=== PATIENT | female | born 1950 | race Caucasian/White ===

== ENCOUNTER → 2017-08-26 | Outpatient (CLI) | payer MEDICARE, OTHER, SELFPAY | PROVIDERS: Visit Provider Nurse Practitioner Family | DX: E11.9 Type 2 diabetes mellitus without complications (principal) | CPT/HCPCS: 36415; 80053; 80061; 82043; 82570; 83036 ==

== ENCOUNTER → 2018-04-26 12:44 | Outpatient (CLI) | payer MEDICARE, OTHER, SELFPAY ==
--- NOTE | 2018-04-26 12:48 | US_ITS ---
US transvaginal (Added corrected Report after additional history) Ordering Physician: Nikki Rowe MD Patient Age: 67 years: Female HISTORY: ITS.REASON: Pelvic US T/V- F/U on Endometrial Hyperplasia history of endometrial hyperplasia. Patient on hormone replacement TECHNIQUE: Transvaginal pelvic ultrasound. COMPARISON :. No previous pelvic ultrasound studies. CT of abdomen and pelvis 2003 of limited value for comparison. FINDINGS Uterus appears normal in size measuring 6.5 cm length x 3 cm AP x 4.3 cm wide At level of mid body of the uterus the hyperechoic endometrial stripe appears very thin., measuring 2-3 mm AP.. Subtle additional observation is Adjacent to the endometrial stripe we see accentuated sub endometrial halo in this patient. This is the area of slight relatively hypoechoic tissue just adjacent endometrium. This seems to be accentuated in this postmenopausal patient likely due to a exogenous hormone effect.. This feature More typically encountered in younge premenstrual r patients. .. . More superiorly & towards fundus of uterus, there is more more generous hyperechoic endometrial stripe measuring up to 6 mm AP.. With the endometrium in this area notably right and hyperechoic possibly could reflect minimal hemorrhage or other features here slightly more generous.. Again we see the subendometrial halo appearance noted above surrounding this hyperechoic endometrial stripe. Also Note its posterior margin is slightly scalloped slightly irregular on one or 2 images.. Curious Nonspecific observation but noted . No discrete fibroid at the uterus and the uterus is normal in size. Very slight, inhomogeneous appearance of myometrium anteriorly but no discrete fibroid or mass. Ovaries normal size and unremarkable Right ovary 2.3 x 1.3 x 1.5 cm Left ovary 1.5 x 1 x 1.35 cm. No fluid in cul-de-sac IMPRESSION: Uterus is normal in size.. No discrete fibroids evident Endometrium overall normal thickness at mid body of uterus, but noting slight more generous thickness hyperechoic endometrium at the more superior endometrial cavity towards fundus... Very hyperechoic endometrium noted here at fundus, with question of slight scalloped slight irregular margin here.. Ovaries appear normal in size and unremarkable.. No fluid in cul-de-sac.
== END ==
PROVIDERS: Family Provider Nurse Practitioner Family; PCP Internal Medicine Adolescent Medicine; Visit Provider Obstetrics & Gynecology
DX: N85.00 Endometrial hyperplasia, unspecified (principal)
CPT/HCPCS: 76830

== ENCOUNTER → 2020-05-01 13:49 | Outpatient (POV) | payer MEDICARE, OTHER, SELFPAY | PROVIDERS: Visit Provider Dermatology | DX: Z00.00 Encounter for general adult medical examination without abnormal findings (principal) ==

== ENCOUNTER → 2021-01-28 10:58 | Outpatient (CLI) | payer MEDICARE, OTHER, MEDICAID, SELFPAY ==
[2021-01-28 12:19] LABS: Alanine Aminotransferase 26 U/L (12-78); Albumin Level 4.1 g/dl (3.5-5.0); Albumin/Globulin Ratio 1.5 (1.1-1.8); Alkaline Phosphatase 79 U/L (38-126); Anion Gap 10.5 mEq/L (5-15); Aspartate Amino Transferase 24 U/L (14-36); Bilirubin,Total 0.5 mg/dl (0.2-1.3); Blood Urea Nitrogen 15 mg/dl (7-17); Calcium 9.5 mg/dl (8.4-10.2); Carbon Dioxide 34 mmol/L (22.0-30.0); Chloride 100 mmol/L (98-107); Chol/HDL Ratio 6.1 (1-3.5); Cholesterol 182 mg/dl (140-200); Estimated Glomerular Filt Rate 71 ml/min (>60); GFR (African American) 86 ML/MIN (>60); Globulin 2.8 g/dL (1.3-3.2); Glucose 102 mg/dl (74-100); HDL Cholesterol 30 mg/dl (40-60); Potassium 4.5 mmoL/L (3.5-5.1); Sodium 140 mmol/L (136-145); Total Protein,Serum 6.9 g/dl (6.3-8.2); Triglycerides 382 mg/dl (30-150); VLDL Cholesterol 76 mg/dL (0-40)
[2021-01-28 12:30] LABS: Direct LDL Cholesterol 92.28 mg/dL (100-129)
[2021-01-28 13:54] LABS: Creatinine,Urine Random 27 mg/dL (Not Estab.); Hemoglobin A1C 8.2 % (4.0-6.0)
[2021-01-28 13:58] LABS: Microalbumin/Creatinine Ratio 61.4
== END ==
PROVIDERS: Visit Provider Nurse Practitioner Family
DX: E11.65 Type 2 diabetes mellitus with hyperglycemia (principal); E78.2 Mixed hyperlipidemia; Z79.4 Long term (current) use of insulin
CPT/HCPCS: 36415; 80053; 80061; 82043; 82570; 83036

== ENCOUNTER → 2021-05-16 12:04 | Outpatient (CLI) | payer MEDICARE, OTHER, MEDICAID, SELFPAY ==
[2021-05-16 13:57] LABS: Alanine Aminotransferase 48 U/L (12-78); Albumin Level 3.9 g/dl (3.5-5.0); Albumin/Globulin Ratio 1.4 (1.1-1.8); Alkaline Phosphatase 84 U/L (38-126); Anion Gap 14.2 mEq/L (5-15); Aspartate Amino Transferase 37 U/L (14-36); Bilirubin,Total 0.4 mg/dl (0.2-1.3); Blood Urea Nitrogen 18 mg/dl (7-17); Calcium 9.7 mg/dl (8.4-10.2); Carbon Dioxide 32 mmol/L (22.0-30.0); Chloride 98 mmol/L (98-107); Chol/HDL Ratio 6.7 (1-3.5); Cholesterol 195 mg/dl (140-200); Estimated Glomerular Filt Rate 71 ml/min (>60); GFR (African American) 86 ML/MIN (>60); Globulin 2.7 g/dL (1.3-3.2); Glucose 228 mg/dl (74-100); HDL Cholesterol 29 mg/dl (40-60); Potassium 5.2 mmoL/L (3.5-5.1); Sodium 139 mmol/L (136-145); Total Protein,Serum 6.6 g/dl (6.3-8.2); Triglycerides 344 mg/dl (30-150); VLDL Cholesterol 69 mg/dL (0-40)
[2021-05-16 14:08] LABS: Direct LDL Cholesterol 99.87 mg/dL (100-129)
[2021-05-16 14:38] LABS: Hemoglobin A1C 8.1 % (4.0-6.0)
== END ==
PROVIDERS: Visit Provider Nurse Practitioner Family
DX: E11.65 Type 2 diabetes mellitus with hyperglycemia (principal); I10 Essential (primary) hypertension; E78.2 Mixed hyperlipidemia; Z79.4 Long term (current) use of insulin
CPT/HCPCS: 80053; 80061; 83036

== ENCOUNTER → 2022-01-23 10:49 | Outpatient (CLI) | payer MEDICARE, OTHER, MEDICAID, SELFPAY ==
[2022-01-23 14:28] LABS: Basophils # 0.1 K/mm3 (0-0.2); Basophils % 0.8 % (0.1-2.0); Eosinophils # 0.1 K/mm3 (0.0-0.4); Eosinophils % 1.6 % (0.1-12.0); Hematocrit 42.3 % (37.0-47.0); Hemoglobin 14.2 g/dL (12.2-16.2); Lymphocytes # 1.4 K/mm3 (0.7-4.5); Lymphocytes % 21.4 % (10-50); Mean Corpuscular HGB Conc 33.5 g/dL (31.8-35.4); Mean Corpuscular Hemoglobin 31.3 pg (27.0-31.2); Mean Corpuscular Volume 93.5 fl (81-99); Mean Platelet Volume 8.7 fl (7.4-10.4); Monocytes # 0.3 K/mm3 (0.1-1.0); Monocytes % 5.2 % (1.7-9.3); Neutrophils # 4.6 K/mm3 (1.8-7.8); Platelet Count 221 K/mm3 (142-424); Red Blood Count 4.53 M/mm3 (4.20-5.40); Red Cell Distribution Width 14.5 % (11.5-17.5); White Blood Count 6.5 K/mm3 (4.8-10.8)
[2022-01-23 14:49] LABS: Chloride 102 mmol/L (98-107); Potassium 4.5 mmoL/L (3.5-5.1); Sodium 139 mmol/L (136-145)
[2022-01-23 14:52] LABS: Alanine Aminotransferase 47 U/L (12-78); Albumin Level 3.9 g/dl (3.5-5.0); Albumin/Globulin Ratio 1.7 (1.1-1.8); Alkaline Phosphatase 76 U/L (38-126); Anion Gap 12.5 mEq/L (5-15); Aspartate Amino Transferase 28 U/L (14-36); Bilirubin,Total 0.6 mg/dl (0.2-1.3); Blood Urea Nitrogen 15 mg/dl (7-17); Calcium 9.9 mg/dl (8.4-10.2); Carbon Dioxide 29 mmol/L (22.0-30.0); Estimated Glomerular Filt Rate 71 ml/min (>60); GFR (African American) 86 ML/MIN (>60); Globulin 2.3 g/dL (1.3-3.2); Glucose 210 mg/dl (74-100); Total Protein,Serum 6.2 g/dl (6.3-8.2)
[2022-01-24 10:03] LABS: HIV Screen 4th Generation wRfx Non Reactive (Non Reactive)
[2022-01-25 18:12] LABS: QuantiFERON-TB Gold Plus Negative (Negative)
[2022-02-01 19:08] LABS: Hep A Ab, IgM NEGATIVE
[2022-02-01 19:09] LABS: Hepatitis B Core Antibody IgM NEGATIVE; Hepatitis B Surface Antigen NEGATIVE; Hepatitis C Antibody <0.1
== END ==
PROVIDERS: Visit Provider Dermatology
DX: L40.0 Psoriasis vulgaris (principal); Z79.899 Other long term (current) drug therapy; Z11.4 Encounter for screening for human immunodeficiency virus [HIV]
CPT/HCPCS: 36415; 80053; 80074; 85025; 86480; 86703; G0432

== ENCOUNTER → 2022-05-16 08:22 | Outpatient (CLI) | payer MEDICARE, OTHER, MEDICAID, SELFPAY | PROVIDERS: PCP Family Medicine; Visit Provider Family Medicine | DX: R30.0 Dysuria (principal); B96.1 Klebsiella pneumoniae [K. pneumoniae] as the cause of diseases classified elsewhere | CPT/HCPCS: 87086; 87088; 87186 ==

== ENCOUNTER → 2022-06-24 13:04 | Outpatient (CLI) | payer MEDICARE, OTHER, MEDICAID, SELFPAY ==
[2022-06-24 20:25] LABS: Basophils # 0.1 K/mm3 (0-0.2); Basophils % 1.1 % (0.1-2.0); Eosinophils # 0.6 K/mm3 (0.0-0.4); Eosinophils % 8.6 % (0.1-12.0); Hemoglobin 14.4 g/dL (12.2-16.2); Lymphocytes # 1.7 K/mm3 (0.7-4.5); Lymphocytes % 25.3 % (10-50); Mean Corpuscular HGB Conc 31.9 g/dL (31.8-35.4); Mean Corpuscular Hemoglobin 29.7 pg (27.0-31.2); Mean Corpuscular Volume 93.2 fl (81-99); Mean Platelet Volume 8.7 fl (7.4-10.4); Monocytes # 0.3 K/mm3 (0.1-1.0); Monocytes % 4.6 % (1.7-9.3); Neutrophils # 4.1 K/mm3 (1.8-7.8); Neutrophils % 60.4 % (37.0-80.0); Platelet Count 240 K/mm3 (142-424); Red Blood Count 4.83 M/mm3 (4.20-5.40); Red Cell Distribution Width 15.6 % (11.5-17.5); White Blood Count 6.7 K/mm3 (4.8-10.8)
[2022-06-24 21:06] LABS: Alanine Aminotransferase 34 U/L (12-78); Albumin/Globulin Ratio 1.5 (1.1-1.8); Alkaline Phosphatase 92 U/L (38-126); Anion Gap 16.6 mEq/L (5-15); Aspartate Amino Transferase 29 U/L (14-36); Bilirubin,Total 0.3 mg/dl (0.2-1.3); Blood Urea Nitrogen 17 mg/dl (7-17); Calcium 9.6 mg/dl (8.4-10.2); Carbon Dioxide 30 mmol/L (22.0-30.0); Chloride 99 mmol/L (98-107); Chol/HDL Ratio 5.3 (1-3.5); Cholesterol 174 mg/dl (140-200); Estimated Glomerular Filt Rate 71 ml/min (>60); GFR (African American) 85 ML/MIN (>60); Globulin 2.7 g/dL (1.3-3.2); Glucose 128 mg/dl (74-100); HDL Cholesterol 33 mg/dl (40-60); Potassium 4.6 mmoL/L (3.5-5.1); Sodium 141 mmol/L (136-145); Total Protein,Serum 6.7 g/dl (6.3-8.2); Triglycerides 228 mg/dl (30-150); VLDL Cholesterol 46 mg/dL (0-40)
[2022-06-24 21:10] LABS: Hemoglobin A1C 6.9 % (4.0-6.0)
[2022-06-24 21:18] LABS: Direct LDL Cholesterol 96.59 mg/dL (100-129)
[2022-06-24 21:27] LABS: Microalbumin/Creatinine Ratio 130.1
[2022-06-24 21:29] LABS: Creatinine,Urine Random 92 mg/dL (Not Estab.)
[2022-06-24 21:36] LABS: Thyroid Stimulating Hormone 1.83 uIU/mL (0.465-4.68)
== END ==
PROVIDERS: PCP Family Medicine; Visit Provider Family Medicine
DX: E11.9 Type 2 diabetes mellitus without complications (principal); E78.5 Hyperlipidemia, unspecified; I10 Essential (primary) hypertension; Z79.4 Long term (current) use of insulin
CPT/HCPCS: 80053; 80061; 82043; 82570; 83036; 84443; 85025

== ENCOUNTER → 2022-06-27 09:36 | Outpatient (CLI) | payer MEDICARE, MEDICAID, SELFPAY | PROVIDERS: PCP Family Medicine; Visit Provider Family Medicine | DX: R06.00 Dyspnea, unspecified (principal) | CPT/HCPCS: 94060 ==

== ENCOUNTER → 2022-07-03 11:19 | Outpatient (CLI) | payer MEDICARE, MEDICAID, SELFPAY ==
--- NOTE | 2022-07-03 | CA_ITS ---
APPROVED REPORT Exam: Pharmacologic Technologist: Radha Morton, Ht: 4 ft 11 in Wt: 181 lbs BSA: 1.77 m2 HR: 75 bpm BP: 190/65 mmHg Rhythm: NSR, ST ABNS INFERIORLY AND LATERALLY Indications: SOA Medical History Medical History: HTN, , Hyperlipidemia, Diabetes Medications: Amlodipine,,,,, Lisinopril,,,,, Omeprazole,,,,, Aspirin,,,,, Metformin,,,,, Atorvastatin,,,,, HCTZ,,,,, Diclofenac,,,,, ProAir,,,,, BisOPROLOL,,,,, LanTUS,,,,, BiOTIN,,,,, Allergies: AMOXICILLIN, CLAVULANIC ACID Cardiac Risk Factors: HTN, Hyperlipidemia, Diabetes Stress Test Details Test: LEXISCAN HR Resting HR: 75 bpm Max Heart Rate (APMHR): 148.798747 bpm Max HR Achieved: 111 bpm Target HR (85% APMHR): 125.234271 bpm % of APMHR: 75.00 Recovery HR: 92 bpm BP Resting BP: 190/65 mmHg Max BP: 191/69 mmHg Recovery BP: 167.0/68.0 mmHg ECG Resting ECG: NSR, ST ABNS INFERIORLY AND LATERALLY Clinical Exercise duration: 04:00 min Highest Stage Achieved: Stress ECG Conclusion PT HAD STOMACH DISCOMFORT NO CP OCC PVC EXAGGERATION OF BASELINE ST ABNS WITH APPRX 1MM OF HORIZONTAL ST DEPRESSION INFERIORLY AND LATERALLY NON-DIAGNOSTIC LEXISCAN STRESS MYOVIEW IMAGES REPORTED SEPARATELY Test Summary REST 07:44 . . 75 . 190/ 65 . . Stage 1 01:00 . . 108 . . . . Stage 2 01:00 . . 107 . . . . Stage 3 01:00 . . 106 . 178/ 73 . . Stage 4 01:00 . . 99 . 191/ 69 . Stop exercise at 04:00 RECOVERY 01:00 . . 99 . . . . RECOVERY 02:00 . . 97 . 165/ 80 . . RECOVERY 03:00 . . 95 . 165/ 80 . . RECOVERY 04:00 . . 94 . 150/ 66 . . RECOVERY 05:00 . . 95 . 150/ 66 . . RECOVERY 06:00 . . 97 . 167/ 68 . . RECOVERY 07:00 . . 91 . . . RECOVERY 07:24 . . 91 . . . Electronically signed by : Jez Pacheco MD 07/04/2022 12:14:41
--- NOTE | 2022-07-03 11:20 | NM_ITS ---
APPROVED REPORT Exam: Nuclear Stress Test Indication: SOB, Palpitations, Obesity, HTN, DM, High cholesterol Patient Location: Outpatient Stress Tech: Radha Haley ME Tech:Trish Ulloa, ARRT, RT (R)(N) Ht: 5 ft 1 in Wt: 180 lbs Bra Size: DD HR: 75 bpm BP: 190/65 mmHg BSA: 1.81 m2 TID: 1.16 BMI: 34.0 History: SOB, Palpitations, Obesity, HTN, DM, High cholesterol Procedure: Patient received a 0.4 mg of intravenous Lexiscan, resting heart rate 75 bpm, resting blood pressure 190/65 mmHg, with Lexiscan maximum heart rate achived was 111 bpm which is Less than 85 % of the maximum predicted heart rate and blood pressure was 191/69 mmHg. With Lexiscan, patient denied any complaint of chest pain. Electrocardiogram Resting electrocardiogram shows sinus rhythm nonspecific ST-T changes, with Lexiscan there is additional millimeter ST segment depression noted from the baseline EKG. The EKG portion of the Lexiscan is nondiagnostic Cardiac Stress and Resting SPECT Images: Cardiac Stress and Resting SPECT images were obtained using technetium 99m Myoview 32.4 mCi stress and 10.84 mCi at rest. Gated SPECT for analysis of segmental wall motion and calculation of the ejection fraction also done. Cardiac stress and rest SPECT images show reversible ischemia involving the anterior, apex and anteroseptal wall, computer derived ejection fraction is 57% with no regional wall motion abnormality, right ventricle is normal size and contractility. Conclusion: 1. The EKG portion of the Lexiscan is nondiagnostic. 2. Scintigraphic evidence of reversible ischemia involving the anterior, apex and anteroseptal wall, computer derived ejection fraction 57% with no regional wall motion abnormality, right ventricle is normal size and contractility. 3. Abnormal Lexiscan Myoview study. Electronically signed by : Jez Pacheco MD 07/04/2022 12:18:19
--- NOTE | 2022-07-03 11:28 | CA_ITS ---
APPROVED REPORT EXAM: Comprehensive 2D, Doppler, and color-flow Echocardiogram Clinical Social Worker: Lilian Hernandez RVT Ht: 4 ft 11 in Wt: 181lbs BSA: 1.77 BP: 162/92 mmHg Indications: ROSA,HTN,HLD,DM,EX SMOKER 2D Dimensions LVOT 3.20 cm (M/F) 1.5-2.5 LA Volume 22.10 mL LA Volume Index 12.55 mL/m2 (M/F) 16-34 M-Mode Dimensions RVDd 2.60 cm (0.9-2.6) LA Diam 3.26 cm (1.9-4.0) LVDd 3.92 cm (3.5-5.7) Ao Diam 3.41 cm (2.0-3.7) LVDs 2.51 cm (3.5-5.7) IVSd 1.66 cm (0.6-1.1) PWd 1.36 cm (0.6-1.1) EF (Teich) 66.30% FS 36.00% EDV (Teich) 66.70 mL ESV (Teich) 22.50 mL LV Diastology E Decel Time 143.00 (160-240 msec) E/A Ratio 0.5 MED E' 2.50 (< 7 cm/sec) E'/MED E' Ratio 20.56 (>14) LAT E' 3.70 (<10 cm/sec) E/LAT E' Ratio 13.89 (>14) Aortic Valve AI PHT 697.00 ms AO Peak GR. 5.70 mmHg Mitral Valve MV E Max Ric. 51.00 (40-130 cm/s) MV A Velocity 111.00 (40-130 cm/s) E/A Ratio 0.46 MV Decel. Time 143.00 (160-240 ms) MV PHT 42.00 ms Pulmonary Valve PV Peak Velocity 77.00 (50-150 cm/s) Left Ventricle Left atrium is mildly enlarged, left ventricle is normal size, mild concentric left ventricular hypertrophy, estimated ejection fraction 55% with no regional wall motion abnormality, grade 1 diastolic dysfunction seen with tissue Doppler evidence of raise left atrial pressure. Right Ventricle Right atrium and right ventricle are normal size and contractility. Aortic Valve Aortic valve is minimally thickened and fibrosed there is no aortic stenosis, there is mild aortic insufficiency. Mitral Valve Mitral valve is grossly normal, there is mild mitral regurgitation. Tricuspid Valve Tricuspid valve is grossly normal, there is mild tricuspid regurgitation, tricuspid regurgitation jet velocity is inadequate for calculation of the right ventricular systolic pressure. Pulmonic Valve Pulmonic valve is poorly visualized. Great Vessels Aortic root is normal size. Inferior vena cava is normal size with normal inspiratory collapse. Pericardium No significant pericardial effusion noted. Conclusion 1. Normal left ventricular size mild concentric left ventricular hypertrophy, estimated ejection fraction 55% with no regional wall motion abnormality, grade 1 diastolic dysfunction seen with tissue Doppler evidence of raise left atrial pressure. 2. Mild aortic, mitral and tricuspid regurgitation. 3. No significant pericardial effusion noted. 4. Inferior vena cava is normal size with normal inspiratory collapse. Electronically signed by : Jez Pacheco MD 07/04/2022 14:44:45
--- NOTE | 2022-07-03 14:34 | HMH.ITSHM ---
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 []SECUKINUMAB OMEPRAZOLE MULTIVITAMIN MEDROXYPROGESTERONE LISINOPRIL INSULIN HCTZ DICLOFENAC CLOBETASOL CALCIUM BISOPROLOL BIOTIN ATORVASTATIN ASA AMLODIPINE ALBUTEROL
== END ==
PROVIDERS: PCP Family Medicine; Visit Provider Family Medicine
DX: M19.90 Unspecified osteoarthritis, unspecified site (principal); R06.00 Dyspnea, unspecified
CPT/HCPCS: 78452; 93017; 93306; A9502; J2785

== ENCOUNTER → 2022-07-30 13:50 | Outpatient (CLI) | payer MEDICARE, MEDICAID, SELFPAY ==
[2022-07-30 14:26] LABS: Basophils # 0.1 K/mm3 (0-0.2); Basophils % 0.7 % (0.1-2.0); Eosinophils # 0.1 K/mm3 (0.0-0.4); Eosinophils % 1.6 % (0.1-12.0); Hematocrit 43.6 % (37.0-47.0); Lymphocytes # 1.7 K/mm3 (0.7-4.5); Lymphocytes % 21.8 % (10-50); Mean Corpuscular HGB Conc 32.1 g/dL (31.8-35.4); Mean Corpuscular Hemoglobin 30.2 pg (27.0-31.2); Mean Corpuscular Volume 94.1 fl (81-99); Mean Platelet Volume 8.1 fl (7.4-10.4); Monocytes # 0.3 K/mm3 (0.1-1.0); Monocytes % 4.1 % (1.7-9.3); Neutrophils # 5.6 K/mm3 (1.8-7.8); Neutrophils % 71.8 % (37.0-80.0); Platelet Count 239 K/mm3 (142-424); Red Blood Count 4.63 M/mm3 (4.20-5.40); Red Cell Distribution Width 15.6 % (11.5-17.5); White Blood Count 7.8 K/mm3 (4.8-10.8)
[2022-07-30 14:54] LABS: Anion Gap 19.4 mEq/L (5-15); Blood Urea Nitrogen 27 mg/dl (7-17); Calcium 10.7 mg/dl (8.4-10.2); Carbon Dioxide 32 mmol/L (22.0-30.0); Chloride 92 mmol/L (98-107); Estimated Glomerular Filt Rate 62 ml/min (>60); GFR (African American) 74 ML/MIN (>60); Glucose 257 mg/dl (74-100); Potassium 4.4 mmoL/L (3.5-5.1); Sodium 139 mmol/L (136-145)
== END ==
PROVIDERS: PCP Family Medicine; Visit Provider Nurse Practitioner
DX: I10 Essential (primary) hypertension (principal)
CPT/HCPCS: 36415; 80048; 85025

== ENCOUNTER → 2022-08-07 07:21 | Outpatient (CLI) | payer MEDICARE, MEDICAID, SELFPAY ==
--- NOTE | 2022-08-07 07:22 | CA_ITS ---
FINAL REPORT TECHNIQUE: Grayscale, color Doppler and duplex Doppler ultrasound of the kidneys, aorta and renal arteries was performed. Multiple velocities were measured. CLINICAL HISTORY: htn,hld,dm,hx smoking FINDINGS: Aorta velocity: 107.6 cm/sec Right kidney: 10.4 cm. No evidence of hydronephrosis or mass. Right intrarenal RI: 0.61 Right renal artery velocity: 140 cm/sec. Right RAR (Renal artery-Aortic Ratio): 1.3 Left Kidney: 10.8 cm. No evidence of hydronephrosis or mass. Left intrarenal RI: 0.82 Left renal artery velocity: 160 cm/sec. Left RAR (Renal Artery-Aortic Ratio): 1.5 IMPRESSION: No evidence of significant renal artery stenosis. CT angiogram or postcontrast MR angiogram would be more sensitive for evaluation of possible renal artery stenosis. Reviewed, Interpreted and Dictated by Hayder Reynoso MD Transcribed by Christi Wooten Authenticated and [facility]
== END ==
PROVIDERS: PCP Family Medicine; Visit Provider Nurse Practitioner
DX: I10 Essential (primary) hypertension (principal)
CPT/HCPCS: 93976

== ENCOUNTER 2022-08-11 08:49 | Day surgery (SDC) | payer MEDICARE, MEDICAID, SELFPAY ==
[2022-08-11] VITALS (16 sets, daily range): BP systolic 152–193; BP diastolic 79–100; PULSE 75–92; RESP 18; O2SAT 90–98; BMI 34.0
--- NOTE | 2022-08-11 07:11 | IR_ITS ---
APPROVED REPORT Patient Location: Outpatient PROCEDURES Selective coronary angiogram Drug-eluting stent deployment to the mid codominant circumflex artery Drug-eluting stent deployment to the proximal LAD Drug-eluting stent deployment to the proximal mid codominant right coronary INDICATION High risk abnormal Myoview, Coronary artery disease, Angina pectoris class III-IV Informed consent was obtained prior to the procedure. COMPLICATIONS NONE Estimated Blood Loss: LESS THAN 10 ML TECHNIQUE One percent lidocaine used to anesthetize the right anterior aspect of the wrist. The right radial artery was accessed via the Seldinger technique. A 6 Khmer sheath was placed in the right radial artery. 2.5 mg of verapamil, 800 mcg of nitroglycerin, 1mg Lidocaine and 5000 U Heparin were given through the arterial sheath. The papa catheter was also used to perform selective coronary angiogram. At the end the diagnostic angiogram therapeutic heparin was administered giving a therapeutic ACT and the guide catheter was left in the left main artery followed by a Choice PT extra-support wire being placed on the circumflex artery. A 4 mm x 12 mm resolute [place] stent was deployed at 16 pasha reducing the critical greater than 90% stenosis to 0%. RODOLFO-3 flow was present before and after the procedure. Following this the wire was placed on the LAD and a 3.5 mm x 18 mm resolute [place] stent was deployed at 20 pasha. An additional 4 mm x 8 mm balloon was deployed at 20 and then 24 pasha to post dilate the mid to distal portion of the stent. RODOLFO-3 flow was present before and after the procedure. Following this the guide catheter was taken of the left main artery and placed in the right coronary artery followed by a Choice PT extra-support wire being placed distally. A 3.5 x 38 mm resolute [place] stent was deployed at 20 pasha in the proximal to mid right coronary reducing the severe stenosis to 0%. RODOLFO-3 flow was present before and after the procedure. At the end of the procedure the sheath was removed with good hemostasis being achieved with TR banding. Patient was transferred to the postop holding area in stable condition ANGIOGRAPHIC RESULTS The left main artery Normal The left anterior descending artery Has a proximal eccentric 10% stenosis followed by a long 70% stenosis followed by tandem 50% stenoses throughout the mid LAD. The circumflex artery Large and codominant with a highly eccentric greater than 90% mid vessel stenosis The right coronary artery Is a large codominant vessel and has a long mid vessel 70% stenosis The JJ ventriculogram reveals Not performed The left ventricular end-diastolic pressure Not measured IMPRESSION Severe three-vessel coronary artery disease as described above Excellent percutaneous revascularization of all 3 vessels as described above Successful stenting of the proximal LAD reducing the severe stenosis to less than 10% with 1 drug-eluting stent Successful stenting of a mid vessel codominant circumflex artery reducing the critical stenosis to 0% with 1 drug-eluting stent Successful stenting of a proximal to mid codominant right coronary artery reducing the severe stenosis to 0% with 1 drug-eluting stent PLAN 1. Dual antiplatelet therapy 2. LDL less than 55 to be achieved with high intensity statin 3. MAURICIO inhibitor's beta-blockers with aggressive management of diabetes 4. Cardiac rehabilitation 5. Avoidance of tobacco product 6. Aggressive risk factor modification Electronically signed by : Jay Kaur MD 08/11/2022 13:02:27
[2022-08-11 11:09] LABS: CATHL Activated Clotting Time 255 SEC (74-125)
--- NOTE | 2022-08-11 14:38 | P.CONPHA_ITS ---
PHA Switch Technician Discharge Med Rail Transportation Tabeler: Elyssa Toro has received discharge medication counseling on the following medications: * BRILINTA (BLOOD THINNER, TWICE DAILY, WITH OR WITHOUT FOOD, BLEED/BRUISE RISK, BLEED LOCATION CHANGES APPEARANCE, BUMP HEAD = GO TO ER TO RULE OUT HEAD BLEED, SHORTNESS OF BREATH POSSIBLE) * ASPIRIN (PREVIOUSLY ON, NO QUESTIONS) * ATORVASTATIN (PREVIOUSLY ON, NO QUESTIONS) * BISOPROLOL (PREVIOUSLY ON, NO QUESTIONS) * VALSARTAN (PATIENT STATES THEY SWITCHED FROM LISINOPRIL RECENTLY) PATIENT VERBALIZED NO QUESTIONS AT THIS TIME.
--- NOTE | 2022-08-11 14:38 | HMH.PHACL ---
PHA Life Skills Worker Discharge Med Pulp Roller: Elyssa Toro has received discharge medication counseling on the following medications: BRILINTA (BLOOD THINNER, TWICE DAILY, WITH OR WITHOUT FOOD, BLEED/BRUISE RISK, BLEED LOCATION CHANGES APPEARANCE, BUMP HEAD = GO TO ER TO RULE OUT HEAD BLEED, SHORTNESS OF BREATH POSSIBLE) ASPIRIN (PREVIOUSLY ON, NO QUESTIONS) ATORVASTATIN (PREVIOUSLY ON, NO QUESTIONS) BISOPROLOL (PREVIOUSLY ON, NO QUESTIONS) VALSARTAN (PATIENT STATES THEY SWITCHED FROM LISINOPRIL RECENTLY) PATIENT VERBALIZED NO QUESTIONS AT THIS TIME.
== END 2022-08-11 14:57 | disposition home or self-care (01) ==
PROVIDERS: PCP Family Medicine; Visit Provider Internal Medicine
DX: R06.00 Dyspnea, unspecified (principal); R94.39 Abnormal result of other cardiovascular function study; R94.31 Abnormal electrocardiogram [ECG] [EKG]; E11.9 Type 2 diabetes mellitus without complications; Z79.4 Long term (current) use of insulin; I10 Essential (primary) hypertension; I25.118 Atherosclerotic heart disease of native coronary artery with other forms of angina pectoris; Z79.899 Other long term (current) drug therapy
CPT/HCPCS: 85347; 92928; 99152; 99153; C1725; C1769; C1876; C9600; J1644; Q9967

== ENCOUNTER → 2022-08-18 15:06 | Outpatient (CLI) | payer MEDICARE, MEDICAID, SELFPAY ==
--- NOTE | 2022-08-18 15:06 | US_ITS ---
FINAL REPORT TECHNIQUE: Ultrasound images of the kidneys were obtained. CLINICAL HISTORY: .hx of htn FINDINGS: US RETROPERITONEAL The right kidney measures 10.2 cm in length. It is normal in echogenicity. There is no hydronephrosis. The left kidney measures 10.5 cm in length. It is normal in echogenicity. There is no hydronephrosis. The liver has increased echogenicity consistent with fatty infiltration. The spleen measures 10.1 cm in length and is unremarkable. IMPRESSION: Fatty liver, otherwise unremarkable exam. Reviewed, Interpreted and Dictated by Weston Vang III, MD Transcribed by Christi Wooten Authenticated and . [facility]
[2022-08-18 17:38] LABS: Basophils # 0.1 K/mm3 (0-0.2); Basophils % 0.6 % (0.1-2.0); Eosinophils # 0.2 K/mm3 (0.0-0.4); Eosinophils % 1.5 % (0.1-12.0); Hematocrit 43.2 % (37.0-47.0); Lymphocytes # 1.7 K/mm3 (0.7-4.5); Lymphocytes % 17.8 % (10-50); Mean Corpuscular HGB Conc 32.4 g/dL (31.8-35.4); Mean Corpuscular Hemoglobin 30.1 pg (27.0-31.2); Mean Corpuscular Volume 92.8 fl (81-99); Mean Platelet Volume 8.5 fl (7.4-10.4); Monocytes # 0.4 K/mm3 (0.1-1.0); Monocytes % 4.6 % (1.7-9.3); Neutrophils # 7.1 K/mm3 (1.8-7.8); Neutrophils % 75.4 % (37.0-80.0); Platelet Count 211 K/mm3 (142-424); Red Blood Count 4.65 M/mm3 (4.20-5.40); Red Cell Distribution Width 15.2 % (11.5-17.5); White Blood Count 9.4 K/mm3 (4.8-10.8)
[2022-08-18 18:34] LABS: Blood Urea Nitrogen 20 mg/dl (7-17); Calcium 10.3 mg/dl (8.4-10.2); Carbon Dioxide 29 mmol/L (22.0-30.0); Chloride 100 mmol/L (98-107); Estimated Glomerular Filt Rate 49 ml/min (>60); GFR (African American) 59 ML/MIN (>60); Glucose 122 mg/dl (74-100); Sodium 139 mmol/L (136-145)
== END ==
PROVIDERS: Internal Medicine; PCP Family Medicine; Visit Provider Nurse Practitioner
DX: I10 Essential (primary) hypertension (principal); Z95.5 Presence of coronary angioplasty implant and graft
CPT/HCPCS: 36415; 76770; 80048; 85025

== ENCOUNTER 2022-09-05 09:44 | Outpatient (RCR) | payer MEDICARE, MEDICAID, SELFPAY | END 2022-10-17 11:00 | disposition home or self-care (01) | LOC: PT 09:44 | PROVIDERS: Visit Provider Internal Medicine | DX: I25.10 Atherosclerotic heart disease of native coronary artery without angina pectoris (principal); Z95.5 Presence of coronary angioplasty implant and graft | CPT/HCPCS: 93798 ==

== ENCOUNTER → 2022-09-09 14:40 | Outpatient (CLI) | payer MEDICARE, MEDICAID, SELFPAY | PROVIDERS: PCP Family Medicine; Visit Provider Family Medicine | DX: R30.0 Dysuria (principal); B96.29 Other Escherichia coli [E. coli] as the cause of diseases classified elsewhere | CPT/HCPCS: 87086; 87088; 87186 ==

== ENCOUNTER → 2022-10-06 13:23 | Outpatient (CLI) | payer MEDICARE, MEDICAID, SELFPAY ==
--- NOTE | 2022-10-06 13:24 | US_ITS ---
FINAL REPORT CLINICAL HISTORY: endometrial hyperplasia FINDINGS: Transvaginal sonographic images of the pelvis were obtained. The uterus measures 5.2 x 3.6 x 2.9 cm. The endometrium measures 5 mm, which is slightly thickened. There is a partially calcified fibroid measuring 6 x 7 mm. The right ovary measures 1.7 cm in length and left ovary measures 1.6 cm in length. Normal blood flow seen to the ovaries. Small follicles are present. There is no evidence of free fluid. IMPRESSION: Mildly thickened endometrium, nonspecific. Small calcified fibroid. Reviewed, Interpreted and Dictated by Weston Vang III, MD Transcribed by Christi Wooten Authenticated and [facility]
== END ==
PROVIDERS: PCP Family Medicine; Visit Provider Obstetrics & Gynecology
DX: N85.01 Benign endometrial hyperplasia (principal)
CPT/HCPCS: 76830

== ENCOUNTER → 2022-10-15 12:19 | Outpatient (CLI) | payer MEDICARE, MEDICAID, SELFPAY ==
--- NOTE | 2022-10-15 12:23 | XR_ITS ---
FINAL REPORT TECHNIQUE: Chest PA & Lateral CLINICAL HISTORY: chest pain COMPARISON: none FINDINGS: 2 views of the chest were performed. The heart size is normal. The mediastinum is within normal limits. There is minimal scarring at the right lung base. There is no acute cardiopulmonary process. There are no pleural effusions. There is no pneumothorax. The bony thorax appears intact. IMPRESSION: No acute cardiopulmonary process. Reviewed, Interpreted and Dictated by Hayder Reynoso MD Transcribed by Maggy Calzada Authenticated and . [facility]
== END ==
PROVIDERS: PCP Family Medicine; Visit Provider Internal Medicine
DX: R06.00 Dyspnea, unspecified (principal)
CPT/HCPCS: 71046

== ENCOUNTER → 2022-12-02 10:33 | Outpatient (CLI) | payer MEDICARE, MEDICAID, SELFPAY ==
[2022-11-13 17:03] LABS: Anion Gap 10.8 mEq/L (5-15); Blood Urea Nitrogen 17 mg/dl (7-17); Calcium 9.5 mg/dl (8.4-10.2); Carbon Dioxide 35 mmol/L (22.0-30.0); Chloride 97 mmol/L (98-107); Estimated Glomerular Filt Rate 62 ml/min (>60); GFR (African American) 74 ML/MIN (>60); Glucose 158 mg/dl (74-100); Potassium 4.8 mmoL/L (3.5-5.1); Sodium 138 mmol/L (136-145)
[2022-11-13 17:16] LABS: Microalbumin/Creatinine Ratio 112.4
[2022-11-13 17:22] LABS: Creatinine,Urine Random 102 mg/dL (Not Estab.)
[2022-11-13 17:28] LABS: Hemoglobin A1C 7.5 % (4.0-6.0)
== END ==
PROVIDERS: PCP Family Medicine; Visit Provider Family Medicine
DX: E11.9 Type 2 diabetes mellitus without complications (principal); I10 Essential (primary) hypertension; Z79.4 Long term (current) use of insulin
CPT/HCPCS: 80048; 82043; 82570; 83036

== ENCOUNTER → 2022-12-04 14:32 | Outpatient (CLI) | payer MEDICARE, MEDICAID, SELFPAY ==
[2022-12-04 15:37] LABS: Basophils # 0.1 K/mm3 (0-0.2); Eosinophils # 0.2 K/mm3 (0.0-0.4); Eosinophils % 3.5 % (0.1-12.0); Hematocrit 45.1 % (37.0-47.0); Hemoglobin 14.1 g/dL (12.2-16.2); Lymphocytes # 1.6 K/mm3 (0.7-4.5); Lymphocytes % 23.7 % (10-50); Mean Corpuscular HGB Conc 31.3 g/dL (31.8-35.4); Mean Corpuscular Hemoglobin 29.8 pg (27.0-31.2); Mean Corpuscular Volume 95.2 fl (81-99); Mean Platelet Volume 7.6 fl (7.4-10.4); Monocytes # 0.3 K/mm3 (0.1-1.0); Monocytes % 4.1 % (1.7-9.3); Neutrophils # 4.7 K/mm3 (1.8-7.8); Neutrophils % 67.7 % (37.0-80.0); Platelet Count 209 K/mm3 (142-424); Red Blood Count 4.74 M/mm3 (4.20-5.40); Red Cell Distribution Width 15.1 % (11.5-17.5); White Blood Count 6.9 K/mm3 (4.8-10.8)
[2022-12-08 22:29] LABS: D001-IgE D pteronyssinus <0.10 kU/L (Class 0); D002-IgE D farinae <0.10 kU/L (Class 0); E001-IgE Cat Dander <0.10 kU/L (Class 0); E005-IgE Dog Dander <0.10 kU/L (Class 0); E072-IgE Mouse Urine <0.10 kU/L (Class 0); G002-IgE Bermuda Grass <0.10 kU/L (Class 0); G006-IgE Timothy Grass <0.10 kU/L (Class 0); I006-IgE Cockroach, German <0.10 kU/L (Class 0); Immunoglobulin E, Total 20 IU/mL (6-495); M001-IgE Penicillium chrysogen <0.10 kU/L (Class 0); M002-IgE Cladosporium herbarum <0.10 kU/L (Class 0); M003-IgE Aspergillus fumigatus <0.10 kU/L (Class 0); M006-IgE Alternaria alternata <0.10 kU/L (Class 0); T001-IgE Maple/Box Elder <0.10 kU/L (Class 0); T003-IgE Common Silver Birch <0.10 kU/L (Class 0); T006-IgE Cedar, Mountain <0.10 kU/L (Class 0); T007-IgE Oak, White <0.10 kU/L (Class 0); T008-IgE Elm, American <0.10 kU/L (Class 0); T010-IgE Walnut <0.10 kU/L (Class 0); T011-IgE Maple Leaf Sycamore <0.10 kU/L (Class 0); T014-IgE Cottonwood <0.10 kU/L (Class 0); T015-IgE Ash, White <0.10 kU/L (Class 0); T022-IgE Pecan, Hickory <0.10 kU/L (Class 0); T070-IgE White Mulberry <0.10 kU/L (Class 0); W001-IgE Ragweed, Short <0.10 kU/L (Class 0); W011-IgE Thistle, Russian <0.10 kU/L (Class 0); W014-IgE Pigweed, Common <0.10 kU/L (Class 0); W018-IgE Sheep Sorrel <0.10 kU/L (Class 0)
== END ==
PROVIDERS: PCP Family Medicine; Visit Provider Internal Medicine Pulmonary Disease
DX: J45.909 Unspecified asthma, uncomplicated (principal)
CPT/HCPCS: 36415; 82785; 85025; 86003

== ENCOUNTER → 2023-01-29 07:38 | Outpatient (CLI) | payer MEDICARE, MEDICAID, SELFPAY ==
--- NOTE | 2023-01-29 08:31 | PC.NURSE ---
Pt came to PFT/6 Minute Walk Test appointment BP 200/102, RR 22, HR 67 Pt states she did not take her Blood Pressure medicine this AM due to having PFT scheduled and does not have her medicine with her. Pt used the restroom and sat in chair relaxing for approximately 5 minutes, repeat BP 198/102. Spoke to Dr. Ward he suggested Pt be taken to ER due to elevated BP, Pt agrees. Pt taken to ER registration by wheel chair.
== END ==
PROVIDERS: PCP Family Medicine; Referring Provider Dermatology; Visit Provider Internal Medicine Pulmonary Disease
DX: R06.09 Other forms of dyspnea (principal)

== ENCOUNTER 2023-01-29 08:06 | Emergency (ER) | payer MEDICARE, MEDICAID, SELFPAY ==
[2023-01-29] VITALS (8 sets, daily range): BP systolic 166–201; BP diastolic 69–91; PULSE 60–69; RESP 16–20; TEMP 36.6–36.7; O2SAT 94–98; BMI 32.1
--- NOTE | 2023-01-29 09:02 | HMH.EDGENADL ---
Discharge Plan Disposition Patient Disposition: Home, Self-Care Condition: Good Prescriptions Prescriptions: No Action omeprazole 20 mg capsule,delayed release(DR/EC) 20 mg PO DAILY atorvastatin 80 mg tablet 80 mg PO DAILY albuterol sulfate [ProAir HFA] 90 mcg/actuation HFA aerosol inhaler 2 puff INHALATION QID multivitamin Tablet 1 tab PO DAILY calcium carbonate-vitamin D3 600 mg-5 mcg (200 unit) tablet 1 tab PO DAILY biotin 5,000 mcg tablet,disintegrating 10,000 mcg PO DAILY metformin 500 mg tablet extended release 24 hr 500 mg PO BID clopidogrel [Plavix] 75 mg tablet 75 mg PO DAILY Qty: 90 3RF valsartan 320 mg tablet 320 mg PO DAILY Qty: 90 3RF bisoprolol fumarate 10 mg tablet 20 mg PO DAILY Qty: 60 5RF hydrochlorothiazide 50 mg tablet 50 mg PO DAILY Qty: 30 5RF medroxyprogesterone 5 mg tablet 5 mg PO DAILY Qty: 90 3RF fluticasone furoate-vilanterol [Breo Ellipta] 100-25 mcg/dose blister with device 1 inh inhalation DAILY Qty: 90 3RF Tremfya 100 mg/mL auto-injector 100 mg SQ Q8W triamcinolone acetonide 0.05 % ointment 1 applic TOPICAL DAILY ketoconazole 1 % shampoo 1 applic TOPICAL Q3D (DME) OneTouch Ultra Test Strip See Rx Instructions .Route Qty: 100 0RF Rx Instructions: Pt is to test BID (DME) insulin syringe-needle U-100 [BD Insulin Syringe Ultra-Fine] 0.5 mL 31 gauge x 5/16 syringe See Rx Instructions .Route Qty: 100 5RF Rx Instructions: As directed (DME) insulin syringe-needle U-100 [BD Insulin Syringe Ultra-Fine] 1 mL 31 gauge x 5/16 syringe See Rx Instructions .Route Qty: 500 2RF Rx Instructions: as directed insulin glargine [Lantus U-100 Insulin] 100 unit/mL solution 90 unit SQ HS 30 Days Qty: 27 3RF diclofenac sodium 75 mg tablet,delayed release (DR/EC) 75 mg PO BID 90 Days Qty: 180 0RF Humulin R Regular U-100 Insuln 100 unit/mL solution See Rx Instructions .ROUTE .COMPLEX Qty: 31 0RF Dose Instruction: INJECT 35 UNITS SUBCUTANEOUSLY IN THE MORNING WITH BREAKFAST, THEN 20 UNITS AT LUNCH, THEN 35 UNITS AT BEDTIME Rx Instructions: INJECT 35 UNITS SUBCUTANEOUSLY IN THE MORNING WITH BREAKFAST, THEN 20 UNITS AT LUNCH, THEN 35 UNITS AT BEDTIME clobetasol 0.05 % cream 1 applic TOPICAL DAILY Referrals Follow up/Referrals: Milad Alexander MD [Primary Care Provider] - See instructions Activity Restrictions/Add. Instructions Additional Instructions/Restrictions: Rescheduled appointment times: ThursdayFebruary 03 1pm Pulmonary Function test 3pm-Dr. Ward's office Clinical Impressions Clinical Impression: Hypertension Instructions Patient Instructions: Essential Hypertension Print Language Print Language: Palauan Discharge ED Provider: Jamie Jones General Adult HPI General Chief complaint: Recheck/Abnormal Lab/Rx Stated complaint: High BP Time Seen by Provider: 01/29/23 10:07 Mode of Arrival: Wheelchair Source of Information: Patient Limitations: No Limitations Description of Symptoms (Recalled from ER Triage Doc. by RN): pt presents to ED c/o high blood pressure. pt states she has recently had her blood pressure medications adjusted. pt states she had an appointment for pulmonary function testing this am and did not take her blood pressure medication this am. pt denies chest pain, headache, dizziness. History of Present Illness HPI narrative: Patient presents to the emergency department with high blood pressure. She went to go to for pulmonary function testing this morning and was found to have significant hypertension and was sent to the emergency department for further evaluation and treatment. The patient states that she did not take her blood pressure medication before the testing this morning. She denies any chest pain, shortness of breath, headache, nausea, vomiting, abdominal pain. She states that she fee
--- NOTE | 2023-01-29 09:32 | PC.NURSE ---
Marcy from Dr. Ward's office called with rescheduled appt times for pt.
== END 2023-01-29 10:18 | disposition home or self-care (01) ==
PROVIDERS: Emergency Provider Emergency Medicine; PCP Family Medicine
DX: I10 Essential (primary) hypertension (principal); Z87.891 Personal history of nicotine dependence; I25.10 Atherosclerotic heart disease of native coronary artery without angina pectoris
CPT/HCPCS: 99283; 99284

== ENCOUNTER → 2023-02-03 12:49 | Outpatient (CLI) | payer MEDICARE, MEDICAID, SELFPAY ==
[2023-02-03 14:15] VITALS: PULSE 66; PULSE 70
[2023-02-03 15:12] LABS: Basophils # 0.1 K/mm3 (0-0.2); Basophils % 0.5 % (0.1-2.0); Eosinophils # 0.2 K/mm3 (0.0-0.4); Eosinophils % 1.6 % (0.1-12.0); Hematocrit 43.1 % (37.0-47.0); Lymphocytes # 2.4 K/mm3 (0.7-4.5); Lymphocytes % 24.4 % (10-50); Mean Corpuscular HGB Conc 32.4 g/dL (31.8-35.4); Mean Corpuscular Hemoglobin 30.4 pg (27.0-31.2); Mean Corpuscular Volume 93.8 fl (81-99); Monocytes # 0.4 K/mm3 (0.1-1.0); Monocytes % 4.2 % (1.7-9.3); Neutrophils # 6.8 K/mm3 (1.8-7.8); Neutrophils % 69.3 % (37.0-80.0); Platelet Count 226 K/mm3 (142-424); Red Blood Count 4.59 M/mm3 (4.20-5.40); Red Cell Distribution Width 14.7 % (11.5-17.5); White Blood Count 9.8 K/mm3 (4.8-10.8)
[2023-02-03 15:50] LABS: Alanine Aminotransferase 34 U/L (12-78); Albumin Level 3.9 g/dl (3.5-5.0); Albumin/Globulin Ratio 1.6 (1.1-1.8); Alkaline Phosphatase 85 U/L (38-126); Anion Gap 12.5 mEq/L (5-15); Aspartate Amino Transferase 24 U/L (14-36); Bilirubin,Total 0.3 mg/dl (0.2-1.3); Blood Urea Nitrogen 19 mg/dl (7-17); Calcium 9.2 mg/dl (8.4-10.2); Carbon Dioxide 33 mmol/L (22.0-30.0); Chloride 99 mmol/L (98-107); Estimated Glomerular Filt Rate 62 ml/min (>60); GFR (African American) 74 ML/MIN (>60); Globulin 2.5 g/dL (1.3-3.2); Glucose 131 mg/dl (74-100); Potassium 4.5 mmoL/L (3.5-5.1); Sodium 140 mmol/L (136-145); Total Protein,Serum 6.4 g/dl (6.3-8.2)
[2023-02-06 11:22] LABS: QuantiFERON-TB Gold Plus Negative (Negative)
== END ==
PROVIDERS: PCP Dermatology; Visit Provider Internal Medicine Pulmonary Disease
DX: L40.0 Psoriasis vulgaris (principal); Z79.899 Other long term (current) drug therapy; R06.02 Shortness of breath
CPT/HCPCS: 36415; 80053; 85025; 86480; 94060; 94618; 94640; 94727; 94729

== ENCOUNTER → 2023-02-20 09:45 | Outpatient (CLI) | payer MEDICARE, MEDICAID, SELFPAY ==
--- NOTE | 2023-02-20 09:45 | CT_ITS ---
FINAL REPORT TECHNIQUE: Thin section axial CT images with coronal and sagittal reformats were performed through the neck. This study was performed with techniques to keep radiation doses as low as reasonably achievable (ALARA). Individualized dose reduction techniques using automated exposure control or adjustment of mA and/or kV according to the patient''s size were employed. CLINICAL HISTORY: hoarseness x mos. 0 ca hx, former smoker. FINDINGS: There is mucosal thickening present in the maxillary sinuses. No adenopathy or mass lesion is present . Salivary glands are normal. Larynx is unremarkable. There is a right thyroid nodule measuring 11 mm in diameter. There is moderate and severe degenerative change in the cervical spine with multiple disc osteophyte complexes and mild central canal stenosis at the C5-6 and C6-7 levels. IMPRESSION: There is a right thyroid nodule measuring 11 mm in diameter. Would consider ultrasound for further evaluation. Moderate and severe degenerative change in the cervical spine as described above. Reviewed, Interpreted and Dictated by Weston Vang III, MD Transcribed by Lily Bello Authenticated and . [facility]
== END ==
PROVIDERS: PCP Family Medicine; Visit Provider Nurse Practitioner
DX: R49.0 Dysphonia (principal)
CPT/HCPCS: 70490

== ENCOUNTER → 2023-03-04 11:56 | Outpatient (CLI) | payer MEDICARE, MEDICAID, SELFPAY ==
--- NOTE | 2023-03-04 12:12 | XR_ITS ---
FINAL REPORT CLINICAL HISTORY: chest pain FINDINGS: TWO VIEW CHEST The heart size is normal. The mediastinum is normal. The lungs are clear. There is no pneumothorax. IMPRESSION: No acute cardiopulmonary process. Reviewed, Interpreted and Dictated by Weston Vang III, MD Transcribed by Alvin Cuba Authenticated and [facility]
--- NOTE | 2023-03-04 12:12 | XR_ITS ---
FINAL REPORT CLINICAL HISTORY: left arm pain from fall FINDINGS: LEFT WRIST SERIES Two views of the left wrist were obtained. There is a comminuted, impacted fracture of the distal radius. The fracture line extends to the radiocarpal joint. The joint spaces are preserved. There is a small calcification adjacent to the ulnar styloid process, but it is uncertain if this represents a chip fracture of the ulnar styloid process. There is soft tissue swelling. IMPRESSION: Comminuted, impacted fracture of the distal radius. Reviewed, Interpreted and Dictated by Weston Vang III, MD Transcribed by Alvin Cuba Authenticated and . [facility]
--- NOTE | 2023-03-04 12:12 | XR_ITS ---
FINAL REPORT CLINICAL HISTORY: left arm pain from fall FINDINGS: LEFT FOREARM SERIES Two views of the left forearm were obtained. There is a comminuted, impacted fracture of the distal radius. There are mild degenerative changes of the elbow and wrist. There is no soft tissue abnormality. IMPRESSION: Comminuted, impacted fracture of the distal radius. Reviewed, Interpreted and Dictated by Weston Vang III, MD Transcribed by Alvin Cuba Authenticated and . [facility]
== END ==
PROVIDERS: PCP Family Medicine; Visit Provider Family Medicine
DX: R07.9 Chest pain, unspecified; M79.602 Pain in left arm
CPT/HCPCS: 71046; 73090; 73100

== ENCOUNTER → 2023-03-12 15:51 | Outpatient (CLI) | payer MEDICARE, SELFPAY ==
--- NOTE | 2023-03-12 16:00 | ECG_ITS ---
APPROVED REPORT Exam: Resting ECG HR:69 bpm ECG Measurements Heart Rate 69 AXES VT 164 P 67 QRSd 91 QRS 45 QT 379 T 64 QTc 398 Conclusion SINUS RHYTHM LOW QRS VOLTAGE IN PRECORDIAL LEADS [QRS DEFLECTION < 1.0 mV IN CHEST LEADS] NONSPECIFIC ST & T-WAVE ABNORMALITY BORDERLINE ECG UNCONFIRMED REPORT Electronically signed by : Surinder Han MD 03/12/2023 21:11:52
[2023-03-12 16:25] LABS: Basophils % 0.2 % (0.1-2.0); Eosinophils # 0.2 K/mm3 (0.0-0.4); Hematocrit 41.4 % (37.0-47.0); Hemoglobin 13.2 g/dL (12.2-16.2); Lymphocytes # 1.7 K/mm3 (0.7-4.5); Lymphocytes % 19.8 % (10-50); Mean Corpuscular HGB Conc 31.9 g/dL (31.8-35.4); Mean Corpuscular Hemoglobin 29.6 pg (27.0-31.2); Mean Platelet Volume 7.7 fl (7.4-10.4); Monocytes # 0.5 K/mm3 (0.1-1.0); Monocytes % 5.5 % (1.7-9.3); Neutrophils # 6.1 K/mm3 (1.8-7.8); Neutrophils % 72.6 % (37.0-80.0); Platelet Count 216 K/mm3 (142-424); Red Blood Count 4.46 M/mm3 (4.20-5.40); Red Cell Distribution Width 14.7 % (11.5-17.5); White Blood Count 8.4 K/mm3 (4.8-10.8)
[2023-03-12 16:53] LABS: Chloride 98 mmol/L (98-107)
[2023-03-12 16:54] LABS: Potassium 4.1 mmoL/L (3.5-5.1); Sodium 137 mmol/L (136-145)
[2023-03-12 16:56] LABS: Alanine Aminotransferase 24 U/L (12-78); Alkaline Phosphatase 72 U/L (38-126); Aspartate Amino Transferase 23 U/L (14-36); Bilirubin,Total 0.3 mg/dl (0.2-1.3); Blood Urea Nitrogen 28 mg/dl (7-17); Estimated Glomerular Filt Rate 55 ml/min (>60); GFR (African American) 66 ML/MIN (>60)
[2023-03-12 16:57] LABS: Albumin/Globulin Ratio 1.6 (1.1-1.8); Anion Gap 9.1 mEq/L (5-15); Calcium 9.7 mg/dl (8.4-10.2); Carbon Dioxide 34 mmol/L (22.0-30.0); Globulin 2.5 g/dL (1.3-3.2); Glucose 61 mg/dl (74-100); Total Protein,Serum 6.5 g/dl (6.3-8.2)
== END ==
PROVIDERS: PCP Family Medicine; Visit Provider Orthopaedic Surgery
DX: I10 Essential (primary) hypertension (principal); S52.572A Other intraarticular fracture of lower end of left radius, initial encounter for closed fracture; Z01.818 Encounter for other preprocedural examination
CPT/HCPCS: 36415; 80053; 85025; 93005

== ENCOUNTER 2023-03-20 07:50 | Day surgery (SDC) | payer MEDICARE, SELFPAY ==
[2023-03-19 14:20] VITALS: BMI 34.0
[2023-03-20] VITALS (12 sets, daily range): BP systolic 116–141; BP diastolic 52–84; PULSE 70–79; RESP 16–18; TEMP 36.2–36.4; O2SAT 92–97
[2023-03-20 08:40] LABS: POC Glucose,Bedside 161 (70-110)
--- NOTE | 2023-03-20 10:00 | XR_ITS ---
FINAL REPORT CLINICAL HISTORY: ORIF WRIST 58 seconds fluoro time FINDINGS: FLUOROSCOPY LESS THAN 1 HOUR HISTORY: Fluoroscopy guided injection. FINDINGS: Fluoroscopic guidance was provided for left wrist ORIF. 4 spot films were obtained. 58 seconds of fluoroscopy time were used. IMPRESSION: As above. Reviewed, Interpreted and Dictated by Weston Vang III, MD Transcribed by Maggy Calzada Authenticated and [facility]
[2023-03-20 12:07] LABS: POC Glucose,Bedside 58 (70-110); POC Glucose,Bedside 59 (70-110)
--- NOTE | 2023-03-20 12:07 | EXP.ANES.CKL ---
[facility] Disclaimer: The information contained in this section may have been updated after the patient was seen, as this information can be updated by other users. Medical History Allergic rhinitis Asthma Asthma-chronic obstructive pulmonary disease overlap syndrome COPD (chronic obstructive pulmonary disease) COPD mixed type Coronary artery disease Diabetes mellitus Dyspnea on exertion History of sleep apnea Hyperlipidemia Hypertension Psoriasis SOBOE (shortness of breath on exertion) Thyroid Nodule Surgical History Cataract H/O dilation and curettage History of coronary artery stent placement History of left knee replacement History of right hip replacement Family History Mother Cancer Father Cancer Social History Smoking Status: Former smoker smoking status stop date: 09/07/1990 alcohol intake: never substance use type: denies use current occupational status: retired Travel in the last 8 weeks: None housing: house marital status: [facility] Anesthesia Checklist Patient Identification Patient Identification: Arm Band and Family Structural Data Admitted From: Home Planned Operative Procedure/s: ORIF Left wrist distalradius with volar plating. Consent for Planned Operative Procedure(s) Verified: Yes Verified Documents: Surgical Consent, History and Physical and Cardiac Clearance NPO Status Verified Time NPO: 00:00 Additional verifications Patient : No Anesthesia Reactions: No Hx Blood Transfusions: No Blood Transfusion Reaction: No Cephalosporin Allergy: No Previous Colonoscopy: Yes Airway Assessment C-Spine Mobility Assessed: Yes TMJ Mobility Assessed: Yes Dentition: Edentulous Neurological Assessment Level of Consciousness: Awake, Alert, Appropriate and Follows Commands Hx Seizures: No Numbness or tingling in extremities: No Anesthesia Plan Anesthesia Risk discussed: Yes ASA Class: III Anesthesia Type: General w/block Preoperative Comments Pre-Operative Comments: Blood glucose 46, D50W 25 ml. Blood Glucose afterward 160.
--- NOTE | 2023-03-20 12:11 | P.PNANES_ITS ---
[facility] Anesthesia Record Part I Anesthesia Record I Intake, IV Amount: 700 Estimated blood loss (mL): 2 Urine output (mL): 0 Blood Products used (#): none Blood Pressure: 122/52 SaO2: 94 Pulse Rate: 73 Respiratory Rate: 16 Temperature: 97.4 F Patient is:: Drowsy, Stable and Other Stable to PACU at:: 11:58 Comments:: Blood glucose 58, D50W 25 ml IV. ten minutes later 63. Will check again before discharge from recovery.
--- NOTE | 2023-03-20 12:16 | P.OP_ITS ---
Date of procedure: 03/20/23 Pre-op Diagnosis:: Left distal radius fracture comminuted displaced Post-op Diagnosis:: Same Procedure performed:: Open reduction internal fixation left distal radius fracture intra-articular 3+ part Surgeon:: Yosef Lopez DO PROOF COINS INSPECTOR:: Other Anesthesia: GETA and regional Estimated blood loss (mL): 0 Operative findings:: Intra-articular comminuted distal radius fracture Operative note:: Patient was identified preoperatively. Left wrist marked with yes and my initials. Transferred operative suite after undergoing a block with anesthesia. Placed upon the operating bed. General anesthesia was administered airway secured. Left upper extremity was then prepped and draped in normal sterile fashion. Once prepped and draped final operative timeout performed to identify proper patient procedure and extremity. Everyone involved in the case agreed. There were no counter indications to beginning. She did receive preoperative antibiotics. Marking pen was used to make planned incision over the volar wrist. Esmarch was used exsanguinate the extremity and pneumatic tourniquet inflated to 250 mmHg. Skin knife was used to incise through skin careful dissection was taken down over the FCR tendon. FCR tendon sheath was opened. FCR tendon was retracted radially throughout the procedure to protect the radial artery. Floor of the FCR opened. Fracture hematoma encountered. The pronator muscle was cut in L- type fashion off the distal radius. Fracture site encountered and clean. There was severe comminution present intra-articular fracture. Reduction maneuver was performed with direct traction and use of the freer elevator to reduce the bone in proper position. I was able to restore radial height and neutral inclination. There was comminution on the volar and dorsal aspects. Once fracture was reduced pulmonary fixation was performed with a K wire. X-rays were taken AP and lateral views to confirm reduction. And then a Synthes volar plate was selected from the set left side standard. This was held pulmonary leg to the bone with a K wire and x-rays were taken to confirm proper placement of the plate. Once proper placement of the plate was confirmed cortical screw was placed in the shaft and followed by filling the distal locking screws and the radius. This gave good fixation of the fracture and restored neutral alignment and radial height. 2 additional locking screws were placed in the shaft copious irrigation of the wound was performed. Deep layers closed with Vicryl stitch subcutaneous with Vicryl stitch and 3-0 nylon in the skin for closure. Sterile dressing was placed. Volar splint placed. Patient waken anesthesia taken recovery in stable condition. Condition: stable Disposition: PACU Complications:: None apparent
[2023-03-20 12:17] LABS: POC Glucose,Bedside 62 (70-110)
--- NOTE | 2023-03-20 12:31 | SUR.PHASEI ---
1228 - [facility] 60, J CONSTANZA Barrera made aware. Awaiting call back for further orders. Pt awake, alert and talking to staff.
[2023-03-20 12:52] LABS: POC Glucose,Bedside 64 (70-110)
[2023-03-20 12:52] LABS: POC Glucose,Bedside 60 (70-110)
--- NOTE | 2023-03-20 13:12 | SUR.PHASEII ---
1235 - Pt is awake enough to eat/drink safely. Per anesthesia may give pt something by mouth and recheck BS. Given apple juice, tolerated well. Will recheck BS.
[2023-03-20 13:28] LABS: POC Glucose,Bedside 79 (70-110)
--- NOTE | 2023-03-20 14:17 | P.PNANES_ITS ---
[facility] Anesthesia Record Part II Anesthesia Record Part II Discharge Time: 12:46 Destination: Surgical Day Care (OP Surgery) PACU nurse assessment reviewed?: Yes Patient Condition:: Good Anesthesia Complications:: None Swallowing reflex intact?: Yes Cyanosis?: No Blood Pressure: 124/56 Pulse Rate: 74 Temperature: 97.6 F Mental Status: Alert & Oriented Pain level:: 0 Nausea and/or vomitting:: None Intake, IV Amount: 0
== END 2023-03-20 13:42 | disposition home or self-care (01) ==
PROVIDERS: PCP Family Medicine; Visit Provider Orthopaedic Surgery
PROC: (CPT 25609; principal; 2023-03-20 09:45)
DX: S52.572A Other intraarticular fracture of lower end of left radius, initial encounter for closed fracture (principal); X58.XXXA Exposure to other specified factors, initial encounter; Y93.89 Activity, other specified; J44.9 Chronic obstructive pulmonary disease, unspecified; I25.10 Atherosclerotic heart disease of native coronary artery without angina pectoris; E78.5 Hyperlipidemia, unspecified; Z96.641 Presence of right artificial hip joint
CPT/HCPCS: 25609; 73100; 76000; 82962; 96374; C1713; C1776; J2405

== ENCOUNTER → 2023-04-02 13:14 | Outpatient (CLI) | payer MEDICARE, SELFPAY ==
--- NOTE | 2023-04-02 13:23 | XR_ITS ---
FINAL REPORT CLINICAL HISTORY: Post op, pain COMPARISON: 03/04/2023 FINDINGS: LEFT WRIST SERIES Three views of the left wrist were obtained. There are postoperative changes of an ORIF of the distal radius. There is near anatomic alignment of the comminuted distal radial fracture. The fracture line is largely obscured by the hardware and the fiberglass splint obscures the bone detail. IMPRESSION: Post-ORIF changes without significant displacement. Reviewed, Interpreted and Dictated by Shamir Espino MD Transcribed by Alvin Cuba Authenticated and [facility]
== END ==
PROVIDERS: PCP Family Medicine; Visit Provider Orthopaedic Surgery
DX: S52.572A Other intraarticular fracture of lower end of left radius, initial encounter for closed fracture (principal); M25.532 Pain in left wrist
CPT/HCPCS: 73110

== ENCOUNTER 2023-04-02 14:29 | Outpatient (RCR) | payer MEDICARE, SELFPAY | END 2023-04-02 16:00 | disposition home or self-care (01) | LOC: OT 14:29 | PROVIDERS: Visit Provider Orthopaedic Surgery | DX: S52.572A Other intraarticular fracture of lower end of left radius, initial encounter for closed fracture (principal) | CPT/HCPCS: 97763 ==

== ENCOUNTER → 2023-04-09 16:43 | Outpatient (CLI) | payer MEDICARE, SELFPAY ==
[2023-04-09 17:16] LABS: Hemoglobin A1C 6.4 % (4.0-6.0)
== END ==
PROVIDERS: PCP Family Medicine; Visit Provider Family Medicine
DX: E11.9 Type 2 diabetes mellitus without complications (principal); Z79.4 Long term (current) use of insulin
CPT/HCPCS: 83036

== ENCOUNTER → 2023-04-21 12:25 | Outpatient (CLI) | payer MEDICARE, SELFPAY | PROVIDERS: PCP Family Medicine; Visit Provider Internal Medicine Pulmonary Disease | DX: R06.02 Shortness of breath (principal) | CPT/HCPCS: 94618 ==

== ENCOUNTER 2023-05-18 14:00 | Outpatient (RCR) | payer MEDICARE, SELFPAY ==
--- NOTE | 2023-04-21 12:20 | HMH.PTOPEV ---
PT Outpatient Evaluation Rehab PT Outpatient Evaluation Start: 04/21/23 11:03 Freq: Status: Active Protocol: Document 04/21/23 11:03 HERNANDOSERJUSTIN (Rec: 04/21/23 12:19 PDESEROUX [id number]) E-signed By Dwight Junior, PT Outpatient Therapy Subjective History Subjective History Pt. is a 72 year old female who presents to [facility] Outpatient Physical Therapy Services in [place] for the initial evaluation this date(04/21/23) w/ c/o subacute and constant LUE wrist and hand P!, edema, and stiffness S/P ORIF LUE radius on 03/20/23. Pt. reports, I fell and broke my wrist in 3 places. Pt. describes her fall as a FOOSH injury after tripping over a crack in the sidewalk in front of her house on 03/02/23. Pt. reports donning a splint for a few weeks after her surgery, reports being released to a wrist brace after RTMD last week. Pt. reports being instructed to don brace when I'm up and moving, but vocalizes doffing brace when she is resting at home. Pt. reports being instructed to move my fingers . Pt. reports continuing to ice LUE wrist and hand consistently throughout the day. Pt. RTMD next month ( May). Pt. reports having another radiograph upon RTMD in May. See chart for list of current medications. PMH includes S/P RLE JOSSE, S/P LLE TKA, cardiac stent placement x 3, COPD, asthma, DM-II, Hypertension, Hyperlipidemia, and family history of cancer(mother: breast cancer,father: esophageal cancer,brother: mortality d/t brain cancer) per pt. report. Chief Complaint Pain,Stiff,Swelling, Paresthesia,Weakness
== END 2023-06-03 07:48 | disposition home or self-care (01) ==
LOC: PT 14:00
PROVIDERS: PCP Family Medicine; Visit Provider Orthopaedic Surgery
DX: M25.532 Pain in left wrist (principal); S52.572S Other intraarticular fracture of lower end of left radius, sequela; Z47.2 Encounter for removal of internal fixation device
CPT/HCPCS: 97010; 97014; 97110; 97140; 97163; 97530; G0283

== ENCOUNTER → 2023-06-02 14:23 | Outpatient (CLI) | payer MEDICARE, SELFPAY ==
--- NOTE | 2023-06-02 14:34 | XR_ITS ---
FINAL REPORT CLINICAL HISTORY: Lt wrist pain, March 02-fx, Surgery on march 20 COMPARISON: 04/02/2023 FINDINGS: AP, oblique, and lateral views of the left wrist were obtained. Plaster cast has been removed. The hardware in the distal radius appears intact. There is multi joint degenerative disease. The soft tissues are normal. IMPRESSION: Interval cast removal with intact hardware. Reviewed, Interpreted and Dictated by Elizabeth Ross MD Transcribed by Aissatou Peoples Authenticated and [facility]
== END ==
PROVIDERS: PCP Family Medicine; Visit Provider Orthopaedic Surgery
DX: M25.532 Pain in left wrist (principal)
CPT/HCPCS: 73110

== ENCOUNTER → 2023-07-14 10:02 | Outpatient (CLI) | payer MEDICARE, SELFPAY ==
[2023-07-14 10:39] LABS: Basophils % 0.7 % (0.1-2.0); Eosinophils # 0.2 K/mm3 (0.0-0.4); Eosinophils % 2.4 % (0.1-12.0); Hematocrit 40.2 % (37.0-47.0); Hemoglobin 13.8 g/dL (12.2-16.2); Lymphocytes # 1.5 K/mm3 (0.7-4.5); Lymphocytes % 22.8 % (10-50); Mean Corpuscular HGB Conc 34.5 g/dL (31.8-35.4); Mean Corpuscular Hemoglobin 32.7 pg (27.0-31.2); Mean Corpuscular Volume 94.8 fl (81-99); Monocytes # 0.3 K/mm3 (0.1-1.0); Neutrophils # 4.6 K/mm3 (1.8-7.8); Neutrophils % 69.1 % (37.0-80.0); Platelet Count 171 K/mm3 (142-424); Red Blood Count 4.24 M/mm3 (4.20-5.40); Red Cell Distribution Width 14.4 % (11.5-17.5); White Blood Count 6.7 K/mm3 (4.8-10.8)
[2023-07-14 12:03] LABS: Chloride 102 mmol/L (98-107); Potassium 4.5 mmoL/L (3.5-5.1); Sodium 139 mmol/L (136-145)
[2023-07-14 12:05] LABS: Alanine Aminotransferase 35 U/L (12-78); Albumin Level 4.3 g/dl (3.5-5.0); Alkaline Phosphatase 77 U/L (38-126); Anion Gap 12.5 mEq/L (5-15); Aspartate Amino Transferase 28 U/L (14-36); Bilirubin,Direct 0.3 mg/dl (0.0-0.4); Bilirubin,Total 0.3 mg/dl (0.2-1.3); Blood Urea Nitrogen 18 mg/dl (7-17); Carbon Dioxide 29 mmol/L (22.0-30.0); Cholesterol 138 mg/dl (140-200); Estimated Glomerular Filt Rate 44 ml/min (>60); GFR (African American) 53 ML/MIN (>60); Glucose 135 mg/dl (74-100); Total Protein,Serum 6.7 g/dl (6.3-8.2); Triglycerides 266 mg/dl (30-150); VLDL Cholesterol 53 mg/dL (0-40)
[2023-07-14 12:06] LABS: HDL Cholesterol 23 mg/dl (40-60); Magnesium 1.4 mg/dl (1.6-2.3)
[2023-07-14 12:29] LABS: Free T4 (Free Thyroxine) 1.07 ng/dl (0.78-2.19)
[2023-07-14 12:36] LABS: Thyroid Stimulating Hormone 0.18 uIU/mL (0.465-4.68)
== END ==
PROVIDERS: PCP Family Medicine; Visit Provider Nurse Practitioner
DX: I25.10 Atherosclerotic heart disease of native coronary artery without angina pectoris (principal); I10 Essential (primary) hypertension; I07.1 Rheumatic tricuspid insufficiency; I35.1 Nonrheumatic aortic (valve) insufficiency; I34.0 Nonrheumatic mitral (valve) insufficiency; R06.09 Other forms of dyspnea; E78.5 Hyperlipidemia, unspecified; R94.31 Abnormal electrocardiogram [ECG] [EKG]; E11.9 Type 2 diabetes mellitus without complications; Z79.4 Long term (current) use of insulin; Z79.84 Long term (current) use of oral hypoglycemic drugs; Z87.891 Personal history of nicotine dependence
CPT/HCPCS: 36415; 80048; 80061; 80076; 83735; 84439; 84443; 85025

== ENCOUNTER → 2023-07-24 09:09 | Outpatient (CLI) | payer MEDICARE, SELFPAY ==
--- NOTE | 2023-07-24 | CA_ITS ---
APPROVED REPORT EXAM: Comprehensive 2D, Doppler, and color-flow Echocardiogram Assistant Manager Bilingual: Rosanne Hebert, RCS, RVS Ht: 4 ft 11 in Wt: 180lbs BSA: 1.76 BP: 138/80 mmHg Indications: abn ekg, SOA, HTN, Obesity, murmur 2D Dimensions Aortic Root 3.34 cm LA Volume 72.80 mL Left Atrium 3.66 cm LA Volume Index 40.20 mL/m2 (M/F) 16-34 LVOT 1.96 cm (M/F) 1.5-2.5 M-Mode Dimensions RVDd 2.55 cm (0.9-2.6) LA Diam 3.95 cm (1.9-4.0) LVDd 4.46 cm (3.5-5.7) Ao Diam 3.43 cm (2.0-3.7) LVDs 2.86 cm (3.5-5.7) IVSd 1.22 cm (0.6-1.1) PWd 0.91 cm (0.6-1.1) EF (Teich) 65.60% EPSs 0.90 cm FS 35.90% EDV (Teich) 90.50 mL TAPSE 2.30 (<1.7) ESV (Teich) 31.10 mL LV Diastology E Decel Time 257.00 (160-240 msec) E/A Ratio 0.62 MED E' 5.50 (< 7 cm/sec) MED A' 11.90 cm/s E'/MED E' Ratio 15.76 (>14) LAT E' 4.20 (<10 cm/sec) LAT A' 9.40 cm/s E/LAT E' Ratio 20.64 (>14) Aortic Valve LVOT Max 89.00 (70-110 cm/s) LVOT VTI 19.99 cm AoV Peak Ric. 118.00 (50-130 cm/s) AI PHT 490.00 ms AO Peak GR. 5.50 mmHg AO Mean GR. 2.80 (<5 mmHg) AO VTI 25.52 (18-25 cm) JELLY (VTI) 2.36 (2.5-4.5 cm2) Mitral Valve MV A Velocity 139.00 (40-130 cm/s) E/A Ratio 0.62 MV Decel. Time 257.00 (160-240 ms) Tricuspid Valve TR P. Velocity 222.00 cm/s RAP Estimate 10.00 mmHg RVSP 29.70 mmHg Left Ventricle The left ventricle is normal size. The left ventricular systolic function is normal. The left ventricular ejection fraction is within the normal range. There is increased LV wall thickness. There is normal LV segmental wall motion. Grade 2 diastolic dysfunction is present. LVEF is 55%. Right Ventricle The right ventricle is normal size. The right ventricular systolic function is normal. Atria The left atrium is mildly dilated. The right atrium size is normal. There is no Doppler evidence of interatrial shunt. Aortic Valve The aortic valve is mildly thickened. There is no aortic valvular stenosis. Mild aortic regurgitation. Mitral Valve The mitral valve leaflets are mildly thickened. No evidence of mitral valve stenosis. Trace mitral regurgitation. Tricuspid Valve The tricuspid valve leaflets are thin and pliable. Mild tricuspid regurgitation. RVSP is 20-25 mmHg. Pulmonic Valve The pulmonary valve is normal in structure. Trace pulmonic regurgitation. Great Vessels The aortic root is normal in size. The ascending aorta is mildly dilated, measuring 3.8 cm in diameter. IVC is normal in size and collapses >50% with inspiration. Pericardium There is no pericardial effusion. Other Information Study Quality: Fair Conclusion Normal biventricular systolic function. Grade 2 diastolic dysfunction. Mild LA dilation. Mild AI. Mild TR. Electronically signed by : Ryanne Humphreys MD 08/03/2023 23:32:29
== END ==
PROVIDERS: PCP Family Medicine; Visit Provider Nurse Practitioner
DX: I25.10 Atherosclerotic heart disease of native coronary artery without angina pectoris (principal); I11.9 Hypertensive heart disease without heart failure; I07.1 Rheumatic tricuspid insufficiency; I35.1 Nonrheumatic aortic (valve) insufficiency; I34.0 Nonrheumatic mitral (valve) insufficiency; R94.31 Abnormal electrocardiogram [ECG] [EKG]; R06.09 Other forms of dyspnea; E78.5 Hyperlipidemia, unspecified; E11.9 Type 2 diabetes mellitus without complications; Z79.4 Long term (current) use of insulin; Z79.84 Long term (current) use of oral hypoglycemic drugs; Z72.0 Tobacco use
CPT/HCPCS: 93306

== ENCOUNTER → 2023-08-14 12:03 | Outpatient (CLI) | payer MEDICARE, SELFPAY ==
[2023-08-14 12:55] LABS: Chloride 102 mmol/L (98-107)
[2023-08-14 12:56] LABS: Potassium 4.3 mmoL/L (3.5-5.1); Sodium 139 mmol/L (136-145)
[2023-08-14 12:59] LABS: Anion Gap 11.3 mEq/L (5-15); Blood Urea Nitrogen 17 mg/dl (7-17); Calcium 9.3 mg/dl (8.4-10.2); Carbon Dioxide 30 mmol/L (22.0-30.0); Estimated Glomerular Filt Rate 49 ml/min (>60); GFR (African American) 59 ML/MIN (>60); Glucose 194 mg/dl (74-100); Magnesium 1.4 mg/dl (1.6-2.3)
== END ==
PROVIDERS: PCP Family Medicine; Visit Provider Nurse Practitioner
DX: R79.0 Abnormal level of blood mineral (principal); R07.9 Chest pain, unspecified
CPT/HCPCS: 36415; 80048; 83735

== ENCOUNTER 2023-08-14 12:23 | Emergency (ER) | payer MEDICARE, SELFPAY ==
[2023-08-14 12:40] VITALS: BP 139/88; PULSE 86; RESP 17; TEMP 36.6; O2SAT 100; BMI 33.0
--- NOTE | 2023-08-14 13:16 | EXP.UTC ---
Discharge Plan Disposition Patient Disposition: Home, Self-Care Condition: Good Prescriptions Prescriptions: New ofloxacin 0.3 % drops 10 drp otic (ear) Q12H 14 Days Qty: 20 0RF Rx Instructions: in left ear as directed azithromycin [Zithromax Z-Chepe] 250 mg tablet See Rx Instructions .ROUTE .COMPLEX 5 Days Qty: 6 0RF Rx Instructions: For 250 mg dose pack: take 500 mg today (day 1), then 250 mg for 4 days (days 2-5) No Action multivitamin Tablet 1 tab PO DAILY calcium carbonate-vitamin D3 600 mg-5 mcg (200 unit) tablet 1 tab PO DAILY biotin 5,000 mcg tablet,disintegrating 10,000 mcg PO DAILY Tremfya 100 mg/mL auto-injector 100 mg SQ Q8W ketoconazole 2 % shampoo 1 applic topical Q2W PRN triamcinolone acetonide 0.1 % ointment 1 applic topical TID PRN triamcinolone acetonide 0.05 % ointment 1 applic TOPICAL DAILY ketoconazole 1 % shampoo 1 applic TOPICAL Q3D oxybutynin chloride 10 mg tablet extended release 24hr 10 ea PO DAILY Patient Comments: TAKE 1 TABLET BY MOUTH ONCE DAILY omega-3 fatty acids 500 mg capsule 500 mg PO DAILY bisoprolol fumarate 10 mg tablet 20 mg PO DAILY Qty: 180 1RF chlorthalidone 25 mg tablet See Rx Instructions .ROUTE .COMPLEX Qty: 90 1RF Dose Instruction: Take 1 tablet by mouth once daily Rx Instructions: Take 1 tablet by mouth once daily Edarbi 80 mg tablet See Rx Instructions .ROUTE .COMPLEX Qty: 90 1RF Dose Instruction: Take 1 tablet by mouth once daily Rx Instructions: Take 1 tablet by mouth once daily atorvastatin 80 mg tablet 80 mg PO DAILY 90 Days Qty: 90 0RF diclofenac sodium 75 mg tablet,delayed release (DR/EC) 75 mg PO BID 90 Days Qty: 180 0RF amlodipine [Norvasc] 5 mg tablet 5 mg PO DAILY 90 Days Qty: 90 0RF pantoprazole [Protonix] 20 mg tablet,delayed release (DR/EC) 20 mg PO DAILY Qty: 30 2RF (DME) OneTouch Ultra Test Strip See Rx Instructions .ROUTE .COMPLEX Qty: 100 0RF Dose Instruction: USE 1 STRIP TO CHECK GLUCOSE TWICE DAILY FOR DIABETES Rx Instructions: USE 1 STRIP TO CHECK GLUCOSE TWICE DAILY FOR DIABETES metformin 500 mg tablet extended release 24 hr 500 mg PO BID 90 Days Qty: 180 0RF montelukast [Singulair] 10 mg tablet 10 mg PO DAILY 90 Days Qty: 90 0RF Toujeo Max U-300 SoloStar 300 unit/mL (3 mL) insulin pen 160 unit SQ Q24H 30 Days Qty: 15.999 4RF clopidogrel 75 mg tablet See Rx Instructions .ROUTE .COMPLEX Qty: 90 3RF Dose Instruction: Take 1 tablet by mouth once daily Rx Instructions: Take 1 tablet by mouth once daily clobetasol 0.05 % cream 1 applic TOPICAL DAILY medroxyprogesterone 5 mg tablet 5 mg PO DAILY Trelegy Ellipta 100-62.5-25 mcg blister with device 1 inh inhalation DAILY Referrals Follow up/Referrals: Milad Alexander MD [Primary Care Provider] - See instructions Activity Restrictions/Add. Instructions Additional Instructions/Restrictions: Take oral medication and use drops as prescribed Follow up with your Family Doctor if no improvement Return if needed Straight to ER if any life threatening symptoms Clinical Impressions Clinical Impression: Otitis media Qualifiers: Otitis media type: unspecified Laterality: left Qualified Code(s): H66.92 - Otitis media, unspecified, left ear Instructions Patient Instructions: Middle Ear Infection Discharge ED Provider: Mariela Yap [facility] General Stated complaint: Pain in left ear Mode of Arrival: Ambulatory Source of Information: Patient Limitations: No Limitations Time Seen by Provider: 08/14/23 13:16 Description of Symptoms (Recalled from Triage Doc. by RN): PATIENT C/O LEFT EAR PAIN SINCE YESTERDAY HEENT Symptoms (Recalled from RN notes): Yes Resp Symptoms (Recalled from RN notes): No Skin Symptoms (Recalled from RN notes): No MS Symptoms (Reca
[2023-08-14 13:43] VITALS: BP 139/88; PULSE 86; RESP 17; TEMP 36.6; O2SAT 100
== END 2023-08-14 13:46 | disposition home or self-care (01) ==
PROVIDERS: Emergency Provider Nurse Practitioner; PCP Family Medicine
DX: H66.92 Otitis media, unspecified, left ear (principal); J44.9 Chronic obstructive pulmonary disease, unspecified; I25.10 Atherosclerotic heart disease of native coronary artery without angina pectoris; I11.9 Hypertensive heart disease without heart failure; E11.9 Type 2 diabetes mellitus without complications; E78.5 Hyperlipidemia, unspecified; Z79.4 Long term (current) use of insulin; Z79.84 Long term (current) use of oral hypoglycemic drugs; Z87.891 Personal history of nicotine dependence
CPT/HCPCS: 99204; 99212; G0463

== ENCOUNTER 2023-09-29 22:16 | Outpatient (CLI) | payer MEDICARE, SELFPAY ==
[2023-09-29 16:36] LABS: Chloride 99 mmol/L (98-107); Sodium 136 mmol/L (136-145)
[2023-09-29 16:37] LABS: Potassium 4.3 mmoL/L (3.5-5.1)
[2023-09-29 16:39] LABS: Alanine Aminotransferase 35 U/L (12-78); Albumin Level 3.9 g/dl (3.5-5.0); Albumin/Globulin Ratio 1.6 (1.1-1.8); Alkaline Phosphatase 75 U/L (38-126); Anion Gap 13.3 mEq/L (5-15); Aspartate Amino Transferase 29 U/L (14-36); Bilirubin,Total 0.6 mg/dl (0.2-1.3); Blood Urea Nitrogen 20 mg/dl (7-17); Calcium 9.5 mg/dl (8.4-10.2); Carbon Dioxide 28 mmol/L (22.0-30.0); Estimated Glomerular Filt Rate 49 ml/min (>60); GFR (African American) 59 ML/MIN (>60); Globulin 2.4 g/dL (1.3-3.2); Glucose 142 mg/dl (74-100); Total Protein,Serum 6.3 g/dl (6.3-8.2)
[2023-09-29 16:54] LABS: Creatinine,Urine Random 66 mg/dL (Not Estab.)
[2023-09-29 16:56] LABS: Microalbumin/Creatinine Ratio 55.3
[2023-09-29 16:59] LABS: Hemoglobin A1C 8.5 % (4.0-6.0)
[2023-09-29 17:07] LABS: Thyroid Stimulating Hormone 2.72 uIU/mL (0.465-4.68)
== END 2023-09-29 23:59 ==
LOC: LAB.DROPOF 22:17
PROVIDERS: PCP Family Medicine; Visit Provider Family Medicine
DX: E11.9 Type 2 diabetes mellitus without complications (principal); R53.83 Other fatigue; Z79.4 Long term (current) use of insulin; Z79.84 Long term (current) use of oral hypoglycemic drugs
CPT/HCPCS: 80053; 82043; 82570; 83036; 84443

== ENCOUNTER 2023-10-13 14:05 | Outpatient (CLI) | payer MEDICARE, SELFPAY ==
--- NOTE | 2023-10-13 14:10 | XR_ITS ---
FINAL REPORT CLINICAL HISTORY: back pain and sciatica FINDINGS: LUMBAR SPINE Three views demonstrate no acute fracture. There are mild and moderate degenerative changes with osteophytes. Vascular calcification is identified. There is no malalignment. IMPRESSION: Degenerative changes without acute bony abnormality. Reviewed, Interpreted and Dictated by Weston Vang III, MD Transcribed by Aissatou Peoples Authenticated and [facility]
--- NOTE | 2023-10-13 14:10 | XR_ITS ---
FINAL REPORT CLINICAL HISTORY: knee pain FINDINGS: Right knee Two views were obtained. There is no acute fracture or dislocation. There are moderate degenerative changes. Medial compartment narrowing is identified. No soft tissue abnormality is identified. IMPRESSION: Moderate degenerative changes. Reviewed, Interpreted and Dictated by Weston Vang III, MD Transcribed by Aissatou Peoples Authenticated and [facility]
--- NOTE | 2023-10-13 14:10 | XR_ITS ---
FINAL REPORT CLINICAL HISTORY: Right hip pain, hip replacement 2009 COMPARISON: None FINDINGS: RIGHT HIP Two views of the right hip demonstrate no acute fracture or dislocation. Prior right hip replacement. There is a 5 mm radiopaque foreign body at the superior aspect of the right acetabulum, uncertain if this is part of the arthroplasty. The joint spaces appear normal. The visualized bony structures are well aligned. No soft tissue abnormality is seen. IMPRESSION: Postoperative change without acute bony abnormality. Foreign body as above. Reviewed, Interpreted and Dictated by Weston Vang III, MD Transcribed by Maggy Calzada Authenticated and [facility]
== END 2023-10-13 23:59 ==
PROVIDERS: PCP Family Medicine; Visit Provider Family Medicine
DX: M54.50 Low back pain, unspecified; M25.561 Pain in right knee; M25.551 Pain in right hip
CPT/HCPCS: 72100; 73502; 73560

== ENCOUNTER 2023-11-27 11:42 | Outpatient (CLI) | payer MEDICARE, SELFPAY ==
[2023-11-27 12:57] LABS: Basophils # 0.1 K/mm3 (0-0.2); Basophils % 0.7 % (0.1-2.0); Eosinophils # 0.2 K/mm3 (0.0-0.4); Eosinophils % 2.1 % (0.1-12.0); Hematocrit 40.7 % (37.0-47.0); Hemoglobin 13.3 g/dL (12.2-16.2); Lymphocytes # 1.6 K/mm3 (0.7-4.5); Mean Corpuscular HGB Conc 32.7 g/dL (31.8-35.4); Mean Corpuscular Hemoglobin 31.8 pg (27.0-31.2); Mean Corpuscular Volume 97.3 fl (81-99); Mean Platelet Volume 8.2 fl (7.4-10.4); Monocytes # 0.4 K/mm3 (0.1-1.0); Monocytes % 4.6 % (1.7-9.3); Neutrophils # 6.5 K/mm3 (1.8-7.8); Neutrophils % 74.6 % (37.0-80.0); Platelet Count 210 K/mm3 (142-424); Red Blood Count 4.18 M/mm3 (4.20-5.40); Red Cell Distribution Width 14.8 % (11.5-17.5); White Blood Count 8.7 K/mm3 (4.8-10.8)
[2023-11-27 13:33] LABS: Chloride 104 mmol/L (98-107); Potassium 4.2 mmoL/L (3.5-5.1); Sodium 139 mmol/L (136-145)
[2023-11-27 13:35] LABS: Alanine Aminotransferase 32 U/L (12-78); Aspartate Amino Transferase 28 U/L (14-36); Blood Urea Nitrogen 28 mg/dl (7-17); Estimated Glomerular Filt Rate 44 ml/min (>60); GFR (African American) 53 ML/MIN (>60)
[2023-11-27 13:36] LABS: Albumin Level 3.8 g/dl (3.5-5.0); Albumin/Globulin Ratio 1.6 (1.1-1.8); Alkaline Phosphatase 84 U/L (38-126); Anion Gap 11.2 mEq/L (5-15); Bilirubin,Total 0.3 mg/dl (0.2-1.3); Calcium 9.5 mg/dl (8.4-10.2); Carbon Dioxide 28 mmol/L (22.0-30.0); Globulin 2.4 g/dL (1.3-3.2); Glucose 176 mg/dl (74-100); Total Protein,Serum 6.2 g/dl (6.3-8.2)
== END 2023-11-27 23:59 ==
PROVIDERS: PCP Family Medicine; Visit Provider Obstetrics & Gynecology
DX: N30.90 Cystitis, unspecified without hematuria (principal)
CPT/HCPCS: 36415; 80053; 85025

== ENCOUNTER 2023-12-01 09:54 | Outpatient (CLI) | payer MEDICARE, SELFPAY ==
--- NOTE | 2023-12-01 10:00 | US_ITS ---
PROCEDURE: US TRANSVAGINAL CLINICAL INDICATION: Endometrial Hyperplasia COMPARISON: US US TRANSVAGINAL from 10/06/2022 FINDINGS: Transvaginal sonographic images of the pelvis were obtained. UTERUS: 5.8 cm x 4.2cmx 1 7 cm anteverted and anteflexed with a combined endometrial thickness of 4.5mm. The endometrium appears hyperechoic/calcified. LEFT OVARY: 1.1cmx1.2cmx0.8cm with a volume of 0.5ml. RIGHT OVARY: 1.6 cmx 1.0cmx1.0cm with a volume of 0.8ml. Both ovaries are seen and appear normal. Doppler flow to both ovaries are seen. There is no fluid in the cul-de-sac. IMPRESSION: 1. Small, anteverted, anteflexed uterus. Previously described fibroid is not seen today. 2. The endometrium is 4.5 mm and appears calcified/hyperechoic. 3. Both ovaries are seen and appear small and atrophic. 4. No fluid in the cul-de-sac. Dictated by: Ilya Lee MD 12/02/2023 07:48 Ilya Lee MD in OV 12/02/2023 07:48
== END 2023-12-01 23:59 ==
LOC: RAD 09:55
PROVIDERS: PCP Family Medicine; Visit Provider Internal Medicine
DX: N85.01 Benign endometrial hyperplasia (principal)
CPT/HCPCS: 76830

== ENCOUNTER → 2023-12-14 08:06 | Outpatient (CLI) | payer MEDICARE, SELFPAY | LOC: SL 08:07 | PROVIDERS: Visit Provider Physician Assistant | DX: G47.30 Sleep apnea, unspecified (principal); G47.36 Sleep related hypoventilation in conditions classified elsewhere; R06.83 Snoring; J44.9 Chronic obstructive pulmonary disease, unspecified | CPT/HCPCS: G0399 ==

== ENCOUNTER 2023-12-17 19:03 | Outpatient (CLI) | payer MEDICARE, SELFPAY | END 2023-12-17 23:59 | LOC: LAB.DROPOF 19:03 | PROVIDERS: PCP Obstetrics & Gynecology; Visit Provider Obstetrics & Gynecology | DX: N39.0 Urinary tract infection, site not specified (principal) | CPT/HCPCS: 87086 ==

== ENCOUNTER 2023-12-24 11:09 | Outpatient (POV) | payer MEDICARE, SELFPAY | END 2023-12-24 23:59 | disposition home or self-care (01) | LOC: SC 11:10 | PROVIDERS: Visit Provider Specialist/Technologist | DX: Z00.00 Encounter for general adult medical examination without abnormal findings (principal) ==

== ENCOUNTER 2024-01-07 18:00 | Outpatient (CLI) | payer MEDICARE, SELFPAY ==
[2024-01-07 16:32] LABS: Alanine Aminotransferase 28 U/L (12-78); Albumin Level 3.8 g/dl (3.5-5.0); Albumin/Globulin Ratio 1.6 (1.1-1.8); Alkaline Phosphatase 76 U/L (38-126); Anion Gap 11.1 mEq/L (5-15); Aspartate Amino Transferase 26 U/L (14-36); Bilirubin,Total 0.4 mg/dl (0.2-1.3); Blood Urea Nitrogen 21 mg/dl (7-17); Calcium 10.2 mg/dl (8.4-10.2); Carbon Dioxide 26 mmol/L (22.0-30.0); Chloride 107 mmol/L (98-107); Estimated Glomerular Filt Rate 49 ml/min (>60); GFR (African American) 59 ML/MIN (>60); Globulin 2.4 g/dL (1.3-3.2); Glucose 98 mg/dl (74-100); Potassium 4.1 mmoL/L (3.5-5.1); Sodium 140 mmol/L (136-145); Total Protein,Serum 6.2 g/dl (6.3-8.2)
[2024-01-07 17:07] LABS: Hemoglobin A1C 8.9 % (4.0-6.0)
== END 2024-01-07 23:59 | disposition home or self-care (01) ==
LOC: LAB.DROPOF 01-08 12:57
PROVIDERS: PCP Family Medicine; Visit Provider Family Medicine
DX: Z79.899 Other long term (current) drug therapy; E11.9 Type 2 diabetes mellitus without complications; I10 Essential (primary) hypertension
CPT/HCPCS: 80053; 83036

== ENCOUNTER 2024-02-15 15:24 | Outpatient (REF) | payer MEDICARE, SELFPAY | END 2024-02-15 23:59 | disposition home or self-care (01) | LOC: LAB.DROPOF 15:24 | PROVIDERS: PCP Family Medicine; Visit Provider Family Medicine | DX: R53.83 Other fatigue (principal) | CPT/HCPCS: 80048 ==

== ENCOUNTER 2024-02-15 15:40 | Emergency (ER) | payer MEDICARE, SELFPAY ==
[2024-02-15 15:42] VITALS: BP 138/68; PULSE 112; RESP 16; TEMP 36.7; O2SAT 93; BMI 35.2
--- NOTE | 2024-02-15 15:50 | ED_ITS ---
<Statement entered by Mynor Giles MD - 02/15/24 22:12> I was consulted by the [facility], and we discussed the complexity of the problems being addressed. I approved the treatment and management plan for this patient's care in the emergency department, thus performing a substantive portion of the medical decision making. Mynor Giles MD Discharge Plan Disposition Patient Disposition: Home, Self-Care Condition: Good Prescriptions Prescriptions: New cefdinir 300 mg capsule 300 mg PO BID 10 Days Qty: 20 0RF No Action multivitamin Tablet 1 tab PO DAILY calcium carbonate-vitamin D3 600 mg-5 mcg (200 unit) tablet 1 tab PO DAILY biotin 5,000 mcg tablet,disintegrating 10,000 mcg PO DAILY ketoconazole 2 % shampoo 1 applic topical Q2W PRN triamcinolone acetonide 0.1 % ointment 1 applic topical TID PRN fluticasone propionate [Flonase Allergy Relief] 50 mcg/actuation spray,suspension 2 spray intranasal DAILY 90 Days Qty: 16 2RF Rx Instructions: administer into each nostril valsartan [Diovan] 80 mg tablet 80 mg PO DAILY Qty: 30 5RF ketoconazole 1 % shampoo 1 applic TOPICAL Q3D omega-3 fatty acids 500 mg capsule 500 mg PO DAILY (DME) pen needle, diabetic [Comfort EZ Pen [place]] 31 gauge x 5/16 needle See Rx Instructions .ROUTE .MEDSUPPLY Qty: 1200 Patient Comments: USE DIRECTED Rx Instructions: As directed amlodipine 10 mg tablet 10 mg PO DAILY Qty: 90 3RF montelukast [Singulair] 10 mg tablet 10 mg PO DAILY 90 Days Qty: 90 0RF clopidogrel 75 mg tablet See Rx Instructions .ROUTE .COMPLEX Qty: 90 3RF Dose Instruction: Take 1 tablet by mouth once daily Rx Instructions: Take 1 tablet by mouth once daily atorvastatin 80 mg tablet 80 mg PO DAILY 90 Days Qty: 90 0RF chlorthalidone 25 mg tablet See Rx Instructions .ROUTE .COMPLEX Qty: 90 1RF Dose Instruction: Take 1 tablet by mouth once daily Rx Instructions: Take 1 tablet by mouth once daily Edarbi 80 mg tablet See Rx Instructions .ROUTE .COMPLEX Qty: 90 1RF Dose Instruction: Take 1 tablet by mouth once daily Rx Instructions: Take 1 tablet by mouth once daily medroxyprogesterone 5 mg tablet 5 mg PO DAILY 30 Days Qty: 30 3RF diclofenac sodium 75 mg tablet,delayed release (DR/EC) 75 mg PO BID 90 Days Qty: 180 1RF (DME) OneTouch Ultra Test Strip See Rx Instructions .ROUTE .COMPLEX Qty: 100 0RF Dose Instruction: USE 1 STRIP TO CHECK GLUCOSE TWICE DAILY FOR DIABETES Rx Instructions: USE 1 STRIP TO CHECK GLUCOSE TWICE DAILY FOR DIABETES insulin glargine U-300 conc [Toujeo Max U-300 SoloStar] 300 unit/mL (3 mL) insulin pen 170 unit SQ Q24H 30 Days Qty: 17.001 4RF pantoprazole [Protonix] 20 mg tablet,delayed release (DR/EC) 20 mg PO DAILY 90 Days Qty: 90 0RF bisoprolol fumarate 10 mg tablet 20 mg PO DAILY Qty: 180 2RF metformin 500 mg tablet extended release 24 hr 500 mg PO BID 90 Days Qty: 180 0RF oxybutynin chloride 10 mg tablet extended release 24hr 10 mg PO DAILY 90 Days Qty: 90 0RF Bevespi Aerosphere 9-4.8 mcg HFA aerosol inhaler 2 puff inhalation BID 90 Days Qty: 10.7 3RF Trelegy Ellipta 100-62.5-25 mcg blister with device 1 inh inhalation DAILY 90 Days Qty: 90 2RF Referrals Follow up/Referrals: Milad Alexander MD [Primary Care Provider] - See instructions Activity Restrictions/Add. Instructions Additional Instructions/Restrictions: Please follow-up with your PCP for lab recheck. Return to ER for any worsening signs or symptoms as needed. Clinical Impressions Clinical Impression: Nausea vomiting and diarrhea Urinary tract infectious disease Qualifiers: Urinary tract infection type: site unspecified Hematuria presence: with hematuria Qualified Code(s): N39.0 - Urinary tract infection, site not specified Instructions Patient Instructions: DI for Urinary Tract Infection (UTI), DI for Enteritis Discharge ED Provider: Mynor Giles General Adult HPI General Chief complaint: Weakness Stated complaint: uncontrollable diarrhea/urination Time Seen by Provider: 02/15/24 15:50 History of Present Illness HPI narrative: Patient sent to the emergency department by her PCP for nausea vomiting diarrhea and incontinence of urine. Patient states that she has been having incontinence of urine for a long period of time however it has been worse since she has been ill. Patient has had 3 days of nausea vomiting and diarrhea and reports inability to keep anything down including water. She denies chest pain shortness of breath fever chills hemoptysis hematochezia melena hematemesis. Related Data Home Medications Medication Instructions Recorded Confirmed ketoconazole 1 % shampoo 1 applic topical Q3D . 08/06/21 02/15/24 biotin 5,000 mcg disintegrating 10,000 mcg PO DAILY Supplement 05/16/22 02/15/24 tablet calcium carbonate 600 mg-vitamin 1 tab PO DAILY Supplement 05/16/22 02/15/24 D3 5 mcg (200 unit) tablet multivitamin 1 tab PO DAILY Supplement 05/16/22 02/15/24 omega-3 fatty acids 500 mg capsule 500 mg PO DAILY Supplement 02/10/23 02/15/24 ketoconazole 2 % shampoo 1 applic topical Q2W PRN 04/09/23 02/15/24 triamcinolone acetonide 0.1 % 1 applic topical TID PRN 04/09/23 02/15/24 topical ointment pen needle, diabetic 31 gauge x #1,200 ea 11/12/23 02/15/24/16 (Comfort EZ Pen [place]) Previous Rx's Medication Instructions Recorded montelukast 10 mg tablet 10 mg PO DAILY allergies 90 days 07/13/23 (Singulair) #90 tabs clopidogrel 75 mg tablet See Rx Instructions .Route 08/10/23 .COMPLEX #90 tabs atorvastatin 80 mg tablet 80 mg PO DAILY Cholesterol 90 days 09/04/23 #90 tabs amlodipine 10 mg tablet 10 mg PO DAILY htn #90 tabs 11/12/23 azilsartan medoxomil 80 mg tablet See Rx Instructions .Route 11/17/23 (Edarbi) .COMPLEX #90 tabs chlorthalidone 25 mg tablet See Rx Instructions .Route 11/17/23 .COMPLEX #90 tabs medroxyprogesterone 5 mg tablet 5 mg PO DAILY hormone 30 days #30 11/17/23 tabs diclofenac sodium 75 mg 75 mg PO BID Pain 90 days #180 tabs 12/21/23 tablet,delayed release blood sugar diagnostic (OneTouch #100 ea 12/28/23 Ultra Test strips) insulin glargine U-300 conc 300 170 unit (0.5667 mL) SQ Q24H 30 01/11/24 unit/mL (3 mL) subcutaneous pen days #17.001 mL (Toujeo Max U-300 SoloStar) pantoprazole 20 mg tablet,delayed 20 mg PO DAILY GERD 90 days #90 01/18/24 release (Protonix) tabs fluticasone propionate 50 2 spray intranasal DAILY 90 days 01/21/24 mcg/actuation nasal #16 grams spray,suspension (Flonase Allergy Relief) bisoprolol fumarate 10 mg tablet 20 mg (2 x 10 mg) PO DAILY htn 02/02/24 #180 tabs metformin 500 mg tablet,extended 500 mg PO BID diabetes 90 days 02/02/24 release 24 hr #180 tabs oxybutynin chloride 10 mg 10 mg PO DAILY htn 90 days #90 tabs 02/02/24 tablet,extended release 24 hr glycopyrrolate 9 mcg-formoterol 2 puff inhalation BID 90 days 02/03/24 4.8 mcg HFA aerosol inhaler #10.7 grams (Bevespi Aerosphere) fluticasone fur. 100 mcg-umeclid 1 inh inhalation DAILY 90 days #90 02/08/24 62.5 mcg-vilant 25 mcg ea inhalat.powder (Trelegy Ellipta) valsartan 80 mg tablet (Diovan) 80 mg PO DAILY #30 tabs 02/11/24 cefdinir 300 mg capsule 300 mg PO BID 10 days #20 caps 02/15/24 Allergies Allergy/AdvReac Type Severity Reaction Status Date / Time amoxicillin [From AUGMENTIN] Allergy Severe THROAT Verified 02/15/24 14:46 SWELLING clavulanic acid Allergy Severe THROAT Verified 02/15/24 14:46 [From AUGMENTIN] SWELLING sulfamethoxazole Allergy Mild Verified 02/15/24 14:46 [facility] Disclaimer: The information contained in this section may have been updated after the patient was seen, as this information can be updated by other users. Medical History Nocturnal hypoxemia due to emphysema SNHL (sensorineural hearing loss) mild to moderate predominantly SNHL, worse left. No neural asymmetry (mixed left) Otalgia of left ear JEREMIAH (obstructive sleep apnea) Diastolic dysfunction Otitis externa of left ear External otitis of left ear due to fungus Low magnesium level Elevated serum creatinine Tricuspid regurgitation Aortic regurgitation Mitral regurgitation Abnormal ECG Stopped smoking with greater than 30 pack year history COPD (chronic obstructive pulmonary disease) Asthma SOBOE (shortness of breath on exertion) Thyroid Nodule History of sleep apnea Allergic rhinitis Dyspnea on exertion Asthma-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 Coronary artery disease AUG 2022- SHELLEY LAD/CX/RCA Hyperlipidemia Psoriasis Hypertension Diabetes mellitus Surgical History History of coronary artery stent placement H/O dilation and curettage History of left knee replacement History of right hip replacement Cataract Family History Mother Cancer Father Cancer Social History Smoking Status: Never smoker smoking status stop date: 09/07/1990 alcohol intake: never substance use type: denies use current occupational status: retired Travel in the last 8 weeks: None housing: house marital status: ROS Obtained: Yes Systems reviewed as appropriate & no additional complaints except as documented Physical Exam General General appearance: alert and in no apparent distress Respiratory Respiratory exam: Present normal lung sounds bilaterally Cardiovascular Cardiovascular exam: Present normal rhythm, tachycardia and normal heart sounds Abdominal Exam Abdominal exam: Present soft, tenderness and normal bowel sounds; Absent guarding, rebound or rigidity Neurological Exam Neurological exam: Present alert and oriented X3 Skin Skin exam: Present warm, dry and normal color Medical Decision Making Medical Records Medical records reviewed: Yes I reviewed the patient's medical records. Azael Inquiry Pt receiving controlled substance: No Vital Signs: 02/15/24 15:42 02/15/24 16:00 02/15/24 16:30 Temperature 98.1 F Temperature Source Oral Pulse Rate 88 96 H Pulse Rate [Radial] 112 H Respiratory Rate 16 Blood Pressure 133/67 Blood Pressure [Right Arm] 138/68 Blood Pressure Mean [Right Arm] 91 Blood Pressure Source [Right Arm] Automatic Cuff Blood Pressure Position [Right Arm] Sitting 02 Sat by Pulse Oximetry 93 L 94 L 93 L Oxygen Delivery Method Room Air Room Air 02/15/24 17:35 Temperature 98.0 F Temperature Source Pulse Rate 86 Pulse Rate [Radial] Respiratory Rate 20 Blood Pressure 133/67 Blood Pressure [Right Arm] Blood Pressure Mean [Right Arm] Blood Pressure Source [Right Arm] Blood Pressure Position [Right Arm] 02 Sat by Pulse Oximetry Oxygen Delivery Method Room Air Lab Data Lab results reviewed: Yes I reviewed the patient's lab results. Lab Results 02/15/24 15:51: Urine Color [place], Urine Appearance Cloudy, Urine pH 5.0, Ur Specific [place] >= 1.030, Urine Protein 3+, Urine Glucose (UA) 1+, Urine Ketones Trace, Urine Blood 2+, Urine Nitrate Positive, Urine Bilirubin 2+ A, Urine Urobilinogen 4.0, Ur Leukocyte Esterase 2+ A, Urine RBC 20-50, Urine WBC 50-100, Ur Squamous Epith Cells None, Urine Bacteria 1+ 02/15/24 15:56: VBG pH 7.43 H, VBG pCO2 36.5, VBG pO2 49.1 H, VBG HCO3 23.4, VBG Total CO2 24.5, VBG O2 Saturation 85.7 H, VBG Base Excess -1.0, VBG Lactic Acid 2.2 H 02/15/24 16:00: WBC 9.7, RBC 4.12 L, Hgb 12.9, Hct 39.2, MCV 95.2, MCH 31.4 H, MCHC 32.9, RDW 14.8, Plt Count 178, MPV 9.0, Neut % (Auto) 85.0 H, Lymph % (Auto) 8.4 L, [place] % (Auto) 6.0, Eos % (Auto) 0.2, Baso % (Auto) 0.3, Neut # (Auto) 8.2 H, Lymph # (Auto) 0.8, [place] # (Auto) 0.6, Eos # (Auto) 0.0, Baso # (Auto) 0.0, Total Counted 100, Neutrophils % (Manual) 88 H, Lymphocytes % (Manual) 9 L, Monocytes % (Manual) 3, Platelet Estimate Normal, RBC Morphology Normal, Sodium 133 L, Potassium 3.6, Chloride 98, Carbon Dioxide 24, Anion Gap 14.6, BUN 35 H, Creatinine 1.90 H, Estimated Creat Clear 34, Estimated GFR 26 L, Est GFR ( Amer) 31 L, Glucose 108 H, Hemoglobin A1c 7.9 H, Lactate 1.2, Calcium 9.2, Magnesium 1.6, Total Bilirubin 0.6, AST 44 H, ALT 38, Alkaline Phosphatase 84, Total Protein 7.5, Albumin 4.0, Globulin 3.5 H, Albumin/Globulin Ratio 1.1, Lipase 72 02/15/24 16:00 02/15/24 16:00 Orders (Tests/Meds): ED MEDICATIONS Discontinued Medications Generic Name Dose Route Start Last Admin Trade Name Kenyq PRN Reason Stop Dose Admin Acetaminophen 1,000 mg 02/15/24 15:55 02/15/24 16:11 Acetaminophen 1,000mg/100ml Vial IV 02/15/24 15:56 1,000 mg ONCE ONE Administration Cefdinir 300 mg 02/15/24 17:22 02/15/24 17:29 Cefdinir 300mg Capsule PO 02/15/24 17:23 300 mg ONCE ONE Administration Lactated Ringer's 1,000 mls @ 999 mls/hr 02/15/24 15:55 02/15/24 16:12 Lactated Ringer's 1000 Ml Bag IV 02/15/24 16:55 999 mls/hr .Q1H1M ONE Administration Ketorolac Tromethamine 15 mg 02/15/24 15:55 02/15/24 16:12 Ketorolac 30mg/Ml Vial IV 02/15/24 15:56 15 mg ONCE ONE Administration Ondansetron HCl 4 mg 02/15/24 15:55 02/15/24 16:11 Ondansetron 4mg/2ml Vial IV 02/15/24 15:56 4 mg ONCE ONE Administration ORDERS Category Date Time Status CBC w/Auto Diff [Complete Blood Count Auto Diff] Stat Lab 02/15/24 16:00 Completed CMP [Comprehensive Metabolic Panel] Stat Lab 02/15/24 16:00 Completed Hemoglobin A1C Stat Lab 02/15/24 16:00 Completed Lactic Acid Stat Lab 02/15/24 16:00 Completed Lipase Stat Lab 02/15/24 16:00 Completed Magnesium Stat Lab 02/15/24 16:00 Completed UA [Urinalysis and Microscopic] Stat Lab 02/15/24 15:51 Completed Urine Culture Stat Micro 02/15/24 15:51 Received VBG [Venous Blood Gas] Stat RT 02/15/24 15:56 Completed Medical Decision Narrative: In summary patient is a 73-year-old female who presents to the emergency department for evaluation of nausea vomiting diarrhea incontinence of urine. Patient is hemodynamically stable but tachycardic on arrival upon arrival, afebrile. Physical exam is remarkable for mild diffuse abdominal discomfort on palpation with hyperactive bowel sounds. Differential diagnosis includes gastroenteritis versus DKA versus obstruction etc. Initial workup will be conducted with hematologic labs CT scan abdomen pelvis urinalysis. Initial interventions include crystalloid bolus Toradol Tylenol. Initial workup reviewed by me shows that her hematologic labs are significant for slightly bumped creatinine but no DKA and the remainder are nonactionable but her urinalysis shows leukocytes and bacteria on microscopic exam and my informal interpretation of her CT scan abdomen pelvis shows findings consistent with enteritis without any other acute findings.. Upon repeat evaluation patient had significant improvement in her abdominal discomfort. Given this patient is appropriate for discharge with a prescription for Omnicef and referral back to PCP for recheck of her laboratory results in 48 hours Critical Care Critical Care Time Critical Care Time: No
[2024-02-15 16:00] VITALS: PULSE 88; O2SAT 94
[2024-02-15 16:07] LABS: VBG HCO3 23.4 mmol/L (23-30); VBG Oxygen Saturation 85.7 % (50-70); VBG PCO2 36.5 mmol/L (35-51); VBG PH 7.43 mmol/L (7.31-7.41); VBG PO2 49.1 mmol/L (28-40); VBG Total CO2 24.5 mmol/L (23-27)
[2024-02-15 16:08] LABS: Lactate Venous 2.2 mmol/L (0.4-2.0)
[2024-02-15 16:10] LABS: Microscopic, Urine URINE MICROSCOPIC (MICROSCOPIC)
[2024-02-15] MEDS: ONDANSETRON 4MG/2ML VIAL 4 MG IV (16:11)
[2024-02-15] MEDS: ACETAMINOPHEN 1,000MG/100ML VIAL 1000 MG IV (16:11)
[2024-02-15] MEDS: KETOROLAC 30MG/ML VIAL 15 MG IV (16:12)
[2024-02-15] MEDS: LACTATED RINGERS 1000ML 1,000 ML 999 ML IV (16:12)
[2024-02-15 16:15] LABS: Basophils % 0.3 % (0.1-2.0); Chloride 98 mmol/L (98-107); Eosinophils % 0.2 % (0.1-12.0); Hematocrit 39.2 % (37.0-47.0); Hemoglobin 12.9 g/dL (12.2-16.2); Lymphocytes # 0.8 K/mm3 (0.7-4.5); Lymphocytes % 8.4 % (10-50); Mean Corpuscular HGB Conc 32.9 g/dL (31.8-35.4); Mean Corpuscular Hemoglobin 31.4 pg (27.0-31.2); Mean Corpuscular Volume 95.2 fl (81-99); Monocytes # 0.6 K/mm3 (0.1-1.0); Neutrophils # 8.2 K/mm3 (1.8-7.8); Platelet Count 178 K/mm3 (142-424); Red Blood Count 4.12 M/mm3 (4.20-5.40); Red Cell Distribution Width 14.8 % (11.5-17.5); White Blood Count 9.7 K/mm3 (4.8-10.8)
[2024-02-15 16:16] LABS: MANUAL DIFFERENTIAL MANUAL DIFFERENTIAL (MANUAL DIFF); Potassium 3.6 mmoL/L (3.5-5.1); Sodium 133 mmol/L (136-145)
[2024-02-15 16:16] LABS: Blood, Urine 2+ (Negative); Glucose,Urine (UA) 1+ (Negative); Ketones,Urine TRACE (Negative); Leukocyte Esterase,Urine 2+ (Negative); Nitrate,Urine POSITIVE (Negative); Protein,Urine 3+ (Negative); Specific Gravity, Urine >= 1.030 (1.005-1.030)
[2024-02-15 16:18] LABS: Alanine Aminotransferase 38 U/L (12-78); Alkaline Phosphatase 84 U/L (38-126); Aspartate Amino Transferase 44 U/L (14-36); Bilirubin,Total 0.6 mg/dl (0.2-1.3); Blood Urea Nitrogen 35 mg/dl (7-17); Creatinine Clearance Estimated 34 mL/min (50-200); Estimated Glomerular Filt Rate 26 ml/min (>60); GFR (African American) 31 ML/MIN (>60)
[2024-02-15 16:19] LABS: Albumin/Globulin Ratio 1.1 (1.1-1.8); Anion Gap 14.6 mEq/L (5-15); Calcium 9.2 mg/dl (8.4-10.2); Carbon Dioxide 24 mmol/L (22.0-30.0); Globulin 3.5 g/dL (1.3-3.2); Glucose 108 mg/dl (74-100); Lipase 72 U/L (23-300); Magnesium 1.6 mg/dl (1.6-2.3); Total Protein,Serum 7.5 g/dl (6.3-8.2)
[2024-02-15 16:24] LABS: Lactic Acid 1.2 mmol/L (0.7-2.1)
[2024-02-15 16:30] VITALS: BP 133/67; PULSE 96; O2SAT 93
[2024-02-15 16:36] LABS: Appearance,Urine Cloudy (Clear); Bilirubin,Urine 2+ (Negative); Color,Urine Orange (Yellow)
[2024-02-15 16:38] LABS: Bacteria,Urine 1+ /lpf; RBC,Urine 20-50 #/hpf (0-3); WBC,Urine 50-100 #/hpf (0-3)
[2024-02-15 17:06] LABS: Hemoglobin A1C 7.9 % (4.0-6.0)
[2024-02-15] MEDS: CEFDINIR 300MG CAPSULE 300 MG PO (17:29)
[2024-02-15 17:35] VITALS: BP 133/67; PULSE 86; RESP 20; TEMP 36.7; O2SAT 94
[2024-02-15 17:46] LABS: Lymphocytes % 9 % (10-50); Monocytes % 3 % (2-9); Neutrophils % 88 % (42-76); Total Cells Counted 100
[2024-02-15 17:47] LABS: Platelet Estimate Normal; RBC Morphology Normal
--- NOTE | 2024-02-17 08:36 | PC.NURSE ---
urine culture results discussed with , pt dc with cefdinir, NTD
== END 2024-02-15 17:36 | disposition home or self-care (01) ==
PROVIDERS: Physician Assistant; Emergency Provider Emergency Medicine; PCP Family Medicine
DX: N39.0 Urinary tract infection, site not specified (principal); B96.29 Other Escherichia coli [E. coli] as the cause of diseases classified elsewhere; R31.9 Hematuria, unspecified; R11.2 Nausea with vomiting, unspecified; R19.7 Diarrhea, unspecified; E11.9 Type 2 diabetes mellitus without complications; J44.9 Chronic obstructive pulmonary disease, unspecified; I11.9 Hypertensive heart disease without heart failure; E78.5 Hyperlipidemia, unspecified; I25.10 Atherosclerotic heart disease of native coronary artery without angina pectoris; Z87.891 Personal history of nicotine dependence; Z95.5 Presence of coronary angioplasty implant and graft; Z79.4 Long term (current) use of insulin; Z79.84 Long term (current) use of oral hypoglycemic drugs
CPT/HCPCS: 80053; 81001; 82803; 83036; 83605; 83690; 83735; 85007; 85025; 87086; 87088; 87186; 96361; 96374; 96375; 99284; J0131; J1885; J2405; J7120

== ENCOUNTER 2024-02-24 15:00 | Outpatient (CLI) | payer MEDICARE, SELFPAY ==
[2024-02-24 17:20] LABS: Anion Gap 16.5 mEq/L (5-15); Blood Urea Nitrogen 31 mg/dl (7-17); Calcium 9.5 mg/dl (8.4-10.2); Carbon Dioxide 24 mmol/L (22.0-30.0); Chloride 104 mmol/L (98-107); Estimated Glomerular Filt Rate 32 ml/min (>60); GFR (African American) 38 ML/MIN (>60); Glucose 125 mg/dl (74-100); Potassium 4.5 mmoL/L (3.5-5.1); Sodium 140 mmol/L (136-145)
== END 2024-02-24 23:59 | disposition home or self-care (01) ==
LOC: LAB.DROPOF 03-07 13:04
PROVIDERS: PCP Family Medicine; Visit Provider Family Medicine
DX: N39.0 Urinary tract infection, site not specified (principal); R31.9 Hematuria, unspecified
CPT/HCPCS: 80048

== ENCOUNTER 2024-03-15 17:00 | Outpatient (CLI) | payer MEDICARE, SELFPAY ==
[2024-03-15 18:55] LABS: Anion Gap 13.3 mEq/L (5-15); Blood Urea Nitrogen 15 mg/dl (7-17); Calcium 10.1 mg/dl (8.4-10.2); Carbon Dioxide 25 mmol/L (22.0-30.0); Chloride 107 mmol/L (98-107); Estimated Glomerular Filt Rate 49 ml/min (>60); GFR (African American) 59 ML/MIN (>60); Glucose 95 mg/dl (74-100); Potassium 4.3 mmoL/L (3.5-5.1); Sodium 141 mmol/L (136-145)
== END 2024-03-15 23:59 | disposition home or self-care (01) ==
LOC: LAB.DROPOF 17:01
PROVIDERS: PCP Family Medicine; Visit Provider Family Medicine
DX: I10 Essential (primary) hypertension (principal); Z87.891 Personal history of nicotine dependence
CPT/HCPCS: 80048

== ENCOUNTER 2024-04-09 22:34 | Inpatient (IN) | payer MEDICARE, SELFPAY ==
[2024-04-09 22:36] VITALS: BP 115/61; PULSE 79; RESP 22; TEMP 36.5; O2SAT 87; BMI 35.6
[2024-04-09 23:00] VITALS: BP 128/50; PULSE 75; O2SAT 99
--- NOTE | 2024-04-09 23:07 | HMH.EDGENADL ---
Discharge Plan Disposition Patient Disposition: Admitted Prescriptions Prescriptions: No Action multivitamin Tablet 1 tab PO DAILY calcium carbonate-vitamin D3 600 mg-5 mcg (200 unit) tablet 1 tab PO DAILY biotin 5,000 mcg tablet,disintegrating 10,000 mcg PO DAILY ketoconazole 2 % shampoo 1 applic topical Q2W PRN triamcinolone acetonide 0.1 % ointment 1 applic topical TID PRN fluticasone propionate [Flonase Allergy Relief] 50 mcg/actuation spray,suspension 2 spray intranasal DAILY 90 Days Qty: 16 2RF Rx Instructions: administer into each nostril omega-3 fatty acids 500 mg capsule 500 mg PO DAILY (DME) pen needle, diabetic [Comfort EZ Pen [place]] 31 gauge x 5/16 needle See Rx Instructions .ROUTE .MEDSUPPLY Qty: 1200 Patient Comments: USE DIRECTED Rx Instructions: As directed amlodipine 10 mg tablet 10 mg PO DAILY Qty: 90 3RF valsartan [Diovan] 80 mg tablet 80 mg PO DAILY Qty: 30 5RF chlorthalidone 25 mg tablet 25 mg PO DAILY Qty: 90 3RF montelukast [Singulair] 10 mg tablet 10 mg PO DAILY 90 Days Qty: 90 0RF clopidogrel 75 mg tablet See Rx Instructions .ROUTE .COMPLEX Qty: 90 3RF Dose Instruction: Take 1 tablet by mouth once daily Rx Instructions: Take 1 tablet by mouth once daily atorvastatin 80 mg tablet 80 mg PO DAILY 90 Days Qty: 90 0RF diclofenac sodium 75 mg tablet,delayed release (DR/EC) 75 mg PO BID 90 Days Qty: 180 1RF pantoprazole [Protonix] 20 mg tablet,delayed release (DR/EC) 20 mg PO DAILY 90 Days Qty: 90 0RF bisoprolol fumarate 10 mg tablet 20 mg PO DAILY Qty: 180 2RF metformin 500 mg tablet extended release 24 hr 500 mg PO BID 90 Days Qty: 180 0RF oxybutynin chloride 10 mg tablet extended release 24hr 10 mg PO DAILY 90 Days Qty: 90 0RF Bevespi Aerosphere 9-4.8 mcg HFA aerosol inhaler 2 puff inhalation BID 90 Days Qty: 10.7 3RF Trelegy Ellipta 100-62.5-25 mcg blister with device 1 inh inhalation DAILY 90 Days Qty: 90 2RF (DME) OneTouch Ultra Test Strip See Rx Instructions .ROUTE .COMPLEX Qty: 100 0RF Dose Instruction: USE 1 STRIP TO CHECK GLUCOSE TWICE DAILY FOR DIABETES Rx Instructions: USE 1 STRIP TO CHECK GLUCOSE TWICE DAILY FOR DIABETES medroxyprogesterone 5 mg tablet See Rx Instructions .ROUTE .COMPLEX Qty: 30 0RF Dose Instruction: TAKE 1 TABLET BY MOUTH ONCE DAILY FOR HORMONE Rx Instructions: TAKE 1 TABLET BY MOUTH ONCE DAILY FOR HORMONE insulin glargine U-300 conc [Toujeo Max U-300 SoloStar] 300 unit/mL (3 mL) insulin pen 156 unit SQ Q24H 30 Days Qty: 15.6 4RF cefdinir 300 mg capsule 300 mg PO BID 10 Days Qty: 20 0RF Clinical Impressions Clinical Impression: Generalized weakness, Acute pyelonephritis, Hypoglycemia, Kidney lesion, [place], right, Aortic aneurysm Print Language Print Language: Icelandic Discharge ED Provider: Dio Angulo General Adult HPI General Chief complaint: Nausea/Vomiting/Diarrhea Stated complaint: Weakness,nausea Time Seen by Provider: 04/09/24 23:02 Mode of Arrival: Wheelchair Source of Information: Patient and Relative Limitations: Physical Limitations Description of Symptoms (Recalled from ER Triage Doc. by RN): 73 F presents from home with c/o worsening weakness with nausea that started this past Thursday. Patient was recently seen in this ER a couple of weeks ago, given abx for UTI and IV fluids. Patient FSBS at 1700 was 59, so she tried to eat some food, but was unable to tolerate PO. History of Present Illness HPI narrative: 73-year-old female with history of sleep apnea, insulin-dependent diabetes, obesity, frequent urinary tract infection presents for multiple complaints. Reports that she has been generally weak and has been unable to get out of bed for the last couple of days. She reports generalized abdominal discomfort without focal pain. Reports frequent diarrhea, more than normal for her. Denies any nausea or vomiting. She reports that she has had urinary symptoms as well. Denies any fever at home. Also reports recurrent hypoglycemia at home. Mildly hypoglycemic on arrival at 69. Related Data Home Medications ?Medication ?Instructions ?Recorded ?Confirmed biotin 5,000 mcg disintegrating 10,000 mcg PO DAILY Supplement 05/16/22 03/21/24 tablet calcium carbonate 600 mg-vitamin 1 tab PO DAILY Supplement 05/16/22 03/21/24 D3 5 mcg (200 unit) tablet multivitamin 1 tab PO DAILY Supplement 05/16/22 03/21/24 omega-3 fatty acids 500 mg capsule 500 mg PO DAILY Supplement 02/10/23 03/21/24 ketoconazole 2 % shampoo 1 applic topical Q2W PRN 04/09/23 03/21/24 triamcinolone acetonide 0.1 % 1 applic topical TID PRN 04/09/23 03/21/24 topical ointment pen needle, diabetic 31 gauge x #1,200 ea 11/12/23 03/21/2401/20 (Comfort EZ Pen [place]) Previous Rx's ?Medication ?Instructions ?Recorded montelukast 10 mg tablet 10 mg PO DAILY allergies 90 days 07/13/23 (Singulair) #90 tabs clopidogrel 75 mg tablet See Rx Instructions .Route 08/10/23 .COMPLEX #90 tabs atorvastatin 80 mg tablet 80 mg PO DAILY Cholesterol 90 days 09/04/23 #90 tabs amlodipine 10 mg tablet 10 mg PO DAILY htn #90 tabs 11/12/23 diclofenac sodium 75 mg 75 mg PO BID Pain 90 days #180 tabs 12/21/23 tablet,delayed release pantoprazole 20 mg tablet,delayed 20 mg PO DAILY GERD 90 days #90 01/18/24 release (Protonix) tabs fluticasone propionate 50 2 spray intranasal DAILY 90 days 01/21/24 mcg/actuation nasal #16 grams spray,suspension (Flonase Allergy Relief) bisoprolol fumarate 10 mg tablet 20 mg (2 x 10 mg) PO DAILY htn 02/02/24 #180 tabs metformin 500 mg tablet,extended 500 mg PO BID diabetes 90 days 02/02/24 release 24 hr #180 tabs oxybutynin chloride 10 mg 10 mg PO DAILY htn 90 days #90 tabs 02/02/24 tablet,extended release 24 hr glycopyrrolate 9 mcg-formoterol 2 puff inhalation BID 90 days 02/03/24 4.8 mcg HFA aerosol inhaler #10.7 grams (Bevespi Aerosphere) fluticasone fur. 100 mcg-umeclid 1 inh inhalation DAILY 90 days #90 02/08/24 62.5 mcg-vilant 25 mcg ea inhalat.powder (Trelegy Ellipta) cefdinir 300 mg capsule 300 mg PO BID 10 days #20 caps 02/15/24 blood sugar diagnostic (Potentia SemiconductorTouch #100 ea 03/04/24 Ultra Test strips) chlorthalidone 25 mg tablet 25 mg PO DAILY #90 tabs 03/21/24 valsartan 80 mg tablet (Diovan) 80 mg PO DAILY #30 tabs 03/21/24 medroxyprogesterone 5 mg tablet See Rx Instructions .Route 03/22/24 .COMPLEX #30 tabs insulin glargine U-300 conc 300 156 unit (0.52 mL) SQ Q24H 30 days 03/25/24 unit/mL (3 mL) subcutaneous pen #15.6 mL (Toujeo Max U-300 SoloStar) Allergies Allergy/AdvReac Type Severity Reaction Status Date / Time amoxicillin [From AUGMENTIN] Allergy Severe THROAT Verified 03/21/24 14:02 SWELLING clavulanic acid Allergy Severe THROAT Verified 03/21/24 14:02 [From AUGMENTIN] SWELLING sulfamethoxazole Allergy Mild Verified 03/21/24 14:02 PFS PFS Disclaimer: The information contained in this section may have been updated after the patient was seen, as this information can be updated by other users. Medical History Nocturnal hypoxemia due to emphysema SNHL (sensorineural hearing loss) mild to moderate predominantly SNHL, worse left. No neural asymmetry (mixed left) Otalgia of left ear JEREMIAH (obstructive sleep apnea) Diastolic dysfunction Otitis externa of left ear External otitis of left ear due to fungus Low magnesium level Elevated serum creatinine Tricuspid regurgitation Aortic regurgitation Mitral regurgitation Abnormal ECG Stopped smoking with greater than 30 pack year history COPD (chronic obstructive pulmonary disease) Asthma SOBOE (shortness of breath on exertion) Thyroid Nodule History of sleep apnea Allergic rhinitis Dyspnea on exertion Asthma-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 Coronary artery disease AUG 2022- SHELLEY LAD/CX/RCA Hyperlipidemia Psoriasis Hypertension Diabetes mellitus Surgical History History of coronary artery stent placement H/O dilation and curettage History of left knee replacement History of right hip replacement Cataract Family History Mother Cancer Father Cancer Social History Smoking Status: Never smoker smoking status stop date: 09/07/1990 alcohol intake: never substance use type: denies use current occupational status: retired Travel in the last 8 weeks: None housing: house marital status: ROS Obtained: Yes All systems reviewed & no additional complaints except as documented Physical Exam General General appearance: alert and in no apparent distress Head Head exam: atraumatic and normocephalic Eye Eye exam: Present normal appearance, PERRL and EOMI ENT ENT exam: Present normal oropharynx and normal external ear exam Neck Neck exam: Present normal inspection and full ROM Chest Chest inspection: Present normal inspection and symmetric chest wall rise; Absent tenderness Respiratory Respiratory exam: Present normal lung sounds bilaterally; Absent respiratory distress Cardiovascular Cardiovascular exam: Present regular rate and normal rhythm Abdominal Exam Abdominal exam: Present soft and tenderness (Mild, generalized); Absent distention or guarding Extremities Exam Extremities exam: Present normal inspection; Absent edema or joint swelling Back Exam Back exam: Present normal inspection; Absent tenderness Neurological Exam Neurological exam: Present alert and oriented X3; Absent motor sensory deficit Psychiatric Psychiatric exam: Present normal affect and normal mood Skin Skin exam: Present warm, dry and normal color Lymphatic Lymphatic Findings: no adenopathy Medical Decision Making Medical Records Medical records reviewed: Yes I reviewed the patient's medical records. Azael Inquiry Pt receiving controlled substance: No Azael was queried for this patient: No Vital Signs: 04/09/24 22:36 04/09/24 23:00 04/09/24 23:25 Temperature 97.7 F Temperature Source Oral Pulse Rate 75 69 Pulse Rate [Left] 79 Respiratory Rate 22 Blood Pressure 128/50 L 141/54 H Blood Pressure [Right Arm] 115/61 Blood Pressure Mean [Right Arm] 79 Blood Pressure Source [Right Arm] Automatic Cuff Blood Pressure Position [Right Arm] Sitting 02 Sat by Pulse Oximetry 87 L 99 97 Oxygen Delivery Method Room Air 04/09/24 23:30 Temperature Temperature Source Pulse Rate 76 Pulse Rate [Left] Respiratory Rate Blood Pressure 136/53 L Blood Pressure [Right Arm] Blood Pressure Mean [Right Arm] Blood Pressure Source [Right Arm] Blood Pressure Position [Right Arm] 02 Sat by Pulse Oximetry 97 Oxygen Delivery Method Lab Data Lab results reviewed: Yes I reviewed the patient's lab results. Lab Results 04/09/24 22:50: WBC 12.4 H, RBC 3.80 L, Hgb 11.6 L, Hct 36.2 L, MCV 95.3, MCH 30.4, MCHC 32.0, RDW 15.7, Plt Count 277, MPV 8.3, Neut % (Auto) 90.4 H, Lymph % (Auto) 5.7 L, [place] % (Auto) 3.3, Eos % (Auto) 0.2, Baso % (Auto) 0.3, Neut # (Auto) 11.2 H, Lymph # (Auto) 0.7, [place] # (Auto) 0.4, Eos # (Auto) 0.0, Baso # (Auto) 0.0, Total Counted 100, Neutrophils % (Manual) 88 H, Lymphocytes % (Manual) 10, Monocytes % (Manual) 2, Platelet Estimate Normal, RBC Morphology Normal, Sodium 136, Potassium 3.9, Chloride 103, Carbon Dioxide 25, Anion Gap 11.9, BUN 29 H, Creatinine 1.50 H, Estimated Creat Clear 42, Estimated GFR 34 L, Est GFR ( Amer) 41 L, Glucose 81, Calcium 9.5, Magnesium 1.8, Total Bilirubin 0.7, AST 39 H, ALT 35, Alkaline Phosphatase 89, NT-Pro-B Natriuret Pep 2350 H, Total Protein 7.0, Albumin 3.5, Globulin 3.5 H, Albumin/Globulin Ratio 1.0 L, Lipase 40 04/09/24 23:30: Urine Color Yellow, Urine Appearance Cloudy, Urine pH 6.0, Ur Specific [place] 1.020, Urine Protein 2+, Urine Glucose (UA) Negative, Urine Ketones Negative, Urine Blood 3+, Urine Nitrate Positive, Urine Bilirubin Negative, Urine Urobilinogen 0.2, Ur Leukocyte Esterase 3+ A, Urine RBC 20-50, Urine WBC 20-50, Ur Squamous Epith Cells Occasional, Urine Bacteria 1+ 04/09/24 22:50 04/09/24 22:50 Orders (Tests/Meds): ED MEDICATIONS Generic Name Dose Route Start Last Admin Trade Name Freq PRN Reason Stop Dose Admin Sodium Chloride 10 ml 04/10/24 00:16 04/10/24 00:17 Sodium Chloride 0.9% 10ml Syr (Rad Only) IV 05/10/24 00:15 10 ml NEEDED PRN Administration Maintain IV Site Discontinued Medications Generic Name Dose Route Start Last Admin Trade Name Freq PRN Reason Stop Dose Admin Ceftriaxone Sodium 1 gm/ 50 mls @ 100 mls/hr 04/09/24 23:45 04/09/24 23:54 Sodium Chloride IV 04/10/24 00:14 100 mls/hr ONCE ONE Administration Sodium Chloride 1,000 mls @ 999 mls/hr 04/09/24 23:45 04/09/24 23:53 Sod Chlor 0.9% 1000ml Bag IV 04/10/24 00:45 999 mls/hr .Q1H1M MINA Administration Iopamidol 75 ml 04/10/24 00:16 04/10/24 00:16 Iopamidol-370 (76%);100ml Bottle IV 04/10/24 00:17 75 ml ONCE ONE Administration ORDERS Category Date Time Status CT abdomen pelvis w con Stat Cat Scan 04/09/24 23:08 Completed CXR --portable [XR chest portable] Stat Exams 04/09/24 23:10 Completed BNP [NT Pro Brain Natriuretic Pep.] Stat Lab 04/09/24 22:50 Completed CBC w/Auto Diff [Complete Blood Count Auto Diff] Stat Lab 04/09/24 22:50 Completed CMP [Comprehensive Metabolic Panel] Stat Lab 04/09/24 22:50 Completed Diarrhea 23 Panel, PCR Stat Lab 04/10/24 00:09 Ordered Lipase Stat Lab 04/09/24 22:50 Completed Magnesium Stat Lab 04/09/24 22:50 Completed UA [Urinalysis and Microscopic] Stat Lab 04/09/24 23:30 Completed Blood Culture Stat Micro 04/09/24 22:20 Received Urine Culture Stat Micro 04/09/24 23:30 Received ECG Data Tracing #1: I reviewed this ECG and interpreted as documented below: Sinus rhythm, rate of 65, no significant ST or T wave changes, no evidence of arrhythmia. ECG initial impression date: 04/09/24 ECG initial impression time: 23:16 Medical Decision Narrative: 73-year-old female with history of COPD, frequent urinary tract infections, insulin-dependent diabetes, hypertension hyperlipidemia obesity presents for generalized weakness, recurrent hypoglycemia, urinary symptoms, worsening. History was obtained via interactive discussion with patient, family, chart review. On arrival, patient is [afebrile, hemodynamically stable, satting appropriately, alert, oriented x4, GCS 15], moving all extremities spontaneously. Full physical exam performed and significant for mild generalized abdominal tenderness. Differential includes but is not limited to UTI, pyelonephritis, bacteremia, pneumonia, dehydration, electrolyte derangement, gastroenteritis. Patient was given 1 L fluid bolus, for symptomatic management and correction of underlying abnormalities. Workup initiated including CBC CMP blood cultures urine urine culture magnesium x-ray EKG. On re-evaluation, patient [remains afebrile, HD stable.] Laboratory workup independently interpreted by me and significant for mild leukocytosis, urine consistent with infection with 20-50 RBCs and WBCs, nitrate positive blood, 1+ bacteria. Kidney function mildly elevated at 1.5.. Imaging independently interpreted by me and significant for stranding around the left kidney concerning for pyelonephritis. Also shows an aortic plaque with associated mild aneurysmal dilation at 2.6 cm. Also shows a enhancing lesion in the right kidney. Patient has no acute lower extremity symptoms to suggest acute ischemic disease at this time. Chest x-ray without focal opacity see radiology read for full review of final results. I reviewed the patient's prior urine micro results. She has had an E. coli over the last year. It has been resistant to several antibiotics but has always been sensitive to ceftriaxone. Given this we will initiate ceftriaxone therapy. Given patient history, exam and workup, patient's presentation most likely represents generalized weakness and recurrent hypoglycemia secondary to acute pyelonephritis. These findings were communicated to patient. Interactive discussion was had with hospitalist on-call for admission.. Procedures Risk/Benefits of Procedure(s) Were Explained: Yes Critical Care Critical Care Time Critical Care Time: No
--- NOTE | 2024-04-09 23:08 | CT_ITS ---
PROCEDURE INFORMATION: Exam: CT Abdomen And Pelvis With Contrast Exam date and time: 04/10/2024 12:09 AM Age: 73 years old Clinical indication: Abdominal pain; Generalized; Additional info: Weakness, generalized abd pain TECHNIQUE: Imaging protocol: Computed tomography of the abdomen and pelvis with contrast. Radiation optimization: All CT scans at this facility use at least one of these dose optimization techniques: automated exposure control; mA and/or kV adjustment per patient size (includes targeted exams where dose is matched to clinical indication); or iterative reconstruction. Contrast material: ISOVUE; Contrast volume: 75 ml; Contrast route: IV; COMPARISON: CR XR HIP RT 2-3V W/PELVIS 10/13/2023 2:17 PM FINDINGS: Lungs: Lung bases are clear. Liver: Fatty liver changes with associated hepatomegaly measuring 19.4 cm. Liver otherwise unremarkable. Gallbladder and biliary ducts: Normal. No calcified stones. No ductal dilation. Pancreas: Normal. No ductal dilation. Spleen: Mild splenomegaly measuring 14.3 cm. Adrenal glands: Normal. No mass. Kidneys and ureters: Mild multifocal right renal scarring. No obstructing stones or uropathy. Questionable 16 mm enhancing lesion in the posterosuperior right kidney on image 40 of series 3. Subtle areas of mild decreased enhancement noted involving the posterior mid left kidney and the anteromedial superior left kidney and possibly the anteromedial mid left kidney with adjacent perinephric stranding suggesting possible pyelonephritis type changes in the proper clinical setting. No evidence of obstruction. Stomach and bowel: Unremarkable. No obstruction. No mucosal thickening. Appendix: No evidence of appendicitis. Intraperitoneal space: Unremarkable. No free air. No significant fluid collection. Vasculature: [id number] atherosclerotic changes of the abdominal aorta. Mild aneurysm of the mid abdominal aorta measuring 2.6 cm located just below the renal artery origin. At this location irregular eccentric plaque or thrombus noted along the posterior margin of the aorta with associated moderate luminal narrowing up to 50% centered on axial image 40 and sagittal image 55. Lymph nodes: Unremarkable. No enlarged lymph nodes. Urinary bladder: Fairly diffuse bladder wall thickening suggesting possible cystitis. Reproductive: Unremarkable as visualized. Bones/joints: Unremarkable. No acute fracture. Soft tissues: Unremarkable. IMPRESSION: 1. Possible developing pyelonephritis of the left kidney. 2. Bladder wall thickening suggesting potential cystitis. 3. Mild aneurysm of the mid aorta measuring 2.6 cm. Follow-up imaging in 5 years is recommended. 4. Associated irregular plaque or thrombus with approximate 50% luminal narrowing of the aorta noted. This finding might be at risk for downstream embolization. 5. Possible 16 mm enhancing lesion in the posterosuperior right kidney. This might be a focal lobulation of normal renal cortex but a developing mass cannot be excluded on these images. Consider further assessment with nonemergent MRI or CT of the kidneys with and without contrast or alternatively ultrasound. 6. Additional nonemergent findings as above.
--- NOTE | 2024-04-09 23:08 | PC.NURSE ---
Repeat FSBS on patient after OJ with sugar orally, FSBS 86 at this time
--- NOTE | 2024-04-09 23:10 | XR_ITS ---
PROCEDURE INFORMATION: Exam: XR Chest Exam date and time: 04/09/2024 11:27 PM Age: 73 years old Clinical indication: Other: Weakness; Additional info: Generalized weakness TECHNIQUE: Imaging protocol: Radiologic exam of the chest. Views: 1 view. COMPARISON: CR XR CHEST 2V 03/04/2023 12:37 PM FINDINGS: Lungs: Interval development of mild bandlike subpleural opacity in the lateral left mid lung compatible with atelectasis or scarring. Lungs are otherwise clear. Pleural spaces: Unremarkable. No pleural effusion. No pneumothorax. Heart/Mediastinum: Unremarkable. No cardiomegaly. Bones/joints: Unremarkable. IMPRESSION: Mild left scarring or atelectasis. Otherwise stable chest with no other acute findings.
--- NOTE | 2024-04-09 23:10 | ECG_ITS ---
APPROVED REPORT Exam: Resting ECG HR:65 bpm ECG Measurements Heart Rate 65 AXES MI 121 P 67 QRSd 85 QRS 26 QT 429 T 73 QTc 441 Conclusion SINUS RHYTHM WITH OCCASIONAL SUPRAVENTRICULAR PREMATURE COMPLEXES ABNORMAL ECG UNCONFIRMED REPORT Electronically signed by : SUSANNE ALVA, 04/10/2024 06:46:50
[2024-04-09 23:17] LABS: Basophils % 0.3 % (0.1-2.0); Eosinophils % 0.2 % (0.1-12.0); Hematocrit 36.2 % (37.0-47.0); Hemoglobin 11.6 g/dL (12.2-16.2); Lymphocytes # 0.7 K/mm3 (0.7-4.5); Lymphocytes % 5.7 % (10-50); Mean Corpuscular Hemoglobin 30.4 pg (27.0-31.2); Mean Corpuscular Volume 95.3 fl (81-99); Mean Platelet Volume 8.3 fl (7.4-10.4); Monocytes # 0.4 K/mm3 (0.1-1.0); Monocytes % 3.3 % (1.7-9.3); Neutrophils # 11.2 K/mm3 (1.8-7.8); Neutrophils % 90.4 % (37.0-80.0); Platelet Count 277 K/mm3 (142-424); Red Cell Distribution Width 15.7 % (11.5-17.5); White Blood Count 12.4 K/mm3 (4.8-10.8)
[2024-04-09 23:24] LABS: Alanine Aminotransferase 35 U/L (12-78); Albumin Level 3.5 g/dl (3.5-5.0); Alkaline Phosphatase 89 U/L (38-126); Anion Gap 11.9 mEq/L (5-15); Aspartate Amino Transferase 39 U/L (14-36); Bilirubin,Total 0.7 mg/dl (0.2-1.3); Blood Urea Nitrogen 29 mg/dl (7-17); Calcium 9.5 mg/dl (8.4-10.2); Carbon Dioxide 25 mmol/L (22.0-30.0); Chloride 103 mmol/L (98-107); Creatinine Clearance Estimated 42 mL/min (50-200); Estimated Glomerular Filt Rate 34 ml/min (>60); GFR (African American) 41 ML/MIN (>60); Globulin 3.5 g/dL (1.3-3.2); Glucose 81 mg/dl (74-100); Lipase 40 U/L (23-300); Magnesium 1.8 mg/dl (1.6-2.3); Potassium 3.9 mmoL/L (3.5-5.1); Sodium 136 mmol/L (136-145)
[2024-04-09 23:25] VITALS: BP 141/54; PULSE 69; O2SAT 97
[2024-04-09 23:30] VITALS: BP 136/53; PULSE 76; O2SAT 97
[2024-04-09 23:32] LABS: NT Pro Brain Natriuretic Pep. 2350 pg/mL (0-125)
[2024-04-09 23:36] LABS: Microscopic, Urine URINE MICROSCOPIC (MICROSCOPIC)
[2024-04-09 23:36] LABS: MANUAL DIFFERENTIAL MANUAL DIFFERENTIAL (MANUAL DIFF)
[2024-04-09 23:39] LABS: Appearance,Urine Cloudy (Clear); Bilirubin,Urine Negative (Negative); Blood, Urine 3+ (Negative); Color,Urine YELLOW (Yellow); Glucose,Urine (UA) Negative (Negative); Ketones,Urine Negative (Negative); Leukocyte Esterase,Urine 3+ (Negative); Nitrate,Urine POSITIVE (Negative); Protein,Urine 2+ (Negative); Urobilinogen,Urine 0.2 EU/dl (0.2)
[2024-04-09] MEDS: 0.9 % SODIUM CHLORIDE 1000ML 1,000 ML 999 ML IV (23:53)
[2024-04-09] MEDS: CEFTRIAXONE 1 GM 1 GM in 0.9 % SODIUM CHLORIDE 50 ML IV (23:54)
[2024-04-10] VITALS (10 sets, daily range): BP systolic 108–146; BP diastolic 45–59; PULSE 60–80; RESP 14–20; TEMP 36.6–37.8; O2SAT 93–97; BMI 34.9
[2024-04-10 00:04] LABS: Bacteria,Urine 1+ /lpf; RBC,Urine 20-50 #/hpf (0-3); Squamous Epithelial Cell,Urine Occasional #/hpf (0-5); WBC,Urine 20-50 #/hpf (0-3)
[2024-04-10 00:08] LABS: Lymphocytes % 10 % (10-50); Monocytes % 2 % (2-9); Neutrophils % 88 % (42-76); Total Cells Counted 100
[2024-04-10 00:10] LABS: RBC Morphology Normal
[2024-04-10 00:11] LABS: Platelet Estimate Normal
[2024-04-10] MEDS: IOPAMIDOL-370 (76%);100ML BOTTLE 75 ML IV (00:16)
[2024-04-10] MEDS: SODIUM CHLORIDE 0.9% 10ML SYR (RAD ONLY) 10 ML IV (00:17)
--- NOTE | 2024-04-10 01:50 | PC.NURSE ---
House notified for admission
--- NOTE | 2024-04-10 02:13 | PC.NURSE ---
Repeat FSBS on pt, pt had a FSBS of 70 at this time.
--- NOTE | 2024-04-10 02:16 | PC.NURSE ---
Report called to SHAYY Pineda
--- NOTE | 2024-04-10 02:30 | PC.NURSE ---
Patient arrived to floor via stretcher from ED at 02:24.
--- NOTE | 2024-04-10 03:01 | P.HP_ITS ---
History of Present Illness *Admission Date: 04/10/24 *Reason for visit:: Urinary tract infection possible pyelonephritis on the left, weakness unabl *History of present illness: 73 yoF with a history of diarrhea and urinary tract infections positive for E. coli, she has been seen in the emergency room before and treated with antibiotics and sent home., This time she has grown weaker over the last 3 days unable to ambulate without the assistance of 2 people, also noting on a large amount of long-acting insulin but her blood sugars have been dropping below 100 now, she is also oxygen dependent at night. And having increased renal insufficiency. [facility] Disclaimer: The information contained in this section may have been updated after the patient was seen, as this information can be updated by other users. Medical History (Updated 04/10/24 @ 03:20 by Nnamdi Azar APRN) Nocturnal hypoxemia due to emphysema SNHL (sensorineural hearing loss) Otalgia of left ear JEREMIAH (obstructive sleep apnea) Diastolic dysfunction Otitis externa of left ear External otitis of left ear due to fungus Low magnesium level Elevated serum creatinine Tricuspid regurgitation Aortic regurgitation Mitral regurgitation Abnormal ECG Stopped smoking with greater than 30 pack year history COPD (chronic obstructive pulmonary disease) Asthma SOBOE (shortness of breath on exertion) Thyroid Nodule History of sleep apnea Allergic rhinitis Dyspnea on exertion Asthma-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 Coronary artery disease Hyperlipidemia Psoriasis Hypertension Diabetes mellitus Surgical History History of coronary artery stent placement H/O dilation and curettage History of left knee replacement History of right hip replacement Cataract Family History Mother Cancer Father Cancer Social History Smoking Status: Never smoker smoking status stop date: 09/07/1990 alcohol intake: never substance use type: denies use current occupational status: retired Travel in the last 8 weeks: None housing: house marital status: Review of Systems Review of Systems Review of systems:: pertinent systems reviewed and negative unless documented below Constitutional Constitutional: Reports as per HPI, Reports fatigue, Reports lethargy and Reports weakness Eyes Eyes: Reports system reviewed and no additional complaints, except as documented ENT Ears, Nose, Mouth, and Throat: Reports system reviewed and no additional complaints, except as documented *Cardiovascular Cardiovascular: Reports system reviewed and no additional complaints, except as documented and Reports dyspnea on exertion (O2 use at night, 1 L nasal) *Respiratory Respiratory: Reports as per HPI and Reports dyspnea on exertion (O2 use at night, 1 L nasal) *Gastrointestinal Gastrointestinal: Reports system reviewed and no additional complaints, except as documented *Genitourinary Genitourinary: Reports as per HPI and Reports vaginal discharge *Musculoskeletal Musculoskeletal: Reports abnormal gait and Reports muscle weakness Integumentary/Breasts Skin/Breast: Reports as per HPI and Reports dry skin *Neurologic Neurologic: Reports abnormal gait and Reports weakness Psychiatric Psychiatric: Reports as per HPI Endocrine Endocrine: Reports fatigue Hematologic/Lymphatic Hematologic/Lymphatic: Reports system reviewed and no additional complaints, except as documented Allergic/Immunologic Allergic/Immunologic: Reports system reviewed and no additional complaints, except as documented Meds Home Medications and Allergies Home Medications ?Medication ?Instructions ?Recorded ?Confirmed ?Type biotin 5,000 mcg disintegrating 10,000 mcg PO DAILY Supplement 05/16/22 04/10/24 History tablet calcium carbonate 600 mg-vitamin 1 tab PO DAILY Supplement 05/16/22 04/10/24 History D3 5 mcg (200 unit) tablet multivitamin 1 tab PO DAILY Supplement 05/16/22 04/10/24 History omega-3 fatty acids 500 mg capsule 500 mg PO DAILY Supplement 02/10/23 04/10/24 History ketoconazole 2 % shampoo 1 applic topical Q2W PRN scalp 04/09/23 04/10/24 History issue clopidogrel 75 mg tablet See Rx Instructions .Route 08/10/23 04/10/24 Rx .COMPLEX #90 tabs atorvastatin 80 mg tablet 80 mg PO DAILY Cholesterol 90 days 09/04/23 04/10/24 Rx #90 tabs amlodipine 10 mg tablet 10 mg PO DAILY htn #90 tabs 11/12/23 04/10/24 Rx pen needle, diabetic 31 gauge x #1,200 ea 11/12/23 04/10/24 History 5/16 (Comfort EZ Pen [place]) diclofenac sodium 75 mg 75 mg PO BID Pain 90 days #180 tabs 12/21/23 04/10/24 Rx tablet,delayed release pantoprazole 20 mg tablet,delayed 20 mg PO DAILY GERD 90 days #90 01/18/24 04/10/24 Rx release (Protonix) tabs fluticasone propionate 50 2 spray intranasal DAILY 90 days 01/21/24 04/10/24 Rx mcg/actuation nasal #16 grams spray,suspension (Flonase Allergy Relief) bisoprolol fumarate 10 mg tablet 20 mg (2 x 10 mg) PO DAILY htn 02/02/24 04/10/24 Rx #180 tabs metformin 500 mg tablet,extended 500 mg PO BID diabetes 90 days 02/02/24 04/10/24 Rx release 24 hr #180 tabs oxybutynin chloride 10 mg 10 mg PO DAILY htn 90 days #90 tabs 02/02/24 04/10/24 Rx tablet,extended release 24 hr glycopyrrolate 9 mcg-formoterol 2 puff inhalation BID 90 days 02/03/24 04/10/24 Rx 4.8 mcg HFA aerosol inhaler #10.7 grams (Bevespi Aerosphere) fluticasone fur. 100 mcg-umeclid 1 inh inhalation DAILY 90 days #90 02/08/24 04/10/24 Rx 62.5 mcg-vilant 25 mcg ea inhalat.powder (Trelegy Ellipta) blood sugar diagnostic (OneTouch #100 ea 03/04/24 04/10/24 Rx Ultra Test strips) chlorthalidone 25 mg tablet 25 mg PO DAILY #90 tabs 03/21/24 04/10/24 Rx valsartan 80 mg tablet (Diovan) 80 mg PO DAILY #30 tabs 03/21/24 04/10/24 Rx medroxyprogesterone 5 mg tablet See Rx Instructions .Route 03/22/24 04/10/24 Rx .COMPLEX #30 tabs insulin glargine U-300 conc 300 156 unit (0.52 mL) SQ Q24H 30 days 03/25/24 04/10/24 Rx unit/mL (3 mL) subcutaneous pen #15.6 mL (Toujeo Max U-300 SoloStar) New Prescriptions to Start Prescriptions: Allergies Allergy/AdvReac Type Severity Reaction Status Date / Time amoxicillin [From AUGMENTIN] Allergy Severe THROAT Verified 03/21/24 14:02 SWELLING clavulanic acid Allergy Severe THROAT Verified 03/21/24 14:02 [From AUGMENTIN] SWELLING sulfamethoxazole Allergy Mild Verified 03/21/24 14:02 Exam Data for Last 24 hours Vital signs and Labs for Last 24 Hours: Temp Pulse Resp BP Pulse Ox O2 Del Method O2 Flow Rate 99.9 F H 79 16 138/55 L 94 L Nasal Cannula 2 04/10/24 02:49 04/10/24 02:49 04/10/24 02:49 04/10/24 02:49 04/10/24 02:49 04/10/24 02:49 04/10/24 02:49 Laboratory Results - last 24 hr 04/09/24 22:50: WBC 12.4 H, RBC 3.80 L, Hgb 11.6 L, Hct 36.2 L, MCV 95.3, MCH 30.4, MCHC 32.0, RDW 15.7, Plt Count 277, MPV 8.3, Neut % (Auto) 90.4 H, Lymph % (Auto) 5.7 L, [place] % (Auto) 3.3, Eos % (Auto) 0.2, Baso % (Auto) 0.3, Neut # (Auto) 11.2 H, Lymph # (Auto) 0.7, [place] # (Auto) 0.4, Eos # (Auto) 0.0, Baso # (Auto) 0.0, Total Counted 100, Neutrophils % (Manual) 88 H, Lymphocytes % (Manual) 10, Monocytes % (Manual) 2, Platelet Estimate Normal, RBC Morphology Normal, Sodium 136, Potassium 3.9, Chloride 103, Carbon Dioxide 25, Anion Gap 11.9, BUN 29 H, Creatinine 1.50 H, Estimated Creat Clear 42, Estimated GFR 34 L, Est GFR ( Amer) 41 L, Glucose 81, Calcium 9.5, Magnesium 1.8, Total Bilirubin 0.7, AST 39 H, ALT 35, Alkaline Phosphatase 89, NT-Pro-B Natriuret Pep 2350 H, Total Protein 7.0, Albumin 3.5, Globulin 3.5 H, Albumin/Globulin Ratio 1.0 L, Lipase 40 04/09/24 23:30: Urine Color Yellow, Urine Appearance Cloudy, Urine pH 6.0, Ur Specific [place] 1.020, Urine Protein 2+, Urine Glucose (UA) Negative, Urine Ketones Negative, Urine Blood 3+, Urine Nitrate Positive, Urine Bilirubin Negative, Urine Urobilinogen 0.2, Ur Leukocyte Esterase 3+ A, Urine RBC 20-50, Urine WBC 20-50, Ur Squamous Epith Cells Occasional, Urine Bacteria 1+ I & O for Last 24 hours: Intake & Output 04/07/24 04/08/24 04/09/24 04/10/24 23:59 23:59 23:59 23:59 Weight 79.923 kg 78.744 kg Radiology Reports for the Last 24 Hours: Reviewed CT scan and chest x-ray, agree with the findings Constitutional Constitutional: mild distress, morbidly obese and cooperative *Routine HEENT Exam Head: Present normocephalic and atraumatic Eye: Present EOMI and PERRL ENT: Present mucous membranes moist *Routine Neck Exam Neck: Present supple and full ROM *Routine Respiratory Exam Respiratory: Present CTA bilaterally, distant breath sounds, normal respiratory effort and able to speak in complete sentences *Routine Cardiovascular Exam Cardiovascular: Present RRR, Normal S1 and Normal S2 *Routine Abdominal Exam Abdominal: Present soft, normoactive bowel sounds and tenderness (Mild general tenderness) *Routine Rectal Exam Rectal:: deferred *Routine Genitalia Exam Genitalia:: deferred *Routine Extremities Exam Comments: Very poor turgor noted in arms and legs as if she is extremely dehydrated or been losing weight Routine Back/Spine/Pelvis Exam Back/Spine: Present full ROM Comments: Patient is unable to stand due to having a strength but she can move in the bed move all of her extremities no signs of injury *Routine Skin Exam Skin: Present intact, dry and warm Comments: Abnormal turgor looks to be dehydrated or is lost weight so much loose skin on legs and hands that it wrinkles *Routine Neurological Exam Neurological: Present alert, oriented X3, CN II-XII intact, moving all extremities, normal tone, hearing grossly intact and normal speech Routine Psychiatric Exam Psychiatric: Present normal affect and normal thought process Additional findings Additional findings: Patient on nasal cannula at 1 L., H&P: Result Impressions 1. Urinary tract infection with possible left kidney pyelonephritis 2. Increased weakness and looking as if she is dehydrated 3. Noted for increasing BUN and creatinine renal insufficiency that normally her blood sugars are high but they have been below 100 lately was 56 at the house now 46 on the floor 4. Constant diarrhea , Imaging and Cardiology Chest x-ray: Status: image reviewed by me Additional comments: No significant findings CT scan - abdomen: Additional comments: Bladder thickening possible pyelonephritis seen in the left kidney, small aortic aneurysm distal of the kidneys, Assessment and Plan *Assessment and plan (1) Acute pyelonephritis: Status: Acute Category: Medical Code(s): N10 - Acute pyelonephritis (2) Generalized weakness: Status: Acute Category: Medical Code(s): R53.1 - Weakness (3) Urinary tract infectious disease: Status: Acute Qualifiers: Hematuria presence: with hematuria Urinary tract infection type: site unspecified Qualified Code(s): N39.0 - Urinary tract infection, site not specified; R31.9 - Hematuria, unspecified Category: Medical Code(s): N39.0 - Urinary tract infection, site not specified (4) Unable to walk: Status: Acute Category: Medical Code(s): R26.2 - Difficulty in walking, not elsewhere classified (5) Aortic aneurysm: Status: Acute Qualifiers: Aortic location: abdominal aorta Presence of rupture: without rupture Category: Medical Code(s): I71.9 - Aortic aneurysm of unspecified site, without rupture (6) Hypoglycemia: Status: Acute Category: Medical Code(s): E16.2 - Hypoglycemia, unspecified (7) Nocturnal hypoxemia due to emphysema: Status: Acute Category: Medical Code(s): J43.9 - Emphysema, unspecified; G47.36 - Sleep related hypoventilation in conditions classified elsewhere (8) Cystitis: Status: Acute Category: Medical Code(s): N30.90 - Cystitis, unspecified without hematuria (9) COPD mixed type: Status: Chronic Category: Medical Code(s): J44.9 - Chronic obstructive pulmonary disease, unspecified (10) Diabetes mellitus: Problem Comment: Has long acting insulin injector pen Status: Acute Category: Medical Code(s): E11.9 - Type 2 diabetes mellitus without complications (11) Hypoglycemia associated with type 2 diabetes mellitus: Status: Acute Category: Medical Code(s): E11.649 - Type 2 diabetes mellitus with hypoglycemia without coma Plan Ms. Toro is a 73-year-old female with diabetes, aortic aneurysm, diastolic heart failure, sleep apnea, and hypertension who presented to the ER with worsening weakness and difficulty walking. Workup concerning for pyelonephritis and urinary tract infection. Discussed case with ER physician, request admission for further management and IV antibiotics. Patient also necessitating PT and OT eval. Medicine agreed to admit for further management. As she is having diarrhea, diarrhea panel pending. Problems addressed as follows: Pyelonephritis UTI - On admission, white count of 12.4, urine abnormal with 3+ leuk esterase, 20-50 white cells, 1+ bacteria, positive nitrate. -Repeat CBC, CMP, magnesium ordered for the morning. - Continue ceftriaxone 1 g daily -Urine culture and blood cultures pending -Having diarrhea, unknown etiology. Diarrhea panel pending Diabetes: Last A1c 2 months ago above goal at 7.9. Continue metformin 500 mg twice daily with sliding scale insulin and fingersticks ACHS. COPD: Continue Trelegy inhaler daily. O2 dependent at night at home. Continue supplemental oxygen as needed for goal sats greater 90% CAD Hypertension Diastolic heart failure -Continue irbesartan 75 mg daily, Plavix 75 mg daily, bisoprolol 20 mg daily, Lipitor 80 mg nightly, and amlodipine 10 mg daily -Echo obtained in July, for review of results, patient has grade 2 diastolic dysfunction with preserved ejection fraction of 55% New onset of weakness unable to ambulate, not sure if this is strictly from her infection at this point in time or whether she is decompensating OT and PT and case management consults CKD: Kidney function at baseline with BUN 29, creatinine 1.5. Magnesium 1.8, potassium 3.7. Monitor for improvement with IV fluids Aneurysm noted on CT of abdomen and pelvis. Needs follow-up ultrasound in 12 months. DNR/DNI Diabetic diet P MONICA Rounded on patient after nurse practitioner. Personally examined and interviewed patient. Agree with exam findings and care plan as documented.
--- NOTE | 2024-04-10 03:09 | PC.NURSE ---
fsbs 44 then 50. pt ate cup of sherbret and 2 cups of ojmelinda, brodie made aware. lab glucose entered. pt aymptomatic
[2024-04-10 04:00] LABS: Glucose,Random 112 mg/dL (74-100)
[2024-04-10 04:34] LABS: POC Glucose,Bedside 82 (70-110)
--- NOTE | 2024-04-10 04:59 | PC.NURSE ---
0230-pt admitted from ed with pyelonephritis. pt alert and oriented x4. o2@2l/nc, daughter at bedside
[2024-04-10 05:38] LABS: POC Glucose,Bedside 163 (70-110)
[2024-04-10] MEDS: humaLOG 100 UNITS/ML 10ML VIAL (SSI) SQ ×2 (06:35→20:59)
[2024-04-10 08:07] LABS: Basophils % 0.2 % (0.1-2.0); Eosinophils % 0.2 % (0.1-12.0); Lymphocytes # 0.7 K/mm3 (0.7-4.5); Monocytes # 0.3 K/mm3 (0.1-1.0); Neutrophils % 87.3 % (37.0-80.0); White Blood Count 8.3 K/mm3 (4.8-10.8)
[2024-04-10 08:11] LABS: Alanine Aminotransferase 48 U/L (12-78); Alkaline Phosphatase 95 U/L (38-126); Anion Gap 11.7 mEq/L (5-15); Aspartate Amino Transferase 55 U/L (14-36); Bilirubin,Total 0.4 mg/dl (0.2-1.3); Blood Urea Nitrogen 23 mg/dl (7-17); Calcium 8.7 mg/dl (8.4-10.2); Carbon Dioxide 23 mmol/L (22.0-30.0); Chloride 104 mmol/L (98-107); Creatinine Clearance Estimated 48 mL/min (50-200); Estimated Glomerular Filt Rate 40 ml/min (>60); GFR (African American) 49 ML/MIN (>60); Globulin 3.1 g/dL (1.3-3.2); Glucose 128 mg/dl (74-100); Magnesium 1.8 mg/dl (1.6-2.3); Potassium 3.7 mmoL/L (3.5-5.1); Sodium 135 mmol/L (136-145); Total Protein,Serum 6.1 g/dl (6.3-8.2)
[2024-04-10 08:41] LABS: Hematocrit 30.4 % (37.0-47.0); Lymphocytes % 8.1 % (10-50); Mean Corpuscular HGB Conc 32.3 g/dL (31.8-35.4); Mean Corpuscular Hemoglobin 30.3 pg (27.0-31.2); Mean Corpuscular Volume 93.8 fl (81-99); Mean Platelet Volume 8.2 fl (7.4-10.4); Monocytes % 4.1 % (1.7-9.3); Neutrophils # 7.2 K/mm3 (1.8-7.8); Platelet Count 229 K/mm3 (142-424); Red Blood Count 3.24 M/mm3 (4.20-5.40); Red Cell Distribution Width 15.9 % (11.5-17.5)
[2024-04-10 08:43] LABS: Hemoglobin 9.8 g/dL (12.2-16.2); MANUAL DIFFERENTIAL MANUAL DIFFERENTIAL (MANUAL DIFF)
[2024-04-10] MEDS: FLUTICASONE PROP 50MCG NASAL SPRAY 16GM 2 SPRAY NS (09:09)
[2024-04-10] MEDS: CEFTRIAXONE 1 GM 1 GM in 0.9 % SODIUM CHLORIDE 50 ML IV (09:09)
[2024-04-10] MEDS: IRBESARTAN 75MG TABLET 75 MG PO (09:09)
[2024-04-10] MEDS: ENOXAPARIN 40MG/0.4ML SYRINGE 40 MG SQ (09:10)
[2024-04-10] MEDS: BISOPROLOL 5MG TABLET 20 MG PO (09:10)
[2024-04-10] MEDS: AMLODIPINE 10MG TABLET 10 MG PO (09:10)
[2024-04-10] MEDS: CLOPIDOGREL 75MG TAB 75 MG PO (09:10)
[2024-04-10] MEDS: OXYBUTYNIN 5MG TAB 5 MG PO (09:10)
[2024-04-10] MEDS: PANTOPRAZOLE 40MG TABLET 40 MG PO (09:10)
[2024-04-10] MEDS: METFORMIN 500MG TABLET 500 MG PO ×2 (09:10→17:20)
[2024-04-10] MEDS: FLUTICASONE/UMECLIDIN/VILANTER 100/62.5/25MCG INHALER 1 PUFF IH (09:59)
[2024-04-10 10:22] LABS: POC Glucose,Bedside 111 (70-110)
[2024-04-10 11:30] LABS: Lymphocytes % 7 % (10-50); Monocytes % 1 % (2-9); Neutrophils % 89 % (42-76); Total Cells Counted 100
[2024-04-10 11:31] LABS: Hypochromasia 1+; Macrocytosis 1+; Platelet Estimate Normal; RBC Morphology KNP
[2024-04-10] MEDS: LACTATED RINGERS 1000ML 1,000 ML 100 ML IV ×2 (13:17→23:42)
[2024-04-10 15:51] LABS: POC Glucose,Bedside 118 (70-110)
[2024-04-10] MEDS: ACETAMINOPHEN 325MG TAB 650 MG PO (17:20)
--- NOTE | 2024-04-10 17:25 | PC.NURSE ---
pt has been tired t/o day but states she does feel better that start of shift. other than that no other changes than previous shift. adequate uop with purewick. pt up to chair for a short period to eat lunch. daughter at bs and cb within reach
[2024-04-10 20:25] LABS: POC Glucose,Bedside 166 (70-110)
[2024-04-10] MEDS: ATORVASTATIN 40MG TABLET 80 MG PO (20:52)
[2024-04-11 04:00] VITALS: BP 135/89; PULSE 73; RESP 16; TEMP 36.7; O2SAT 93; BMI 34.9
--- NOTE | 2024-04-11 05:28 | PC.NURSE ---
Patient is A&OX4 and has remained on 2L O2 NC throughout the night. She states that she feels weak but feeling better than she has the past few days. She has slept on and off throughout the night and is currently sitting on the edge of the bed. She denies any pain and has no complaints at this time. Call light within reach.
[2024-04-11 05:52] LABS: POC Glucose,Bedside 70 (70-110)
[2024-04-11 06:32] VITALS: O2SAT 94
[2024-04-11] MEDS: FLUTICASONE/UMECLIDIN/VILANTER 100/62.5/25MCG INHALER 1 PUFF IH (06:32)
[2024-04-11 07:01] LABS: Basophils % 0.1 % (0.1-2.0); Eosinophils # 0.1 K/mm3 (0.0-0.4); Eosinophils % 1.5 % (0.1-12.0); Hematocrit 31.9 % (37.0-47.0); Lymphocytes # 0.8 K/mm3 (0.7-4.5); Lymphocytes % 10.4 % (10-50); Mean Corpuscular HGB Conc 31.3 g/dL (31.8-35.4); Mean Corpuscular Hemoglobin 29.7 pg (27.0-31.2); Mean Corpuscular Volume 94.8 fl (81-99); Mean Platelet Volume 9.1 fl (7.4-10.4); Monocytes # 0.4 K/mm3 (0.1-1.0); Monocytes % 5.3 % (1.7-9.3); Neutrophils % 82.7 % (37.0-80.0); Platelet Count 219 K/mm3 (142-424); Red Blood Count 3.36 M/mm3 (4.20-5.40); Red Cell Distribution Width 15.9 % (11.5-17.5); White Blood Count 7.3 K/mm3 (4.8-10.8)
[2024-04-11 07:06] LABS: Chloride 105 mmol/L (98-107); Potassium 3.8 mmoL/L (3.5-5.1); Sodium 136 mmol/L (136-145)
[2024-04-11 07:09] LABS: Alanine Aminotransferase 53 U/L (12-78); Alkaline Phosphatase 106 U/L (38-126); Anion Gap 9.8 mEq/L (5-15); Aspartate Amino Transferase 45 U/L (14-36); Bilirubin,Total 0.4 mg/dl (0.2-1.3); Blood Urea Nitrogen 21 mg/dl (7-17); Calcium 8.5 mg/dl (8.4-10.2); Carbon Dioxide 25 mmol/L (22.0-30.0); Creatinine Clearance Estimated 44 mL/min (50-200); Estimated Glomerular Filt Rate 37 ml/min (>60); GFR (African American) 45 ML/MIN (>60); Glucose 107 mg/dl (74-100); Magnesium 1.7 mg/dl (1.6-2.3)
[2024-04-11 08:00] VITALS: BP 132/74; PULSE 81; RESP 16; TEMP 36.6; O2SAT 94
[2024-04-11] MEDS: CEFTRIAXONE 1 GM 1 GM in 0.9 % SODIUM CHLORIDE 50 ML IV (08:47)
[2024-04-11] MEDS: AMLODIPINE 10MG TABLET 10 MG PO (08:47)
[2024-04-11] MEDS: BISOPROLOL 5MG TABLET 20 MG PO (08:47)
[2024-04-11] MEDS: METFORMIN 500MG TABLET 500 MG PO ×2 (08:47→17:27)
[2024-04-11] MEDS: FLUTICASONE PROP 50MCG NASAL SPRAY 16GM 2 SPRAY NS (08:48)
[2024-04-11] MEDS: IRBESARTAN 75MG TABLET 75 MG PO (08:48)
[2024-04-11] MEDS: PANTOPRAZOLE 40MG TABLET 40 MG PO (08:48)
[2024-04-11] MEDS: ENOXAPARIN 40MG/0.4ML SYRINGE 40 MG SQ (08:48)
[2024-04-11] MEDS: CLOPIDOGREL 75MG TAB 75 MG PO (08:48)
--- NOTE | 2024-04-11 10:06 | HMH.OTEV ---
OT Inpatient Evaluation Rehab OT IP Evaluation Start: 04/10/24 02:44 Freq: ONCE Status: Active Protocol: Document 04/11/24 10:01 RADHADENZEL (Rec: 04/11/24 10:06 ISACC [id number]) Rehab OT IP Assessment Subjective History 73 yoF with a history of diarrhea and urinary tract infections positive for E. coli, she has been seen in the emergency room before and treated with antibiotics and sent home., This time she has grown weaker over the last 3 days unable to ambulate without the assistance of 2 people, also noting on a large amount of long-acting insulin but her blood sugars have been dropping below 100 now, she is also oxygen dependent at night. And having increased renal insufficiency. Patient lives at home with in 1 story home with 1 -2 HARRIET. Independent with ADL and fx'l mobility. Uses cane to ambulate. assist with transporation and dtr assist with drsg. Subjective I can sit up. Instructed Patient on safety awareness to complete bed mobility, transfers, and fx'l mobility with CGA for safety. Left Patient sitting upright in chair with needs met. Objective Patient Orientation Person,Name,Age,Birthday,Year Right Upper Extremity Gross ROM WFL Left Upper Extremity Gross ROM WFL Bed Mobility bed mobility - supine/sit Assist Level Supervision/Stand by Transfer Training Sit/Stand/Pivot Transfer Assist Level Supervision/Stand by Chair Transfer Ability Supervision/Stand by Chair Transfer Technique Sit to/from Ambulatory Chair Transfer Assistive Devices Rolling Walker Rehab OT IP prob,goals,plan Problems Date of Evaluation: 04/11/24 OT IP Problems Bed Mobility,Transfers,Balance ,Self care,Safety Rehab Potential Rehab Potential Good Equipment Needs Assistive Devices Rolling / Wheeled Walker Plan OT intervention Plan Bed Mobility,Transfers,Balance ,Self care,Safety,Therapeutic Exercise OT Plan Frequency Daily Duration LOS Discharge Goals Bed Mobility Ability Independent Sit to Stand Chair Transfer Ability Independent Chair Transfer Ability Independent Chair Transfer Technique Sit to/from Ambulatory Chair Transfer Assistive Devices Rolling Walker Discharge Plan OT Discharge Plan Recommend patient to return home with family and services. Patient to continue skilled OT services while here at [facility] til appropriate d/c. Eval Complexity Eval Charge Codes 65201 - Low Complexity PHYSICIAN CERTIFICATION: I certify the specified therapy services for Elyssa M Ring are required, authorized, and reviewed every 30 days.
--- NOTE | 2024-04-11 10:23 | HMH.PTEV ---
Physical Therapy Evaluation Rehab PT IP Evaluation Start: 04/10/24 02:44 Freq: ONCE Status: Active Protocol: Document 04/11/24 10:19 DIVINA (Rec: 04/11/24 10:23 DIVINA [id number]) Subjective/History History History Per H&P: 73 yoF with a history of diarrhea and urinary tract infections positive for E. coli, she has been seen in the emergency room before and treated with antibiotics and sent home., This time she has grown weaker over the last 3 days unable to ambulate without the assistance of 2 people, also noting on a large amount of long-acting insulin but her blood sugars have been dropping below 100 now, she is also oxygen dependent at night. And having increased renal insufficiency. Subjective Subjective Pt lives with her in a single-story home with 2STE. Pt reports before admission she needed some help with ambulation, getting in/out of bed and dressing self. Pt used a SPC for ambulation. New diagnosis of cancer in past 12 No months? Rehab PT IP Eval Objective Appearance Patient Behavior Appropriate Patient Orientation Person,Place Difficulty following instructions none Speech Pattern Clear Ambulation Patient Able to Ambulate Yes Ambulation Observation IP General Gait Pattern Observation Wide Based Gait Ambulation Distance (feet) 5 Ambulation Assistive Device None Ambulation Ability Contact Guard/Hand Hold, Minimal x 1 (25% assist) Balance Ability to Arise Able, uses arms to help Sitting Balance Steady, safe Standing Balance Steady, wide stance Transfers Bed Transfer Ability Contact Guard/Hand Hold Sit to Stand Bed Transfer Ability Contact Guard/Hand Hold Rehab PT IP prob,goals,plan Problems Date of Evaluation: 04/11/24 PT IP Problems Bed Mobility,Transfers,Gait, Balance,Safety Rehab Potential Rehab Potential Good Equipment Needs Assistive Devices Rolling / Wheeled Walker Plan PT Intervention Plan Bed Mobility,Transfers,Gait, Balance,Safety,Therapeutic Exercise Other Intervention Plan 1-2 times PT Plan Frequency Daily Duration LOS Discharge Goals Bed Transfer Ability Supervision/Stand by Sit to Stand Chair Transfer Ability Supervision/Stand by Ambulation Assistive Device Straight Cane,Rolling Walker Ambulation Distance (feet) 15 Discharge Plan PT Discharge Plan Initial physical therapy evaluation performed. Patient presents below baseline at this time in functional mobility, transfers, gait, and strength. Pt demo'd good standing balance with CGA when marching in place. Pt transferred to [facility] with CGA and no AD. Pt would benefit from skilled PT while at [facility] to prevent further functional decline and maximize safety with mobility. Pt safe to d/c home when deemed medically necessary d/t current level of mobility, home set-up, and family support. PT recommending home health PT services to address deficits. Eval Complexity Eval Charge Codes 33538 - Moderate Complexity PHYSICIAN CERTIFICATION: I certify the specified therapy services for Elyssa Toro are required, authorized, and reviewed every 30 days.
[2024-04-11] MEDS: humaLOG 100 UNITS/ML 10ML VIAL (SSI) SQ ×3 (11:03→21:08)
[2024-04-11 11:13] LABS: POC Glucose,Bedside 200 (70-110)
[2024-04-11 12:43] VITALS: BP 130/72; PULSE 72; RESP 16; TEMP 36.6; O2SAT 96
--- NOTE | 2024-04-11 12:50 | P.PN_ITS ---
Subjective *Date: 04/11/24 *Time: 12:50 Interval history: Feeling a little better today, up in bedside chair. Still quite weak necessitating assistance to get around. No nausea or vomiting. No chest pain. Stable on room air. Afebrile Medical Exam Vital signs and Labs for Last 24 Hours: Vital Signs Temp Pulse Resp BP Pulse Ox O2 Del Method O2 Flow Rate 04/11/24 12:43 98 F 72 16 130/72 96 04/11/24 11:00 Room Air 04/11/24 09:00 Room Air 04/11/24 08:00 97.9 F 81 16 132/74 94 L 04/11/24 08:00 Room Air 04/11/24 07:00 Nasal Cannula 2 04/11/24 06:32 94 L Nasal Cannula 2 04/11/24 05:00 Nasal Cannula 2 04/11/24 04:00 98.1 F 73 16 135/89 93 L Nasal Cannula 2 04/11/24 03:00 Nasal Cannula 2 04/11/24 01:00 Nasal Cannula 2 04/10/24 23:00 Nasal Cannula 2 04/10/24 21:00 Nasal Cannula 2.5 04/10/24 20:00 Nasal Cannula 2.5 04/10/24 20:00 97.9 F 68 16 108/45 L 94 L Room Air 04/10/24 19:16 Nasal Cannula 2.5 04/10/24 18:58 Room Air 04/10/24 17:00 Room Air 04/10/24 16:00 100.1 F H 60 18 136/59 L 93 L Room Air 04/10/24 15:00 Room Air 04/10/24 13:00 Room Air Intake and Output 04/10/24 04/11/24 04/11/24 23:59 07:59 15:59 Intake Total 337 / 1097 1350 / 1590 240 / 1590 Output Total 900 / 900 0 / 900 Balance 337 / 1097 450 / 690 240 / 690 Intake: Intake, Oral Amount 150 / 390 240 / 390 Intake, Total IV Amount 337 / 337 1200 / 1200 Lactated Ringers 1000ML 1,000 337 / 337 1200 / 1200 ml @ 100 mls/hr IV .Q10H [facility] Rx #:[id number] Output: Output, Urine Amount 900 / 900 0 / 900 Other: Number of Unmeasured Voids 0 1 Number of Bowel Movements 1 Weight 78.744 kg Patient Weight 04/11/24 23:59 Weight 78.744 kg Laboratory Results - last 24 hr 04/09/24 23:30: Urine Color Yellow, Urine Appearance Cloudy, Urine pH 6.0, Ur Specific [place] 1.020, Urine Protein 2+, Urine Glucose (UA) Negative, Urine Ketones Negative, Urine Blood 3+, Urine Nitrate Positive, Urine Bilirubin Negative, Urine Urobilinogen 0.2, Ur Leukocyte Esterase 3+ A, Urine RBC 20-50, Urine WBC 20-50, Ur Squamous Epith Cells Occasional, Urine Bacteria 1+ 04/10/24 15:45: POC Glucose 118 H 04/10/24 20:01: POC Glucose 166 H 04/11/24 05:36: POC Glucose 70 04/11/24 06:46: WBC 7.3, RBC 3.36 L, Hgb 10.0 L, Hct 31.9 L, MCV 94.8, MCH 29.7, MCHC 31.3 L, RDW 15.9, Plt Count 219, MPV 9.1, Neut % (Auto) 82.7 H, Lymph % (Auto) 10.4, Winn % (Auto) 5.3, Eos % (Auto) 1.5, Baso % (Auto) 0.1, Neut # (Auto) 6.0, Lymph # (Auto) 0.8, Winn # (Auto) 0.4, Eos # (Auto) 0.1, Baso # (Auto) 0.0, Sodium 136, Potassium 3.8, Chloride 105, Carbon Dioxide 25, Anion Gap 9.8, BUN 21 H, Creatinine 1.40 H, Estimated Creat Clear 44, Estimated GFR 37 L, Est GFR ( Amer) 45 L, Glucose 107 H, Calcium 8.5, Magnesium 1.7, Total Bilirubin 0.4, AST 45 H, ALT 53, Alkaline Phosphatase 106, Total Protein 6.0 L, Albumin 3.0 L, Globulin 3.0, Albumin/Globulin Ratio 1.0 L 04/11/24 10:59: POC Glucose 200 H I & O for Labs for Last 24 Hours: Intake & Output 04/08/24 04/09/24 04/10/24 04/11/24 23:59 23:59 23:59 23:59 Intake Total 947 / 1097 1590 / 1590 Output Total 0 / 0 900 / 900 Balance 947 / 1097 690 / 690 Weight 79.923 kg 78.744 kg 78.744 kg Microbiology Reports for the Last 24 Hours: Microbiology 04/09/24 22:50 Blood Blood Culture - Preliminary 04/09/24 23:30 Urine,Clean Catch Urine Culture - Preliminary Gram Negative Rods 04/09/24 22:20 Blood Blood Culture - Preliminary NO GROWTH AFTER 24 HOURS Constitutional: Present no acute distress, obese and chronically ill appearing Head: Present atraumatic and normocephalic ENT: Present normal exam Respiratory: Present normal respiratory effort Cardiac: Present Reg Rate and Rhythm GI: Present normal bowel sounds; Absent tenderness Extremities: Present normal inspection and full ROM Skin: Present intact; Absent erythema Neuro: Present Grossly Intact, alert, awake, oriented x 3 and moves all extremities Assessment and Plan *Assessment and plan (1) Acute pyelonephritis: Status: Acute Category: Medical Code(s): N10 - Acute pyelonephritis (2) Generalized weakness: Status: Acute Category: Medical Code(s): R53.1 - Weakness (3) Urinary tract infectious disease: Status: Acute Qualifiers: Hematuria presence: with hematuria Urinary tract infection type: site unspecified Qualified Code(s): N39.0 - Urinary tract infection, site not specified; R31.9 - Hematuria, unspecified Category: Medical Code(s): N39.0 - Urinary tract infection, site not specified (4) Unable to walk: Status: Acute Category: Medical Code(s): R26.2 - Difficulty in walking, not elsewhere classified (5) Aortic aneurysm: Status: Acute Qualifiers: Aortic location: abdominal aorta Presence of rupture: without rupture Category: Medical Code(s): I71.9 - Aortic aneurysm of unspecified site, without rupture (6) Hypoglycemia: Status: Acute Category: Medical Code(s): E16.2 - Hypoglycemia, unspecified (7) Nocturnal hypoxemia due to emphysema: Status: Acute Category: Medical Code(s): J43.9 - Emphysema, unspecified; G47.36 - Sleep related hypoventilation in conditions classified elsewhere (8) Cystitis: Status: Acute Category: Medical Code(s): N30.90 - Cystitis, unspecified without hematuria (9) COPD mixed type: Status: Chronic Category: Medical Code(s): J44.9 - Chronic obstructive pulmonary disease, unspecified (10) Diabetes mellitus: Problem Comment: Has long acting insulin injector pen Status: Acute Category: Medical Code(s): E11.9 - Type 2 diabetes mellitus without complications (11) Hypoglycemia associated with type 2 diabetes mellitus: Status: Acute Category: Medical Code(s): E11.649 - Type 2 diabetes mellitus with hypoglycemia without coma Plan Ms. Toro is a 73-year-old female with diabetes, aortic aneurysm, diastolic heart failure, sleep apnea, and hypertension who presented to the ER with worsening weakness and difficulty walking. Workup concerning for pyelonephritis and urinary tract infection. Discussed case with ER physician, request admission for further management and IV antibiotics. Therapy evaluated, recommend home health. Urine culture showing gram-negative rods. Continues to require inpatient management while awaiting speciation and sensitivity. Problems addressed as follows: Pyelonephritis UTI - On admission, white count of 12.4, urine abnormal with 3+ leuk esterase, 20-50 white cells, 1+ bacteria, positive nitrate. -Urine culture growing gram-negative rods. Previous culture 2 months ago with E. coli, resistant to fluoroquinolones. Will await further speciation and sensitivity due to some resistant patterns in the past. -Responding to ceftriaxone, continue 1 g daily. Will need 10 days of therapy total. -Midline ordered for today to facilitate discharge home with home health and outpatient IV antibiotics -White count improved at 7.3 today, hemoglobin 10. Repeat CBC, CMP, magnesium ordered for the morning. -Blood cultures remain negative Diabetes: Last A1c 2 months ago above goal at 7.9. Continue metformin 500 mg twice daily with sliding scale insulin and fingersticks ACHS. COPD: Continue Trelegy inhaler daily. O2 dependent at night at home. Continue supplemental oxygen as needed for goal sats greater 90% CAD Hypertension Diastolic heart failure -Continue irbesartan 75 mg daily, Plavix 75 mg daily, bisoprolol 20 mg daily, Lipitor 80 mg nightly, and amlodipine 10 mg daily -Echo obtained in July, for review of results, patient has grade 2 diastolic dysfunction with preserved ejection fraction of 55% Therapy evaluated, recommend home health. CKD: Kidney function at baseline with BUN 21, creatinine 1.4, magnesium 1.7, potassium 3.8. Discontinued IV fluids. Tolerating p.o. liquids. Aneurysm noted on CT of abdomen and pelvis. Needs follow-up ultrasound in 12 months. DNR/DNI Diabetic diet P MONICA
--- NOTE | 2024-04-11 12:51 | SW/DCPLANNER ---
Addendum entered by Madeleine [place] 04/12/24 10:00: I have updated [facility] and [facility] that patient will discharge home today. Addendum entered by Madeleine Hazel [place] 04/11/24 15:38: Gayathri palacios/ [facility] ([facility]) stated that services will start Thursday04/13/24. Alba palacios/ [facility] stated that medications will be delivered tomorrow 04/12/24. Original Note: I spoke w/ this patient and her daughter regarding plans once medically stable for discharge. PT/OT evaluated patient and recommended home health services at time of discharge. Patient will also need 7 more days of IV Rocephin at time of discharge. Patient plans to return home, establish home health (no preference on agency) and family will assist w/ IV antibiotics. I will fax information to [facility] today and home health agency in preparation for discharge tomorrow.
--- OUTSIDE RECORDS SUMMARY | 2024-04-11 14:52 | XMS_ITS | Patient Health Record ---
Author Organization 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 Name Role Phone Melinda Garsia Primary Care Provider [phone] ALLERGIES Allergen (clinical drug ingredient) Drug/Non Drug Allergy documented on EMR Reaction Allergy Type Onset Date Status amoxicillin / clavulanate Augmentin tongue swell Drug Allergy Active MEDICATIONS Medication SIG (Take, Route, Frequency, Duration) Notes Start Date End Date Status aspirin 81 mg 1 tab(s) orally once a day for 30 day(s) Active lisinopril 20 mg 1 tab(s) orally twic e daily for 90 days Active Bisoprolol Fumarate 10MG 1 tab(s) orally once a day for 90 days Active MetFORMIN (Eqv-Glucophage XR ) 500 mg Take 2 tablets by mouth once daily for 90 Active omeprazole 20 mg 1 cap(s) orally once daily at bedtime for 90 days Active Diabetic shoes as directed DX: E11. 65 qd 07/28/2016 Active Triamcinolone Acetonide Topical 0.1% 1 cathie applied topically BID to the left external ear for 30 days 01/05/2019 Active Test Strips and Lancets NA ac and hs NA AC and HS for IDDM for 30 days 01/25/2020 Active Glucometer NA use ac and hs NA AC and HS for 30 days 01/25/2020 Active Clobetasol Propionate 0.05% 1 cathie applie d topically 2 times a day for 30 Active biotin 5000 mcg 1 tab(s) orally once a day prn Active Lasix 40MG 1 tab(s) orally once a day for 90 days Active Atorvastatin Calcium 80MG 1 tab(s) orall y once a day (at bedtime) for 90 Active Syringe and [place] nrrdles use every 3 months with B12 injection IM 03/14/2013 Active ProAir HFA 90 mcg/inh 2 puff(s) inhaled 4 times a day as needed for 30 days prn Active Lantus 100 units/mL INJECT 80 UNITS SUBCUTANEOUSLY AT BEDTIME for 75 Active multivitamin Multiple Vitamins 1 cap(s) orally once a day Active medroxyPROGESTERone 5 mg 1 tab(s) orally once a day Active hydrochlorothiazide 25 mg 1 tab(s) orall y once a day for 90 Active HumuLIN R human recombinant 100 units/mL INJECT 35 UNITS SUBCUTANEOUSLY WITH BREAKFAST AND SUPPER AND 20 UNITS WITH LUNCH for 89 Active Otezla 30 mg 1 tab(s) orally 2 ti mes a day Active Calcium 600+D 600 mg-800 int l units 1 tab(s) orally once a day Active ketoconazole topical 2% 1 cathie applied to pically once for 1 day(s) Active diclofenac sodium 75 mg 1 tab(s) orally 2 times a day as needed for arthritis pain for 30 day(s) 11/08/2021 Active Pen [place], 31gx1/4 as directed for 30 days 05/09 Active IMMUNIZATIONS Vaccine Route Administration Date Status Comme nts Covid Moderna Unknown 10/04/2020 Administered Covid Moderna Unknown 11/01/2020 Administered Covid Moderna Unknown 05/09/2021 Administered Fluzone High Dose IM Intramuscular 06/01/2019 Administered Fluzone High Dose IM Intramuscular 06/20/2020 Administered Influenza (Fluzone)--Medicare only Unknown 05/17/2016 Administered Influenza (Fluzone)--Medicare only Unknown 05/30/2017 Administered High Do se Pneumovax 23 Unknown 10/18/2014 Administered Prevnar PCV-13 (Pneumococcal conjugate 13) IM Intramuscular 05/21/2017 Administered SOCIAL HISTORY Sex Assigned At : Social History Observation Description Sex Assigned At Unknown PROBLEMS Problem Type ICD Code Onset Dates Problem Status W/U Status Risk SNOMED Code Notes Problem Type 2 diabetes mellitus with hyperglycemia (E11.65) Active confirmed 719457795 Problem Other allergic rhinitis (J30.89) Active confirmed 148674585 Problem Chronic obstructive pulmonary disease, unspecified (J44.9) Active confirmed 34642442 Problem Venous insufficiency (I87.2) Active confirmed 38593524 Problem Essential hypertension (I10) Active confirmed 97591022 Problem Psoriasis (L40.9) Active confirmed 9014 002 Problem Seasonal allergic reaction (J30.2) Active confirmed Seasonal allergic rhinitis (675828047) Problem Urinary incontinence (R32) Active confirmed Urinary incontinence (574787153) Problem BMI 30.0-30.9,adult (Z68.30) Active confirmed 519670359 Problem Psoriasis of scalp (L40.9) Active confirmed 375271531 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) Active confirmed 532889369 Problem Peripheral edema (R60.9) Active confirmed 729960445 Problem Arthropathy, 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) Active confirmed 974493679 Problem Menopausal and perimenopausal disorder (N95.9) Active confirmed 674197471 Problem OAB (overactive bladder) (N32.81) Active confirmed 524780982 Problem BMI 29.0-29.9,adult (Z68.29) Active confirmed 078181817 Problem Seasonal allergic rhinitis due to pollen (J30.1) Active confirmed 27701082 Problem Chronic GERD (K21.9) Active confirmed 312095255 Problem Mixed dyslipidemia (E78.2) Active confirmed 194900102 Problem Osteopenia after menopause (M85.80) Active confirmed 321320927 PLAN OF TREATMENT Pending Test Test Name Order Date N-Stool WBC 01/24/2013 Urinalysis 07/28/2016 Urinalysis 05/14/2016 X ray : Shoulder, Right 06/30/2011 Mammogram : Diagnostic 11/04/2018 Mammogram : Left breast 11/11/2018 Mammogram : Left breast 09/02/2016 Mammogram : Right Breast 09/02/2016 Mammogram : Right Breast 06/22/2017 N-Stool Culture 01/24/2013 Microalbumin (In-House) 07/28/2016 N-CMP 08/23/2012 N-CMP 04/01/2010 N-Lipid Panel 04/01/2010 N-Lipid Panel 08/23/2012 X ray : Humerus, Right 06/30/2011 N-HbA1C 08/23/2012 Physical Therapy 12/20/2014 Mammogram : Bilateral 01/27/2020 Mammogram : Bilateral 05/23/2009 Mammogram : Bilateral 06/22/2013 H-CBC with AUTO DIFF 05/21/2017 H-CMP 05/21/2017 H-CMP 12/20/2015 H-CMP 08/17/2017 H-CMP 12/05/2015 H-MAGNESIUM 05/21/2017 H-LIPID PANEL 05/21/2017 H-LIPID PANEL 12/20/2015 H-LIPID PANEL 08/17/2017 H-LIPID PANEL 12/05/2015 H-CPK 05/21/2017 H-HGBA1C 05/21/2017 H-HGBA1C 12/20/2015 H-HGBA1C 08/17/2017 H-HGBA1C 12/05/2015 H-TSH 05/21/2017 H-MICROALBUMIN URINE 11/20/2016 H-MICROALBUMIN URINE 12/05/2015 spirometry 11/20/2016 H-MICROALB/DRIVER COURIER UR 05/21/2017 H-MICROALB/DRIVER COURIER UR 08/17/2017 M-Complete Blood Count Auto Diff 018 M-Comprehensive Metabolic Panel 03/22/20 18 M-Comprehensive Metabolic Panel 06/20/20 20 M-Hemoglobin A1C 03/22/2018 M-Hemoglobin A1C 06/20/2020 M-Lipid Panel 06/20/2020 M-Lipid Panel 03/22/2018 M-Thyroid Stimulating Hormone 03/22/2018 M-Microalb/Creat Ratio, Rand Ur 020 M-Microalb/Creat Ratio, Rand Ur 021 Future Test Test Name Order Date H-LIPID PANEL 04/22/2011 H-CMP 06/27/2011 H-LIPID PANEL 06/27/2011 H-HGBA1C 06/27/2011 Insurance Providers Payer Name Payer Address Payer Phone Subscriber Number Group Number Insured Name Patient Relationship to Insured Coverage Start Date Coverage End Date [place] [address] [place] [phone] [id number] Elyssa Toro Self - patient is the insured [employer] [address] [address] [place] [address] [id number] Elyssa Toro Self - patient is the insured MEDICAL (GENERAL) HISTORY Medical History History ICD Code hx pneumonia hyperlipidemia IDDM HTN GERD JEREMIAH but unable to tolerate CPAP Colonoscopy 2005 Dr Medina Colonoscopy 2015 Dr. Newberry with [facility] erticulosis Asthma/COPD - see spirometry 2017 Osteopenia HRT postmenopausal bleeding followed by Dr Mckenna jaquez scalp psoriasis Normal mammogram 02/2021 Surgical History Surgery Date(Month/Year) tubal ligation remote past-n o history of difficulties with anesthesia or free bleeding 1977 right hip replacement 2009 D and C 2013 Appendectomy 1977 left knee replacement 05/2016 Hospitalization History Reason Date(Month/Year) pneumonia 10/2014 knee surgery 05/2016
[2024-04-11 16:00] VITALS: BP 128/67; PULSE 72; RESP 16; TEMP 36.6; O2SAT 93
[2024-04-11 16:24] LABS: POC Glucose,Bedside 213 (70-110)
[2024-04-11 17:07] LABS: Adenovirus F 40/41, stool Not Detected (NotDetected); Astrovirus Not Detected (NotDetected); Campylobacter Not Detected (NotDetected); Clostridium Difficile A/B, PCR Not Detected (NotDetected); Cryptosporidium Not Detected (NotDetected); Cyclospora Cayetanesis Not Detected (NotDetected); Entamoeba histolytica Not Detected (NotDetected); Enteroaggregative E coli Not Detected (NotDetected); Enteropathogenic E coli Not Detected (NotDetected); Enterotoxigenic E coli Not Detected (NotDetected); Giardia lamblia Not Detected (NotDetected); Norovirus Not Detected (NotDetected); Plesimonas Shigalloides, PCR Not Detected (NotDetected); Rotavirus A Not Detected (NotDetected); Salmonella, PCR Not Detected (NotDetected); Sapovirus Not Detected (NotDetected); Shiga-like toxin E coli Not Detected (NotDetected); Shigella Enterovasive E coli Not Detected (NotDetected); Vibrio Cholerae Not Detected (NotDetected); Vibrio, PCR Not Detected (NotDetected); Yersinia Entercolitica, PCR Not Detected (NotDetected)
--- NOTE | 2024-04-11 17:54 | PC.NURSE ---
Pt is currently eating dinner at this time. Has c/o loose stools this shift. Specimen obtained this afternoon. She has voided per BR and purewick. Family at bedside. Call light within reach.
[2024-04-11 20:00] VITALS: BP 126/73; PULSE 72; RESP 18; TEMP 36.4; O2SAT 93
[2024-04-11 20:10] LABS: POC Glucose,Bedside 164 (70-110)
[2024-04-11] MEDS: ATORVASTATIN 40MG TABLET 80 MG PO (21:08)
[2024-04-12 04:00] VITALS: BP 131/60; PULSE 75; RESP 18; TEMP 36.9; O2SAT 94; BMI 35.0
[2024-04-12 05:29] LABS: POC Glucose,Bedside 152 (70-110)
[2024-04-12] MEDS: humaLOG 100 UNITS/ML 10ML VIAL (SSI) SQ (05:29)
--- NOTE | 2024-04-12 05:45 | PC.NURSE ---
Pt is alert and oriented x4. She has tolerated 1.5L O2 NC throughout the night. Family member remained at bedside the majority of the shift. She denies any pain and has no complaints at this time. Call light within reach.
[2024-04-12] MEDS: FLUTICASONE/UMECLIDIN/VILANTER 100/62.5/25MCG INHALER 1 PUFF IH (06:11)
[2024-04-12 06:12] VITALS: O2SAT 94
[2024-04-12 06:49] LABS: Albumin Level 3.2 g/dl (3.5-5.0); Chloride 108 mmol/L (98-107); Potassium 3.8 mmoL/L (3.5-5.1); Sodium 138 mmol/L (136-145)
[2024-04-12 06:52] LABS: Alanine Aminotransferase 52 U/L (12-78); Alkaline Phosphatase 111 U/L (38-126); Anion Gap 9.8 mEq/L (5-15); Aspartate Amino Transferase 31 U/L (14-36); Bilirubin,Total 0.5 mg/dl (0.2-1.3); Blood Urea Nitrogen 19 mg/dl (7-17); Carbon Dioxide 24 mmol/L (22.0-30.0); Creatinine Clearance Estimated 52 mL/min (50-200); Estimated Glomerular Filt Rate 44 ml/min (>60); GFR (African American) 53 ML/MIN (>60); Globulin 3.2 g/dL (1.3-3.2); Total Protein,Serum 6.4 g/dl (6.3-8.2)
[2024-04-12 06:53] LABS: Calcium 8.8 mg/dl (8.4-10.2); Glucose 145 mg/dl (74-100)
[2024-04-12 06:54] LABS: Basophils % 0.3 % (0.1-2.0); Eosinophils # 0.1 K/mm3 (0.0-0.4); Eosinophils % 2.7 % (0.1-12.0); Hematocrit 31.4 % (37.0-47.0); Hemoglobin 10.2 g/dL (12.2-16.2); Lymphocytes # 0.9 K/mm3 (0.7-4.5); Lymphocytes % 20.8 % (10-50); Mean Corpuscular HGB Conc 32.4 g/dL (31.8-35.4); Mean Corpuscular Hemoglobin 29.8 pg (27.0-31.2); Mean Platelet Volume 8.2 fl (7.4-10.4); Monocytes # 0.3 K/mm3 (0.1-1.0); Neutrophils # 3.2 K/mm3 (1.8-7.8); Neutrophils % 70.3 % (37.0-80.0); Platelet Count 219 K/mm3 (142-424); Red Blood Count 3.41 M/mm3 (4.20-5.40); Red Cell Distribution Width 15.8 % (11.5-17.5); White Blood Count 4.5 K/mm3 (4.8-10.8)
--- NOTE | 2024-04-12 07:22 | P.DS_ITS ---
General Admission date:: 04/10/24 Discharge date: 04/12/24 HPI HPI HPI: 73 yoF with a history of diarrhea and urinary tract infections positive for E. coli, she has been seen in the emergency room before and treated with antibiotics and sent home., This time she has grown weaker over the last 3 days unable to ambulate without the assistance of 2 people, also noting on a large amount of long-acting insulin but her blood sugars have been dropping below 100 now, she is also oxygen dependent at night. And having increased renal insufficiency. Hospital Course Hospital Course Hospital Course: Ms. Toro is a 73-year-old female with diabetes, aortic aneurysm, diastolic heart failure, sleep apnea, and hypertension who presented to the ER with worsening weakness and difficulty walking. Workup concerning for pyelonephritis and urinary tract infection. Discussed case with ER physician, request admission for further management and IV antibiotics. Patient responded well to antibiotics. Had improvement in mentation and mobility. Therapy evaluated, recommended discharge home with home health. Monitored until culture showed speciation and sensitivity for planning of outpatient antibiotics. Necessitating midline and IV antibiotics to complete course due to resistant profile. Stable to discharge home with home health for further management. Problems addressed as follows: Pyelonephritis UTI - On admission, white count of 12.4, urine abnormal with 3+ leuk esterase, 20-50 white cells, 1+ bacteria, positive nitrate. Urine culture growing gram-negative rods. Previous culture 2 months ago with E. coli, resistant to fluoroquinolones. Will await further speciation and sensitivity due to some res istant patterns in the past. Urine culture from this admission grew the same E. coli resistant to fluoroquinolones. Sensitive to ceftriaxone. Showed overall clinical improvement. Due to clinical diagnosis of pyelonephritis, will continue ceftriaxone 1 g daily to complete 10 days of therapy. Midline placed on day of discharge. Stable to discharge home with home health for further management. White count normalized to 4.5. Ambulating better as her infection has cleared. Family and patient comfortable with plan. No concern for bacteremia. 1 blood culture had single bottle positive, different pathogen from urine. Likely contaminant. Diabetes: Last A1c 2 months ago above goal at 7.9. Continue metformin 500 mg twice daily with sliding scale insulin and fingersticks ACHS during admission. Recommend close follow-up with PCP and further adjustments as an outpatient. COPD: Continue Trelegy inhaler daily. O2 dependent at night at home. Continue supplemental oxygen as needed for goal sats greater 90% CAD Hypertension Diastolic heart failure -Continue irbesartan 75 mg daily, Plavix 75 mg daily, bisoprolol 20 mg daily, Lipitor 80 mg nightly, and amlodipine 10 mg daily. Echo obtained in July, for review of results, patient has grade 2 diastolic dysfunction with preserved ejection fraction of 55% Therapy evaluated, recommend home health. CKD: Kidney function at baseline with BUN 21, creatinine 1.4, magnesium 1.7, potassium 3.8. Discontinued IV fluids. Tolerating p.o. liquids. Aneurysm noted on CT of abdomen and pelvis. Needs follow-up ultrasound in 12 months. Exam Data for Last 24 hours Vital signs and Labs for Last 24 Hours: Temp Pulse Resp BP Pulse Ox O2 Del Method O2 Flow Rate 98.5 F 75 18 131/60 94 L Nasal Cannula 1.5 04/12/24 04:00 04/12/24 04:00 04/12/24 04:00 04/12/24 04:00 04/12/24 06:12 04/12/24 07:00 04/12/24 07:00 Laboratory Results - last 24 hr 04/09/24 23:30: Urine Color Yellow, Urine Appearance Cloudy, Urine pH 6.0, Ur Specific [place] 1.020, Urine Protein 2+, Urine Glucose (UA) Negative, Urine Ketones Negative, Urine Blood 3+, Urine Nitrate Positive, Urine Bilirubin Negative, Urine Urobilinogen 0.2, Ur Leukocyte Esterase 3+ A, Urine RBC 20-50, Urine WBC 20-50, Ur Squamous Epith Cells Occasional, Urine Bacteria 1+ 04/11/24 10:59: POC Glucose 200 H 04/11/24 16:06: POC Glucose 213 H 04/11/24 16:50: Stl Aeromonas (PCR) Not detected, Stl C. cayetanensis PCR Not detected, Stool Rotavirus (PCR) Not detected, Stl Adenov F 40/41 PCR Not detected, Stool Astrovirus (PCR) Not detected, Stool Campylobacter PCR Not detected, Stl C.difficile Tox PCR Not detected, Stool Cryptosporidium PCR Not detected, Stl E.coli Shiga Tox PCR Not detected, Stool E coli O157 PCR Not detected, Stl Enterotoxigenic E PCR Not detected, Stool EPEC (PCR) Not detected, Stool EAEC (PCR) Not detected, Stl E. histolytica PCR Not detected, Stool Giardia Lamblia PCR Not detected, Stool Salmonella PCR Not detected, Stool Sapovirus (PCR) Not detected, Stl P. shigelloides PCR Not detected, Stl Shigella/EIEC PCR Not detected, St Y.enterocolitica PCR Not detected, Stool Vibrio (PCR) Not detected, Stl Vibrio cholerae PCR Not detected, Stl Norovirus GI/GII PCR Not detected 04/11/24 20:00: POC Glucose 164 H 04/12/24 05:21: POC Glucose 152 H 04/12/24 06:10: WBC 4.5 L D, RBC 3.41 L, Hgb 10.2 L, Hct 31.4 L, MCV 92.0, MCH 29.8, MCHC 32.4, RDW 15.8, Plt Count 219, MPV 8.2, Neut % (Auto) 70.3, Lymph % (Auto) 20.8, [place] % (Auto) 6.0, Eos % (Auto) 2.7, Baso % (Auto) 0.3, Neut # (Auto) 3.2, Lymph # (Auto) 0.9, [place] # (Auto) 0.3, Eos # (Auto) 0.1, Baso # (Auto) 0.0, Sodium 138, Potassium 3.8, Chloride 108 H, Carbon Dioxide 24, Anion Gap 9.8, BUN 19 H, Creatinine 1.20 H, Estimated Creat Clear 52, Estimated GFR 44 L, Est GFR ( Amer) 53 L, Glucose 145 H D, Calcium 8.8, Total Bilirubin 0.5, AST 31 D, ALT 52, Alkaline Phosphatase 111, Total Protein 6.4, Albumin 3.2 L, Globulin 3.2, Albumin/Globulin Ratio 1.0 L I & O for Last 24 hours: Intake & Output 04/09/24 04/10/24 04/11/24 04/12/24 23:59 23:59 23:59 23:59 Intake Total 947 / 1097 2840 / 3040 200 / 200 Output Total 0 / 0 900 / 900 801 / 801 Balance 947 / 1097 1940 / 2140 -601 / -601 Weight 79.923 kg 78.744 kg 78.744 kg 78.925 kg Microbiology Reports for the Last 24 Hours: Microbiology 04/09/24 22:20 Blood Blood Culture - Preliminary NO GROWTH AFTER 48 HOURS 04/09/24 22:50 Blood Blood Culture - Preliminary 04/09/24 23:30 Urine,Clean Catch Urine Culture - Preliminary Gram Negative Rods Constitutional Constitutional: no acute distress, obese, chronically ill appearing and coope rative *Routine HEENT Exam Head: Present normocephalic Eye: Present EOMI and PERRL ENT: Present mucous membranes moist *Routine Neck Exam Neck: Present supple; Absent lymphadenopathy *Routine Respiratory Exam Respiratory: Present CTA bilaterally; Absent rhonchi, wheezes or crackles *Routine Cardiovascular Exam Cardiovascular: Present RRR *Routine Abdominal Exam Abdominal: Present soft and normoactive bowel sounds; Absent tenderness *Routine Rectal Exam Patient deferred: visual exam *Routine Exam Patient deferred: external exam *Routine Extremities Exam Extremities: Present edema (Trace bilateral lower extremity); Absent cyanosis or clubbing *Routine Skin Exam Skin: Present warm; Absent rash *Routine Neurological Exam Neurological: Present alert and oriented X3 Results Data Completed and Pending Labs on day of discharge: Labs from last 24 hours 04/12/24 04/12/24 04/11/24 06:10 05:21 20:00 WBC 4.5 L D RBC 3.41 L Hgb 10.2 L Hct 31.4 L MCV 92.0 MCH 29.8 MCHC 32.4 RDW 15.8 Plt Count 219 MPV 8.2 Neut % (Auto) 70.3 Lymph % (Auto) 20.8 [place] % (Auto) 6.0 Eos % (Auto) 2.7 Baso % (Auto) 0.3 Neut # (Auto) 3.2 Lymph # (Auto) 0.9 [place] # (Auto) 0.3 Eos # (Auto) 0.1 Baso # (Auto) 0.0 Sodium 138 Potassium 3.8 Chloride 108 H Carbon Dioxide 24 Anion Gap 9.8 BUN 19 H Creatinine 1.20 H Estimated Creat Clear 52 Estimated GFR 44 L Est GFR ( Amer) 53 L Glucose 145 H D POC Glucose 152 H 164 H Calcium 8.8 Total Bilirubin 0.5 AST 31 D ALT 52 Alkaline Phosphatase 111 Total Protein 6.4 Albumin 3.2 L Globulin 3.2 Albumin/Globulin Ratio 1.0 L Urine Color Urine Appearance Urine pH Ur Specific [place] Urine Protein Urine Glucose (UA) Urine Ketones Urine Blood Urine Nitrate Urine Bilirubin Urine Urobilinogen Ur Leukocyte Esterase Urine RBC Urine WBC Ur Squamous Epith Cells Urine Bacteria Stl Aeromonas (PCR) Stl C. cayetanensis PCR Stool Rotavirus (PCR) Stl Adenov F PCR Stool Astrovirus (PCR) Stool Campylobacter PCR Stl C.difficile Tox PCR Stool Cryptosporidium PCR Stl E.coli Shiga Tox PCR Stool E coli O157 PCR Stl Enterotoxigenic E PCR Stool EPEC (PCR) Stool EAEC (PCR) Stl E. histolytica PCR Stool Giardia Lamblia PCR Stool Salmonella PCR Stool Sapovirus (PCR) Stl P. shigelloides PCR Stl Shigella/EIEC PCR St Y.enterocolitica PCR Stool Vibrio (PCR) Stl Vibrio cholerae PCR Stl Norovirus GI/GII PCR 04/11/24 04/11/24 04/11/24 16:50 16:06 10:59 WBC RBC Hgb Hct MCV MCH MCHC RDW Plt Count MPV Neut % (Auto) Lymph % (Auto) [place] % (Auto) Eos % (Auto) Baso % (Auto) Neut # (Auto) Lymph # (Auto) [place] # (Auto) Eos # (Auto) Baso # (Auto) Sodium Potassium Chloride Carbon Dioxide Anion Gap BUN Creatinine Estimated Creat Clear Estimated GFR Est GFR ( Amer) Glucose POC Glucose 213 H 200 H Calcium Total Bilirubin AST ALT Alkaline Phosphatase Total Protein Albumin Globulin Albumin/Globulin Ratio Urine Color Urine Appearance Urine pH Ur Specific [place] Urine Protein Urine Glucose (UA) Urine Ketones Urine Blood Urine Nitrate Urine Bilirubin Urine Urobilinogen Ur Leukocyte Esterase Urine RBC Urine WBC Ur Squamous Epith Cells Urine Bacteria Stl Aeromonas (PCR) Not detected Stl C. cayetanensis PCR Not detected Stool Rotavirus (PCR) Not detected Stl Adenov F PCR Not detected Stool Astrovirus (PCR) Not detected Stool Campylobacter PCR Not detected Stl C.difficile Tox PCR Not detected Stool Cryptosporidium PCR Not detected Stl E.coli Shiga Tox PCR Not detected Stool E coli O157 PCR Not detected Stl Enterotoxigenic E PCR Not detected Stool EPEC (PCR) Not detected Stool EAEC (PCR) Not detected Stl E. histolytica PCR Not detected Stool Giardia Lamblia PCR Not detected Stool Salmonella PCR Not detected Stool Sapovirus (PCR) Not detected Stl P. shigelloides PCR Not detected Stl Shigella/EIEC PCR Not detected St Y.enterocolitica PCR Not detected Stool Vibrio (PCR) Not detected Stl Vibrio cholerae PCR Not detected Stl Norovirus GI/GII PCR Not detected 04/09/24 23:30 WBC RBC Hgb Hct MCV MCH MCHC RDW Plt Count MPV Neut % (Auto) Lymph % (Auto) [place] % (Auto) Eos % (Auto) Baso % (Auto) Neut # (Auto) Lymph # (Auto) [place] # (Auto) Eos # (Auto) Baso # (Auto) Sodium Potassium Chloride Carbon Dioxide Anion Gap BUN Creatinine Estimated Creat Clear Estimated GFR Est GFR ( Amer) Glucose POC Glucose Calcium Total Bilirubin AST ALT Alkaline Phosphatase Total Protein Albumin Globulin Albumin/Globulin Ratio Urine Color Yellow Urine Appearance Cloudy Urine pH 6.0 Ur Specific [place] 1.020 Urine Protein 2+ Urine Glucose (UA) Negative Urine Ketones Negative Urine Blood 3+ Urine Nitrate Positive Urine Bilirubin Negative Urine Urobilinogen 0.2 Ur Leukocyte Esterase 3+ A Urine RBC 20-50 Urine WBC 20-50 Ur Squamous Epith Cells Occasional Urine Bacteria 1+ Stl Aeromonas (PCR) Stl C. cayetanensis PCR Stool Rotavirus (PCR) Stl Adenov F 40/41 PCR Stool Astrovirus (PCR) Stool Campylobacter PCR Stl C.difficile Tox PCR Stool Cryptosporidium PCR Stl E.coli Shiga Tox PCR Stool E coli O157 PCR Stl Enterotoxigenic E PCR Stool EPEC (PCR) Stool EAEC (PCR) Stl E. histolytica PCR Stool Giardia Lamblia PCR Stool Salmonella PCR Stool Sapovirus (PCR) Stl P. shigelloides PCR Stl Shigella/EIEC PCR St Y.enterocolitica PCR Stool Vibrio (PCR) Stl Vibrio cholerae PCR Stl Norovirus GI/GII PCR Preliminary micro results at discharge 04/09/24 22:20 Blood Culture - Preliminary Blood NO GROWTH AFTER 48 HOURS 04/09/24 22:50 Blood Culture - Preliminary Blood 04/09/24 23:30 Urine Culture - Preliminary Urine,Clean Catch Gram Negative Rods DS: Diagnosis Discharge Diagnosis (1) Acute pyelonephritis: Status: Acute Code(s): N10 - Acute pyelonephritis (2) Generalized weakness: Status: Acute Code(s): R53.1 - Weakness (3) Urinary tract infectious disease: Status: Acute Code(s): N39.0 - Urinary tract infection, site not specified Qualifiers: Hematuria presence: with hematuria Urinary tract infection type: site unspecified Qualified Code(s): N39.0 - Urinary tract infection, site not specified; R31.9 - Hematuria, unspecified (4) Unable to walk: Status: Acute Code(s): R26.2 - Difficulty in walking, not elsewhere classified (5) Aortic aneurysm: Status: Acute Code(s): I71.9 - Aortic aneurysm of unspecified site, without rupture Qualifiers: Aortic location: abdominal aorta Presence of rupture: without rupture (6) Hypoglycemia: Status: Acute Code(s): E16.2 - Hypoglycemia, unspecified (7) Nocturnal hypoxemia due to emphysema: Status: Acute Code(s): J43.9 - Emphysema, unspecified; G47.36 - Sleep related hypoventilation in conditions classified elsewhere (8) Cystitis: Status: Acute Code(s): N30.90 - Cystitis, unspecified without hematuria (9) COPD mixed type: Status: Chronic Code(s): J44.9 - Chronic obstructive pulmonary disease, unspecified (10) Diabetes mellitus: Status: Acute Code(s): E11.9 - Type 2 diabetes mellitus without complications Problem details: Has long acting insulin injector pen (11) Hypoglycemia associated with type 2 diabetes mellitus: Status: Acute Code(s): E11.649 - Type 2 diabetes mellitus with hypoglycemia without coma Meds Home Medications and Allergies Home Medications ?Medication ?Instructions ?Recorded ?Confirmed ?Type biotin 5,000 mcg disintegrating 10,000 mcg PO DAILY Supplement 05/16/22 04/10/24 History tablet calcium carbonate 600 mg-vitamin 1 tab PO DAILY Supplement 05/16/22 04/10/24 History D3 5 mcg (200 unit) tablet multivitamin 1 tab PO DAILY Supplement 05/16/22 04/10/24 History omega-3 fatty acids 500 mg capsule 500 mg PO DAILY Supplement 02/10/23 04/10/24 History ketoconazole 2 % shampoo 1 applic topical Q2W PRN scalp 04/09/23 04/10/24 History issue amlodipine 10 mg tablet 10 mg PO DAILY htn #90 tabs 11/12/23 04/10/24 Rx diclofenac sodium 75 mg 75 mg PO BID Pain 90 days #180 tabs 04/15/24 08/04/24 Rx tablet,delayed release pantoprazole 20 mg tablet,delayed 20 mg PO DAILY GERD 90 days #90 01/18/24 04/10/24 Rx release (Protonix) tabs fluticasone propionate 50 2 spray intranasal DAILY 90 days 01/21/24 04/10/24 Rx mcg/actuation nasal #16 grams spray,suspension (Flonase Allergy Relief) bisoprolol fumarate 10 mg tablet 20 mg (2 x 10 mg) PO DAILY htn 02/02/24 04/10/24 Rx #180 tabs metformin 500 mg tablet,extended 500 mg PO BID diabetes 90 days 02/02/24 04/10/24 Rx release 24 hr #180 tabs oxybutynin chloride 10 mg 10 mg PO DAILY htn 90 days #90 tabs 02/02/24 04/10/24 Rx tablet,extended release 24 hr fluticasone fur. 100 mcg-umeclid 1 inh inhalation DAILY 90 days #90 02/08/24 04/10/24 Rx 62.5 mcg-vilant 25 mcg ea inhalat.powder (Trelegy Ellipta) chlorthalidone 25 mg tablet 25 mg PO DAILY #90 tabs 03/21/24 04/10/24 Rx valsartan 80 mg tablet (Diovan) 80 mg PO DAILY #30 tabs 03/21/24 04/10/24 Rx atorvastatin 80 mg tablet 80 mg PO HS 04/10/24 04/10/24 History clobetasol 0.05 % scalp solution 1 applic topical BIDP PRN 04/10/24 04/10/24 History PSORIASIS FLARE clopidogrel 75 mg tablet 75 mg PO DAILY 04/10/24 04/10/24 History halobetasol propionate 0.05 % 1 applic topical BIDP PRN 04/10/24 04/10/24 History topical ointment PSORIASIS FLARE insulin glargine U-300 conc 300 170 unit SQ Q24H 04/10/24 04/10/24 History unit/mL (3 mL) subcutaneous pen (Toujeo Max U-300 SoloStar) medroxyprogesterone 5 mg tablet 5 mg PO DAILY 04/10/24 04/10/24 History montelukast 10 mg tablet 10 mg PO HS 04/10/24 04/10/24 History ceftriaxone 1 gram intravenous 1 g IV Q24H 6 days #0 ea 04/12/24 Rx solution New Prescriptions to Start Prescriptions: Allergies Allergy/AdvReac Type Severity Reaction Status Date / Time amoxicillin [From AUGMENTIN] Allergy Severe THROAT Verified 03/21/24 14:02 SWELLING clavulanic acid Allergy Severe THROAT Verified 03/21/24 14:02 [From AUGMENTIN] SWELLING sulfamethoxazole Allergy Mild Verified 03/21/24 14:02 Discharge Plan Disposition Patient Disposition: Home Health Service Condition: Fair Discharge Order Discharge Orders: Discharge Order (Routine); Ordered 04/12/24 Ordered By: Ham Obrien Follow up Plan Follow up with: Milad Alexander MD [Primary Care Provider] - 04/20/24 10:00 am Yaw Cates MD [Referring] - 04/20/24 9:45 am (In [facility] office) Prescriptions/Medication Reconciliation: New ceftriaxone 1 gram Recon Soln 1 g IV Q24H 6 Days Qty: 0 0RF Continued multivitamin Tablet 1 tab PO DAILY calcium carbonate-vitamin D3 600 mg-5 mcg (200 unit) tablet 1 tab PO DAILY biotin 5,000 mcg tablet,disintegrating 10,000 mcg PO DAILY ketoconazole 2 % shampoo 1 applic topical Q2W PRN (Reason: scalp issue) fluticasone propionate [Flonase Allergy Relief] 50 mcg/actuation spray,suspe nsion 2 spray intranasal DAILY 90 Days Qty: 16 2RF Rx Instructions: administer into each nostril omega-3 fatty acids 500 mg capsule 500 mg PO DAILY amlodipine 10 mg tablet 10 mg PO DAILY Qty: 90 3RF valsartan [Diovan] 80 mg tablet 80 mg PO DAILY Qty: 30 5RF chlorthalidone 25 mg tablet 25 mg PO DAILY Qty: 90 3RF diclofenac sodium 75 mg tablet,delayed release (DR/EC) 75 mg PO BID 90 Days Qty: 180 1RF pantoprazole [Protonix] 20 mg tablet,delayed release (DR/EC) 20 mg PO DAILY 90 Days Qty: 90 0RF bisoprolol fumarate 10 mg tablet 20 mg PO DAILY Qty: 180 2RF metformin 500 mg tablet extended release 24 hr 500 mg PO BID 90 Days Qty: 180 0RF oxybutynin chloride 10 mg tablet extended release 24hr 10 mg PO DAILY 90 Days Qty: 90 0RF Trelegy Ellipta 100-62.5-25 mcg blister with device 1 inh inhalation DAILY 90 Days Qty: 90 2RF atorvastatin 80 mg tablet 80 mg PO HS Patient Comments: TAKE 1 TABLET BY MOUTH ONCE DAILY AT BEDTIME clopidogrel 75 mg tablet 75 mg PO DAILY Patient Comments: TAKE 1 TABLET BY MOUTH ONCE DAILY clobetasol 0.05 % solution 1 applic TOPICAL BIDP PRN (Reason: PSORIASIS FLARE) Patient Comments: APPLY SOLUTION TOPICALLY TO AFFECTED AREAS WHILE FLARED TWICE DAILY FOR UP TO 2 WEEKS. TAKE A WEEK BREAK AND REPEAT NEEDED FOR FLARES medroxyprogesterone 5 mg tablet 5 mg PO DAILY Patient Comments: TAKE 1 TABLET BY MOUTH ONCE DAILY FOR HORMONE halobetasol propionate 0.05 % ointment 1 applic TOPICAL BIDP PRN (Reason: PSORIASIS FLARE) Patient Comments: APPLY OINTMENT TOPICALLY TO PLAQUES TWICE DAILY FOR 2 WEEKS, TAKE 2 WEEK BREAK, REPEAT NEEDED montelukast 10 mg tablet 10 mg PO HS insulin glargine U-300 conc [Toujeo Max U-300 SoloStar] 300 unit/mL (3 mL) insulin pen 170 unit SQ Q24H Problem Reconciliation Problems Reviewed?: Yes Patient Discharge Instructions ACTIVITY: Continue current activity DIET: continue same diet Patient Instructions: Diarrhea, DI for Urinary Tract Infection (UTI), DI for Muscle Weakness Print Language: [place]i Providers Primary Care Provider: Milad Alexander Admit Provider: Ham Obrien Attending Provider: Ham Obrien
[2024-04-12 08:00] VITALS: BP 146/76; PULSE 77; RESP 16; TEMP 36.6
[2024-04-12] MEDS: FLUTICASONE PROP 50MCG NASAL SPRAY 16GM 2 SPRAY NS (08:12)
[2024-04-12] MEDS: IRBESARTAN 75MG TABLET 75 MG PO (08:12)
[2024-04-12] MEDS: CEFTRIAXONE 1 GM 1 GM in 0.9 % SODIUM CHLORIDE 50 ML IV (08:12)
[2024-04-12] MEDS: CLOPIDOGREL 75MG TAB 75 MG PO (08:13)
[2024-04-12] MEDS: METFORMIN 500MG TABLET 500 MG PO (08:13)
[2024-04-12] MEDS: AMLODIPINE 10MG TABLET 10 MG PO (08:13)
[2024-04-12] MEDS: BISOPROLOL 5MG TABLET 20 MG PO (08:13)
[2024-04-12] MEDS: PANTOPRAZOLE 40MG TABLET 40 MG PO (08:13)
[2024-04-12] MEDS: ENOXAPARIN 40MG/0.4ML SYRINGE 40 MG SQ (08:13)
[2024-04-12 09:19] LABS: Magnesium 1.6 mg/dl (1.6-2.3)
--- NOTE | 2024-04-13 13:02 | SW/DCPLANNER ---
Follow up phone call: patient stated that she is doing well at home. Patient was able to receive her first dose of IV antibiotic today by daughter and home health is set up to come tomorrow. Patient is aware of follow up appointments and will be rescheduling PCP due to conflict. Patient does not have any further needs at this time.
== END 2024-04-12 10:56 | disposition home health service (06) | DRG 690 ==
LOC: ER 04-10 01:50 → 2ND 04-10 02:30
PROVIDERS: Nurse Practitioner Family; Admitting Provider Internal Medicine Adolescent Medicine; Emergency Provider Emergency Medicine; PCP Family Medicine; Visit Provider Internal Medicine Adolescent Medicine
DX: N10 Acute pyelonephritis (principal); I50.30 Unspecified diastolic (congestive) heart failure; I13.0 Hypertensive heart and chronic kidney disease with heart failure and stage 1 through stage 4 chronic kidney disease, or unspecified chronic kidney disease; N39.0 Urinary tract infection, site not specified; R31.9 Hematuria, unspecified; I71.9 Aortic aneurysm of unspecified site, without rupture; J43.9 Emphysema, unspecified; G47.36 Sleep related hypoventilation in conditions classified elsewhere; J44.9 Chronic obstructive pulmonary disease, unspecified; E11.649 Type 2 diabetes mellitus with hypoglycemia without coma; Z79.4 Long term (current) use of insulin; Z87.440 Personal history of urinary (tract) infections; Z87.891 Personal history of nicotine dependence; I25.10 Atherosclerotic heart disease of native coronary artery without angina pectoris; I08.0 Rheumatic disorders of both mitral and aortic valves; G47.33 Obstructive sleep apnea (adult) (pediatric); Z96.641 Presence of right artificial hip joint; Z96.652 Presence of left artificial knee joint; E11.22 Type 2 diabetes mellitus with diabetic chronic kidney disease; N18.9 Chronic kidney disease, unspecified; Z79.84 Long term (current) use of oral hypoglycemic drugs
CPT/HCPCS: 36410; 36415; 71045; 74177; 80053; 81001; 82947; 82962; 83690; 83735; 83880; 85007; 85025; 85027; 87040; 87086; 87088; 87186; 87507; 93005; 94640; 94760; 97110; 97162; 97165; 97530; 99285; J0696; J1650; J7120; Q9967

== ENCOUNTER 2024-04-14 13:49 | Emergency (ER) | payer MEDICARE, SELFPAY ==
[2024-04-14 13:50] VITALS: BP 158/69; PULSE 67; RESP 18; TEMP 36.9; O2SAT 95; BMI 33.2
--- NOTE | 2024-04-14 15:03 | HMH.EDGENADL ---
Discharge Plan Disposition Patient Disposition: Home, Self-Care Prescriptions Prescriptions: No Action multivitamin Tablet 1 tab PO DAILY calcium carbonate-vitamin D3 600 mg-5 mcg (200 unit) tablet 1 tab PO DAILY biotin 5,000 mcg tablet,disintegrating 10,000 mcg PO DAILY ketoconazole 2 % shampoo 1 applic topical Q2W PRN (Reason: scalp issue) fluticasone propionate [Flonase Allergy Relief] 50 mcg/actuation spray,suspension 2 spray intranasal DAILY 90 Days Qty: 16 2RF Rx Instructions: administer into each nostril omega-3 fatty acids 500 mg capsule 500 mg PO DAILY amlodipine 10 mg tablet 10 mg PO DAILY Qty: 90 3RF valsartan [Diovan] 80 mg tablet 80 mg PO DAILY Qty: 30 5RF chlorthalidone 25 mg tablet 25 mg PO DAILY Qty: 90 3RF diclofenac sodium 75 mg tablet,delayed release (DR/EC) 75 mg PO BID 90 Days Qty: 180 1RF pantoprazole [Protonix] 20 mg tablet,delayed release (DR/EC) 20 mg PO DAILY 90 Days Qty: 90 0RF bisoprolol fumarate 10 mg tablet 20 mg PO DAILY Qty: 180 2RF metformin 500 mg tablet extended release 24 hr 500 mg PO BID 90 Days Qty: 180 0RF oxybutynin chloride 10 mg tablet extended release 24hr 10 mg PO DAILY 90 Days Qty: 90 0RF Trelegy Ellipta 100-62.5-25 mcg blister with device 1 inh inhalation DAILY 90 Days Qty: 90 2RF atorvastatin 80 mg tablet 80 mg PO HS Patient Comments: TAKE 1 TABLET BY MOUTH ONCE DAILY AT BEDTIME clopidogrel 75 mg tablet 75 mg PO DAILY Patient Comments: TAKE 1 TABLET BY MOUTH ONCE DAILY clobetasol 0.05 % solution 1 applic TOPICAL BIDP PRN (Reason: PSORIASIS FLARE) Patient Comments: APPLY SOLUTION TOPICALLY TO AFFECTED AREAS WHILE FLARED TWICE DAILY FOR UP TO 2 WEEKS. TAKE A WEEK BREAK AND REPEAT NEEDED FOR FLARES medroxyprogesterone 5 mg tablet 5 mg PO DAILY Patient Comments: TAKE 1 TABLET BY MOUTH ONCE DAILY FOR HORMONE halobetasol propionate 0.05 % ointment 1 applic TOPICAL BIDP PRN (Reason: PSORIASIS FLARE) Patient Comments: APPLY OINTMENT TOPICALLY TO PLAQUES TWICE DAILY FOR 2 WEEKS, TAKE 2 WEEK BREAK, REPEAT NEEDED montelukast 10 mg tablet 10 mg PO HS insulin glargine U-300 conc [Toujeo Max U-300 SoloStar] 300 unit/mL (3 mL) insulin pen 170 unit SQ Q24H ceftriaxone 1 gram Recon Soln 1 g IV Q24H 6 Days Qty: 0 0RF Referrals Follow up/Referrals: Milad Alexander MD [Primary Care Provider] - See instructions Activity Restrictions/Add. Instructions Additional Instructions/Restrictions: Administer antibiotics when you get home via your PICC line. Call your family doctor to establish care for this visit to the emergency department and schedule follow-up within 48 hours to ensure improvement. If you have any worsening of your condition or any other concerning signs or symptoms, return to the emergency department or your primary care doctor for further evaluation. Clinical Impressions Clinical Impression: Encounter for medical assessment Instructions Patient Instructions: DI for Skin Abscess Print Language Print Language: Romansh Discharge ED Provider: Musa Lewis General Adult HPI General Chief complaint: Skin/Abscess/Foreign Body Stated complaint: port leaking, sent by homehealth Time Seen by Provider: 04/14/24 14:17 Mode of Arrival: Ambulatory Source of Information: Patient Limitations: No Limitations Description of Symptoms (Recalled from ER Triage Doc. by RN): c/o picc line leaking, pt states that the dressing got changed this morning, no tenderness or redness. History of Present Illness HPI narrative: Please note that above description of symptoms, in this electronic medical record under categorization of recalled from ER triage doctor by RN are reflective of an initial nursing assessment, however, is not reflective of my full history and physical exam that was personally taken and clarified. Consequentially, this preceding description of symptoms, which may include the patient's categorized chief complaint in the EMR, do not reflect my personal clinical impression, and the ultimate description of history of present illness and patient stated complaints should be deferred to this section of the note. Unless stated otherwise or congruent with this section of the note, additional signs, symptoms, or incongruence should be interpreted as inaccurate with my clinical impression. Related Data Home Medications ?Medication ?Instructions ?Recorded ?Confirmed biotin 5,000 mcg disintegrating 10,000 mcg PO DAILY Supplement 05/16/22 04/10/24 tablet calcium carbonate 600 mg-vitamin 1 tab PO DAILY Supplement 05/16/22 04/10/24 D3 5 mcg (200 unit) tablet multivitamin 1 tab PO DAILY Supplement 05/16/22 04/10/24 omega-3 fatty acids 500 mg capsule 500 mg PO DAILY Supplement 02/10/23 04/10/24 ketoconazole 2 % shampoo 1 applic topical Q2W PRN scalp 04/09/23 04/10/24 issue atorvastatin 80 mg tablet 80 mg PO HS 04/10/24 04/10/24 clobetasol 0.05 % scalp solution 1 applic topical BIDP PRN 04/10/24 04/10/24 PSORIASIS FLARE clopidogrel 75 mg tablet 75 mg PO DAILY 04/10/24 04/10/24 halobetasol propionate 0.05 % 1 applic topical BIDP PRN 04/10/24 04/10/24 topical ointment PSORIASIS FLARE insulin glargine U-300 conc 300 170 unit SQ Q24H 04/10/24 04/10/24 unit/mL (3 mL) subcutaneous pen (TouSanoo Max U-300 SoloStar) medroxyprogesterone 5 mg tablet 5 mg PO DAILY 04/10/24 04/10/24 montelukast 10 mg tablet 10 mg PO HS 04/10/24 04/10/24 Previous Rx's ?Medication ?Instructions ?Recorded amlodipine 10 mg tablet 10 mg PO DAILY htn #90 tabs 11/12/23 diclofenac sodium 75 mg 75 mg PO BID Pain 90 days #180 tabs 12/21/23 tablet,delayed release pantoprazole 20 mg tablet,delayed 20 mg PO DAILY GERD 90 days #90 01/18/24 release (Protonix) tabs fluticasone propionate 50 2 spray intranasal DAILY 90 days 01/21/24 mcg/actuation nasal #16 grams spray,suspension (Flonase Allergy Relief) bisoprolol fumarate 10 mg tablet 20 mg (2 x 10 mg) PO DAILY htn 02/02/24 #180 tabs metformin 500 mg tablet,extended 500 mg PO BID diabetes 90 days 02/02/24 release 24 hr #180 tabs oxybutynin chloride 10 mg 10 mg PO DAILY htn 90 days #90 tabs 02/02/24 tablet,extended release 24 hr fluticasone fur. 100 mcg-umeclid 1 inh inhalation DAILY 90 days #90 02/08/24 62.5 mcg-vilant 25 mcg ea inhalat.powder (Trelegy Ellipta) chlorthalidone 25 mg tablet 25 mg PO DAILY #90 tabs 03/21/24 valsartan 80 mg tablet (Diovan) 80 mg PO DAILY #30 tabs 03/21/24 ceftriaxone 1 gram intravenous 1 g IV Q24H 6 days #0 ea 04/12/24 solution Allergies Allergy/AdvReac Type Severity Reaction Status Date / Time amoxicillin [From AUGMENTIN] Allergy Severe THROAT Verified 03/21/24 14:02 SWELLING clavulanic acid Allergy Severe THROAT Verified 03/21/24 14:02 [From AUGMENTIN] SWELLING sulfamethoxazole Allergy Mild Verified 03/21/24 14:02 [facility] Disclaimer: The information contained in this section may have been updated after the patient was seen, as this information can be updated by other users. Medical History (Updated 04/14/24 @ 15:03 by Musa Lewis MD) Nocturnal hypoxemia due to emphysema SNHL (sensorineural hearing loss) Otalgia of left ear JEREMIAH (obstructive sleep apnea) Diastolic dysfunction Otitis externa of left ear External otitis of left ear due to fungus Low magnesium level Elevated serum creatinine Tricuspid regurgitation Aortic regurgitation Mitral regurgitation Abnormal ECG Stopped smoking with greater than 30 pack year history COPD (chronic obstructive pulmonary disease) Asthma SOBOE (shortness of breath on exertion) Thyroid Nodule History of sleep apnea Allergic rhinitis Dyspnea on exertion Asthma-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 Coronary artery disease Hyperlipidemia Psoriasis Hypertension Diabetes mellitus Surgical History History of coronary artery stent placement H/O dilation and curettage History of left knee replacement History of right hip replacement Cataract Family History Mother Cancer Father Cancer Social History Smoking Status: Former smoker smoking status stop date: 09/07/1990 alcohol intake: never substance use type: denies use current occupational status: retired Travel in the last 8 weeks: None housing: house marital status: ROS Obtained: Yes All systems reviewed & no additional complaints except as documented Physical Exam General General appearance: alert Head Head exam: atraumatic and normocephalic Eye Eye exam: Present normal appearance, PERRL and EOMI Neck Neck exam: Present normal inspection, full ROM and trachea midline Respiratory Respiratory exam: Absent respiratory distress, wheezes, stridor, accessory muscle use or prolonged expiratory phase Cardiovascular Cardiovascular exam: Present other (Pulses equal symmetric in upper and lower extremities) Abdominal Exam Abdominal exam: Present soft; Absent distention, tenderness or pulsatile mass Extremities Exam Extremities exam: Present other (Patient has scant bruising, presumably from insertion of left PICC/midline. Some blood underneath dressing. Not actively bleeding. Nontender, unremarkable exam.); Absent edema Neurological Exam Neurological exam: Present alert, oriented X3 and CN II-XII intact; Absent motor sensory deficit Skin Skin exam: Present warm and dry; Absent diaphoresis or erythema Medical Decision Making Medical Records Medical records reviewed: Yes I reviewed the patient's medical records. Azael Inquiry Pt receiving controlled substance: No Azael was queried for this patient: No Vital Signs: 04/14/24 13:50 04/14/24 15:22 Temperature 98.4 F 98.1 F Temperature Source Oral Pulse Rate 84 Pulse Rate [Left Radial] 67 Respiratory Rate 18 18 Blood Pressure 119/72 Blood Pressure [Right Arm] 158/69 H Blood Pressure Mean [Right Arm] 98 Blood Pressure Source [Right Arm] Automatic Cuff Blood Pressure Position [Right Arm] Sitting 02 Sat by Pulse Oximetry 95 Oxygen Delivery Method Room Air Room Air Medical Decision Narrative: This is 73-year-old female with recent diagnosis of acute pyelonephritis necessitating intravenous antibiotics due to resistance with deep line in place left upper extremity presenting with concern for bleeding. Patient states that home health evaluated patient today, changed dressing, was concerned about the line bleeding. Recommended that she come to the emergency department. On arrival to the emergency department, patient states she is not otherwise having symptoms. No pain, swelling, changes to the PICC line. No fevers or chills. Injections have been going well. States that she last had the dressing changed this morning, 04/14. History obtained with patient. On my evaluation, there is no bleeding. There is blood underneath the dressing, but no active bleeding from the line site entering the skin. Out of abundance of caution, pressure dressing was placed for 30 minutes given patient's history of clopidogrel. On reevaluation, patient still not bleeding. Deemed appropriate for discharge. Because patient at baseline without signs or symptoms of clinical decompensation, deemed appropriate for discharge. I discussed my clinical impression with patient. At this time, the evidence for any other entities in the differential is insufficient to warrant any further testing or ED observation. This was explained as well. Advisory was given that persistent or worsening symptoms require further evaluation. Financial Specialist disclaimer Much of this encounter note is an electronic flash welding machine operator spoken language to printed text. Electronic flash welding machine operator of the spoken language may permit errors. Although I have reviewed the note, some errors may still exist. Critical Care Critical Care Time Critical Care Time: No
[2024-04-14 15:22] VITALS: BP 119/72; PULSE 84; RESP 18; TEMP 36.7; O2SAT 97
== END 2024-04-14 15:24 | disposition home or self-care (01) ==
PROVIDERS: Emergency Provider Emergency Medicine; PCP Family Medicine
DX: Z45.2 Encounter for adjustment and management of vascular access device (principal)
CPT/HCPCS: 99281

== ENCOUNTER 2024-04-14 18:13 | Emergency (ER) | payer MEDICARE, SELFPAY ==
[2024-04-14 18:14] VITALS: BP 152/55; PULSE 70; RESP 18; TEMP 36.5; O2SAT 95; BMI 34.3
--- NOTE | 2024-04-14 18:46 | PC.NURSE ---
PT ambulatory to bathroom and back to bed
--- NOTE | 2024-04-14 19:32 | XR_ITS ---
PROCEDURE INFORMATION: Exam: XR Chest Exam date and time: 04/14/2024 7:32 PM Age: 73 years old Clinical indication: Device placement; Picc; Additional info: Confirm picc line TECHNIQUE: Imaging protocol: Radiologic exam of the chest. Views: 1 view. COMPARISON: CR XR CHEST PORTABLE 04/09/2024 11:27 PM FINDINGS: Tubes, catheters and devices: A right subclavian PICC line is present, distal tip overlying the approximate location of the right brachiocephalic vein. Lungs: Minor linear densities in the lateral left mid lung are stable suggesting atelectasis or parenchymal scarring. The lungs appear otherwise clear. No focal areas of consolidation. Pleural spaces: No pleural effusions. Negative for pneumothorax. Heart/Mediastinum: Pulmonary vasculature is within range of normal. The heart is borderline enlarged. Bones/joints: There is no evidence of acute fracture. Calcific tendinitis is present bilaterally. IMPRESSION: 1. Negative for an acute cardiopulmonary abnormality. 2. Minor linear densities in the lateral left mid lung are stable suggesting atelectasis or parenchymal scarring. 3. Right subclavian PICC line distal tip overlying the approximate location of the right brachiocephalic vein.
--- NOTE | 2024-04-14 19:53 | XR_ITS ---
PROCEDURE INFORMATION: Exam: XR Chest Exam date and time: 04/14/2024 7:51 PM Age: 73 years old Clinical indication: Device placement; Picc; Additional info: Picc placement TECHNIQUE: Imaging protocol: Radiologic exam of the chest. Views: 1 view. COMPARISON: CR XR CHEST PORTABLE 04/14/2024 7:32 PM FINDINGS: Tubes, catheters and devices: A right subclavian PICC line is present, distal tip overlying the approximate location of the right lung apex, location uncertain. Recommend repositioning. No definite pneumothorax. Lungs: Minor linear densities in the lateral left mid lung are stable suggesting atelectasis or parenchymal scarring. The lungs appear otherwise clear. No focal areas of consolidation. Pleural spaces: No pleural effusions. Negative for pneumothorax. Heart/Mediastinum: Pulmonary vasculature is within range of normal. The heart is borderline enlarged. Bones/joints: There is no evidence of acute fracture. Calcific tendinitis is present bilaterally. IMPRESSION: 1. Negative for an acute cardiopulmonary abnormality. 2. Minor linear densities in the lateral left mid lung are stable suggesting atelectasis or parenchymal scarring. 3. Right subclavian PICC line distal tip overlying the right lung apex, location uncertain. Recommend repositioning. No definite pneumothorax.
--- NOTE | 2024-04-14 20:29 | PC.NURSE ---
2020- attempted picc line placement for IV antibiotics. pt recently had midline that was d/c d/t leaking at site. picc line completed with tip stopping near clavicle. after discussion with MD and family, decision was made to remove picc line and call primary care in the morning for further orders. picc line removed without difficulty and dressing placed. education provided to patient and family at this time with no further questions.
--- NOTE | 2024-04-14 20:52 | HMH.EDGENADL ---
Discharge Plan Disposition Patient Disposition: Home, Self-Care Condition: Good Prescriptions Prescriptions: No Action multivitamin Tablet 1 tab PO DAILY calcium carbonate-vitamin D3 600 mg-5 mcg (200 unit) tablet 1 tab PO DAILY biotin 5,000 mcg tablet,disintegrating 10,000 mcg PO DAILY ketoconazole 2 % shampoo 1 applic topical Q2W PRN (Reason: scalp issue) fluticasone propionate [Flonase Allergy Relief] 50 mcg/actuation spray,suspension 2 spray intranasal DAILY 90 Days Qty: 16 2RF Rx Instructions: administer into each nostril omega-3 fatty acids 500 mg capsule 500 mg PO DAILY amlodipine 10 mg tablet 10 mg PO DAILY Qty: 90 3RF valsartan [Diovan] 80 mg tablet 80 mg PO DAILY Qty: 30 5RF chlorthalidone 25 mg tablet 25 mg PO DAILY Qty: 90 3RF diclofenac sodium 75 mg tablet,delayed release (DR/EC) 75 mg PO BID 90 Days Qty: 180 1RF pantoprazole [Protonix] 20 mg tablet,delayed release (DR/EC) 20 mg PO DAILY 90 Days Qty: 90 0RF bisoprolol fumarate 10 mg tablet 20 mg PO DAILY Qty: 180 2RF metformin 500 mg tablet extended release 24 hr 500 mg PO BID 90 Days Qty: 180 0RF oxybutynin chloride 10 mg tablet extended release 24hr 10 mg PO DAILY 90 Days Qty: 90 0RF Trelegy Ellipta 100-62.5-25 mcg blister with device 1 inh inhalation DAILY 90 Days Qty: 90 2RF atorvastatin 80 mg tablet 80 mg PO HS Patient Comments: TAKE 1 TABLET BY MOUTH ONCE DAILY AT BEDTIME clopidogrel 75 mg tablet 75 mg PO DAILY Patient Comments: TAKE 1 TABLET BY MOUTH ONCE DAILY clobetasol 0.05 % solution 1 applic TOPICAL BIDP PRN (Reason: PSORIASIS FLARE) Patient Comments: APPLY SOLUTION TOPICALLY TO AFFECTED AREAS WHILE FLARED TWICE DAILY FOR UP TO 2 WEEKS. TAKE A WEEK BREAK AND REPEAT NEEDED FOR FLARES medroxyprogesterone 5 mg tablet 5 mg PO DAILY Patient Comments: TAKE 1 TABLET BY MOUTH ONCE DAILY FOR HORMONE halobetasol propionate 0.05 % ointment 1 applic TOPICAL BIDP PRN (Reason: PSORIASIS FLARE) Patient Comments: APPLY OINTMENT TOPICALLY TO PLAQUES TWICE DAILY FOR 2 WEEKS, TAKE 2 WEEK BREAK, REPEAT NEEDED montelukast 10 mg tablet 10 mg PO HS insulin glargine U-300 conc [Toujeo Max U-300 SoloStar] 300 unit/mL (3 mL) insulin pen 170 unit SQ Q24H ceftriaxone 1 gram Recon Soln 1 g IV Q24H 6 Days Qty: 0 0RF Referrals Follow up/Referrals: Milad Alexander MD [Primary Care Provider] - See instructions Activity Restrictions/Add. Instructions Additional Instructions/Restrictions: Please follow-up closely with your primary care provider tomorrow regarding recommendations for new line placement. Return to the emergency department for new or concerning symptoms. Clinical Impressions Clinical Impression: Encounter for peripheral line placement, Leakage of infusion catheter Instructions Patient Instructions: Peripherally Inserted Central Catheter Print Language Print Language: Nepali Discharge ED Provider: Marilin Knight General Adult HPI General Chief complaint: Skin/Abscess/Foreign Body Stated complaint: poss need replace pic line Time Seen by Provider: 04/14/24 18:36 Mode of Arrival: Wheelchair Limitations: No Limitations Description of Symptoms (Recalled from ER Triage Doc. by RN): PT REPORTS LEAKING AT MIDLINE SITE, PT SEEN EARLIER IN THIS ED FOR SAME COMPLAINT. SITE FLUSHED AT THIS TIME, FLUSH LEAKED AT SITE. DRESSING SOAKED FROM EARLIER IV INFUSION AT HOME. PT RECEIVING IV ABX FOR TREATMENT OF UTI History of Present Illness HPI narrative: This patient is a 73-year-old female with a history of hypertension, hyperlipidemia, type 2 diabetes, COPD, JEREMIAH presenting to the emergency department for evaluation with concern for midline catheter issue. Patient reports that she was evaluated here earlier today because she has leaking from her midline catheter anytime she tries to flush purse anything through it. It all comes out immediately. Her home health nurse said that she should come to the ED to get evaluated. She went home after being cleared earlier, but she states that it is continued to leak and cause issues. Given this, she came back in for evaluation. No other concerns noted at this time. Related Data Home Medications ?Medication ?Instructions ?Recorded ?Confirmed biotin 5,000 mcg disintegrating 10,000 mcg PO DAILY Supplement 05/16/22 04/10/24 tablet calcium carbonate 600 mg-vitamin 1 tab PO DAILY Supplement 05/16/22 04/10/24 D3 5 mcg (200 unit) tablet multivitamin 1 tab PO DAILY Supplement 05/16/22 04/10/24 omega-3 fatty acids 500 mg capsule 500 mg PO DAILY Supplement 02/10/23 04/10/24 ketoconazole 2 % shampoo 1 applic topical Q2W PRN scalp 04/09/23 04/10/24 issue atorvastatin 80 mg tablet 80 mg PO HS 04/10/24 04/10/24 clobetasol 0.05 % scalp solution 1 applic topical BIDP PRN 04/10/24 04/10/24 PSORIASIS FLARE clopidogrel 75 mg tablet 75 mg PO DAILY 04/10/24 04/10/24 halobetasol propionate 0.05 % 1 applic topical BIDP PRN 04/10/24 04/10/24 topical ointment PSORIASIS FLARE insulin glargine U-300 conc 300 170 unit SQ Q24H 04/10/24 04/10/24 unit/mL (3 mL) subcutaneous pen (Toujeo Max U-300 SoloStar) medroxyprogesterone 5 mg tablet 5 mg PO DAILY 04/10/24 04/10/24 montelukast 10 mg tablet 10 mg PO HS 04/10/24 04/10/24 Previous Rx's ?Medication ?Instructions ?Recorded amlodipine 10 mg tablet 10 mg PO DAILY htn #90 tabs 11/12/23 diclofenac sodium 75 mg 75 mg PO BID Pain 90 days #180 tabs 12/21/23 tablet,delayed release pantoprazole 20 mg tablet,delayed 20 mg PO DAILY GERD 90 days #90 01/18/24 release (Protonix) tabs fluticasone propionate 50 2 spray intranasal DAILY 90 days 01/21/24 mcg/actuation nasal #16 grams spray,suspension (Flonase Allergy Relief) bisoprolol fumarate 10 mg tablet 20 mg (2 x 10 mg) PO DAILY htn 02/02/24 #180 tabs metformin 500 mg tablet,extended 500 mg PO BID diabetes 90 days 02/02/24 release 24 hr #180 tabs oxybutynin chloride 10 mg 10 mg PO DAILY htn 90 days #90 tabs 02/02/24 tablet,extended release 24 hr fluticasone fur. 100 mcg-umeclid 1 inh inhalation DAILY 90 days #90 02/08/24 62.5 mcg-vilant 25 mcg ea inhalat.powder (Trelegy Ellipta) chlorthalidone 25 mg tablet 25 mg PO DAILY #90 tabs 03/21/24 valsartan 80 mg tablet (Diovan) 80 mg PO DAILY #30 tabs 03/21/24 ceftriaxone 1 gram intravenous 1 g IV Q24H 6 days #0 ea 04/12/24 solution Allergies Allergy/AdvReac Type Severity Reaction Status Date / Time amoxicillin [From AUGMENTIN] Allergy Severe THROAT Verified 03/21/24 14:02 SWELLING clavulanic acid Allergy Severe THROAT Verified 03/21/24 14:02 [From AUGMENTIN] SWELLING sulfamethoxazole Allergy Mild Verified 03/21/24 14:02 [facility] Disclaimer: The information contained in this section may have been updated after the patient was seen, as this information can be updated by other users. Medical History Nocturnal hypoxemia due to emphysema SNHL (sensorineural hearing loss) Otalgia of left ear JEREMIAH (obstructive sleep apnea) Diastolic dysfunction Otitis externa of left ear External otitis of left ear due to fungus Low magnesium level Elevated serum creatinine Tricuspid regurgitation Aortic regurgitation Mitral regurgitation Abnormal ECG Stopped smoking with greater than 30 pack year history COPD (chronic obstructive pulmonary disease) Asthma SOBOE (shortness of breath on exertion) Thyroid Nodule History of sleep apnea Allergic rhinitis Dyspnea on exertion Asthma-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 Coronary artery disease Hyperlipidemia Psoriasis Hypertension Diabetes mellitus Surgical History History of coronary artery stent placement H/O dilation and curettage History of left knee replacement History of right hip replacement Cataract Family History Mother Cancer Father Cancer Social History Smoking Status: Former smoker smoking status stop date: 09/07/1990 alcohol intake: never substance use type: denies use current occupational status: retired Travel in the last 8 weeks: None housing: house marital status: ROS Obtained: Yes All systems reviewed & no additional complaints except as documented Physical Exam General General appearance: alert and in no apparent distress Head Head exam: atraumatic and normocephalic Eye Eye exam: Present normal appearance, PERRL and EOMI ENT ENT exam: Present normal exam, normal oropharynx, mucous membranes moist and normal external ear exam Neck Neck exam: Present normal inspection, full ROM and trachea midline; Absent tenderness Chest Chest inspection: Present normal inspection and symmetric chest wall rise; Absent tenderness Respiratory Respiratory exam: Present normal lung sounds bilaterally; Absent respiratory distress, wheezes, stridor or accessory muscle use Cardiovascular Cardiovascular exam: Present regular rate and normal rhythm Abdominal Exam Abdominal exam: Present soft; Absent distention, tenderness or guarding Extremities Exam Extremities exam: Present full ROM, normal capillary refill and other (midline catheter in RUE that leaks with any attempt at flushing); Absent tenderness or edema Back Exam Back exam: Present normal inspection and full ROM; Absent tenderness Neurological Exam Neurological exam: Present alert, oriented X3, CN II-XII intact and normal gait; Absent motor sensory deficit Psychiatric Psychiatric exam: Present normal affect and normal mood Skin Skin exam: Present warm and dry Medical Decision Making Medical Records Medical records reviewed: Yes I reviewed the patient's medical records. Azael Inquiry Pt receiving controlled substance: No Vital Signs: 04/14/24 18:14 Temperature 97.7 F Temperature Source Oral Pulse Rate [Radial] 70 Respiratory Rate 18 Blood Pressure [Right Arm] 152/55 H Blood Pressure Mean [Right Arm] 87 Blood Pressure Source [Right Arm] Automatic Cuff Blood Pressure Position [Right Arm] Sitting 02 Sat by Pulse Oximetry 95 Oxygen Delivery Method Room Air Lab Data Lab results reviewed: Yes I reviewed the patient's lab results. Orders (Tests/Meds): ORDERS Category Date Time Status CXR --portable [XR chest portable] Stat Exams 04/14/24 19:53 Completed Chest XR -- portable [XR chest portable] Stat Exams 04/14/24 19:32 Completed Medical Decision Narrative: In summary, this patient is a 73-year-old female presenting to the Emergency Department for evaluation of midline catheter issue. Differential diagnoses considered include but are not limited to displacement, leaking, disconnection. Ruling out the most morbid conditions drove assessment. On exam, the patient is well-appearing with no evidence of acute infection of the midline. After shared decision-making with patient and her daughter, decision was made to pull the midline catheter and attempted PICC line placement. Certified nurse came in from home to help place this, but unfortunately we were not able to successfully advance it into proper placement. I independently interpreted the x-rays prior to radiology read and noted that it did not reach the SVC. I advised the family that if we leave it in place, it puts her at increased risk of right upper extremity thrombosis, so they elected to proceed with removal and follow-up outpatient tomorrow with her primary care doctor for further management. She is already had her injection for today and is not due for another one for 24 hours. Patient was discharged in stable condition with instruction for close outpatient follow-up. Critical Care Critical Care Time Critical Care Time: No
[2024-04-14 20:55] VITALS: BP 148/68; PULSE 75; RESP 18; TEMP 36.6; O2SAT 95
--- NOTE | 2024-04-15 08:07 | PC.NURSE ---
vrad contacted for clarification about chest xray, they will re evaluate and call the MD back
--- NOTE | 2024-04-15 08:30 | PC.NURSE ---
Addendum entered by Diane Hamm RN 04/15/24 08:30: alan Original Note: spoke with eren,
--- NOTE | 2024-04-15 08:40 | PC.NURSE ---
Spoke with pt about updated results of chest xray, was on the phone with pt daughter at this time to update about the results
== END 2024-04-14 20:55 | disposition home or self-care (01) ==
PROVIDERS: Emergency Provider Emergency Medicine; PCP Family Medicine
DX: T82.534A Leakage of infusion catheter, initial encounter (principal); Z45.2 Encounter for adjustment and management of vascular access device
CPT/HCPCS: 71045; 99283; C1751

== ENCOUNTER 2024-04-15 10:38 | Outpatient (CLI) | payer MEDICARE, SELFPAY ==
--- NOTE | 2024-04-15 10:42 | XR_ITS ---
FINAL REPORT CLINICAL HISTORY: COPD FINDINGS: TWO-VIEW CHEST The heart size is normal. The mediastinum is normal. There are mild bibasilar opacities, may represent atelectasis or pneumonia. There is no pneumothorax. IMPRESSION: Bibasilar atelectasis versus pneumonia. Reviewed, Interpreted and Dictated by Weston Vang III, MD Transcribed by Aissatou Peoples Authenticated and [facility]
[2024-04-15 12:45] VITALS: BMI 34.7
== END 2024-04-15 12:50 | disposition home or self-care (01) ==
PROVIDERS: PCP Family Medicine; Visit Provider Family Medicine
DX: N12 Tubulo-interstitial nephritis, not specified as acute or chronic (principal); N39.0 Urinary tract infection, site not specified
CPT/HCPCS: 36410; 71046

== ENCOUNTER 2024-06-21 14:24 | Outpatient (CLI) | payer MEDICARE, SELFPAY ==
[2024-06-21 15:10] LABS: Albumin Level 3.8 g/dl (3.5-5.0); Chloride 102 mmol/L (98-107); Sodium 136 mmol/L (136-145)
[2024-06-21 15:11] LABS: Potassium 4.5 mmoL/L (3.5-5.1)
[2024-06-21 15:13] LABS: Alanine Aminotransferase 34 U/L (12-78); Alkaline Phosphatase 84 U/L (38-126); Anion Gap 13.5 mEq/L (5-15); Aspartate Amino Transferase 29 U/L (14-36); Bilirubin,Direct 0.3 mg/dl (0.0-0.4); Bilirubin,Indirect 0.2 mg/dL (0.0-0.9); Bilirubin,Total 0.5 mg/dl (0.2-1.3); Bilirubin,Unconjugated 0.3 mg/dL (0.0-1.1); Blood Urea Nitrogen 26 mg/dl (7-17); Carbon Dioxide 25 mmol/L (22.0-30.0); Cholesterol 166 mg/dl (140-200); Estimated Glomerular Filt Rate 40 ml/min (>60); GFR (African American) 48 ML/MIN (>60); Total Protein,Serum 6.4 g/dl (6.3-8.2)
[2024-06-21 15:14] LABS: Calcium 9.8 mg/dl (8.4-10.2); Chol/HDL Ratio 6.6 (1-3.5); Glucose 274 mg/dl (74-100); HDL Cholesterol 25 mg/dl (40-60)
[2024-06-21 15:22] LABS: Triglycerides 622 mg/dl (30-150)
[2024-06-21 15:25] LABS: Direct LDL Cholesterol 57.87 mg/dL (100-129)
== END 2024-06-21 23:59 | disposition home or self-care (01) ==
LOC: LAB 14:26
PROVIDERS: PCP Family Medicine; Visit Provider Nurse Practitioner
DX: I11.9 Hypertensive heart disease without heart failure (principal); E11.9 Type 2 diabetes mellitus without complications; G47.33 Obstructive sleep apnea (adult) (pediatric); I07.1 Rheumatic tricuspid insufficiency; I35.1 Nonrheumatic aortic (valve) insufficiency; I34.0 Nonrheumatic mitral (valve) insufficiency; R94.31 Abnormal electrocardiogram [ECG] [EKG]; Z79.4 Long term (current) use of insulin; I25.10 Atherosclerotic heart disease of native coronary artery without angina pectoris; E78.2 Mixed hyperlipidemia; R06.09 Other forms of dyspnea
CPT/HCPCS: 36415; 80048; 80061; 80076

== ENCOUNTER 2024-06-28 09:48 | Outpatient (CLI) | payer MEDICARE, SELFPAY ==
--- NOTE | 2024-06-28 09:48 | MM_ITS ---
PROCEDURE INFORMATION: Exam: MG Bilateral Screening 3D Mammography Exam date and time: 06/28/2024 9:32 AM Age: 74 years old Clinical indication: Screening examination. TECHNIQUE: Imaging protocol: Bilateral Screening tomosynthesis and 2D mammography including computer-aided detection (CAD) when performed. COMPARISON: 1. MG SCREEN MAMMO W CAD BILAT 02/18/2022 8:26 AM 2. MG Screening-Bilateral Mammography 02/13/2021 1:10 PM FINDINGS: MAMMOGRAPHY: Breast composition: There are scattered areas of fibroglandular density. Mass: None. Architectural distortion: None. Calcifications: No suspicious calcifications. Asymmetric density: None. Skin thickening: None. Axillary adenopathy: None. IMPRESSION: No mammographic evidence of malignancy. Annual screening is recommended unless otherwise clinically indicated. ASSESSMENT: BI-RADS Category 1: Negative.
== END 2024-06-28 23:59 | disposition home or self-care (01) ==
LOC: RAD 09:48
PROVIDERS: PCP Family Medicine; Visit Provider Family Medicine
DX: Z12.31 Encounter for screening mammogram for malignant neoplasm of breast (principal)
CPT/HCPCS: 77063; 77067

== ENCOUNTER 2024-12-20 13:47 | Outpatient (CLI) | payer MEDICARE, SELFPAY ==
--- OUTSIDE RECORDS SUMMARY | 2024-12-20 13:50 | XMS_ITS | Data Portability ---
Author Organization [facility] and [facility] [place] Address [address] [place] [address] Assessment No assessment recorded. Plan of Treatment Reminders Order Date Submit Date Provider Last Modified By Organization Details Last Modified Time Details Appointments OV EST 15 2024 01:00P M Yaw Cates Jr, MD Not available Not available Not available Lab urinalysi s, dipstick [address], [address], 04/20/2024 15:13:07 urinalysi s, dipstick [address], [address], 02/19/2023 08:18:37 culture, urine + sensitivi ty [address], [address], 02/25/2023 08:36:57 urinalysi s, dipstick [address], [address], 12/31/2022 14:43:33 Referral None recorded. Procedures bladder scan (PROC) [address] [place] [address], [address], 04/20/2024 15:13:07 Surgeries None recorded. Imaging None recorded. Medication Orders nitrofura ntoin macrocrys tru 50 mg capsule [address] [facility] [address], [address] [place] [address], [address], 04/20/2024 12:37:56 oxybutyni n chloride ER 10 mg tablet,ex tended release 24 hr 2023 024 [place] [address], [address] [place] [address], [address], 04/20/2024 12:49:36 Bactrim DS 800 mg-160 mg tablet 2022 023 [place] [address], [address] [place] [address], [address], 02/18/2023 12:53:25 Intrarosa 6.5 mg vaginal insert 2022 0[facility] [place] [address], [address] [place] [address], [address], 01/14/2023 13:06:49 conjugate d estrogens 0.625 mg/gram vaginal cream 2022 023 [place] [address], [address] [place] [address], [address], 12/31/2022 13:20:40 oxybutyni n chloride ER 10 mg tablet,ex tended release 24 hr 2022 023 [place] [address], [address] [place] [address], [address], 12/31/2022 13:19:38 Patient TargetsNo targets recorded. Patient InstructionsNo instructions recorded. Reason for Referral None Reported. Results Created Date Observation Date Name Description Value Unit Range Abnormal Flag Note LastModifiedBy Organization Detail LastModifiedTime 01/01/20 23 12/31/2022 urina lysis , dipst ick Leukocytes (reference range) trace Not Available [address], [address], 12/31/2022 10:55:18 01/01/20 23 12/31/2022 urina lysis , dipst ick Nitrite (reference range:) negati ve Not Available [address], [address], 12/31/2022 10:55:18 01/01/20 23 12/31/2022 urina lysis , dipst ick Urobilinogen (reference range) 0.2 Not Available [address], [address], 12/31/2022 10:55:18 01/01/20 23 12/31/2022 urina lysis , dipst ick Protein (reference range) negati ve Not Available [address], [address], 12/31/2022 10:55:18 01/01/20 23 12/31/2022 urina lysis , dipst ick pH (reference range 5-8.5) 6.0 Not Available [address], [address], 12/31/2022 10:55:18 01/01/20 23 12/31/2022 urina lysis , dipst ick Blood (reference range:) negati ve Not Available [address], [address], 12/31/2022 10:55:18 01/01/20 23 12/31/2022 urina lysis , dipst ick Specific Kirby (reference range) 1.010 Not Available [address], [address], 12/31/2022 10:55:18 01/01/20 23 12/31/2022 urina lysis , dipst ick Ketone (reference range) negati ve Not Available [facility] [address], [address], 12/31/2022 10:55:18 01/01/20 23 12/31/2022 urina lysis , dipst ick Bilirubin (reference range) negati ve Not Available [address], [address], 12/31/2022 10:55:18 01/01/20 23 12/31/2022 urina lysis , dipst ick Glucose (reference range) 100 Not Available [facility] [address], [address], 12/31/2022 10:55:18 02/19/20 23 02/18/2023 CULTU RE URINE results MRB 02-19 721 40,00 0 COL/M L Gram Negat madisyn Rods Not Available [facility] (Lab Registration) [address] , [place], [address], 02/19/2023 07:23:10 02/19/20 23 02/18/2023 CULTU RE URINE note Unles s other corona noted testi ng perfo rmed at: [facility] [address] [place] [address] [phone] Osiel ortega MD CLIA: [id number] Not Available [facility] (Lab Registration) [address] , [place], [address], 02/19/2023 07:23:10 02/19/20 23 02/18/2023 CULTU RE URINE culccur ===== ===== ===== ===== ===== ===== ===== ===== ===== ===== ===== ===== ===== ===== ===== ===== ===== ===== ===== ===== ===== ===== ===== ===== Speci men NO.: [id number] Exam Statu s: Final Proce dure: CULTU RE URINE ===== ===== ===== ===== ===== ===== ===== ===== ===== ===== ===== ===== ===== ===== ===== ===== ===== ===== ===== ===== ===== ===== ===== ===== Iso/R esult : 01 Esche naga a coli Antim icrob ic/Do se FABI Syste fabi Urine __ ___ ___ Ampic illin >16 R R Amp/S ulbac suggs >16/8 R R Aztre onam <=4 S S Cefaz rashad >16 R R Cefep leonid <=2 S S Cefot axime <=2 S S Cefox itin <=8 S S Cefta zidim e <=1 S S Ceftr iaxon e <=1 S S Cefur oxime <=4 S S Cipro floxa alma <=1 S S Ertap enem <=0.5 S S Genta micin >8 R R Levof loxac in <=2 S S Merop enem <=1 S S Nitro furan toin <=32 S S Pip/T azo <=16 S S Tetra cycli ne <=4 S S Tobra mycin >8 R R Trime th/Tena lfa <=2/3 8 S S MRB 2023- 06-15 721 40,00 0 COL/M L Gram Negat madisyn Rods Not Available [facility] (Lab Registration) [address], [place], [address], 02/21/2023 10:26:06 02/19/20 23 02/18/2023 CULTU RE URINE note Unles s other corona noted testi ng perfo rmed at: [facility] [address] [place] [address] [phone] Osiel ortega MD CLIA: [id number] Not Available [facility] (Lab Registration) [address] , [place], [address], 02/21/2023 10:26:06 02/19/20 23 02/18/2023 urina lysis , dipst ick Leukocytes (reference range) modera te Not Available [address], [address], 02/18/2023 10:24:59 02/19/20 23 02/18/2023 urina lysis , dipst ick Nitrite (reference range:) negati ve Not Available [address], [address], 02/18/2023 10:24:59 02/19/20 23 02/18/2023 urina lysis , dipst ick Urobilinogen (reference range) 0.2 Not Available [address], [address], 02/18/2023 10:24:59 02/19/20 23 02/18/2023 urina lysis , dipst ick Protein (reference range) negati ve Not Available [address], [address], 02/18/2023 10:24:59 02/19/20 23 02/18/2023 urina lysis , dipst ick pH (reference range 5-8.5) 7.0 Not Available [facility] [address], [address], 02/18/2023 10:24:59 02/19/20 23 02/18/2023 urina lysis , dipst ick Blood (reference range:) small Not Available [address], [address], 02/18/2023 10:24:59 02/19/20 23 02/18/2023 urina lysis , dipst ick Specific Kirby (reference range) 1.015 Not Available [address], [address], 02/18/2023 10:24:59 02/19/20 23 02/18/2023 urina lysis , dipst ick Ketone (reference range) negati ve Not Available [address], [address], 02/18/2023 10:24:59 02/19/20 23 02/18/2023 urina lysis , dipst ick Bilirubin (reference range) negati ve Not Available [address], [address], 02/18/2023 10:24:59 02/19/20 23 02/18/2023 urina lysis , dipst ick Glucose (reference range) negati ve Not Available [address], [address], 02/18/2023 10:24:59 04/20/20 24 04/20/2024 urina lysis , dipst ick Leukocytes (reference range) modera te Not Available [address], [address], 04/20/2024 10:23:15 04/20/20 24 04/20/2024 urina lysis , dipst ick Nitrite (reference range:) negati ve Not Available [address], [address], 04/20/2024 10:23:15 04/20/20 24 04/20/2024 urina lysis , dipst ick Urobilinogen (reference range) 0.2 Not Available [address], [address], 04/20/2024 10:23:15 04/20/20 24 04/20/2024 urina lysis , dipst ick Protein (reference range) 30 Not Available [address], [address], 04/20/2024 10:23:15 04/20/20 24 04/20/2024 urina lysis , dipst ick pH (reference range 5-8.5) 6.0 Not Available [address], [address], 04/20/2024 10:23:15 04/20/20 24 04/20/2024 urina lysis , dipst ick Blood (reference range:) non-He molyze d: Trace Not Available [address], [address], 04/20/2024 10:23:15 04/20/20 24 04/20/2024 urina lysis , dipst ick Specific Kirby (reference range) 1.015 Not Available [address], [address], 04/20/2024 10:23:15 04/20/20 24 04/20/2024 urina lysis , dipst ick Ketone (reference range) trace Not Available [address], [address], 04/20/2024 10:23:15 04/20/20 24 04/20/2024 urina lysis , dipst ick Bilirubin (reference range) negati ve Not Available [address], [address], 04/20/2024 10:23:15 04/20/20 24 04/20/2024 urina lysis , dipst ick Glucose (reference range) negati ve Not Available [address], [address], 04/20/2024 10:23:15 04/20/20 24 04/20/2024 bladd er scan (PROC ) Calculated Residual Urine: 68 ML Not Available [facility] [address], [address], 04/20/2024 10:23:29 Result Notes None recorded. Problems Name Problem SNOMED Code Status Onset Date Resolution Date Notes Provider Name and Address Organization Details Recorded Time Hypertensive disorder 09398965 Active 2022 Mayra simon, JEF - [facility] - [place] & [place] 3 09:52:08 Diabetes mellitus 73078644 Active 2022 Mayra simon, JEF - [facility] - [place] & [place] 3 09:52:12 Environmental allergy 002733392 Active 2022 Mayra simon, JEF - [facility] - [facility] & [place] 3 09:52:20 Notes:Some problems listed i n Document: #[id number] could not be added to this patient's chart. Please review this document and add these problems to the patient's chart manually as needed. Problem Notes None recorded. Procedures Surgical History Date Name Laterality Status Provider Name and Address Organization Details Recorded Time 01/15/20 Urethral Dilation (female) completed Yaw Cates Jr, MD [address] [place] [address], [address], [place], [address], [place] [facility] [place] 01/14/2023 13:05:11 total replacement of hip completed Mayra FUCHS - [facility] [place] 12/31/2022 09:54:04 procedure on heart completed Mayra FUCHS [facility] & [place] 12/31/2022 09:54:17 Knee arthroscopy/surg kathryn completed Mayra FUCHS [facility] & [place] 12/31/2022 09:54:24 Cataract Surgery completed Mayra FUCHS [facility] & [place] 12/31/2022 09:54:30 Tubal Ligation completed Mayra FUCHS [facility] & [place] 12/31/2022 09:54:37 Appendectomy completed Mayra FUCHS [facility] & [place] 12/31/2022 09:54:43 Imaging Results None recorded. Procedure Notes None recorded. Medical Equipment None Reported. Allergies Allergen ID Allergen Name Allergen Category Reaction Reaction Severity Criticality Documentation Date Start Date Code Code System Note Provider Name and Address Organization Details Recorded Time 91455 Augmentin medicatio n Not available Not available Not available 12/31/2022 93885 2 RxNorm Mayra simon JEF [facility] & [place] 09:48:39 Medications Name Sig Start Date Stop Date Status Note LastModified by Organization Details LastModified Time clever choice comfort ez insulin pe n needles [id number] 31g x 8 mm misc active Not Available Not Available Not Available easy comfort pen needles 31gx3/16 31g x 5 mm misc active Not Available Not Available Not Available pioglitazon e 15 mg tablet active Not Available Not Available Not Available atorvastati n 80 mg tablet TAKE 1 TABLET BY MOUTH ONCE DAILY AT BEDTIME active Not Available Not Available No t Available nitrofurant oin macrocrysta l 50 mg capsule Take 1 capsule every day by oral route. active Not Available Not Available No t Available ketoconazol e 2 % shampoo MASSAGE SHAMPOO INTO SCALP TWICE A WEEK TO THREE TIMES A WEEK. LET SIT A FEW MINUTES BEFORE RINSING. FOLLOW WITH REGULAR SHAMPOO AND CONDITION ER active Not Available Not Available No t Available oxybutynin chloride ER 10 mg tablet,exte nded release 24 hr Take 1 tablet every day by oral route. 2023 active Not Available Not Available Not Avai lable azithromyci n 250 mg tablet TAKE 2 TABLETS BY MOUTH ON DAY 1, AND THEN TAKE 1 TABLET BY MOUTH ONCE A DAY ON DAY 2 THROUGH DAY 5 active Not Available Not Available No t Available ofloxacin 0.3 % eye drops INSTILL 1 DROP 4 TIMES DAILY IN OPERATIVE EYE. TO BEGIN TWO DAYS PRIOR TO SURGERY AND CONTINUE 10 DAYS AFTER SURGERY 12/31 completed Not Available Not Available Not Available hydrochloro thiazide 50 mg tablet TAKE 1 TABLET BY MOUTH ONCE DAILY active Not Available Not Available No t Available hydrocodone 5 mg-acetamin ophen 325 mg tablet TAKE ONE TABLET BY MOUTH EVERY 8 HOURS NEEDED FOR FRACTURE PAIN active Not Available Not Available No t Available lisinopril 20 mg tablet TAKE 1 TABLET BY MOUTH TWICE DAILY 12/31 completed Not Available Not Available Not Available medroxyprog esterone 5 mg tablet TAKE 1 TABLET BY MOUTH ONCE DAILY FOR HORMONE active Not Available Not Available No t Available Lantus U-100 Insulin 100 unit/mL subcutaneou s solution INJECT 90 UNITS AT BEDTIME NIGHTLY FOR DIABETES active Not Available Not Available No t Available valsartan 80 mg tablet TAKE 1 TABLET BY MOUTH DAILY active Not Available Not Available No t Available clopidogrel 75 mg tablet TAKE 1 TABLET BY MOUTH ONCE DAILY active Not Available Not Available No t Available chlorthalid one 25 mg tablet TAKE 1 TABLET BY MOUTH ONCE DAILY active Not Available Not Available No t Available amlodipine 5 mg tablet TAKE 1 TABLET BY MOUTH ONCE DAILY FOR HIGH BLOOD PRESSURE active Not Available Not Available No t Available sulfamethox azole 800 mg-trimetho prim 160 mg tablet TAKE ONE TABLET BY MOUTH TWICE DAILY FOR 7 DAYS -- FINISH ALL MEDICINE -- active Not Available Not Available No t Available bisoprolol fumarate 10 mg tablet TAKE 2 TABLETS BY MOUTH ONCE DAILY active Not Available Not Available No t Available pantoprazol e 20 mg tablet,babar yed release TAKE 1 TABLET BY MOUTH ONCE DAILY active Not Available Not Available No t Available ofloxacin 0.3 % ear drops INSTILL 10 DROPS INTO THE EAR(S) EVERY 12 HOURS FOR 14 DAYS. LEFT EAR active Not Available Not Available No t Available prednisolon e acetate 1 % eye drops,suspe nsion AFTER SURGERY, INSTILL ONE DROP INTO OPERATIVE EYE FOUR TIMES A DAY FOR 10 DAYS. active Not Available Not Available No t Available amlodipine 10 mg tablet TAKE 1 TABLET BY MOUTH ONCE DAILY FOR HIGH BLOOD PRESSURE active Not Available Not Available No t Available Humulin R Regular U-100 Insulin 100 unit/mL injection solution INJECT 10 UNITS SUBCUTANE OUSLY THREE TIMES DAILY FOR DIABETES active Not Available Not Available No t Available triamcinolo ne acetonide 0.1 % topical ointment APPLY OINTMENT TOPICALLY TO AFFECTED AREAS BEHIND EARS TWICE DAILY active Not Available Not Available No t Available halobetasol propionate 0.05 % topical ointment APPLY OINTMENT TOPICALLY TO PLAQUES TWICE DAILY FOR 2 WEEKS, TAKE 2 WEEK BREAK, REPEAT NEEDED active Not Available Not Available No t Available valsartan 320 mg tablet TAKE 1 TABLET BY MOUTH ONCE DAILY active Not Available Not Available No t Available omeprazole 20 mg capsule,del ayed release TAKE 1 CAPSULE BY MOUTH ONCE DAILY AT BEDTIME active Not Available Not Available No t Available diclofenac sodium 75 mg tablet,babar yed release TAKE 1 TABLET BY MOUTH TWICE DAILY FOR PAIN active Not Available Not Available No t Available montelukast 10 mg tablet TAKE 1 TABLET BY MOUTH ONCE DAILY active Not Available Not Available No t Available hydrochloro thiazide 25 mg tablet TAKE 1 TABLET BY MOUTH ONCE DAILY 12/31 completed Not Available Not Available Not Available levofloxaci n 750 mg tablet TAKE 1 TABLET BY MOUTH ONCE DAILY active Not Available Not Available No t Available albuterol sulfate HFA 90 mcg/actuati on aerosol inhaler INHALE 2 PUFFS BY MOUTH 4 TIMES DAILY NEEDED active Not Available Not Available No t Available clobetasol 0.05 % scalp solution APPLY SOLUTION TOPICALLY TO AFFECTED AREAS WHILE FLARED TWICE DAILY FOR UP TO 2 WEEKS. TAKE A WEEK BREAK AND REPEAT NEEDED FOR FLARES active Not Available Not Available No t Available cefdinir 300 mg capsule TAKE 1 CAPSULE BY MOUTH TWICE DAILY FOR 10 DAYS active Not Available Not Available No t Available fluticasone propionate 50 mcg/actuati on nasal spray,suspe nsion USE 2 SPRAY(S) IN EACH NOSTRIL ONCE DAILY active Not Available Not Available No t Available metformin ER 500 mg tablet,exte nded release 24 hr TAKE 1 TABLET BY MOUTH TWICE DAILY FOR DIABETES active Not Available Not Available No t Available ceftriaxone 2 gram solution for injection active Not Available Not Available No t Available tobramycin 0.3 %-dexametha sone 0.1 % eye drops,suspe nsion INSTILL 2 DROPS TWICE DAILY FOR 7 DAYS IN LEFT EAR active Not Available Not Available No t Available valsartan 160 mg tablet TAKE 1 TABLET BY MOUTH ONCE DAILY 12/31 completed Not Available Not Available Not Available Premarin 0.625 mg/gram vaginal cream INSERT ONE APPLICATI ON VAGINALLY TWICE WEEKLY active Not Available Not Available No t Available ketorolac 0.4 % eye drops INSTILL 2 DROPS INTO OPERATIVE EYE 4 TIMES DAILY active Not Available Not Available No t Available nitrofurant oin monohydrate /macrocryst als 100 mg capsule TAKE 1 CAPSULE BY MOUTH TWICE DAILY FOR 7 DAYS WITH FOOD/MEAL active Not Available Not Available No t Available biotin active Not Available Not Availa ble Not Available medroxyprog esterone active Not Available Not Available Not Available Tobradex ST 0.3 %-0.05 % eye drops,suspe nsion INSTILL 4-5 DROPS INTO LEFT EAR IN THE MORNING active Not Available Not Available No t Available Edarbi 80 mg tablet TAKE 1 TABLET BY MOUTH ONCE DAILY active Not Available Not Available No t Available Brilinta 90 mg tablet TAKE ONE TABLET BY MOUTH TWICE DAILY 12/31 completed Not Available Not Available Not Available Comfort EZ Pen [place] 31 gauge x 5/16 USE DIRECTED active Not Available Not Available No t Available BD Insulin Syringe Ultra-Fine 1 mL 31 gauge x 5/16 USE DIRECTED active Not Available Not Available No t Available BD Insulin Syringe Ultra-Fine 0.5 mL 31 gauge x 5/16 USE DIRECTED THREE TIMES DAILY FOR DIABETES active Not Available Not Available No t Available Breo Ellipta 100 mcg-25 mcg/dose powder for inhalation INHALE 1 PUFF BY MOUTH ONCE DAILY active Not Available Not Available No t Available Otezla 30 mg tablet active Not Available Not Available No t Available True Metrix Glucose Test Strip USE 1 STRIP TO CHECK GLUCOSE TWICE DAILY FOR DIABETES active Not Available Not Available No t Available True Metrix Glucose Meter active Not Available Not Available Not Available Cosentyx Pen 300 mg/2 pens (150 mg/mL) subcutaneou s pen injector active Not Available Not Available Not Available Spencer SoloStar U-300 Insulin 300 unit/mL (1.5 mL) subcutaneou s pen INJECT 150 UNITS SUBCUTANE OUSLY AT BEDTIME active Not Available Not Available No t Available Intrarosa 6.5 mg vaginal insert Insert 1 vaginal insert every day by vaginal route. 2022 active Not Available Not Available Not Avai lable Trelegy Ellipta 100 mcg-62.5 mcg-25 mcg powder for inhalation INHALE 1 PUFF BY MOUTH ONCE DAILY active Not Available Not Available No t Available Toujeo Max U-300 SoloStar 300 unit/mL (3 mL) subcutaneou s insulin pen INJECT 170 UNITS SUBCUTANE OUSLY EVERY 24 HOURS FOR 30 DAYS active Not Available Not Available No t Available BD Veo Insulin Syringe Ultra-Fine 1/2 mL 31 gauge x 15/64 USE DIRECTED THREE TIMES DAILY WITH HUMULIN active Not Available Not Available No t Available BD Veo Insulin Syringe Ultra-Fine 1 mL 31 gauge x 15/64 USE DIRECTED. ONCE DAILY WITH LANTUS active Not Available Not Available No t Available Tremfya 100 mg/mL subcutaneou s auto-inject or active Not Available Not Available Not Available Vitals Date Recorded Body height Body mass index (BMI) Body weight Body temperature Provider Name and Address Organization Details Last Updated DateTime 12/31/2022 154.94 cm 33.6 kg/m2 25842.44 g 97.7 [degF] Mayra FUCHS [facility] & [place] 12/31/2022 09:48:20 Date Recorded Body height Body mass index (BMI) Body weight Body temperature Provider Name and Address Organization Details Last Updated DateTime 01/14/2023 154.94 cm 33.6 kg/m2 25298.44 g 97.9 [degF] Mayra FUCHS [facility] & [place] 01/14/2023 08:52:59 Date Recorded Body height Body mass index (BMI) Body weight Body temperature Provider Name and Address Organization Details Last Updated DateTime 02/18/2023 154.94 cm 33.6 kg/m2 13892.44 g 97.6 [degF] Mayra FUCHS [facility] & [place] 02/18/2023 09:45:12 Date Recorded Body height Body mass index (BMI) Body weight Body temperature Provider Name and Address Organization Details Last Updated DateTime 04/20/2024 152.4 cm 0.2 kg/m2 453.59 g 97.5 [degF] Mayra FUCHS [facility] & [place] 04/20/2024 09:35:49 Date Recorded Body height Body temperature Provider N phoebe and Address Organization Details Last Updated DateTime 06/01/2024 154.94 cm 97.7 [degF] Mayra Zhu [facility] & [place] 06/01/2024 13:45:39 Social History Question Answer Notes LastModified by Organizat ion Details LastModified Time Tobacco Smoking Status Never Smoker Mayra simon, JEF Zhu [facility]NT [facility] & [place] 12/31/2022 09:53:41 What Is Your Level Of Alcohol Consumption? None [email or web address] Information not available 12/31/2022 Sex: Unknown Functional Status None recorded. Mental Status None recorded. Family History Relationship Description Onset Age of this Age Resolved Age Notes LastModified by Organization Details LastModified Time Mother Disorder of lung dec [email or web address] Not available 2022 09:53:17 Sister Disorder of lung dec [email or web address] Not available 2022 09:53:17 Father Malignant neoplastic disease dec [email or web address] Not available 2022 09:53:29 Brother Malignant neoplastic disease dec [email or web address] Not available 2022 09:53:29 Medical History No medical history recorded. Gynecological HistoryNo gynecological history recorded. Obstetrics History GPAL:G 0 P 0 0 0 0 Past Encounters Encounter ID Performer Location Encounter Start Date Encounter Closed Date Diagnosis/Indication Diagnosis SNOMED-CT Code Diagnosis ICD10 Code Diagnosis Note [id number] Yaw Cates Jr, MD [facility] [address] [address] 12/31/2022 09:14:14 12/31/2022 10:53:02 Dysuria 72064838 R30.0 Patient with episodic dysuria. Urine cultures have been negative and her primary care physician' s office and she was reassured that her urine today is within normal limits. We discussed the urethritis as a possible cause for her symptoms. Start her on some estrogen cream 2 times a week. Urge incon tinence of urine 58611208 N39.41 Patient with urge incontinen ce that requires 3 medium pads per day. We are going to start her on oxybutynin 10 mg and she is to decrease her caffeine intake. Urethritis 40136344 N34. 2 Patient with dysuria which may be symptom of urethritis as her urinalysis is within normal limits. Estrogen cream to be given 2 times a week and will see her back follow-up. Her symptoms do not improve will consider vaginal suppositor ies. [id number] Yaw Cates Jr, MD [facility] [address] [address] 01/14/2023 08:52:20 01/14/2023 09:31:54 Dysuria 44699458 R30.0 patient with continued dysuria. It was better for about a week but recurred a few days ago. Urethral dilation was performed today. The urethra is a bit snug and she tolerated urethral dilation without problem. Neosporin instilled afterwards . She will return in 2 weeks. Urethritis 21326830 N34. 2 Patient with dysuria which may be symptom of urethritis as her urinalysis is within normal limits. patient has been compliant with the estrogen cream twice a week. She continues to have some dysuria. We are going to add intra Charissa vaginal suppositor ies and samples were given today. Return to office 2 weeks Urge incon tinence of urine [id number] N39.41 Patient with urge incontinen ce that requires 3 medium pads per day. she started oxybutynin 10 mg 2 weeks ago. She is not seen any results yet and we discussed continuing on the medication as it could take longer. [id number] Yaw Cates Jr, MD [facility] [address] [address] 02/18/2023 09:43:56 02/18/2023 10:21:25 Recurrent urinary tract infection [id number] N39.0 Patient with evidence of urinary tract infection today. We will culture her urine and a prescripti on for Bactrim was sent in. Urethritis [id number] N34. 2 Patient with dysuria which may be symptom of urethritis as her urinalysis is within normal limits. patient has been compliant with the estrogen cream twice a week. as well as the intra Charissa suppositor ies. Dilation at our last visit was performed with some mild stenosis. Urge incon tinence of urine [id number] N39.41 Patient with urge incontinen ce . She is been on oxybutynin now for several weeks. She states improvemen t in the urgency and leakage. She is wearing less pads done before. [id number] Yaw Cates Jr, MD [facility] [address] [address] 04/20/2024 09:34:20 04/20/2024 11:05:53 Recurrent urinary tract infection [id number] N39.0 Patient with history of urinary tract infections . She had an E coli UTI in February and then in March she had an episode of sounds like a pyelonephr itis. She is finished up a course of IV antibiotic s. She states he drinks plenty of fluids during the day. We discussed treatment options. She was reassured she is emptying her bladder out adequately . We will place her on a prophylact ic course of nitrofuran toin 50 mg a day. He will follow up 1 month. Nocturia [id number] R35.1 patient states she gets up at night hourly. Her risk factors include drinking right up to bedtime as well as lower extremity edema. We discussed cutting off her fluids 2 hours prior to bedtime and getting her feet up on the abdomen prior to bed time. Follow-up 1 month Urge incon tinence of urine [id number] N39.41 Patient with urge incontinen ce . patient doing well with the oxybutynin 10 mg and we will refill. Urethritis [id number] N34. 2 patient with history of dysuria to be from urethritis . She continues on estrogen creams and vaginal suppositor ies. [id number] Yaw Cates Jr, MD [facility] [address] [address] 06/01/2024 13:43:10 06/01/2024 14:18:59 Recurrent urinary tract infection [id number] N39.0 Patient with history of urinary tract infections . She had an E coli UTI in February and then in March she had an episode of sounds like a pyelonephr itis. She is finished up a course of IV antibiotic s. She states he drinks plenty of fluids during the day. We discussed treatment options. She was reassured she is emptying her bladder out adequately . Pt was placed on NFN 50 mg suppressio n at last visit and denies any UTI's. Dysuria resolved. Nocturia [id number] R35.1 patient states she gets up at night hourly. Her risk factors include drinking right up to bedtime as well as lower extremity edema. We discussed cutting off her fluids 2 hours prior to bedtime and getting her feet up on the abdomen prior to bed time. She states she has not been able to be compliant with this as her mouth is dry at night. Urge incon tinence of urine [id number] N39.41 Patient with urge incontinen ce . patient doing well with the oxybutynin 10 mg and we will refill. Urethritis [id number] N34. 2 patient with history of dysuria to be from urethritis . She continues on estrogen creams and vaginal suppositor ies. Health Concerns Section Related Observation LastModified by Organization Detai ls LastModified Time None Recorded Concern Status LastModified by Organization Details LastModified Time None Recorded Advance Directives Directive None Recorded Payers Encounter Date Sequence Insurance Name Policy Number Policy Carter Covered Member ID Carter Member ID Guarantor Name 12/31/2022 1 [place] Elyssa M Ring [id number] Elyssa Ring 12/31/2022 2 [employer] (MEDICARE SUPPLEMENT) Elyssa M Ring [id number] Elyssa Ring 01/14/2023 1 [place] Elyssa M Ring [id number] Elyssa Ring 01/14/2023 2 [employer] (MEDICARE SUPPLEMENT) Elyssa M Ring [id number] Elyssa Ring 02/18/2023 1 [place] Elyssa M Ring [id number] Elyssa Ring 02/18/2023 2 [employer] (MEDICARE SUPPLEMENT) Elyssa M Ring [id number] Elyssa Ring 04/20/2024 1 [place] Elyssa M Ring [id number] Elyssa Ring 04/20/2024 2 [employer] (MEDICARE SUPPLEMENT) Elyssa M Ring [id number] Elyssa Ring 06/01/2024 1 [place] Elyssa M Ring [id number] Elyssa Ring 06/01/2024 2 [employer] (MEDICARE SUPPLEMENT) Elyssa M Ring [id number] Elyssa Ring Notes Date Note Type Note Provider Name and Address Organization Details Recorded Time 12/31/2022 text/html Patient is a 72-year-old white female referred for dysuria and urinary incontinence. Patient states that she has excruciating pain with the urge to void and afterwards a most every time she voids. She has seen her primary care physician and her urines have not shown infections.She also complains of incontinence of the urgency time. She wears 3 medium pads per day. Yaw Cates Jr, MD [address] [place] [address], [address], [place], [address], [facility] [place] 01/08/2023 16:26:04 01/14/2023 text/html Patient is a 72-year-old white female with dysuria and urinary incontinence. Your last visit she was started on oxybutynin 10 mg and he was recommended to decrease her caffeine intake. She is not seen much improvement yet but has only been 2 weeks.She returns today because of the dysuria. I had wanted to dilator at her initial visit but we did not have the urethral sounds. We are planning that today. She states that her burning resolved for about a week but started back again on Thursday. She was started on estrogen cream twice a week at her last visit. She states she has been using that. Yaw Cates Jr, MD [address] [place] [address], [address], [place], [address], [facility] [place] 01/14/2023 13:07:58 02/18/2023 text/html patient is a 72-year-old white female with history of dysuria and urge incontinence. She is been on oxybutynin 10 mg and states her urge incontinence is better. Patient also with history of dysuria and she was dilated at our last visit and there was some evidence of mild stenosis. She was also placed on intra Charissa vaginal inserts for possible urethritis. She returns today states that she is still having the dysuria. She states that it is usually before the initiation of urination and afterwards. Her urine today Shows a moderate amount of leukocytes and a small amount of blood. Yaw Cates Jr, MD [address] [place] [address], [address], [place], [address], [facility] [place] 02/18/2023 13:04:04 04/20/2024 text/html 73-year-old whit e female with history of dysuria and urge incontinence as well as urinary tract infections. Her last visit with me was February 2023. She is on oxybutynin for urge incontinence and estrogen cream and intra Charissa vaginal suppositories for her dysuria. She returns today and states she had urinary tract infection in February. Notes were reviewed from February 14 from [facility]. She was in the emergency room at that time. She was having some nausea and vomiting diarrhea and worsened incontinence. She was found to have a urinary tract infection and was treated. Urine culture from that visit grew out E coli. She states that March she had some confusion and fatigue and went back to the emergency room. She was diagnosed at that time with pyelonephritis and I do not have urine culture from that visit a PICC line was placed which she has finished up a course of IV antibiotics. She is feeling better. Her urge incontinence had been flared up by the infections but it is back to normal. She continues on oxybutynin, estrogen cream and the vaginal suppositories. Bladder scan today indicates a residual of 68 cc. Yaw Cates Jr, MD [address] [place] [address], [address], [address], [facility] [place] 04/20/2024 12:52:34 06/01/2024 text/html 74 yo female wit h h/o recurrent UTI's, nocturia, urge incontinence and urethritis returns in f/u for her nocturia. Ather last visit we discussed fluid restriction which she states she is not compliant due to dry mouth. She is on oxybutinin for her urge incontinence.She was also placed on NFN suppression for UTI's. She states her dysuria has resolved and no recurrent UTI's. Yaw Cates Jr, MD [address] [place] [address] Drive, [address], [place], [address], [facility] [place] 06/01/2024 19:30:40 OBGyn Episode No OBEpisode recorded.
[2024-12-20 14:23] LABS: Basophils % 0.6 % (0.1-2.0); Eosinophils # 0.2 K/mm3 (0.0-0.4); Eosinophils % 2.3 % (0.1-12.0); Hematocrit 38.7 % (37.0-47.0); Hemoglobin 12.7 g/dL (12.2-16.2); Lymphocytes # 1.3 K/mm3 (0.7-4.5); Lymphocytes % 18.5 % (10-50); Mean Corpuscular HGB Conc 32.8 g/dL (31.8-35.4); Mean Corpuscular Hemoglobin 29.1 pg (27.0-31.2); Mean Corpuscular Volume 88.6 fl (81-99); Mean Platelet Volume 9.8 fl (7.4-10.4); Monocytes # 0.5 K/mm3 (0.1-1.0); Monocytes % 7.8 % (1.7-9.3); Neutrophils # 4.8 K/mm3 (1.8-7.8); Neutrophils % 70.4 % (37.0-80.0); Nucleated Red Blood Cells # 0 10^3/uL; Nucleated Red Blood Cells % 0 %; Platelet Count 183 K/mm3 (142-424); Red Blood Count 4.37 M/mm3 (4.20-5.40); Red Cell Distribution Width 14.1 % (11.5-17.5); Red Cell Distribution Width-SD 45.8 fL; White Blood Count 6.8 K/mm3 (4.8-10.8)
[2024-12-20 15:34] LABS: Alanine Aminotransferase 24 U/L (12-78); Albumin Level 3.8 g/dl (3.5-5.0); Alkaline Phosphatase 90 U/L (38-126); Anion Gap 12.9 mEq/L (5-15); Aspartate Amino Transferase 24 U/L (14-36); Bilirubin,Direct 0.2 mg/dl (0.0-0.4); Bilirubin,Indirect 0.3 mg/dL (0.0-0.9); Bilirubin,Total 0.5 mg/dl (0.2-1.3); Bilirubin,Unconjugated 0.2 mg/dL (0.0-1.1); Blood Urea Nitrogen 18 mg/dl (7-17); Calcium 9.5 mg/dl (8.4-10.2); Carbon Dioxide 28 mmol/L (22.0-30.0); Chloride 103 mmol/L (98-107); Chol/HDL Ratio 6.2 (1-3.5); Cholesterol 187 mg/dl (140-200); Estimated Glomerular Filt Rate 54 ml/min (>60); GFR (African American) 66 ML/MIN (>60); Glucose 105 mg/dl (74-100); HDL Cholesterol 30 mg/dl (40-60); Potassium 3.9 mmoL/L (3.5-5.1); Sodium 140 mmol/L (136-145); Total Protein,Serum 6.6 g/dl (6.3-8.2); Triglycerides 280 mg/dl (30-150); VLDL Cholesterol 56 mg/dL (0-40)
[2024-12-20 15:45] LABS: Direct LDL Cholesterol 87.46 mg/dL (100-129)
[2024-12-20 15:51] LABS: Free T4 (Free Thyroxine) 0.88 ng/dl (0.78-2.19)
== END 2024-12-20 23:59 | disposition home or self-care (01) ==
LOC: LAB 13:49
PROVIDERS: PCP Family Medicine; Visit Provider Nurse Practitioner
DX: I11.9 Hypertensive heart disease without heart failure (principal); I25.10 Atherosclerotic heart disease of native coronary artery without angina pectoris; E78.5 Hyperlipidemia, unspecified; Z87.891 Personal history of nicotine dependence
CPT/HCPCS: 36415; 80048; 80061; 80076; 84439; 84443; 85025

== ENCOUNTER 2025-02-22 09:35 | Outpatient (CLI) | payer MEDICARE, SELFPAY ==
--- OUTSIDE RECORDS SUMMARY | 2024-12-10 17:30 | XMS_ITS ---
Author Organization [facility] Address [address] [facility] [address] [place] [address] Care Team Providers Care Lab Support Tech Name Role Phone Melinda Garsia Primary Care Provider Migration, Provider Unavailable Unavailable Allergies Allergen (clinical drug ingredient) Drug/Non Drug Allergy documented on EMR Reaction Allergy Type Onset Date Status amoxicillin / clavulanate Augmentin tongue swell Drug Allergy Active [facility] Conversion Encounter Medications Medication SIG (Take, Route, Frequency, Duration) Notes Start Date End Date Status Diclofenac Sodium 75 MG 1 tab(s) orally 2 times a day as needed for arthritis pain for 30 day(s) 11/08/2021 Active PROAIR HFA 90 MCG/INH 2 PUFF(S) INHALED 4 TIMES A DAY NEEDED for 30 DAYS prn *Please review for potential replacement for e-prescription and drug interaction check* Active Lantus 100 UNIT/ML INJECT 80 UNITS SUBCUTANEOUSLY AT BEDTIME for 75 Active SYRINGE AND NEEDLES NRRDLES USE EVERY 3 MONTHS WITH B12 INJECTION IM *Please review for potential replacement for e-prescription and drug interaction check* 03/14/2013 Active HumuLIN R 100 UNIT/ML INJECT 35 UNITS SUBCUTANEOUSLY WITH BREAKFAST AND SUPPER AND 20 UNITS WITH LUNCH for 89 Active Biotin 5 MG 1 tab(s) orally once a day prn Active Clobetasol Propionate 0.05 % 1 cathie applied topically 2 times a day for 30 Active Lasix 40 MG 1 tab(s) orally once a day for 90 days Active metFORMIN HCl ER 500 MG Take 2 tablets b y mouth once daily for 90 Active Bisoprolol Fumarate 10 MG 1 tab(s) orally once a day for 90 days Active DIABETIC SHOES DIRECTED DX: E11.65 QD *Please review for potential replacement for e-prescription and drug interaction check* 07/28/2016 Active Omeprazole 20 MG 1 cap(s) orally once daily at bedtime for 90 days Active GLUCOMETER NA USE AC AND HS NA AC AND HS for 30 DAYS *Please review for potential replacement for e-prescription and drug interaction check* 01/25/2020 Active TEST STRIPS AND LANCETS NA AC AND HS NA AC AND HS FOR IDDM for 30 DAYS *Please review for potential replacement for e-prescription and drug interaction check* 01/25/2020 Active Triamcinolone Acetonide 0.1 % 1 cathie applied topically BID to the left external ear for 30 days 01/05/2019 Active medroxyPROGESTERone Acetate 5 MG 1 tab(s) orally once a day Active Multivitamin MULTIPLE VITAMINS 1 CAP(S) ORALLY ONCE A DAY *Please review and pick correct strength-formula tion from [employer] options. If intended option is not shown, discontinue and re-order from Quick Search* Active Calcium 600 + D 600 MG-800 INTL UNITS 1 TAB(S) ORALLY ONCE A DAY *Please review and pick correct strength-formula tion from [employer] options. If intended option is not shown, discontinue and re-order from Quick Search* Active PEN NEEDLES, 31GX1/4 DIRECTED for 30 DAYS *Please review for potential replacement for e-prescription and drug interaction check* 06/03/2017 Active Aspirin 81 MG 1 tab(s) orally once a day for 30 day(s) Active Otezla 30 MG 1 tab(s) orally 2 times a day Active Lisinopril 20 MG 1 tab(s) orally twice daily for 90 days Active hydroCHLOROthiazide 25 MG 1 tab(s) orally once a day for 90 Active Ketoconazole 2 % 1 cathie applied topically once for 1 day(s) Active Atorvastatin Calcium 80 MG 1 tab(s) orally once a day (at bedtime) for 90 Active Encounters Encounter Location Date Provider Diagnosis [facility] [address] [place] [address] 12/10/2024 Provider Migration Plan Of Treatment Medication Medication Name Sig Start Date Stop Date Notes PROAIR HFA 90 MCG/INH 2 PUFF(S) INHALED 4 TIMES A DAY NEEDED for 30 DAYS prn *Please review for potential replacement for e-prescription and drug interaction check* metFORMIN HCl ER 500 MG Take 2 tablets b y mouth once daily for 90 Omeprazole 20 MG 1 cap(s) orally once daily at bedtime for 90 days Lisinopril 20 MG 1 tab(s) orally twice daily for 90 days hydroCHLOROthiazide 25 MG 1 tab(s) orall y once a day for 90 Atorvastatin Calcium 80 MG 1 tab(s) oral ly once a day (at bedtime) for 90 Progress Notes * Elyssa PADILLA MDOB:1950 (74 yo F)Acc No.[id number]:12/10/2024 Patient: Elyssa CHEN Provider: Alyssa Horne :1950 A ge:74 Y S ex:Female Date:12/10/2024 Address:[address] [place], [place] [phone] Pcp:Melinda Garsia Subjective: * Chief [facility]s: * [facility] * Medical History: * Medications: T aking Otezla 30 MG Tablet 1 tab(s) orally 2 times a day , Taking Ketoconazole 2 % Shampoo 1 cathie applied topically once , Taking Calcium 600 + D 600 MG-800 INTL UNITS TABLET 1 TAB(S) ORALLY ONCE A DAY , Notes to Pharmacist: *Please review and pick correct strength-formulation from [employer] options. If intended option is not shown, [...] *Please review and pick correct strength-formulation from [employer] options. If intended option is not shown, [...] * Treatment: * * Electronic signature of Ulises haddad Migration on 02/22/2025 at 09:40 AM EDT Sign off status: Pending * Provider: Alyssa giraldo Migration Date: 12/10/2024 Generated for Evangelina ramos/Lacey/Glory on: 02/22/2025 09:40 AM EDT
--- OUTSIDE RECORDS SUMMARY | 2025-02-22 09:40 | XMS_ITS | Patient Health Record ---
Author Organization [facility] Address [address] [place] [address] [place] [address] Care Team Providers Care Pro Shop Attendant Name Role Phone Melinda Garsia Primary Care Provider Migration, Provider Unavailable Unavailable Allergies Allergen (clinical drug ingredient) Drug/Non Drug Allergy documented on EMR Reaction Allergy Type Onset Date Status amoxicillin / clavulanate Augmentin tongue swell Drug Allergy Active Medications Medication SIG (Take, Route, Frequency, Duration) Notes Start Date End Date Status medroxyPROGESTERone Acetate 5 MG 1 tab(s) orally once a day Active Multivitamin MULTIPLE VITAMINS 1 CAP(S) ORALLY ONCE A DAY *Please review and pick correct strength-formula tion from NitroPCR options. If intended option is not shown, discontinue and re-order from Quick Search* Active Calcium 600 + D 600 MG-800 INTL UNITS 1 TAB(S) ORALLY ONCE A DAY *Please review and pick correct strength-formula tion from NEURONIXan options. If intended option is not shown, discontinue and re-order from Quick Search* Active PEN NEEDLES, 31GX1/4 DIRECTED for 30 DAYS *Please review for potential replacement for e-prescription and drug interaction check* 06/03/2017 Active Aspirin 81 MG 1 tab(s) orally once a day for 30 day(s) Active Triamcinolone Acetonide 0.1 % 1 cathie applied topically BID to the left external ear for 30 days 01/05/2019 Active DIABETIC SHOES DIRECTED DX: E11.65 QD *Please review for potential replacement for e-prescription and drug interaction check* 07/28/2016 Active Omeprazole 20 MG 1 cap(s) orally once daily at bedtime for 90 days Active Biotin 5 MG 1 tab(s) orally once a day prn Active hydroCHLOROthiazide 25 MG 1 tab(s) orally once a day for 90 Active Clobetasol Propionate 0.05 % 1 cathie applied topically 2 times a day for 30 Active GLUCOMETER NA USE AC AND HS NA AC AND HS for 30 DAYS *Please review for potential replacement for e-prescription and drug interaction check* 01/25/2020 Active TEST STRIPS AND LANCETS NA AC AND HS NA AC AND HS FOR IDDM for 30 DAYS *Please review for potential replacement for e-prescription and drug interaction check* 01/25/2020 Active Lantus 100 UNIT/ML INJECT 80 UNITS SUBCUTANEOUSLY AT BEDTIME for 75 Active SYRINGE AND NEEDLES NRRDLES USE EVERY 3 MONTHS WITH B12 INJECTION IM *Please review for potential replacement for e-prescription and drug interaction check* 03/14/2013 Active Lasix 40 MG 1 tab(s) orally once a day for 90 days Active metFORMIN HCl ER 500 MG Take 2 tablets b y mouth once daily for 90 Active Bisoprolol Fumarate 10 MG 1 tab(s) orally once a day for 90 days Active HumuLIN R 100 UNIT/ML INJECT 35 UNITS SUBCUTANEOUSLY WITH BREAKFAST AND SUPPER AND 20 UNITS WITH LUNCH for 89 Active Diclofenac Sodium 75 MG 1 tab(s) orally 2 times a day as needed for arthritis pain for 30 day(s) 11/08/2021 Active Otezla 30 MG 1 tab(s) orally 2 times a day Active Lisinopril 20 MG 1 tab(s) orally twice daily for 90 days Active Ketoconazole 2 % 1 cathie applied topically once for 1 day(s) Active PROAIR HFA 90 MCG/INH 2 PUFF(S) INHALED 4 TIMES A DAY NEEDED for 30 DAYS prn *Please review for potential replacement for e-prescription and drug interaction check* Active Atorvastatin Calcium 80 MG 1 tab(s) orally once a day (at bedtime) for 90 Active Immunizations Vaccine Route Administration Date Status Comme nts Prevnar PCV-13 (Pneumococcal conjugate 13) IM Intramuscular 05/21/2017 Administered Pneumovax 23 Unknown 10/18/2014 Administered Influenza (Fluzone)--Medicare only Unknown 05/17/2016 Administered Influenza (Fluzone)--Medicare only Unknown 05/30/2017 Administered High Do se Fluzone High Dose IM Intramuscular 06/01/2019 Administered Fluzone High Dose IM Intramuscular 06/20/2020 Administered Covid Moderna Unknown 10/04/2020 Administered Covid Moderna Unknown 11/01/2020 Administered Covid Moderna Unknown 05/09/2021 Administered Problems Problem Type SNOMED Code ICD Code Onset Dates Problem Status W/U Status Risk Notes Problem 597339564 Type 2 diabetes mellitus with hyperglycemia (E11.65) Active confirmed Problem 449876418 Other allergic rhinitis (J30.89) Active confirmed Problem 51873321 Chronic obstructive pulmonary disease, unspecified (J44.9) Active confirmed Problem 51604044 Venous insufficiency (I87.2) Active confirmed Problem 31974119 Essential hypertension (I10) Active confirmed Problem 6567916 Psoriasis (L40.9) Active confirmed Problem Seasonal allergi c reaction (J30.2) Active confirmed Problem Urinary incontinence (420270627) Urinary incontinence (R32) Active confirmed Problem 364047904 BMI 30.0-30.9,adult (Z68.30) Active confirmed Problem 580832159 Psoriasis of sca lp (L40.9) Active confirmed Problem 639587165 assisted curren t use of insulin (Z79.4) Active confirmed Problem 049176749 Peripheral edema (R60.9) Active confirmed Problem 633183076 Arthropathy, 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) Active confirmed Problem 749456296 Menopausal and perimenopausal disorder (N95.9) Active confirmed Problem 066279507 OAB (overactive bladder) (N32.81) Active confirmed Problem 896173032 BMI 29.0-29.9,adult (Z68.29) Active confirmed Problem 26053672 Seasonal allergi c rhinitis due to pollen (J30.1) Active confirmed Problem 009959385 Chronic GERD (K21.9) Active confirmed Problem 684921289 Mixed dyslipidem ia (E78.2) Active confirmed Problem 921716482 Osteopenia after menopause (M85.80) Active confirmed Encounters Encounter Location Date Provider Diagnosis [facility] [address] [place] [address] 12/10/2024 Provider Migration Plan Of Treatment Pending Test Test Name Order Date N-Stool WBC 01/24/2013 Urinalysis 07/28/2016 Urinalysis 05/14/2016 X ray : Shoulder, Right 06/30/2011 Mammogram : Diagnostic 11/04/2018 Mammogram : Left breast 11/11/2018 Mammogram : Left breast 09/02/2016 Mammogram : Right Breast 06/22/2017 Mammogram : Right Breast 09/02/2016 N-Stool Culture 01/24/2013 Microalbumin (In-House) 07/28/2016 N-CMP 04/01/2010 N-CMP 08/23/2012 N-Lipid Panel 08/23/2012 N-Lipid Panel 04/01/2010 X ray : Humerus, Right 06/30/2011 N-HbA1C 08/23/2012 Physical Therapy 12/20/2014 Mammogram : Bilateral 05/23/2009 Mammogram : Bilateral 06/22/2013 Mammogram : Bilateral 01/27/2020 H-CBC with AUTO DIFF 05/21/2017 H-CMP 08/17/2017 H-CMP 05/21/2017 H-CMP 12/05/2015 H-CMP 12/20/2015 H-MAGNESIUM 05/21/2017 H-LIPID PANEL 08/17/2017 H-LIPID PANEL 05/21/2017 H-LIPID PANEL 12/05/2015 H-LIPID PANEL 12/20/2015 H-CPK 05/21/2017 H-HGBA1C 08/17/2017 H-HGBA1C 05/21/2017 H-HGBA1C 12/20/2015 H-HGBA1C 12/05/2015 H-TSH 05/21/2017 H-MICROALBUMIN URINE 11/20/2016 H-MICROALBUMIN URINE 12/05/2015 spirometry 11/20/2016 H-MICROALB/RESEARCH PHYSICIST UR 05/21/2017 H-MICROALB/RESEARCH PHYSICIST UR 08/17/2017 M-Complete Blood Count Auto Diff 018 M-Comprehensive Metabolic Panel 03/22/20 18 M-Comprehensive Metabolic Panel 06/20/20 20 M-Hemoglobin A1C 03/22/2018 M-Hemoglobin A1C 06/20/2020 M-Lipid Panel 06/20/2020 M-Lipid Panel 03/22/2018 M-Thyroid Stimulating Hormone 03/22/2018 M-Microalb/Creat Ratio, Randm Ur 020 M-Microalb/Creat Ratio, Randm Ur 021 Future Test Test Name Order Date H-LIPID PANEL 04/22/2011 H-CMP 06/27/2011 H-LIPID PANEL 06/27/2011 H-HGBA1C 06/27/2011 Insurance Providers Payer Name Payer Address Payer Phone Subscriber Number Group Number Insured Name Patient Relationship to Insured Coverage Start Date Coverage End Date [place] [place] [phone] [id number] Elyssa Toro Self - patient is the insured [facility] [address] [address] [place] [address] [id number] Elyssa Toro Self - patient is the insured Medical (General) History Medical History History ICD Code hx pneumonia hyperlipidemia IDDM HTN GERD JEREMIAH but unable to tolerate CPAP Colonoscopy 2005 Dr Medina Colonoscopy 2015 Dr. Newberry with [facility] erticulosis Asthma/COPD - see spirometry 2016 Osteopenia HRT postmenopausal bleeding followed by Dr Mckenna jaquez scalp psoriasis Normal mammogram 02/2021 Surgical History Surgery Date(Month/Year) tubal ligation remote past-n o history of difficulties with anesthesia or free bleeding 1977 right hip replacement 2009 D and C 2013 Appendectomy 1977 left knee replacement 05/2016 Hospitalization History Reason Date(Month/Year) pneumonia 10/2014 knee surgery 05/2016
--- OUTSIDE RECORDS SUMMARY | 2025-02-22 09:41 | XMS_ITS | Data Portability ---
Author Organization [facility] [place] Address [address] [place] [address] Assessment No assessment recorded. Plan of Treatment Reminders Order Date Submit Date Provider Last Modified By Organization Details Last Modified Time Details Appointments OV EST 15 2024 01:00P M Yaw Cates Jr, MD Not available Not available Not available Lab urinalysi s, dipstick [address], [address], 04/20/2024 15:13:07 urinalysi s, dipstick [address], [address], 02/19/2023 08:18:37 culture, urine + sensitivi ty 2022 [email or web address], [address], 02/25/2023 08:36:57 urinalysi s, dipstick [address], [address], 12/31/2022 14:43:33 Referral None recorded. Procedures bladder scan (PROC) [address] [place] [address], [address], 04/20/2024 15:13:07 Surgeries None recorded. Imaging None recorded. Medication Orders nitrofura ntoin macrocrys tru 50 mg capsule 2023 024 [facility] [address], [address] [place] [address], [address], 04/20/2024 12:37:56 oxybutyni n chloride ER 10 mg tablet,ex tended release 24 hr 2023 024 [place] [address], [address] [place] [address], [address], 04/20/2024 12:49:36 Bactrim DS 800 mg-160 mg tablet 2022 023 [place] [address], [address] [place] [address], [address], 02/18/2023 12:53:25 Intrarosa 6.5 mg vaginal insert 2022 [facility] [place] [address], [address] [place] [address], [address], 01/14/2023 13:06:49 conjugate d estrogens 0.625 mg/gram vaginal cream 2022 023 [place] [address], [address] [place] [address], [address], 12/31/2022 13:20:40 oxybutyni n chloride ER 10 mg tablet,ex tended release 24 hr 2022 023 [place] [address], [address] [place] [address], [address], 12/31/2022 13:19:38 Patient TargetsNo targets recorded. Patient InstructionsNo instructions recorded. Reason for Referral None Reported. Results Created Date Observation Date Name Description Value Unit Range Abnormal Flag Note LastModifiedBy Organization Detail LastModifiedTime 01/01/20 23 12/31/2022 urina lysis , dipst ick Leukocytes (reference range) trace Not Available [address], [address], 12/31/2022 10:55:18 01/01/20 23 12/31/2022 urina lysis , dipst ick Nitrite (reference range:) negati ve Not Available [address], [address], 12/31/2022 10:55:18 01/01/20 23 12/31/2022 urina lysis , dipst ick Urobilinogen (reference range) 0.2 Not Available [address], [address], 12/31/2022 10:55:18 01/01/20 23 12/31/2022 urina lysis , dipst ick Protein (reference range) negati ve Not Available [address], [address], 12/31/2022 10:55:18 01/01/20 23 12/31/2022 urina lysis , dipst ick pH (reference range 5-8.5) 6.0 Not Available [address], [address], 12/31/2022 10:55:18 01/01/20 23 12/31/2022 urina lysis , dipst ick Blood (reference range:) negati ve Not Available [address], [address], 12/31/2022 10:55:18 01/01/20 23 12/31/2022 urina lysis , dipst ick Specific Penfield (reference range) 1.010 Not Available [address], [address], 12/31/2022 10:55:18 01/01/20 23 12/31/2022 urina lysis , dipst ick Ketone (reference range) negati ve Not Available [facility] [address], [address], 12/31/2022 10:55:18 01/01/20 23 12/31/2022 urina lysis , dipst ick Bilirubin (reference range) negati ve Not Available [address], [address], 12/31/2022 10:55:18 01/01/20 23 12/31/2022 urina lysis , dipst ick Glucose (reference range) 100 Not Available [facility] [address], [address], 12/31/2022 10:55:18 02/19/20 23 02/18/2023 CULTU RE URINE results MRB 02-19 721 40,00 0 COL/M L Gram Negat madisyn Rods Not Available [facility] (Lab Registration) [address] , [place], [address], 02/19/2023 07:23:10 02/19/20 23 02/18/2023 CULTU RE URINE note Unles s other corona noted testi ng perfo rmed at: [facility] [address] [place] [address] [phone] Osiel ortega MD CLIA: [id number] Not Available [facility] (Lab Registration) [address] , [place], [address], 02/19/2023 07:23:10 02/19/20 23 02/18/2023 CULTU RE URINE culccur ===== ===== ===== ===== ===== ===== ===== ===== ===== ===== ===== ===== ===== ===== ===== ===== ===== ===== ===== ===== ===== ===== ===== ===== Speci men NO.: [id number] Exam Statu s: Final Proce dure: [...] L Gram Negat madisyn Rods Not Available [facility] (Lab Registration) [address], [place], [address], 02/21/2023 10:26:06 02/19/20 23 02/18/2023 CULTU RE URINE note Unles s other corona noted testi ng perfo rmed at: [facility] [address] [place] [address] [phone] Osiel ortega MD CLIA: [id number] Not Available [facility] (Lab Registration) [address] , [place], [address], 02/21/2023 10:26:06 02/19/20 23 02/18/2023 urina lysis , dipst ick Leukocytes (reference range) modera te Not Available [address], [address], 02/18/2023 10:24:59 02/19/20 23 02/18/2023 urina lysis , dipst ick Nitrite (reference range:) negati ve Not Available [address], [address], 02/18/2023 10:24:59 02/19/20 23 02/18/2023 urina lysis , dipst ick Urobilinogen (reference range) 0.2 Not Available [address], [address], 02/18/2023 10:24:59 02/19/20 23 02/18/2023 urina lysis , dipst ick Protein (reference range) negati ve Not Available [address], [address], 02/18/2023 10:24:59 02/19/20 23 02/18/2023 urina lysis , dipst ick pH (reference range 5-8.5) 7.0 Not Available [facility] [address], [address], 02/18/2023 10:24:59 02/19/20 23 02/18/2023 urina lysis , dipst ick Blood (reference range:) small Not Available [address], [address], 02/18/2023 10:24:59 02/19/20 23 02/18/2023 urina lysis , dipst ick Specific Penfield (reference range) 1.015 Not Available [address], [address], 02/18/2023 10:24:59 02/19/20 23 02/18/2023 urina lysis , dipst ick Ketone (reference range) negati ve Not Available [address], [address], 02/18/2023 10:24:59 02/19/20 23 02/18/2023 urina lysis , dipst ick Bilirubin (reference range) negati ve Not Available [address], [address], 02/18/2023 10:24:59 02/19/20 23 02/18/2023 urina lysis , dipst ick Glucose (reference range) negati ve Not Available [address], [address], 02/18/2023 10:24:59 04/20/20 24 04/20/2024 urina lysis , dipst ick Leukocytes (reference range) modera te Not Available [address], [address], 04/20/2024 10:23:15 04/20/20 24 04/20/2024 urina lysis , dipst ick Nitrite (reference range:) negati ve Not Available [address], [address], 04/20/2024 10:23:15 04/20/20 24 04/20/2024 urina lysis , dipst ick Urobilinogen (reference range) 0.2 Not Available [address], [address], 04/20/2024 10:23:15 04/20/20 24 04/20/2024 urina lysis , dipst ick Protein (reference range) 30 Not Available [address], [address], 04/20/2024 10:23:15 04/20/20 24 04/20/2024 urina lysis , dipst ick pH (reference range 5-8.5) 6.0 Not Available [address], [address], 04/20/2024 10:23:15 04/20/20 24 04/20/2024 urina lysis , dipst ick Blood (reference range:) non-He molyze d: Trace Not Available [address], [address], 04/20/2024 10:23:15 04/20/20 24 04/20/2024 urina lysis , dipst ick Specific Penfield (reference range) 1.015 Not Available [address], [address], 04/20/2024 10:23:15 04/20/20 24 04/20/2024 urina lysis , dipst ick Ketone (reference range) trace Not Available [address], [address], 04/20/2024 10:23:15 04/20/20 24 04/20/2024 urina lysis , dipst ick Bilirubin (reference range) negati ve Not Available [address], [address], 04/20/2024 10:23:15 04/20/20 24 04/20/2024 urina lysis , dipst ick Glucose (reference range) negati ve Not Available [address], [address], 04/20/2024 10:23:15 04/20/20 24 04/20/2024 bladd er scan (PROC ) Calculated Residual Urine: 68 ML Not Available [facility] [address], [address], 04/20/2024 10:23:29 Result Notes None recorded. Problems Name Problem SNOMED Code Status Onset Date Resolution Date Notes Provider Name and Address Organization Details Recorded Time Hypertensive disorder 77757760 Active 2022 Mayra simon, JEF - [facility] - [place] & [place] 3 09:52:08 Diabetes mellitus 40237124 Active 2022 Mayra simon, JEF - [facility] - [place] & [place] 3 09:52:12 Environmental allergy 290069617 Active 2022 Mayra simon, JEF - [facility] & [place] 3 09:52:20 Notes:Some problems listed i n Document: #[id number] could not be added to this patient's chart. Please review this document and add these problems to the patient's chart manually as needed. Problem Notes None recorded. Procedures Surgical History Date Name Laterality Status Provider Name and Address Organization Details Recorded Time 01/15/20 Urethral Dilation (female) completed Yaw Cates Jr, MD [address] [place] [address], [address], [place], [address], [place] - [facility] - [facility] & [place] 01/14/2023 13:05:11 total replacement of hip completed Mayra FUCHS - [facility] - [facility] & [place] 12/31/2022 09:54:04 procedure on heart completed Mayra FUCHS [facility] & [place] 12/31/2022 09:54:17 Knee arthroscopy/surg kathryn completed Mayra FUCHS [facility] & [place] 12/31/2022 09:54:24 Cataract Surgery completed Mayra FUCHS [facility] & [place] 12/31/2022 09:54:30 Tubal Ligation completed Mayra FUCHS [facility] & [place] 12/31/2022 09:54:37 Appendectomy completed Mayra FUCHS [facility] & [place] 12/31/2022 09:54:43 Imaging Results None recorded. Procedure Notes None recorded. Medical Equipment None Reported. Allergies Allergen ID Allergen Name Allergen Category Reaction Reaction Severity Criticality Documentation Date Start Date Code Code System Note Provider Name and Address Organization Details Recorded Time 27141 Augmentin medicatio n Not available Not available Not available 12/31/2022 89616 2 RxNorm Mayra simon JEF [facility] & [place] 09:48:39 Medications Name Sig Start Date Stop Date Status Note LastModified by Organization Details LastModified Time easy comfort pen needles 31gx3/16 31g x 5 mm misc active Not Available Not Available Not Available clever choice comfort ez insulin pe n needles 71oe0at 31g x 8 mm misc active Not [...] Not Available Not Available Comfort EZ Pen Girard 31 gauge x 5/16 USE DIRECTED active [...] Updated DateTime 12/31/2022 154.94 cm 33.6 kg/m2 76988.44 g 97.7 [degF] Mayra FUCHS [facility] & [place] 12/31/2022 09:48:20 Date Recorded Body height Body mass index (BMI) Body weight Body temperature Provider Name and Address Organization Details Last Updated DateTime 01/14/2023 154.94 cm 33.6 kg/m2 51584.44 g 97.9 [degF] Mayra FUCHS [facility] & [place] 01/14/2023 08:52:59 Date Recorded Body height Body mass index (BMI) Body weight Body temperature Provider Name and Address Organization Details Last Updated DateTime 02/18/2023 154.94 cm 33.6 kg/m2 61689.44 g 97.6 [degF] Mayra FUCHS [facility] & [place] 02/18/2023 09:45:12 Date Recorded Body height Body mass index (BMI) Body weight Body temperature Provider Name and Address Organization Details Last Updated DateTime 04/20/2024 152.4 cm 0.2 kg/m2 453.59 g 97.5 [degF] Mayra FUCHS [facility] & [place] 04/20/2024 09:35:49 Date Recorded Body height Body temperature Provider N phoebe and Address Organization Details Last Updated DateTime 06/01/2024 154.94 cm 97.7 [degF] Mayra Zhu [facility] - [place] & [place] 06/01/2024 13:45:39 Social History None recorded. Functional Status Question Answer Note LastModified by Organization D etails LastModified Time What is your level of alcohol consumption? None Information not available 12/31/2022 Mental Status None recorded. Family History Relationship Description Onset Age of this Age Resolved Age Notes LastModified by Organization Details LastModified Time Mother Disorder of lung dec [email or web address] Not available 2022 09:53:17 Sister Disorder of lung dec [email or web address] Not available 2022 09:53:17 Father Malignant neoplastic disease dec [email or web address] Not available 2022 09:53:29 Brother Malignant neoplastic disease dec [email or web address] Not available 2022 09:53:29 Medical History No medical history recorded. Gynecological HistoryNo gynecological history recorded. Obstetrics History GPAL:G 0 P 0 0 0 0 Past Encounters Encounter ID Performer Location Encounter Start Date Encounter Closed Date Diagnosis/Indication Diagnosis SNOMED-CT Code Diagnosis ICD10 Code Diagnosis Note [id number] Yaw Cates Jr, MD [facility] [address] [address] 12/31/2022 09:14:14 12/31/2022 10:53:02 Dysuria 65978119 R30.0 Patient with episodic dysuria. Urine cultures have been negative and her primary care physician' s office and she was reassured that her urine today is within normal limits. We discussed the urethritis as a possible cause for her symptoms. Start her on some estrogen cream 2 times a week. Urge incon tinence of urine 52403682 N39.41 Patient with urge incontinen ce that requires 3 medium pads per day. We are going to start her on oxybutynin 10 mg and she is to decrease her caffeine intake. Urethritis 28742357 N34. 2 Patient with dysuria which may be symptom of urethritis as her urinalysis is within normal limits. Estrogen cream to be given 2 times a week and will see her back follow-up. Her symptoms do not improve will consider vaginal suppositor ies. [id number] Yaw Cates Jr, MD [facility] [address] [address] 01/14/2023 08:52:20 01/14/2023 09:31:54 Dysuria 84478353 R30.0 patient with continued dysuria. It was better for about a week but recurred a few days ago. Urethral dilation was performed today. The urethra is a bit snug and she tolerated urethral dilation without problem. Neosporin instilled afterwards . She will return in 2 weeks. Urethritis 82784448 N34. 2 Patient with dysuria which may be symptom of urethritis as her urinalysis is within normal limits. patient has been compliant with the estrogen cream twice a week. She continues to have some dysuria. We are going to add intra Charissa vaginal suppositor ies and samples were given today. Return to office 2 weeks Urge incon tinence of urine 98168286 N39.41 Patient with urge incontinen ce that requires 3 medium pads per day. she started oxybutynin 10 mg 2 weeks ago. She is not seen any results yet and we discussed continuing on the medication as it could take longer. [id number] Yaw Cates Jr, MD [facility] [address] [address] 02/18/2023 09:43:56 02/18/2023 10:21:25 Recurrent urinary tract infection 166626348 N39.0 Patient with evidence of urinary tract infection today. We will culture her urine and a prescripti on for Bactrim was sent in. Urethritis 77438257 N34. 2 Patient with dysuria which may be symptom of urethritis as her urinalysis is within normal limits. patient has been compliant with the estrogen cream twice a week. as well as the intra Charissa suppositor ies. Dilation at our last visit was performed with some mild stenosis. Urge incon tinence of urine 77988168 N39.41 Patient with urge incontinen ce . She is been on oxybutynin now for several weeks. She states improvemen t in the urgency and leakage. She is wearing less pads done before. [id number] Yaw Cates Jr, MD [facility] [address] [address] 04/20/2024 09:34:20 04/20/2024 11:05:53 Recurrent urinary tract infection 372698619 N39.0 Patient with history of urinary tract [...] He will follow up 1 month. Nocturia 782179019 R35.1 patient states she gets up at night hourly. Her risk factors include drinking right up to bedtime as well as lower extremity edema. We discussed cutting off her fluids 2 hours prior to bedtime and getting her feet up on the abdomen prior to bed time. Follow-up 1 month Urge incon tinence of urine 87533846 N39.41 Patient with urge incontinen ce . patient doing well with the oxybutynin 10 mg and we will refill. Urethritis 34510428 N34. 2 patient with history of dysuria to be from urethritis . She continues on estrogen creams and vaginal suppositor ies. [id number] Yaw Cates Jr, MD [facility] [address] [address] 06/01/2024 13:43:10 06/01/2024 14:18:59 Recurrent urinary tract infection 161466774 N39.0 Patient with history of urinary tract [...] and denies any UTI's. Dysuria resolved. Nocturia 958976904 R35.1 patient states she gets up at [...] at night. Urge incon tinence of urine 98301898 N39.41 Patient with urge incontinen ce . patient doing well with the oxybutynin 10 mg and we will refill. Urethritis 42391533 N34. 2 patient with history of dysuria to be from urethritis . She continues on estrogen creams and vaginal suppositor ies. 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 Yaw Cates Jr, MD [address] [place] [address], [address], [address], [facility] 01/08/2023 16:26:04 01/14/2023 text/html Patient is a [...] been using that. Yaw Cates Jr, MD [address] [place] [address] Drive, [address], [place], [address], [facility] & [place] 01/14/2023 13:07:58 02/18/2023 text/html patient is a [...] amount of blood. Yaw Cates Jr, MD [address] [place] [address] Drive, [address], [place], [address], [facility] & [place] 02/18/2023 13:04:04 04/20/2024 text/html 73-year-old whit e [...] Notes were reviewed from February 14 from [facility]. She was in the emergency room at [...] of 68 cc. Yaw Cates Jr, MD [address] [place] [address] Drive, [address], [place], [address], [facility] & [place] 04/20/2024 12:52:34 06/01/2024 text/html 74 yo female [...] no recurrent UTI's. Yaw Cates Jr, MD [address] [place] [address], [facility], [place], [address], [facility] & [place] 06/01/2024 19:30:40 OBGyn Episode No OBEpisode recorded.
--- NOTE | 2025-02-22 10:00 | CA_ITS ---
FINAL REPORT CLINICAL HISTORY: HTN FINDINGS: Aorta velocity: 80 cm/sec Right kidney: 10.4 cm. No hydronephrosis or mass. Right intrarenal RI: 0.63 Right renal artery velocity: 146 cm/sec. Right RAR (Renal artery-Aortic Ratio): 1.8 Left Kidney: 10.1 cm. No evidence of hydronephrosis or mass. Left intrarenal RI: 0.67 Left renal artery velocity: 202 cm/sec. Left RAR (Renal Artery-Aortic Ratio): 2.5 IMPRESSION: Less than 50% right renal artery stenosis. Less than 60% left left renal artery stenosis. CT angiogram or postcontrast MR angiogram would be more sensitive for evaluation of possible renal artery stenosis. Reviewed, Interpreted and Dictated by Hayder Reynoso MD Transcribed by Aissatou Peoples Authenticated and [facility]
--- NOTE | 2025-02-22 11:00 | US_ITS ---
FINAL REPORT CLINICAL HISTORY: I10 - Essential (primary) hypertension FINDINGS: RENAL ULTRASOUND Ultrasound images of the kidneys were obtained. The right kidney measures 10.3 cm in length. It is normal echogenicity. There is no hydronephrosis. The left kidney measures 11.4 cm in length. It is normal echogenicity. There is no hydronephrosis. IMPRESSION: Normal renal ultrasound. Reviewed, Interpreted and Dictated by Hayder Reynoso MD Transcribed by Maggy Calzada Authenticated and [facility]
== END 2025-02-22 23:59 | disposition home or self-care (01) ==
LOC: RT 09:36
PROVIDERS: PCP Family Medicine; Visit Provider Nurse Practitioner
DX: I70.1 Atherosclerosis of renal artery (principal); I10 Essential (primary) hypertension
CPT/HCPCS: 76770; 93976

== ENCOUNTER 2025-03-15 09:51 | Outpatient (CLI) | payer MEDICARE, SELFPAY ==
--- OUTSIDE RECORDS SUMMARY | 2024-12-10 17:30 | XMS_ITS ---
Author Organization [facility] Address [address] [facility] [address] [place] [address] Care Team Providers Care Training And Quality Manager Name Role Phone Melinda Garsia Primary Care Provider Migration, Provider Unavailable Unavailable Allergies Allergen (clinical drug ingredient) Drug/Non Drug Allergy documented on EMR Reaction Allergy Type Onset Date Status Augmentin tongue swell Drug Allergy Acti ve REASON FOR VISIT [facility] To [facility] Conversion Encounter Medications Medication SIG (Take, [...] review and pick correct strength-formula tion from [employer] options. If intended option is not shown, discontinue and re-order from Quick Search* Active Calcium 600 + D 600 MG-800 INTL UNITS 1 TAB(S) ORALLY ONCE A DAY *Please review and pick correct strength-formula tion from [employer] options. If intended option is not shown, [...] Active Encounters Encounter Location Date Provider Diagnosis [facility] [address] [facility] [address] [place] [address] 12/10/2024 Provider Migration Plan Of Treatment Medication [...] 90 Progress Notes * Elyssa PADILLA MDOB:1950 (74 yo F)Acc No.[id number]:12/10/2024 Patient: Elyssa CHEN Provider: Alyssa giraldo Migration :1950 A ge:74 Y S ex:Female Date:12/10/2024 Address:[address] [place] [id number] Pcp:Melinda Garsia Subjective: * Chief Complaints: * [address] [facility] [address] [facility] * Medical History: * Medications: T aking Otezla 30 MG Tablet 1 tab(s) orally 2 times a day , Taking Ketoconazole 2 % Shampoo 1 cathie applied topically once , Taking Calcium 600 + D 600 MG-800 INTL UNITS TABLET 1 TAB(S) ORALLY ONCE A DAY , Notes to Pharmacist: *Please review and pick correct strength-formulation from [employer] options. If intended option is not shown, [...] *Please review and pick correct strength-formulation from [employer] options. If intended option is not shown, [...] Electronic signature of Prov ider Migration on 03/15/2025 at 10:03 AM EDT Sign off status: Pending * Provider: Alyssa giraldo Migration Date: 12/10/2024 Generated for Evangelina ramos/Lacey/Glory on: 03/15/2025 10:03 AM EDT
--- NOTE | 2025-03-15 | CA_ITS ---
APPROVED REPORT Exam: Pharmacologic Technologist: Radha Morton Ht: 5 ft 0 in Wt: 187 lbs BSA: 1.81 m2 Medical History Medications: atorvastatin, biotin, bisoprolol fumarate, calcium, vitamin D3, chlorthalidone, clobetasol 0.05%, clopigodrel, diclofenic sodium, advair, flonase, hydralazine, hydroxyzine HCI, toujeo, medroxyprogesterone, valsartan, multivitamin, montekulast, oxybutnin chloride ER, [place]ro[place], omeprazole, spiriva. Stress Test Details Test: Lexiscbette Reason for pharmacologic stress test: physical limitation. HR Resting HR: 74 bpm Max Heart Rate (APMHR): 146.542727 bpm Max HR Achieved: 104 bpm Target HR (85% APMHR): 124.518495 bpm % of APMHR: 71.23 Recovery HR: 97 bpm BP Resting BP: 190.0/74.0 mmHg Max BP: 175.0/64.0 mmHg Recovery BP: 144.0/68.0 mmHg ECG Resting ECG: SR. No isch or ectopy. Stress ECG Conclusion Symptoms: None. Arrhythmias/Ecttopy: Freq PVCs. ST-T Changes: Marybeth Electronically signed by : Ryanne Humphreys MD 03/17/2025 17:57:52
--- NOTE | 2025-03-15 10:00 | CA_ITS ---
APPROVED REPORT EXAM: Comprehensive 2D, Doppler, and color-flow Echocardiogram Tool Builder: Penelope Flores RT(R) Ht: 5 ft 0 in Wt: 186lbs BSA: 1.81 BP: 150/75 mmHg Indications: shortness of breath 2D Dimensions LA Volume 23.20 mL LA Volume Index 12.82 mL/m2 (M/F) 16-34 EF AP2 58.7 % GL Strain -16.4 % M-Mode Dimensions RVDd 2.54 cm (0.9-2.6) LA Diam 3.62 cm (1.9-4.0) LVDd 4.50 cm (3.5-5.7) LVDs 3.65 cm (3.5-5.7) IVSd 0.59 cm (0.6-1.1) PWd 0.72 cm (0.6-1.1) EF (Teich) 39.10% FS 18.90% EDV (Teich) 92.40 mL ESV (Teich) 56.30 mL LV Diastology E Decel Time 150 (160-240 msec) E/A Ratio 0.5 Mitral Valve MV E Max Ric. 63.0 (40-130 cm/s) MV A Velocity 120.0 (40-130 cm/s) E/A Ratio 0.52 MV PHT 44.0 ms Left Ventricle The left ventricle is normal size. The left ventricular systolic function is normal. The left ventricular ejection fraction is within the normal range. There is increased LV wall thickness. There is normal LV segmental wall motion. The left ventricular diastolic function is normal. LVEF is 55%. Right Ventricle The right ventricle is normal size. The right ventricular systolic function is normal. Atria The left atrium size is normal. The right atrium size is normal. There is no Doppler evidence of interatrial shunt. Aortic Valve The aortic valve is mildly thickened. There is no aortic valvular stenosis. Mild aortic regurgitation. Mitral Valve The mitral valve is normal in structure. No evidence of mitral valve stenosis. Trace mitral regurgitation. Tricuspid Valve Tricuspid valve is grossly normal in structure and function. Trace tricuspid regurgitation. There is insufficient TR jet to estimate RVSP. Pulmonic Valve The pulmonary valve is normal in structure. Trace pulmonic regurgitation. Great Vessels The aortic root is normal in size. IVC is normal in size and collapses >50% with inspiration. Pericardium There is no pericardial effusion. Other Information Study Quality: Technically Difficult Conclusion Technically difficult study due to poor acoustic windows. Normal biventricular systolic function. Mild AI. Electronically signed by : Ryanne Humphreys MD 03/20/2025 23:49:51
--- OUTSIDE RECORDS SUMMARY | 2025-03-15 10:03 | XMS_ITS | Patient Health Record ---
Author Organization [facility] Address [address] [place] [address] Care Team Providers Care Policy Issue Clerk Name Role Phone Melinda Garsia Primary Care Provider [phone] Migration, Provider Unavailable Unavailable Allergies Allergen (clinical [...] review and pick correct strength-formula tion from [employer] options. If intended option is not shown, discontinue and re-order from Quick Search* Active Calcium 600 + D 600 MG-800 INTL UNITS 1 TAB(S) ORALLY ONCE A DAY *Please review and pick correct strength-formula tion from [employer] options. If intended option is not shown, discontinue and re-order from Quick Search* Active PEN NEEDLES, 31GX1/4 DIRECTED; Duration: 30 DAYS *Please review for potential replacement for e-prescription and drug interaction check* 06/03/2017 Active Aspirin 81 MG 1 tab(s) orally once a day; Duration: 30 day(s) Active Triamcinolone Acetonide 0.1 % 1 cathie applied topically BID to the left external ear; Duration: 30 days 01/05/2019 Active DIABETIC SHOES DIRECTED DX: E11.65 QD *Please review for potential replacement for e-prescription and drug interaction check* 07/28/2016 Active Omeprazole 20 MG 1 cap(s) orally once daily at bedtime; Duration: 90 days Active Biotin 5 MG 1 tab(s) orally once a day prn Active hydroCHLOROthiazide 25 MG 1 tab(s) orally once a day; Duration: 90 Active Clobetasol Propionate 0.05 % 1 cathie applied topically 2 times a day; Duration: 30 Active GLUCOMETER NA USE AC AND [...] once a day; Duration: 90 days Active HumuLIN R 100 UNIT/ML INJECT 35 UNITS SUBCUTANEOUSLY WITH BREAKFAST AND SUPPER AND 20 UNITS WITH LUNCH; Duration: 89 Active Diclofenac Sodium 75 MG 1 tab(s) orally 2 times a day as needed for arthritis pain; Duration: 30 day(s) 11/08/2021 Active Otezla 30 MG 1 tab(s) orally 2 times a day Active Lisinopril 20 MG 1 tab(s) orally twice daily; Duration: 90 days Active Ketoconazole 2 % 1 cathie applied topically once; Duration: 1 day(s) Active PROAIR HFA 90 MCG/INH 2 PUFF(S) INHALED 4 TIMES A DAY NEEDED; Duration: 30 DAYS prn *Please review for potential replacement for e-prescription and drug interaction check* Active Atorvastatin Calcium 80 MG 1 tab(s) orally once a day (at bedtime); Duration: 90 Active Immunizations Vaccine Route Administration Date [...] (Pneumococcal conjugate 13) IM Intramuscular 05/21/2017 Administered Problems Problem Type SNOMED Code ICD Code Onset Dates Problem Status W/U Status Risk Notes Problem Hyperglycemia due to type 2 diabetes mellitus (367949054726543) Type 2 diabetes mellitus with hyperglycemia (E11.65) Active confirmed Problem Allergic rhinitis (19127237) Other allergic rhinitis (J30.89) Active confirmed Problem Chronic obstructive pulmonary disease (39296962) Chronic obstructive pulmonary disease, unspecified (J44.9) Active confirmed Problem Venous insufficiency of leg (disorder) (177023092) Venous insufficiency (I87.2) Active confirmed Problem Essential hypertension (52672575) Essential hypertension (I10) Active confirmed Problem Psoriasis (9791507) Psoriasis (L40.9) Active co nfirmed Problem Seasonal allergic rhinitis (361187258) Seasonal allergic reaction (J30.2) Active confirmed Problem Urinary incontinence (210030847) Urinary incontinence (R32) Active confirmed Problem Body mass index 30+ - obesity (335291508) BMI 30.0-30.9,adult (Z68.30) Active confirmed Problem Psoriasis of scalp (717589164) Psoriasis of scalp (L40.9) Active confirmed Problem Long-term current use of insulin (414114628) assisted current use of insulin (Z79.4) Active confirmed Problem Peripheral edema (28986969) Peripheral edema (R60.9) Active confirmed Problem Arthropathy (379156805) Arthropathy, 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) Active confirmed Problem Menopausal and perimenopausal disorder (N95.9) Active confirmed Problem Overactive urinary bladder (disorder) (682458900) OAB (overactive bladder) (N32.81) Active confirmed Problem BMI 25-29 - overweight (611453632) BMI 29.0-29.9,adult (Z68.29) Active confirmed Problem Allergic rhinitis caused by pollen (17504864) Seasonal allergic rhinitis due to pollen (J30.1) Active confirmed Problem Gastroesophageal reflux disease (disorder) (919349775) Chronic GERD (K21.9) Active confirmed Problem Mixed hyperlipidemia (787148573) Mixed dyslipidemia (E78.2) Active confirmed Problem Osteopenia following menopause (disorder) (434577224) Osteopenia after menopause (M85.80) Active confirmed Encounters Encounter Location Date Provider Diagnosis [facility] [address] [place] [address] 12/10/2024 Provider Migration Plan Of Treatment Pending Test Test Name Order Date N-Stool WBC 01/24/2013 Urinalysis 05/14/2016 Urinalysis 07/28/2016 X ray : Shoulder, Right 06/30/2011 Mammogram : Diagnostic 11/04/2018 Mammogram : Left breast 09/02/2016 Mammogram : Left breast 11/11/2018 Mammogram : Right Breast 06/22/2017 Mammogram : Right Breast 09/02/2016 N-Stool Culture 01/24/2013 Microalbumin (In-House) 07/28/2016 N-CMP 04/01/2010 N-CMP 08/23/2012 N-Lipid Panel 08/23/2012 N-Lipid Panel 04/01/2010 X ray : Humerus, Right 06/30/2011 N-HbA1C 08/23/2012 Physical Therapy 12/20/2014 Mammogram : Bilateral 06/22/2013 Mammogram : Bilateral 05/23/2009 Mammogram : Bilateral 01/27/2020 H-CBC with AUTO DIFF 05/21/2017 H-CMP 08/17/2017 H-CMP 05/21/2017 H-CMP 12/05/2015 H-CMP 12/20/2015 H-MAGNESIUM 05/21/2017 H-LIPID PANEL 12/20/2015 H-LIPID PANEL 05/21/2017 H-LIPID PANEL 08/17/2017 H-LIPID PANEL 12/05/2015 H-CPK 05/21/2017 H-HGBA1C 12/20/2015 H-HGBA1C 12/05/2015 H-HGBA1C 08/17/2017 H-HGBA1C 05/21/2017 H-TSH 05/21/2017 H-MICROALBUMIN URINE 12/05/2015 H-MICROALBUMIN URINE 11/20/2016 spirometry 11/20/2016 H-MICROALB/BODYBUILDER UR 05/21/2017 H-MICROALB/BODYBUILDER UR 08/17/2017 M-Complete Blood Count Auto Diff 018 M-Comprehensive Metabolic Panel 03/22/20 18 M-Comprehensive Metabolic Panel 06/20/20 20 M-Hemoglobin A1C 06/20/2020 M-Hemoglobin A1C 03/22/2018 M-Lipid Panel 03/22/2018 M-Lipid Panel 06/20/2020 M-Thyroid Stimulating Hormone 03/22/2018 M-Microalb/Creat Ratio, Randm Ur 020 M-Microalb/Creat Ratio, Rand Ur 021 Future Test Test Name Order Date H-LIPID PANEL 04/22/2011 H-CMP 06/27/2011 H-LIPID PANEL 06/27/2011 H-HGBA1C 06/27/2011 Insurance Providers Payer Name Payer Address Payer Phone Subscriber Number Group Number Insured Name Patient Relationship to Insured Coverage Start Date Coverage End Date [place] [address] [place] [phone] [id number] Elyssa Toro Self - patient is the insured [employer] [address] [address] [place] [address] [phone] [id number] Elyssa Toro Self - patient is the [...]
--- OUTSIDE RECORDS SUMMARY | 2025-03-15 10:04 | XMS_ITS | Data Portability ---
Author Organization [facility] and [facility] Address [address] [place] [address] Assessment No assessment recorded. Plan of Treatment Reminders Order Date Submit Date Provider Last Modified By Organization Details Last Modified Time Details Appointments OV EST 15 2024 01:00P M Yaw Cates Jr, MD Not available Not available Not available Lab urinalysi s, dipstick [address], [address], 04/20/2024 15:13:07 urinalysi s, dipstick [address], [address], 02/19/2023 08:18:37 culture, urine + sensitivi ty 2022 [email or web address], [address], 02/25/2023 08:36:57 urinalysi s, dipstick 2022 023 [facility], [address], 12/31/2022 14:43:33 Referral None recorded. Procedures bladder scan (PROC) [address] [facility] [place], [address] [place], [address], 04/20/2024 15:13:07 Surgeries None recorded. Imaging None recorded. Medication Orders nitrofura ntoin macrocrys tru 50 mg capsule 2023 024 [place] [address], [address] [place] [address], [address], 04/20/2024 12:37:56 oxybutyni n chloride ER 10 mg tablet,ex tended release 24 hr 2023 024 [place] [address], [address] [place] [address], [address], 04/20/2024 12:49:36 Bactrim DS 800 mg-160 mg tablet 2022 023 [place] [address], [address] [place] [address], [address], 02/18/2023 12:53:25 Intrarosa 6.5 mg vaginal insert 2022 023 [place] [address], [address] [place] [address], [address], 01/14/2023 13:06:49 conjugate d estrogens 0.625 mg/gram vaginal cream 2022 023 [place] [address], [address] [place] [address], [address], 12/31/2022 13:20:40 oxybutyni n chloride ER 10 mg tablet,ex tended release 24 hr 2022 023 [place] [address], [address] [place] [address], [address], 12/31/2022 13:19:38 Patient TargetsNo targets recorded. Patient InstructionsNo instructions recorded. Reason for Referral None Reported. Results Created Date Observation Date Name Description Value Unit Range Abnormal Flag Note LastModifiedBy Organization Detail LastModifiedTime 01/01/20 23 12/31/2022 urina lysis , dipst ick Leukocytes (reference range) trace Not Available [address], [address], 12/31/2022 10:55:18 01/01/20 23 12/31/2022 urina lysis , dipst ick Nitrite (reference range:) negati ve Not Available [address], [address], 12/31/2022 10:55:18 01/01/20 23 12/31/2022 urina lysis , dipst ick Urobilinogen (reference range) 0.2 Not Available [address], [address], 12/31/2022 10:55:18 01/01/20 23 12/31/2022 urina lysis , dipst ick Protein (reference range) negati ve Not Available [address], [address], 12/31/2022 10:55:18 01/01/20 23 12/31/2022 urina lysis , dipst ick pH (reference range 5-8.5) 6.0 Not Available [address], [address], 12/31/2022 10:55:18 01/01/20 23 12/31/2022 urina lysis , dipst ick Blood (reference range:) negati ve Not Available [address], [address], 12/31/2022 10:55:18 01/01/20 23 12/31/2022 urina lysis , dipst ick Specific [place] (reference range) 1.010 Not Available [address], [address], 12/31/2022 10:55:18 01/01/20 23 12/31/2022 urina lysis , dipst ick Ketone (reference range) negati ve Not Available [address], [address], 12/31/2022 10:55:18 01/01/20 23 12/31/2022 urina lysis , dipst ick Bilirubin (reference range) negati ve Not Available [address], [address], 12/31/2022 10:55:18 01/01/20 23 12/31/2022 urina lysis , dipst ick Glucose (reference range) 100 Not Available [address], [address], 12/31/2022 10:55:18 02/19/20 23 02/18/2023 CULTU RE URINE results MRB 02-19 721 40,00 0 COL/M L Gram Negat madisyn Rods Not Available [facility] (Lab Registration) [address] , [place], [address], 02/19/2023 07:23:10 02/19/20 23 02/18/2023 CULTU RE URINE note Unles s other corona noted testi ng perfo rmed at: [facility] [address] [place] [address] [phone] Osiel ortega MD CLIA: [id number] Not Available [facility] (Lab Registration) [address], [place], [address], 02/19/2023 07:23:10 02/19/20 23 02/18/2023 CULTU RE URINE culccur ===== ===== ===== ===== ===== ===== ===== ===== ===== ===== ===== ===== ===== ===== ===== ===== ===== ===== ===== ===== ===== ===== ===== ===== Speci men NO.: [id number] Exam Statu s: Final Proce dure: [...] L Gram Negat madisyn Rods Not Available [facility] (Lab Registration) [address] [place], [address], 02/21/2023 10:26:06 02/19/20 23 02/18/2023 CULTU RE URINE note Unles s other corona noted testi ng perfo rmed at: [facility] [address] [place] [address] [phone] Osiel ortega MD CLIA: [id number] Not Available [facility] (Lab Registration) [address] , [place], [address], 02/21/2023 10:26:06 02/19/20 23 02/18/2023 urina lysis , dipst ick Leukocytes (reference range) modera te Not Available [address], [address], 02/18/2023 10:24:59 02/19/20 23 02/18/2023 urina lysis , dipst ick Nitrite (reference range:) negati ve Not Available [address], [address], 02/18/2023 10:24:59 02/19/20 23 02/18/2023 urina lysis , dipst ick Urobilinogen (reference range) 0.2 Not Available [address], [address], 02/18/2023 10:24:59 02/19/20 23 02/18/2023 urina lysis , dipst ick Protein (reference range) negati ve Not Available [address], [address], 02/18/2023 10:24:59 02/19/20 23 02/18/2023 urina lysis , dipst ick pH (reference range 5-8.5) 7.0 Not Available [address], [address], 02/18/2023 10:24:59 02/19/20 23 02/18/2023 urina lysis , dipst ick Blood (reference range:) small Not Available [address], [address], 02/18/2023 10:24:59 02/19/20 23 02/18/2023 urina lysis , dipst ick Specific [place] (reference range) 1.015 Not Available [address], [address], 02/18/2023 10:24:59 02/19/20 23 02/18/2023 urina lysis , dipst ick Ketone (reference range) negati ve Not Available [address], [address], 02/18/2023 10:24:59 02/19/20 23 02/18/2023 urina lysis , dipst ick Bilirubin (reference range) negati ve Not Available [address], [address], 02/18/2023 10:24:59 02/19/20 23 02/18/2023 urina lysis , dipst ick Glucose (reference range) negati ve Not Available [address], [address], 02/18/2023 10:24:59 04/20/20 24 04/20/2024 urina lysis , dipst ick Leukocytes (reference range) modera te Not Available [address], [address], 04/20/2024 10:23:15 04/20/20 24 04/20/2024 urina lysis , dipst ick Nitrite (reference range:) negati ve Not Available [address], [place], [address], 04/20/2024 10:23:15 04/20/20 24 04/20/2024 urina lysis , dipst ick Urobilinogen (reference range) 0.2 Not Available [address], [address], 04/20/2024 10:23:15 04/20/20 24 04/20/2024 urina lysis , dipst ick Protein (reference range) 30 Not Available [address], [address], 04/20/2024 10:23:15 04/20/20 24 04/20/2024 urina lysis , dipst ick pH (reference range 5-8.5) 6.0 Not Available [address], [address], 04/20/2024 10:23:15 04/20/20 24 04/20/2024 urina lysis , dipst ick Blood (reference range:) non-He molyze d: Trace Not Available [facility] [address], [address], 04/20/2024 10:23:15 04/20/20 24 04/20/2024 urina lysis , dipst ick Specific [place] (reference range) 1.015 Not Available [address], [address], 04/20/2024 10:23:15 04/20/20 24 04/20/2024 urina lysis , dipst ick Ketone (reference range) trace Not Available [address], [address], 04/20/2024 10:23:15 04/20/20 24 04/20/2024 urina lysis , dipst ick Bilirubin (reference range) negati ve Not Available [facility] [address], [address], 04/20/2024 10:23:15 04/20/20 24 04/20/2024 urina lysis , dipst ick Glucose (reference range) negati ve Not Available [address], [address], 04/20/2024 10:23:15 04/20/20 24 04/20/2024 bladd er scan (PROC ) Calculated Residual Urine: 68 ML Not Available [facility] [address], [address], 04/20/2024 10:23:29 Result Notes None recorded. Problems Name Problem SNOMED Code Status Onset Date Resolution Date Notes Provider Name and Address Organization Details Recorded Time Hypertensive disorder 23329582 Active 2022 JEF Arredondo - [facility] - [place] [facility] [place] 3 09:52:08 Diabetes mellitus 09027380 Active 2022 Mayra simon, JEF - [facility] - [place] [facility] [place] 3 09:52:12 Environmental allergy 824585262 Active 2022 Mayra simon, JEF - [facility] - [place] [facility] [place] 3 09:52:20 Notes:Some problems listed i n Document: #[id number] could not be added to this patient's chart. Please review this document and add these problems to the patient's chart manually as needed. Problem Notes None recorded. Procedures Surgical History Date Name Laterality Status Provider Name and Address Organization Details Recorded Time 01/15/20 Urethral Dilation (female) completed Yaw Cates Jr, MD [address] [place] [address], [address], [place], [address], JEF - [facility] - [place] [facility] [place] 01/14/2023 13:05:11 total replacement of hip completed Mayra Zhu [facility] - [place] [facility] [place] 12/31/2022 09:54:04 procedure on heart completed Mayra Zhu [facility] & [place] 12/31/2022 09:54:17 Knee arthroscopy/surg kathryn completed Mayra FUCHS [facility] & [place] 12/31/2022 09:54:24 Cataract Surgery completed Mayra FUCHS [facility] & [place] 12/31/2022 09:54:30 Tubal Ligation completed Mayra FUCHS [facility] & [place] 12/31/2022 09:54:37 Appendectomy completed Mayra FUCHS [facility] & [place] 12/31/2022 09:54:43 Imaging Results None recorded. Procedure Notes None recorded. Medical Equipment None Reported. Allergies Allergen ID Allergen Name Allergen Category Reaction Reaction Severity Criticality Documentation Date Start Date Code Code System Note Provider Name and Address Organization Details Recorded Time 70471 Augmentin medicatio n Not available Not available Not available 12/31/2022 24875 2 RxNorm Mayra simon JEF Zhu [facility] & [place] 09:48:39 Medications Name Sig Start Date Stop Date Status Note LastModified by Organization Details LastModified Time clever choice comfort ez insulin pe n needles [id number] 31g x 8 mm misc active Not [...] Not Available Not Available Comfort EZ Pen [place] 31 gauge x 5/16 USE DIRECTED active [...] active Not Available Not Available Not Available Toujeanette SoloStar U-300 Insulin 300 unit/mL (1.5 mL) [...] Not Available Not Available No t Available Toujeanette Max U-300 SoloStar 300 unit/mL (3 mL) [...] Updated DateTime 12/31/2022 154.94 cm 33.6 kg/m2 16888.44 g 97.7 [degF] Mayra FUCHS [facility] & [place] 12/31/2022 09:48:20 Date Recorded Body height Body mass index (BMI) Body weight Body temperature Provider Name and Address Organization Details Last Updated DateTime 01/14/2023 154.94 cm 33.6 kg/m2 25588.44 g 97.9 [degF] Mayra FUCHS [facility] & [place] 01/14/2023 08:52:59 Date Recorded Body height Body mass index (BMI) Body weight Body temperature Provider Name and Address Organization Details Last Updated DateTime 02/18/2023 154.94 cm 33.6 kg/m2 42161.44 g 97.6 [degF] Mayra Hobson [facility] & [place] 02/18/2023 09:45:12 Date Recorded Body height Body mass index (BMI) Body weight Body temperature Provider Name and Address Organization Details Last Updated DateTime 04/20/2024 152.4 cm 0.2 kg/m2 453.59 g 97.5 [degF] Mayra Hobson [facility] & [place] 04/20/2024 09:35:49 Date Recorded Body height Body temperature Provider N phoebe and Address Organization Details Last Updated DateTime 06/01/2024 154.94 cm 97.7 [degF] Mayra Hobson [place] - [facility] - [place] [facility] [place] 06/01/2024 13:45:39 Social History None recorded. Functional Status Question Answer Note LastModified by Organization D etails LastModified Time What is your level of alcohol consumption? None [email or web address] Information not available 12/31/2022 Mental Status None recorded. Family History Relationship Description Onset Age of this Age Resolved Age Notes LastModified by Organization Details LastModified Time Mother Disorder of lung dec [email or web address] Not available 2022 09:53:17 Sister Disorder of lung dec [email or web address] Not available 2022 09:53:17 Father Malignant neoplastic disease dec Not available 2022 09:53:29 Brother Malignant neoplastic disease dec [email or web address] Not available 2022 09:53:29 Medical History No medical history recorded. Gynecological HistoryNo gynecological history recorded. Obstetrics History GPAL:G 0 P 0 0 0 0 Past Encounters Encounter ID Performer Location Encounter Start Date Encounter Closed Date Diagnosis/Indication Diagnosis SNOMED-CT Code Diagnosis ICD10 Code Diagnosis Note [id number] Yaw Cates Jr, MD [facility] [address] [address] 12/31/2022 09:14:14 12/31/2022 10:53:02 Dysuria 55989852 R30.0 Patient with episodic dysuria. Urine cultures have been negative and her primary care physician' s office and she was reassured that her urine today is within normal limits. We discussed the urethritis as a possible cause for her symptoms. Start her on some estrogen cream 2 times a week. Urge incon tinence of urine 88030239 N39.41 Patient with urge incontinen ce that requires 3 medium pads per day. We are going to start her on oxybutynin 10 mg and she is to decrease her caffeine intake. Urethritis 94859942 N34. 2 Patient with dysuria which may be symptom of urethritis as her urinalysis is within normal limits. Estrogen cream to be given 2 times a week and will see her back follow-up. Her symptoms do not improve will consider vaginal suppositor ies. [id number] Yaw Cates Jr, MD [facility] [address] [address] 01/14/2023 08:52:20 01/14/2023 09:31:54 Dysuria 05008219 R30.0 patient with continued dysuria. It was better for about a week but recurred a few days ago. Urethral dilation was performed today. The urethra is a bit snug and she tolerated urethral dilation without problem. Neosporin instilled afterwards . She will return in 2 weeks. Urethritis 27438309 N34. 2 Patient with dysuria which may be symptom of urethritis as her urinalysis is within normal limits. patient has been compliant with the estrogen cream twice a week. She continues to have some dysuria. We are going to add intra Charissa vaginal suppositor ies and samples were given today. Return to office 2 weeks Urge incon tinence of urine 75654730 N39.41 Patient with urge incontinen ce that requires 3 medium pads per day. she started oxybutynin 10 mg 2 weeks ago. She is not seen any results yet and we discussed continuing on the medication as it could take longer. [id number] Yaw Cates Jr, MD [facility] [address] [address] 02/18/2023 09:43:56 02/18/2023 10:21:25 Recurrent urinary tract infection 751856804 N39.0 Patient with evidence of urinary tract infection today. We will culture her urine and a prescripti on for Bactrim was sent in. Urethritis 47554356 N34. 2 Patient with dysuria which may be symptom of urethritis as her urinalysis is within normal limits. patient has been compliant with the estrogen cream twice a week. as well as the intra Charissa suppositor ies. Dilation at our last visit was performed with some mild stenosis. Urge incon tinence of urine 46779394 N39.41 Patient with urge incontinen ce . She is been on oxybutynin now for several weeks. She states improvemen t in the urgency and leakage. She is wearing less pads done before. [id number] Yaw Cates Jr, MD [facility] [address] [address] 04/20/2024 09:34:20 04/20/2024 11:05:53 Recurrent urinary tract infection 536943687 N39.0 Patient with history of urinary tract [...] He will follow up 1 month. Nocturia 403516957 R35.1 patient states she gets up at night hourly. Her risk factors include drinking right up to bedtime as well as lower extremity edema. We discussed cutting off her fluids 2 hours prior to bedtime and getting her feet up on the abdomen prior to bed time. Follow-up 1 month Urge incon tinence of urine 62323750 N39.41 Patient with urge incontinen ce . patient doing well with the oxybutynin 10 mg and we will refill. Urethritis 05489894 N34. 2 patient with history of dysuria to be from urethritis . She continues on estrogen creams and vaginal suppositor ies. [id number] Yaw Cates Jr, MD [facility] [address] [address] 06/01/2024 13:43:10 06/01/2024 14:18:59 Recurrent urinary tract infection 337998138 N39.0 Patient with history of urinary tract [...] and denies any UTI's. Dysuria resolved. Nocturia 483428963 R35.1 patient states she gets up at [...] at night. Urge incon tinence of urine 90556618 N39.41 Patient with urge incontinen ce . patient doing well with the oxybutynin 10 mg and we will refill. Urethritis 71473731 N34. 2 patient with history of dysuria [...] Carter Member ID Guarantor Name 05/29/2024 1 MEDICARE-[employer] (MEDICARE) Elyssa Toro [id number] Elyssa Ring 03/03/2023 2 [employer] (MEDICARE SUPPLEMENT) Elyssa Toro [id number] Elyssa Ring 03/10/2023 2 UNSPECIFIED REMIT PAYOR [...] pads per day. Yaw Cates Jr, MD [address] [place] [address] Drive, [address], [address], [facility] - NT - [facility] 01/08/2023 16:26:04 01/14/2023 text/html Patient is a [...] been using that. Yaw Cates Jr, MD [address] [place] [address] Drive, [address], [place], [address], [facility] - [facility] & [place] 01/14/2023 13:07:58 02/18/2023 text/html patient is a [...] amount of blood. Yaw Cates Jr, MD [address] [place] [address], [address], [place], [address], [facility] & [place] 02/18/2023 13:04:04 04/20/2024 text/html 73-year-old whit e [...] Notes were reviewed from February 14 from [facility]. She was in the emergency room [...] of 68 cc. Yaw Cates Jr, MD [address] [place] [address], [address], [place], [address], [facility] & [place] 04/20/2024 12:52:34 06/01/2024 text/html 74 yo female [...] no recurrent UTI's. Yaw Cates Jr, MD [address] [place] [address], [address], [place], [address], [place] - [facility] - [place] [facility] [place] 06/01/2024 19:30:40 OBGyn Episode No OBEpisode recorded.
--- NOTE | 2025-03-15 11:30 | NM_ITS ---
APPROVED REPORT Exam: Nuclear Stress Test Indication: soa Patient Location: Outpatient Stress Tech: Radha Haley ID Tech:Trish Ulloa, IKERT, RT (R)(N) Ht: 5 ft 0 in Wt: 186 lbs Bra Size: 38dd HR: 74 bpm BP: 190/74 mmHg BSA: 1.81 m2 TID: 1.24 History: soa Procedure: Patient received 0.4 mg of intravenous Lexiscan, resting heart rate 74 bpm, resting blood pressure 190/74 mmHg, with Lexiscan maximum heart rate achieved was 104 bpm which is 85 % of the maximum predicted heart rate and blood pressure was 175/64 mmHg. With Lexiscan, patient denied any complaint of chest pain. The patient was not able to lay on her abdomen for prone images Cardiac Stress and Resting SPECT Images: Cardiac Stress and Resting SPECT images were obtained using technetium 99m Myoview 30.7 mCi stress and 10.46 mCi at rest. The patient could not lie on her abdomen. Therefore, prone stress imaging could not be performed. This may affect the diagnostic interpretation of the study findings. Resting and stress imaging in supine positions demonstrate no evidence of fixed or reversible perfusion defects. There is increase in transient ischemic dilatation ratio (TID 1.24), which may be suggestive of multivessel disease or balanced ischemia. Gated imaging demonstrates normal global and regional LV systolic function. LVEF is calculated at 60%. Conclusion: No evidence of focal fixed or reversible perfusion defects. There is increase in transient ischemic dilatation ratio (TID 1.24), which may be suggestive of multivessel disease or balanced ischemia. Gated imaging demonstrates normal global and regional LV systolic function. LVEF is calculated at 60%. Electronically signed by : Ryanne Humphreys MD 03/17/2025 17:48:29
[2025-03-15] MEDS: ISOTOPE MYOVIEW (PER STUDY) 1 DOSE IV (13:15)
[2025-03-15] MEDS: SODIUM CHLORIDE 0.9% 10ML SYR (RAD ONLY) 10 ML IV ×2 (13:15)
== END 2025-03-15 23:59 | disposition home or self-care (01) ==
LOC: RT 09:51
PROVIDERS: PCP Family Medicine; Visit Provider Nurse Practitioner
DX: I35.1 Nonrheumatic aortic (valve) insufficiency (principal); I49.3 Ventricular premature depolarization; I25.10 Atherosclerotic heart disease of native coronary artery without angina pectoris; R94.39 Abnormal result of other cardiovascular function study
CPT/HCPCS: 78452; 93016; 93017; 93018; 93306; A9502; J2785

== ENCOUNTER 2025-03-30 07:47 | Day surgery (SDC) | payer MEDICARE, SELFPAY ==
[2025-03-30] VITALS (12 sets, daily range): BP systolic 142–183; BP diastolic 69–96; PULSE 70–87; RESP 16–20; O2SAT 91–99; BMI 36.1
--- NOTE | 2025-03-30 07:08 | IR_ITS ---
APPROVED REPORT Patient Location: Outpatient PROCEDURES Left heart catheterization Left ventriculogram Selective coronary angiogram Drug-eluting stent deployment to the mid and distal LAD INDICATION Coronary artery disease, Abnormal Myoview, Angina pectoris Informed consent was obtained prior to the procedure. COMPLICATIONS NONE Estimated Blood Loss: LESS THAN 10 ML TECHNIQUE One percent lidocaine used to anesthetize the right anterior aspect of the wrist. The right radial artery was accessed via the Seldinger technique. A 6 Divehi sheath was placed in the right radial artery. 2.5 mg of Verapamil, 800 mcg of nitroglycerin, 1mg Lidocaine and 5000 U Heparin were given through the arterial sheath. The JL3 catheter was also used to perform left heart catheterization, left ventriculogram and selective coronary angiogram. At the end the diagnostic angiogram therapeutic Was administered given a therapeutic ACT and the guide catheter was placed in left main artery followed by Choice PT of support wire placed distally in the LAD. A 2.5 x 30 mm [place] frontier stent was deployed at 16 pasha reducing the stenosis to 0%. An additional 2.25 x 12 mm Pete frontier stent was placed distal to the first diagonal still overlapping and deployed at 20 pasha. There was a geographical miss on the stent due to significant movement. This was repeated with an additional 2.25 x 12 mm Pete frontier stent placed distally this time geographical hit and then deployed at 20 pasha. The balloon was brought back deployed at 24 and then 26 pasha throughout the 2.25 and 2.5 mm stent. RODOLFO-3 flow was present before and after the procedure. At the end the procedure the apparatus was removed the sheath was removed hemostasis was achieved using TR banding patient was transferred to the postop boarding in stable condition ANGIOGRAPHIC RESULTS The left main artery Normal The left anterior descending artery Proximal 10 to 20% concentric in-stent restenosis with mid vessel 40% concentric stenosis followed by a mid vessel 50% plus eccentric 80% stenosis followed by an additional 70% stenosis of the with an additional 60% stenosis The circumflex artery Nondominant yet still large with a proximal eccentric 40 to 50% stenosis. The 3rd and 4th obtuse marginal arteries are moderate in size and highly tortuous The right coronary artery Is dominant has stents in the proximal to mid segment. There is 20% stenosis proximal to the stent with wide patency of the stent with excellent distal transitioning. The remaining right coronary artery is patent with 50% stenosis and a small mid posterior descending artery The JJ ventriculogram reveals Preserved at 55% The left ventricular end-diastolic pressure 20 mmHg IMPRESSION Severe mid LAD disease as described above Successful stenting of the mid to distal LAD severe disease reduced to 0% with 3 contiguous drug-eluting stents as described above Preserved ejection fraction Elevated LVEDP PLAN 1. Dual antiplatelet therapy 2. Cardiac rehabilitation 3. Avoidance of tobacco products 4. Risk factor modification 5. LDL less than 55 achieved with high intensity statin Electronically signed by : Jay Kaur MD 03/30/2025 17:37:59
[2025-03-30 08:22] LABS: Hematocrit 36.9 % (37.0-47.0); Hemoglobin 12.0 g/dL (12.2-16.2); Immature Granulocytes % 0.4 %; Mean Corpuscular HGB Conc 32.5 g/dL (31.8-35.4); Mean Corpuscular Hemoglobin 28.4 pg (27.0-31.2); Mean Corpuscular Volume 87.2 fl (81-99); Nucleated Red Blood Cells % 0 %; Platelet Count 205 K/mm3 (142-424); Red Blood Count 4.23 M/mm3 (4.20-5.40); Red Cell Distribution Width-SD 49.9 fL; White Blood Count 9.0 K/mm3 (4.8-10.8)
[2025-03-30 08:30] LABS: Anion Gap 12.0 mEq/L (5-15); Blood Urea Nitrogen 21 mg/dl (7-17); Calcium 9.9 mg/dl (8.4-10.2); Carbon Dioxide 29 mmol/L (22.0-30.0); Chloride 100 mmol/L (98-107); Creatinine Clearance Estimated 50 mL/min (50-200); Creatinine,Serum 1.30 mg/dl (0.52-1.04); Estimated Glomerular Filt Rate 40 ml/min (>60); GFR (African American) 48 ML/MIN (>60); Glucose 110 mg/dl (74-100); Potassium 4.0 mmoL/L (3.5-5.1); Sodium 137 mmol/L (136-145)
[2025-03-30] MEDS: LIDOCAINE 1% 10ML MDV 10 ML IJ (09:14)
[2025-03-30] MEDS: HEPARIN 1,000 UNITS/ML 10ML VIAL (CATH LAB) 5000 UNIT IV (09:14)
[2025-03-30] MEDS: HEPARIN 1,000 UNITS/500ML NS (CATH LAB) 3000 UNIT IV (09:14)
[2025-03-30] MEDS: 0.9 % SODIUM CHLORIDE 500 ML 25 ML IV (09:14)
[2025-03-30] MEDS: VERAPAMIL 2.5MG/ML 2ML VIAL 2.5 MG IV (09:15)
[2025-03-30] MEDS: NITROGLYCERIN 800MCG/8ML SYR (CATH LAB) 800 MCG IA (09:16)
[2025-03-30] MEDS: FENTANYL 100MCG/2ML VIAL 50 MCG IV (09:16)
[2025-03-30] MEDS: MIDAZOLAM HCL 1MG/ML 5ML VIAL 1 MG IV (09:16)
[2025-03-30 10:48] LABS: CATHL Activated Clotting Time 280 SEC (74-125)
[2025-03-30] MEDS: ASPIRIN 325MG TABLET 325 MG PO (11:03)
--- NOTE | 2025-03-30 11:03 | SUR.PHASEII ---
Family at bedside
== END 2025-03-30 13:42 | disposition home or self-care (01) ==
PROVIDERS: PCP Family Medicine; Visit Provider Internal Medicine
PROC: 4A023N7 Measurement of Cardiac Sampling and Pressure, Left Heart, Percutaneous Approach (ICD-10-PCS; CPT 93452; principal; 2025-03-30 07:30)
DX: I25.118 Atherosclerotic heart disease of native coronary artery with other forms of angina pectoris (principal); R94.39 Abnormal result of other cardiovascular function study; R06.09 Other forms of dyspnea; I10 Essential (primary) hypertension; R94.31 Abnormal electrocardiogram [ECG] [EKG]; I34.0 Nonrheumatic mitral (valve) insufficiency; I35.1 Nonrheumatic aortic (valve) insufficiency; E11.9 Type 2 diabetes mellitus without complications; E78.2 Mixed hyperlipidemia; I07.1 Rheumatic tricuspid insufficiency; J44.89 Other specified chronic obstructive pulmonary disease; G47.33 Obstructive sleep apnea (adult) (pediatric); Z95.5 Presence of coronary angioplasty implant and graft; Z96.641 Presence of right artificial hip joint; Z96.652 Presence of left artificial knee joint; Z87.891 Personal history of nicotine dependence; Z79.02 Long term (current) use of antithrombotics/antiplatelets; Z79.4 Long term (current) use of insulin; Z79.85 Long-term (current) use of injectable non-insulin antidiabetic drugs; Z79.890 Hormone replacement therapy; Z79.82 Long term (current) use of aspirin; Z79.899 Other long term (current) drug therapy; Z88.1 Allergy status to other antibiotic agents; Z88.2 Allergy status to sulfonamides
CPT/HCPCS: 80048; 85025; 85347; 92928; 93458; 99152; 99153; C1725; C1769; C1874; C9600; J1200; J1644; J2003; J3010; J7040

== ENCOUNTER 2025-03-31 13:09 | Outpatient (CLI) | payer MEDICARE, SELFPAY ==
--- OUTSIDE RECORDS SUMMARY | 2024-12-10 17:30 | XMS_ITS ---
Author Organization [facility] Address [address] [facility] [address] [place] [address] Care Team Providers Care Lasting Machine Operator Hand Method Name Role Phone Melinda Garsia Primary Care Provider [phone] Migration, Provider Unavailable Unavailable Allergies Allergen (clinical drug ingredient) Drug/Non Drug Allergy documented on EMR Reaction Allergy Type Onset Date Status amoxicillin / clavulanate Augmentin tongue swell Drug Allergy Active REASON FOR VISIT [facility] Conversion Encounter Medications Medication SIG (Take, [...] review and pick correct strength-formula tion from [employer] options. If intended option is not shown, discontinue and re-order from Quick Search* Active Calcium 600 + D 600 MG-800 INTL UNITS 1 TAB(S) ORALLY ONCE A DAY *Please review and pick correct strength-formula tion from [employer] options. If intended option is not shown, [...] Active Encounters Encounter Location Date Provider Diagnosis [facility] [address] [place] [address] 12/10/2024 Provider Migration Plan Of Treatment Medication [...] * Elyssa PADILLA MDOB:1950 (74 yo F)Acc No.[id number]:12/10/2024 Patient: Christin BERENICEElyssa Provider: Alyssa giraldo Migration :1950 A ge:74 Y S ex:Female Date:12/10/2024 Address:[address] [place] [phone] Pcp:Melinda Garsia Subjective: * Chief Complaints: * [...] Electronic signature of Prov ider Migration on 03/31/2025 at 01:13 PM EDT Sign off status: Pending * Provider: Alyssa giraldo Migration Date: 12/10/2024 Generated for Evangelina ramos/Lacey/Glory on: 03/31/2025 01:13 PM EDT
--- OUTSIDE RECORDS SUMMARY | 2025-03-31 13:13 | XMS_ITS | Data Portability ---
Author Organization [facility] and [facility] Address [address] [place] [address] Assessment No assessment recorded. Plan of Treatment Reminders Order Date Submit Date Provider Last Modified By Organization Details Last Modified Time Details Appointments OV EST 15 2024 01:00P M Yaw Cates Jr, MD Not available Not available Not available Lab urinalysi s, dipstick [address], [address], 04/20/2024 15:13:07 urinalysi s, dipstick [address], [address], 02/19/2023 08:18:37 culture, urine + sensitivi ty 2022 [email or web address], [address], 02/25/2023 08:36:57 urinalysi s, dipstick 2022 023 [facility], [address], 12/31/2022 14:43:33 Referral None recorded. Procedures bladder scan (PROC) [address] [facility] [place], [address] [place], [address], 04/20/2024 15:13:07 Surgeries None recorded. Imaging None recorded. Medication Orders nitrofura ntoin macrocrys tru 50 mg capsule 2023 024 [place] [address], [address] [place] [address], [address], 04/20/2024 12:37:56 oxybutyni n chloride ER 10 mg tablet,ex tended release 24 hr 2023 024 [place] [address], [address] [place] [address], [address], 04/20/2024 12:49:36 Bactrim DS 800 mg-160 mg tablet 2022 023 [place] [address], [address] [place] [address], [address], 02/18/2023 12:53:25 Intrarosa 6.5 mg vaginal insert 2022 023 [place] [address], [address] [place] [address], [address], 01/14/2023 13:06:49 conjugate d estrogens 0.625 mg/gram vaginal cream 2022 023 [place] [address], [address] [place] [address], [address], 12/31/2022 13:20:40 oxybutyni n chloride ER 10 mg tablet,ex tended release 24 hr 2022 023 [place] [address], [address] [place] [address], [address], 12/31/2022 13:19:38 Patient TargetsNo targets recorded. Patient InstructionsNo instructions recorded. Reason for Referral None Reported. Results Created Date Observation Date Name Description Value Unit Range Abnormal Flag Note LastModifiedBy Organization Detail LastModifiedTime 01/01/20 23 12/31/2022 urina lysis , dipst ick Leukocytes (reference range) trace Not Available [address], [address], 12/31/2022 10:55:18 01/01/20 23 12/31/2022 urina lysis , dipst ick Nitrite (reference range:) negati ve Not Available [address], [address], 12/31/2022 10:55:18 01/01/20 23 12/31/2022 urina lysis , dipst ick Urobilinogen (reference range) 0.2 Not Available [address], [address], 12/31/2022 10:55:18 01/01/20 23 12/31/2022 urina lysis , dipst ick Protein (reference range) negati ve Not Available [address], [address], 12/31/2022 10:55:18 01/01/20 23 12/31/2022 urina lysis , dipst ick pH (reference range 5-8.5) 6.0 Not Available [address], [address], 12/31/2022 10:55:18 01/01/20 23 12/31/2022 urina lysis , dipst ick Blood (reference range:) negati ve Not Available [address], [address], 12/31/2022 10:55:18 01/01/20 23 12/31/2022 urina lysis , dipst ick Specific [place] (reference range) 1.010 Not Available [address], [address], 12/31/2022 10:55:18 01/01/20 23 12/31/2022 urina lysis , dipst ick Ketone (reference range) negati ve Not Available [address], [address], 12/31/2022 10:55:18 01/01/20 23 12/31/2022 urina lysis , dipst ick Bilirubin (reference range) negati ve Not Available [address], [address], 12/31/2022 10:55:18 01/01/20 23 12/31/2022 urina lysis , dipst ick Glucose (reference range) 100 Not Available [address], [address], 12/31/2022 10:55:18 02/19/20 23 02/18/2023 CULTU RE URINE results MRB 02-19 721 40,00 0 COL/M L Gram Negat madisyn Rods Not Available [facility] (Lab Registration) [address] , [place], [address], 02/19/2023 07:23:10 02/19/20 23 02/18/2023 CULTU RE URINE note Unles s other corona noted testi ng perfo rmed at: [facility] [address] [place] [address] [phone] Osiel ortega MD CLIA: [id number] Not Available [facility] (Lab Registration) [address], [place], [address], 02/19/2023 07:23:10 02/19/20 23 02/18/2023 CULTU RE URINE culccur ===== ===== ===== ===== ===== ===== ===== ===== ===== ===== ===== ===== ===== ===== ===== ===== ===== ===== ===== ===== ===== ===== ===== ===== Speci men NO.: [id number] Exam Statu s: Final Proce dure: [...] L Gram Negat madisyn Rods Not Available [facility] (Lab Registration) [address] [place], [address], 02/21/2023 10:26:06 02/19/20 23 02/18/2023 CULTU RE URINE note Unles s other corona noted testi ng perfo rmed at: [facility] [address] [place] [address] [phone] Osiel ortega MD CLIA: [id number] Not Available [facility] (Lab Registration) [address] , [place], [address], 02/21/2023 10:26:06 02/19/20 23 02/18/2023 urina lysis , dipst ick Leukocytes (reference range) modera te Not Available [address], [address], 02/18/2023 10:24:59 02/19/20 23 02/18/2023 urina lysis , dipst ick Nitrite (reference range:) negati ve Not Available [address], [address], 02/18/2023 10:24:59 02/19/20 23 02/18/2023 urina lysis , dipst ick Urobilinogen (reference range) 0.2 Not Available [address], [address], 02/18/2023 10:24:59 02/19/20 23 02/18/2023 urina lysis , dipst ick Protein (reference range) negati ve Not Available [address], [address], 02/18/2023 10:24:59 02/19/20 23 02/18/2023 urina lysis , dipst ick pH (reference range 5-8.5) 7.0 Not Available [address], [address], 02/18/2023 10:24:59 02/19/20 23 02/18/2023 urina lysis , dipst ick Blood (reference range:) small Not Available [address], [address], 02/18/2023 10:24:59 02/19/20 23 02/18/2023 urina lysis , dipst ick Specific [place] (reference range) 1.015 Not Available [address], [address], 02/18/2023 10:24:59 02/19/20 23 02/18/2023 urina lysis , dipst ick Ketone (reference range) negati ve Not Available [address], [address], 02/18/2023 10:24:59 02/19/20 23 02/18/2023 urina lysis , dipst ick Bilirubin (reference range) negati ve Not Available [address], [address], 02/18/2023 10:24:59 02/19/20 23 02/18/2023 urina lysis , dipst ick Glucose (reference range) negati ve Not Available [address], [address], 02/18/2023 10:24:59 04/20/20 24 04/20/2024 urina lysis , dipst ick Leukocytes (reference range) modera te Not Available [address], [address], 04/20/2024 10:23:15 04/20/20 24 04/20/2024 urina lysis , dipst ick Nitrite (reference range:) negati ve Not Available [address], [place], [address], 04/20/2024 10:23:15 04/20/20 24 04/20/2024 urina lysis , dipst ick Urobilinogen (reference range) 0.2 Not Available [address], [address], 04/20/2024 10:23:15 04/20/20 24 04/20/2024 urina lysis , dipst ick Protein (reference range) 30 Not Available [address], [address], 04/20/2024 10:23:15 04/20/20 24 04/20/2024 urina lysis , dipst ick pH (reference range 5-8.5) 6.0 Not Available [address], [address], 04/20/2024 10:23:15 04/20/20 24 04/20/2024 urina lysis , dipst ick Blood (reference range:) non-He molyze d: Trace Not Available [facility] [address], [address], 04/20/2024 10:23:15 04/20/20 24 04/20/2024 urina lysis , dipst ick Specific [place] (reference range) 1.015 Not Available [address], [address], 04/20/2024 10:23:15 04/20/20 24 04/20/2024 urina lysis , dipst ick Ketone (reference range) trace Not Available [address], [address], 04/20/2024 10:23:15 04/20/20 24 04/20/2024 urina lysis , dipst ick Bilirubin (reference range) negati ve Not Available [facility] [address], [address], 04/20/2024 10:23:15 04/20/20 24 04/20/2024 urina lysis , dipst ick Glucose (reference range) negati ve Not Available [address], [address], 04/20/2024 10:23:15 04/20/20 24 04/20/2024 bladd er scan (PROC ) Calculated Residual Urine: 68 ML Not Available [facility] [address], [address], 04/20/2024 10:23:29 Result Notes None recorded. Problems Name Problem SNOMED Code Status Onset Date Resolution Date Notes Provider Name and Address Organization Details Recorded Time Hypertensive disorder 33245803 Active 2022 JEF Arredondo - [facility] [place] [facility] [place] 3 09:52:08 Diabetes mellitus 94942850 Active 2022 Mayra simon, JEF - [facility] [place] [facility] [place] 3 09:52:12 Environmental allergy 303405123 Active 2022 Mayra simon, JEF - [facility] - [place] [facility] [place] 3 09:52:20 Notes:Some problems listed i n Document: #[id number] could not be added to this patient's chart. Please review this document and add these problems to the patient's chart manually as needed. Problem Notes None recorded. Procedures Surgical History Date Name Laterality Status Provider Name and Address Organization Details Recorded Time 01/15/20 Urethral Dilation (female) completed Yaw Cates Jr, MD [address] [place] [address], [address], [place], [address], [facility] - [facility] [place] [facility] [place] 01/14/2023 13:05:11 total replacement of hip completed Mayra Zhu [facility] [place] [facility] [place] 12/31/2022 09:54:04 procedure on heart completed Mayra Zhu [facility] & [place] 12/31/2022 09:54:17 Knee arthroscopy/surg kathryn completed Mayra FUCHS [facility] & [place] 12/31/2022 09:54:24 Cataract Surgery completed Mayra FUCHS [facility] & [place] 12/31/2022 09:54:30 Tubal Ligation completed Mayra FUCHS [facility] & [place] 12/31/2022 09:54:37 Appendectomy completed Mayra FUCHS [facility] & [place] 12/31/2022 09:54:43 Imaging Results None recorded. Procedure Notes None recorded. Medical Equipment None Reported. Allergies Allergen ID Allergen Name Allergen Category Reaction Reaction Severity Criticality Documentation Date Start Date Code Code System Note Provider Name and Address Organization Details Recorded Time 38496 Augmentin medicatio n Not available Not available Not available 12/31/2022 35488 2 RxNorm Mayra simon JEF Zhu [facility] & [place] 09:48:39 Medications Name Sig Start Date Stop Date Status Note LastModified by Organization Details LastModified Time easy comfort pen needles 31gx3/16 31g x 5 mm misc active Not Available Not Available Not Available clever choice comfort ez insulin pe n needles [id number] 31g x 8 mm misc active Not [...] Not Available Not Available Comfort EZ Pen [place] 31 gauge x 5/16 USE DIRECTED active [...] Updated DateTime 12/31/2022 154.94 cm 33.6 kg/m2 28694.44 g 97.7 [degF] Mayra FUCHS [facility] & [place] 12/31/2022 09:48:20 Date Recorded Body height Body mass index (BMI) Body weight Body temperature Provider Name and Address Organization Details Last Updated DateTime 01/14/2023 154.94 cm 33.6 kg/m2 33569.44 g 97.9 [degF] Mayra FUCHS [facility] & [place] 01/14/2023 08:52:59 Date Recorded Body height Body mass index (BMI) Body weight Body temperature Provider Name and Address Organization Details Last Updated DateTime 02/18/2023 154.94 cm 33.6 kg/m2 89956.44 g 97.6 [degF] Mayra Hobson [facility] & [place] 02/18/2023 09:45:12 Date Recorded Body height Body mass index (BMI) Body weight Body temperature Provider Name and Address Organization Details Last Updated DateTime 04/20/2024 152.4 cm 0.2 kg/m2 453.59 g 97.5 [degF] Mayra Hobson [facility] & [place] 04/20/2024 09:35:49 Date Recorded Body height Body temperature Provider N phoebe and Address Organization Details Last Updated DateTime 06/01/2024 154.94 cm 97.7 [degF] Mayra Hobson [place] - [facility] - [place] [facility] [place] 06/01/2024 13:45:39 Social History None recorded. Functional Status Question Answer Note LastModified by Organization D etails LastModified Time What is your level of alcohol consumption? None Information not available 12/31/2022 Mental Status None recorded. Family History Relationship Description Onset Age of this Age Resolved Age Notes LastModified by Organization Details LastModified Time Mother Disorder of lung dec [email or web address] Not available 2022 09:53:17 Sister Disorder of lung dec [email or web address] Not available 2022 09:53:17 Father Malignant neoplastic disease dec [email or web address] Not available 2022 09:53:29 Brother Malignant neoplastic disease dec [email or web address] Not available 2022 09:53:29 Medical History No medical history recorded. Gynecological HistoryNo gynecological history recorded. Obstetrics History GPAL:G 0 P 0 0 0 0 Past Encounters Encounter ID Performer Location Encounter Start Date Encounter Closed Date Diagnosis/Indication Diagnosis SNOMED-CT Code Diagnosis ICD10 Code Diagnosis Note [id number] Yaw Cates Jr, MD [facility] [address] [address] 12/31/2022 09:14:14 12/31/2022 10:53:02 Dysuria 35687977 R30.0 Patient with episodic dysuria. Urine cultures have been negative and her primary care physician' s office and she was reassured that her urine today is within normal limits. We discussed the urethritis as a possible cause for her symptoms. Start her on some estrogen cream 2 times a week. Urge incon tinence of urine 93253044 N39.41 Patient with urge incontinen ce that requires 3 medium pads per day. We are going to start her on oxybutynin 10 mg and she is to decrease her caffeine intake. Urethritis 24842466 N34. 2 Patient with dysuria which may be symptom of urethritis as her urinalysis is within normal limits. Estrogen cream to be given 2 times a week and will see her back follow-up. Her symptoms do not improve will consider vaginal suppositor ies. [id number] Yaw Cates Jr, MD [facility] [address] [address] 01/14/2023 08:52:20 01/14/2023 09:31:54 Dysuria 12325402 R30.0 patient with continued dysuria. It was better for about a week but recurred a few days ago. Urethral dilation was performed today. The urethra is a bit snug and she tolerated urethral dilation without problem. Neosporin instilled afterwards . She will return in 2 weeks. Urethritis 66236063 N34. 2 Patient with dysuria which may be symptom of urethritis as her urinalysis is within normal limits. patient has been compliant with the estrogen cream twice a week. She continues to have some dysuria. We are going to add intra Charissa vaginal suppositor ies and samples were given today. Return to office 2 weeks Urge incon tinence of urine 49778911 N39.41 Patient with urge incontinen ce that requires 3 medium pads per day. she started oxybutynin 10 mg 2 weeks ago. She is not seen any results yet and we discussed continuing on the medication as it could take longer. [id number] Yaw Cates Jr, MD [facility] [address] [address] 02/18/2023 09:43:56 02/18/2023 10:21:25 Recurrent urinary tract infection 579247598 N39.0 Patient with evidence of urinary tract infection today. We will culture her urine and a prescripti on for Bactrim was sent in. Urethritis 33490067 N34. 2 Patient with dysuria which may be symptom of urethritis as her urinalysis is within normal limits. patient has been compliant with the estrogen cream twice a week. as well as the intra Charissa suppositor ies. Dilation at our last visit was performed with some mild stenosis. Urge incon tinence of urine 88053141 N39.41 Patient with urge incontinen ce . She is been on oxybutynin now for several weeks. She states improvemen t in the urgency and leakage. She is wearing less pads done before. [id number] Yaw Cates Jr, MD [facility] [address] [address] 04/20/2024 09:34:20 04/20/2024 11:05:53 Recurrent urinary tract infection 593093773 N39.0 Patient with history of urinary tract [...] He will follow up 1 month. Nocturia 122333907 R35.1 patient states she gets up at night hourly. Her risk factors include drinking right up to bedtime as well as lower extremity edema. We discussed cutting off her fluids 2 hours prior to bedtime and getting her feet up on the abdomen prior to bed time. Follow-up 1 month Urge incon tinence of urine 40849010 N39.41 Patient with urge incontinen ce . patient doing well with the oxybutynin 10 mg and we will refill. Urethritis 00812666 N34. 2 patient with history of dysuria to be from urethritis . She continues on estrogen creams and vaginal suppositor ies. [id number] Yaw Cates Jr, MD [facility] [address] [address] 06/01/2024 13:43:10 06/01/2024 14:18:59 Recurrent urinary tract infection 729813565 N39.0 Patient with history of urinary tract [...] and denies any UTI's. Dysuria resolved. Nocturia 070324176 R35.1 patient states she gets up at [...] at night. Urge incon tinence of urine 24775815 N39.41 Patient with urge incontinen ce . patient doing well with the oxybutynin 10 mg and we will refill. Urethritis 19802744 N34. 2 patient with history of dysuria [...] Carter Member ID Guarantor Name 05/29/2024 1 [employer]IC[employer] (MEDICARE) Elyssa Toro [id number] Elyssa Ring 03/03/2023 2 [employer] (MEDICARE SUPPLEMENT) Elyssa Toro [id number] Elyssa Ring 03/10/2023 2 UNSPECIFIED REMIT PAYOR [...] pads per day. Yaw Cates Jr, MD [address] [place] [address] Drive, [address], [place], [address], [facility] 01/08/2023 16:26:04 01/14/2023 text/html Patient is a [...] been using that. Yaw Cates Jr, MD [address] [place] [address] Drive, [address], [place], [address], [place] - [facility] & [place] 01/14/2023 13:07:58 02/18/2023 text/html ROS as noted in the [facility] patient is a 72-year-old white female with [...] amount of blood. Yaw Cates Jr, MD [address] [place] [address], [address], [place], [address], [facility] - [facility] & [place] 02/18/2023 13:04:04 04/20/2024 text/html ROS as noted in the HPI 73-year-old white female with history of dysuria and urge incontinence as well as urinary tract infections. Her last visit with me was February 2023. She is on oxybutynin for urge incontinence and estrogen cream and intra Charissa vaginal suppositories for her dysuria. She returns today and states she had urinary tract infection in February. Notes were reviewed from February 14 from . She was in the emergency room at [...] of 68 cc. Yaw Cates Jr, MD [address] [place] [address], [address], [place], [address], [facility] - [facility] & [place] 04/20/2024 12:52:34 06/01/2024 text/html ROS as noted in the HPI 74 yo female with h/o recurrent UTI's, nocturia, urge incontinence and urethritis returns in f/u for her nocturia. Ather last visit we discussed fluid restriction which she states she is not compliant due to dry mouth. She is on oxybutinin for her urge incontinence.She was also placed on NFN suppression for UTI's. She states her dysuria has resolved and no recurrent UTI's. Yaw Cates Jr, MD [address] [place] [address], [address], [place], [address], [facility] - [facility] & [place] 06/01/2024 19:30:40 OBGyn Episode No OBEpisode recorded.
--- OUTSIDE RECORDS SUMMARY | 2025-03-31 13:13 | XMS_ITS | Clinical Summary ---
Author Organization [facility] Address [address] [place] [address] Care Team Providers Care Rural Electrification Engineer Name Role Phone Surinder Han MD Primary Care Provider + [phone] Allergies Active Allergy Reactions Criticality Noted Date Comments Amoxicillin-Pot Clavulanate Swelling 07/23/20 16 Medications metFORMIN (GLUCOPHAGE) 500 MG tablet Take 500 mg by mouth 2 (two) times a day. Active aspirin 81 MG chewable tablet Chew 81 mg daily. Active Multiple Vitamins-Mineral s (MULTIVITAMIN PO) Take by mouth 2 (two) times a day. Active Calcium Carbonate-Vitami n D (CALCIUM-VITAMIN D) 600-125 MG-UNIT tablet Take by mouth 2 (two) times a day. Active lisinopril (PRINIVIL,ZESTRI L) 20 MG tablet Take 20 mg by mouth 2 (two) times a day. Active omeprazole (PriLOSEC) 20 MG capsule Take 20 mg by mouth 2 (two) times a day. Active atorvastatin (LIPITOR) 80 MG tablet 07/09/2016 Active bisoprolol (ZEBeta) 5 MG tablet 07/09/2016 Active fenofibrate micronized (LOFIBRA) 200 MG capsule 07/09/2016 Active glipiZIDE (GLUCOTROL) 5 MG tablet 04/30/2016 Active HUMULIN R 100 UNIT/ML injection 06/25/2016 Active oxyCODONE-acetam inophen (PERCOCET) 5-325 MG per tablet 06/02/2016 Activ e albuterol (PROVENTIL HFA;VENTOLIN HFA) 108 (90 BASE) MCG/ACT inhaler Inhale 2 puffs Every 4 (Four) Hours As Needed for wheezing. Active diclofenac-misop rostol (ARTHROTEC 75) 75-0.2 MG EC tablet Take 1 tablet by mouth 2 (Two) Times a Day. Active furosemide (LASIX) 20 MG tablet Take 20 mg by mouth 2 (Two) Times a Day. Active estradiol (ESTRACE) 0.5 MG tablet Take 1 tablet by mouth Daily. 30 tablet 11 07/23/2016 Active medroxyPROGESTER one (PROVERA) 2.5 MG tablet Take 1 tablet by mouth Daily. 30 tablet 11 07/23/2016 Active Active Problems Problem Noted Date Diagnosed Date Well female exam with routine gynecological exam 07/23/2016 Abnormal uterine bleeding (AUB) 07/23/2016 Endometrial hyperplasia 07/23/2016 Family History Medical History Relation Name Comments Breast cancer Mother Relation Name Status Comments Mother Social History Tobacco Use Types Packs/Day Years Used Date Smoking Tobacco: Never Smokeless Tobacco: Never Alcohol Use Standard Drinks/Week Comments No 0 (1 standard drink = 0.6 oz pur e alcohol) Abuse Screen Answer Date Recorded Unsafe at Home or Work/School Not on file Feels Threatened by Someone? Not on file 05/2023 Does Anyone Keep You from Co ntacting Others or Doint Things Outside the Home? Not on file 06/15/2023 Physical Sign of Abuse Present Not on file 1 Housing Stability Answer Date Recorded Current Living Arrangements Not on file 05/2023 Potentially Unsafe Housing Conditions Not on sarthak e 06/15/2023 Family and Community Support Answer Helder e Recorded Help with Day-to-Day Activities Not on file 06/15/2023 Lonely or Isolated Not on file 06/15/2023 Employment Answer Date Recorded Do you want help finding or keeping work or a shanell b? Not on file 06/15/2023 Disabilities Answer Date Recorded Concentrating, Remembering, or Making Decisions Difficulty Not on file 06/15/2023 Doing Errands Independently Difficulty Not on fi le 06/15/2023 Education Answer Date Recorded Help with school or training? Not on file Preferred Language Not on file 06/15/2023 Comments No Sex and Gender Information Value Date Recorded Sex Assigned at Not on file Legal Sex Female 1:04 PM EDT Gender Identity Not on file Sexual Orientation Not on file Last Filed Vital Signs Vital Sign Reading Time Taken Comments Blood Pressure 202/82 07/23/2016 2:48 PM EST MD Notified Pulse 79 07/23/2016 2:48 PM EST Temperature 36 C (96.8 F) 07/23/2016 2:48 PM EST Respiratory Rate 20 07/23/2016 2:48 PM EST Oxygen Saturation 94% 07/23/2016 2:48 PM EST Inhaled Oxygen Concentration - - Weight 78.5 kg (173 lb) 07/23/2016 2:48 PM EST Height 152.4 cm (5') 07/23/2016 2:48 PM EST Body Mass Index 33.79 07/23/2016 2:48 PM EST Plan of Treatment Health Maintenance Due Date Last Done Comments ANNUAL PHYSICAL 1950 DXA SCAN 1950 HEPATITIS C SCREENING 1950 TDAP/TD VACCINES (1 - Tdap) 1969 COLOGUARD 1995 COLON CANCER SCREENING 5 YEA R SIGMOIDOSCOPY 1995 CT COLONOGRAPHY 1995 FECAL OCCULT BLOOD TEST 1995 FIT Testing (1 year) 1995 Pneumococcal Vaccine 50+ (1 of 1 - PCV) 2000 ZOSTER VACCINE (1 of 2) 2000 MAMMOGRAM 06/07/2015 06/07/2013 COLONOSCOPY 07/23/2015 07/23/2005, 09/07/2004 COLORECTAL CANCER SCREENING 07/23/2015 COVID-19 Vaccine ( season) 2024 INFLUENZA VACCINE 06/07/2025 Procedures Procedure Name Priority Date/Time Associated Diagnosis Comments MAMMOGRAPHY Routine 06/07/2013 COLONOSCOPY Routine 09/07/2004 from Last 3 Months or Most Recently Relevant to Health Maintenance Results * MAMMOGRAPHY (06/07/2013) Mammogram last mammogram Anatomical Region Laterality Modality Other Historical Provider HEALTH MAINTENANCE Final Result * COLONOSCOPY (09/07/2004) Colonoscopy last colonoscopy Historical Provider HEALTH MAINTENANCE Final Result from Last 3 Months or Most Recently Relevant to Health Maintenance Insurance [facility]IC[facility] Care Teams Rural Electrification Engineer Relationship Specialty Start Date End Date Surinder Han MD [address] [facility] [address] [facility] [place] [address] PCP - General Adolescent Medicine 07/23/16
--- OUTSIDE RECORDS SUMMARY | 2025-03-31 13:13 | XMS_ITS | Encounter Summary ---
Author Organization [facility] Address [address] [place] [address] Care Team Providers Care Digital Color Press Operator Name Role Phone Surinder Han MD Primary Care Provider + [phone] Encounter Details Date Type Department Care Team (Late st Contact Info) Description 06/13/2013 Conversion Encounter [facility]ISTORICAL CONV [address] [place] [address] Interface, See Report Social History Tobacco Use Types Packs/Day Years Used Date Smoking Tobacco: Never Assessed Comments Unknown Sex and Gender Information Value Date Recorded Sex Assigned at Not on file Legal Sex Female 1:04 PM EDT Gender Identity Not on file Sexual Orientation Not on file documented as of this encounter Progress Notes * Interface, See Report - 06/13/2013 12:00 AM EDT WILDLIFE CONSERVATION PROFESSOR-Oncology Services [address] [place], [place] [address] [phone] Patient: ELYSSA PADILLA MR #: : [id number] Date of Visit: 06/13/2013 Attending Physician: Kirk Acosta Dictated By: KIRK ACOSTA Referring Physician: BERTHA HERRERA Diagnosis: ABNORMAL BLEEDING; PAIN SIMPLE HYPERPLASIA ON D&C UNOPPOSED ERT CYCLIC PROVERA UNTIL THIS MO. DAILY ESTROPIPATE 2.5MG Allergies: NKDA History of present illness: 4 MO F/U; S/P D&C 02/08/2013. PT. STATES BLEEDING HAS IMPROVED. SHEWAS ON PROVERA UNTIL THIS MONTH AND WAS BLEEDING ABOUT 3 DAYS PER MONTH. SHE HAS NO T TAKEN PROVERATHIS MONTH AND HAS NOT HAD BLEEDING THIS MONTH. SHE CONTINUES TO HAVE VULVAR ITCHING. HER GP GAVE HER TOPICAL ESTROGEN TO USE TWICE WEEKLY AND THIS HASN'T HELPED. Past medical history: Medical: HYPERTENSION, HYPERLIPIDEMIA, ARTHRITIS, GERD, DIABETES Surgical: RIGHT HIP REPLACEMENT, BTL, APPENDECTOMY Health maintenance: Mammogram: Colonoscopy: Pap smear: 02/06/12 Tumor Marker: CT Scan: BMD: Ultrasound: Review of systems: Constitutional: No change in weight, no excessive fatigue Psychiatric: No history of anxiety, depression, bipolar disorder, or insomnia Respiratory: No shortness of breath, cough, asthma, wheezing Cardiovascular: +HTN; +HYPERLIPIDEMIA. No angina, orthopnea, edema, murmur Gastrointestinal: +GERD No constipation or diarrhea, nausea, or vomiting Genitourinary: No dysuria, hematuria, urgency, or frequency Neurologic: No numbness, weakness, syncope, seizures, or headaches Gynecologic: No abnormal bleeding, vaginal discharge, pelvic pain, of h/o abnml pap smears LMP: P: 3 Vag Deliveries: 3 C-sec: 0 Misc: 0 Additional notes: +ARTHRITIS; +DIABETES; +ALLERGIES; +GLASSES Medications: Medication Reconciliation for the patient has been reviewed in the EMR. Physical exam: Constitutional: Weight 177 Height BP 138/76 Pulse Temp Neurological/Psychiatric: HEENT: Neck: Respiratory: Cardiovascular: Breasts: Gastrointestinal: Lymphatic: Extremities: Gynecologic: External Genitalia: ; SKIN ATROPHIC Vagina: Cervix: Uterus: Ovaries: Parametria: Smooth. Rectovaginal: Hemoccult: Procedure note: Assessment: SIMPLE ENDOMETRIAL HYPERPLASIA D&C 02/2013 APPROPRIATE WITH DRAWAL ON CYCLIC PROVERA VULVO/ VAG ATROPHY Plan: RESUME CYCLIC PROVERA 10MG DAY 1-10 MAY USE SOME OH CORTISONE ON VULVA FOER SX'S LONG SHE HAS WITHDRAWAL BLEED STAY ON PROVERA ON RTO MAY CONSIDER CHANGE TO COMBINED HRT TO AVOID BLEEDING 6M Approved by: , cc: documented in this encounter Plan of Treatment Not on file documented as of this encounter Visit Diagnoses Not on filedocumented in this encounter Care Teams Digital Color Press Operator Relationship Specialty Start Date End Date Surinder Han MD [address] [facility] [address] [place] [address] PCP - General Adolescent Medicine 07/23/16 documented as of this encounter
--- OUTSIDE RECORDS SUMMARY | 2025-03-31 13:13 | XMS_ITS | Patient Health Record ---
Author Organization [facility] Address [address] [place] [address] Care Team Providers Care Craps Manager Name Role Phone Melinda Garsia Primary Care Provider [phone] Migration, Provider Unavailable Unavailable Allergies Allergen (clinical [...] review and pick correct strength-formula tion from [employer] options. If intended option is not shown, discontinue and re-order from Quick Search* Active Calcium 600 + D 600 MG-800 INTL UNITS 1 TAB(S) ORALLY ONCE A DAY *Please review and pick correct strength-formula tion from [employer] options. If intended option is not shown, [...] Hyperglycemia due to type 2 diabetes mellitus (147556366943512) Type 2 diabetes mellitus with hyperglycemia (E11.65) Active confirmed Problem Allergic rhinitis (66246557) Other allergic rhinitis (J30.89) Active confirmed Problem Chronic obstructive pulmonary disease (89652374) Chronic obstructive pulmonary disease, unspecified (J44.9) Active confirmed Problem Venous insufficiency of leg (disorder) (252805672) Venous insufficiency (I87.2) Active confirmed Problem Essential hypertension (91991747) Essential hypertension (I10) Active confirmed Problem Psoriasis (9639948) Psoriasis (L40.9) Active co nfirmed Problem Seasonal allergic rhinitis (786417149) Seasonal allergic reaction (J30.2) Active confirmed Problem Urinary incontinence (409514355) Urinary incontinence (R32) Active confirmed Problem Body mass index 30+ - obesity (619610851) BMI 30.0-30.9,adult (Z68.30) Active confirmed Problem Psoriasis of scalp (023375921) Psoriasis of scalp (L40.9) Active confirmed Problem Long-term current use of insulin (529006808) termite control technician current use of insulin (Z79.4) Active confirmed Problem Peripheral edema (25743423) Peripheral edema (R60.9) Active confirmed Problem Arthropathy (628063434) Arthropathy, 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) Active confirmed Problem Menopausal and perimenopausal disorder (N95.9) Active confirmed Problem Overactive urinary bladder (disorder) (642408575) OAB (overactive bladder) (N32.81) Active confirmed Problem BMI 25-29 - overweight (694515643) BMI 29.0-29.9,adult (Z68.29) Active confirmed Problem Allergic rhinitis caused by pollen (34621485) Seasonal allergic rhinitis due to pollen (J30.1) Active confirmed Problem Gastroesophageal reflux disease (disorder) (143885237) Chronic GERD (K21.9) Active confirmed Problem Mixed hyperlipidemia (280697111) Mixed dyslipidemia (E78.2) Active confirmed Problem Osteopenia following menopause (disorder) (531697164) Osteopenia after menopause (M85.80) Active confirmed Encounters Encounter Location Date Provider Diagnosis [facility] [address] [place] [address] 12/10/2024 Provider Migration Plan Of Treatment Pending [...] with AUTO DIFF 05/21/2017 H-CMP 08/17/2017 H-CMP 12/05/2015 H-CMP 12/20/2015 H-CMP 05/21/2017 H-MAGNESIUM 05/21/2017 H-LIPID PANEL 08/17/2017 H-LIPID PANEL 05/21/2017 H-LIPID PANEL 12/05/2015 H-LIPID PANEL 12/20/2015 H-CPK 05/21/2017 H-HGBA1C 12/20/2015 H-HGBA1C 12/05/2015 H-HGBA1C 08/17/2017 H-HGBA1C 05/21/2017 H-TSH 05/21/2017 H-MICROALBUMIN URINE 12/05/2015 H-MICROALBUMIN URINE 11/20/2016 spirometry 11/20/2016 H-MICROALB/POLARITY TESTER UR 08/17/2017 H-MICROALB/POLARITY TESTER UR 05/21/2017 M-Complete Blood Count Auto Diff 018 M-Comprehensive Metabolic Panel 03/22/20 18 M-Comprehensive Metabolic Panel 06/20/20 20 M-Hemoglobin A1C 06/20/2020 M-Hemoglobin A1C 03/22/2018 M-Lipid Panel 03/22/2018 M-Lipid Panel 06/20/2020 M-Thyroid Stimulating Hormone 03/22/2018 M-Microalb/Creat Ratio, Randm Ur 021 M-Microalb/Creat Ratio, Randm Ur 020 Future Test Test Name Order Date H-LIPID PANEL 04/22/2011 H-CMP 06/27/2011 H-LIPID PANEL 06/27/2011 H-HGBA1C 06/27/2011 Insurance Providers Payer Name Payer Address Payer Phone Subscriber Number Group Number Insured Name Patient Relationship to Insured Coverage Start Date Coverage End Date [place] [address] [place] [address] [phone] [id number] Elyssa Toro Self - patient is the insured [employer] [address] [address] [place] [address] [id number] Elyssa Toro Self - patient is the [...]
--- OUTSIDE RECORDS SUMMARY | 2025-03-31 13:13 | XMS_ITS | Encounter Summary ---
Author Organization [facility] Address [address] [place] [address] Care Team Providers Care Newborn Hearing Screener Name Role Phone Surinder Han MD Primary Care Provider + [phone] Encounter Details Date Type Department Care Team (Late st Contact Info) Description 02/21/2013 Conversion Encounter [facility] HISTORICAL CONV [address] [place] [address] Interface, See Report Social History Tobacco Use Types Packs/Day Years Used Date Smoking Tobacco: Never Assessed Comments Unknown Sex and Gender Information Value Date Recorded Sex Assigned at Not on file Legal Sex Female 1:04 PM EDT Gender Identity Not on file Sexual Orientation Not on file documented as of this encounter Progress Notes * Interface, See Report - 02/21/2013 12:00 AM EDT BUCK SWAMPER-Oncology Services [address] [place], [place] [id number] Patient: ELYSSA PADILLA MR #: : [id number] Date of Visit: 02/21/2013 Attending Physician: Kirk Acosta Dictated By: KIRK ACOSTA Referring Physician: BERTHA HERRERA Diagnosis: ABNORMAL BLEEDING; PAIN Allergies: NKDA History of present illness: POST-OP: D&C 02/08/13 . Pt is a 62 yo with PMB, s/p D&C that showed simple hyperplasia without atypia, since the D&C she has had no more bleeding. She does report some anterior vulvar itching and irritation. Otherwise, her DM2, has been out of control per pt. Past medical history: Medical: HYPERTENSION , HYPERLIPIDEMIA, ARTHRITIS, GERD, DIABETES Surgical: RIGHT HIP REPLACEMENT, BTL, APPENDECTOMY Health maintenance: Mammogram: Colonoscopy: Pap smear: 02/06/12 Tumor Marker: CT Scan: BMD: Review of systems: Constitutional: No change in weight, no excessive fatigue Psychiatric: No history of anxiety, depression, bipolar disorder, or insomnia Respiratory: No shortness of breath, cough, asthma, wheezing Cardiovascular: +HTN; +HYPERLIPIDEMIA. No angina, orthopnea, edema, murmur Gastrointestinal: +GERD. No constipation or diarrhea, nausea, or vomiting [...] in the EMR. Physical exam: Constitutional: Weight Height BP Pulse Temp Neurological/Psychiatric: HEENT: Neck: Respiratory: Cardiovascular: Breasts: Gastrointestinal: Lymphatic: Extremities: Gynecologic: External Genitalia: Labia minor and clitoral nunez with white discharge and erythematous irritation.No hypopigmentation or hyperpigmentation. Vagina: Cervix: Uterus: Deferred Ovaries: Deferred Parametria: Deferred Rectovaginal: Hemoccult: Procedure note: Assessment: 62 yo with simple hyperplasia without atypia for follow up from D&C 02/08 Plan: Exam c/w vulvar candidiasis- Diflucan Simple hyperplasia without atypia- Provera 10 mg for the first 10 days of every month 4 months Approved by: Kirk Acosta 02/21/2013, 1:41 PM cc: documented in this encounter Consult Notes * Interface, See Report - 02/07/2013 12:00 AM EDT [facility] [address] [place] [address] Patient: ELYSSA PADILLA MR #: : 1950 Date of Visit: 02/07/2013 Attending Physician: Kirk Acosta Dictated By: KIRK ACOSTA Referring Physician: BERTHA HERRERA Diagnosis: ABNML BLEEDING; PAIN Allergies: NKDA History of present illness: PT PRESENT WITH ABNORMAL VAGINAL BLEEDING AND ABDOMINAL PAIN . H/O ABNORMAL PAP- HAD SOME PROCEDURE FOR IT, F/U'S HAVE BEEN NEGATIVE. WENT TO PCP 5-20 FOR DIARRHEA, AND CRAMPING, STARTED HAVING BLEEDING. HAD U/S DONE THAT AFTERNOON. ONLY BLEEDING NOW IS WITH WIPING AFTERGOING TO THE BATHROOM. U/S DEMONSTRATES ENDOMETRIUM 12-15MM Past family and/or social history: Family history: MOTHER - BREAST CANCER. Social history: Tobacco Y N 1 PPD QUIT ETOH Y N # Drinks Marital Status Occupation RETIRED Past medical history: Medical: DIABETES, HTN, HYPERLIPIDEMIA, ARTHRITIS, GERD, Surgical: RIGHT HIP REPLACEMENT, BTL, APPENDECTOMY Health maintenance: Mammogram: 05/08/12 Colonoscopy: 02/05/05 Pap smear: 02/06/12 Tumor Marker: CT Scan: BMD: Review of systems: Constitutional: No change in weight, no excessive fatigue. Psychiatric: No history of anxiety, depression, bipolar disorder, or insomnia. Eyes: +GLASSES, Vision unchanged Ears, Nose, Mouth, Throat: + ALLERGIES, Hearing normal, no swallowing difficulties, no sore throat Endocrine: +DIABETES. No history of thyroid disease, heat/cold intolerance Lymphatic: No enlarged lymph nodes Respiratory: + OCC WHEEZING, No shortness of breath, cough, asthma, wheezing Cardiovascular: +HTN, +HYPERLIPIDEMIA. No angina, orthopnea, edema, murmur Gastrointestinal: + GERD, No constipation or diarrhea, nausea, or vomiting Genitourinary: No dysuria, hematuria, urgency, or frequency Neurologic: No numbness, weakness, syncope, seizures, or headaches Musculoskeletal: +ARTHRITIS.+ LEFT KNEE DISCOMFORT, No muscle weakness Integumentary: No new skin lesions Gynecologic: +ABNML BLEEDING. No vaginal discharge, pelvic pain, of h/o abnml pap smears LMP: P: 3 Vag Deliveries: 3 C-sec: Misc: Hematologic: Medications: Medication Reconciliation for the patient has been reviewed in the EMR. Physical exam: Constitutional: [place] [address] Pulse Temp ; MODERATELY OVERWT. Neurological/Psychiatric: HEENT: Neck: Respiratory: Cardiovascular: Breasts: Gastrointestinal: Lymphatic: Extremities: Skin: Gynecologic: External Genitalia: Vagina: ; LATERAL PROLAPSE Cervix: ; OS VERY STENOTIC Uterus: ; CANNOT DEFINE MARGINS; NML ULNS ON U/S Ovaries: Parametria: Smooth. Rectovaginal: Hemoccult: Procedure note: ONSOCCESSFUL ATTEMPT AT EMBX;OS STENOTIC Assessment: PMB ABNORMAL SUSPICIOUS U/S FAILED EMBX DIABETES, Plan: DIAGNOSTIC ? THERAPEUTIC D&C Approved by: , cc: BERTHA HERRERA documented in this encounter Plan of Treatment Not on file documented as of this encounter Visit Diagnoses Not on filedocumented in this encounter Care Teams Newborn Hearing Screener Relationship Specialty Start Date End Date Surinder Han MD [facility] [address] [address] PCP - General Adolescent Medicine 07/23/16 documented as of this encounter
[2025-03-31 13:46] LABS: Hematocrit 36.7 % (37.0-47.0); Hemoglobin 11.6 g/dL (12.2-16.2); Immature Granulocytes % 0.4 %; Mean Corpuscular HGB Conc 31.6 g/dL (31.8-35.4); Mean Corpuscular Hemoglobin 27.9 pg (27.0-31.2); Mean Corpuscular Volume 88.2 fl (81-99); Nucleated Red Blood Cells % 0 %; Platelet Count 194 K/mm3 (142-424); Red Blood Count 4.16 M/mm3 (4.20-5.40); Red Cell Distribution Width-SD 51.8 fL; White Blood Count 9.7 K/mm3 (4.8-10.8)
[2025-03-31 14:12] LABS: Chloride 101 mmol/L (98-107); Potassium 4.2 mmoL/L (3.5-5.1); Sodium 133 mmol/L (136-145)
[2025-03-31 14:15] LABS: Anion Gap 10.2 mEq/L (5-15); Blood Urea Nitrogen 15 mg/dl (7-17); Calcium 9.3 mg/dl (8.4-10.2); Carbon Dioxide 26 mmol/L (22.0-30.0); Creatinine,Serum 1.10 mg/dl (0.52-1.04); Estimated Glomerular Filt Rate 49 ml/min (>60); GFR (African American) 59 ML/MIN (>60); Glucose 276 mg/dl (74-100)
== END 2025-03-31 23:59 | disposition home or self-care (01) ==
LOC: LAB 13:11
PROVIDERS: PCP Family Medicine; Visit Provider Internal Medicine
DX: Z48.812 Encounter for surgical aftercare following surgery on the circulatory system (principal); Z95.5 Presence of coronary angioplasty implant and graft; I10 Essential (primary) hypertension
CPT/HCPCS: 36415; 80048; 85025

== ENCOUNTER 2025-05-30 12:54 | Outpatient (CLI) | payer MEDICARE, SELFPAY ==
--- OUTSIDE RECORDS SUMMARY | 2024-12-10 17:30 | XMS_ITS ---
Author Organization [facility] Address [address] [facility] [address] [place] [address] Care Team Providers Care Facility Maintenance Manager Name Role Phone Melinda Garsia Primary Care Provider [phone] Migration, Provider Unavailable Unavailable Allergies Allergen (clinical drug ingredient) Drug/Non Drug Allergy documented on EMR Reaction Allergy Type Onset Date Status amoxicillin / clavulanate Augmentin tongue swell Drug Allergy [facility] Conversion Encounter Medications Medication SIG (Take, [...] review and pick correct strength-formula tion from [employer] options. If intended option is not shown, discontinue and re-order from Quick Search* Active Calcium 600 + D 600 MG-800 INTL UNITS 1 TAB(S) ORALLY ONCE A DAY *Please review and pick correct strength-formula tion from [employer] options. If intended option is not shown, [...] Active Encounters Encounter Location Date Provider Diagnosis [facility] [address] [place] [address] 12/10/2024 Provider Migration Plan Of Treatment Medication [...] * Elyssa PADILLA MDOB:1950 (75 yo F)Acc No.[id number]:12/10/2024 Patient: Christin BERENICEElyssa Provider: Alyssa giraldo Migration :1950 A ge:74 Y S ex:Female Date:12/10/2024 Address:[address] [place] [id number] Pcp:Melinda Garsia Subjective: * Chief Complaints: * [...] Treatment: * * Electronic signature of Prov ider Migration on 05/30/2025 at 12:56 PM EDT Sign off status: Pending * Provider: Alyssa giraldo Migration Date: 12/10/2024 Generated for Evangelina ramos/Lacey/Glory on: 05/30/2025 12:56 PM EDT
--- OUTSIDE RECORDS SUMMARY | 2025-05-30 12:56 | XMS_ITS | Patient Health Record ---
Author Organization [facility] Address [address] [place] [address] Care Team Providers Care Refrigeration Mechanic Name Role Phone Melinda Garsia Primary Care Provider [phone] Migration, Provider Unavailable Unavailable Allergies Allergen (clinical [...] review and pick correct strength-formula tion from [employer] options. If intended option is not shown, discontinue and re-order from Quick Search* Active Calcium 600 + D 600 MG-800 INTL UNITS 1 TAB(S) ORALLY ONCE A DAY *Please review and pick correct strength-formula tion from [employer] options. If intended option is not shown, [...] Hyperglycemia due to type 2 diabetes mellitus (900920582843803) Type 2 diabetes mellitus with hyperglycemia (E11.65) Active confirmed Problem Allergic rhinitis (75425617) Other allergic rhinitis (J30.89) Active confirmed Problem Chronic obstructive pulmonary disease (22918807) Chronic obstructive pulmonary disease, unspecified (J44.9) Active confirmed Problem Venous insufficiency of leg (disorder) (265072598) Venous insufficiency (I87.2) Active confirmed Problem Essential hypertension (86338915) Essential hypertension (I10) Active confirmed Problem Psoriasis (3988266) Psoriasis (L40.9) Active co nfirmed Problem Seasonal allergic rhinitis (049957047) Seasonal allergic reaction (J30.2) Active confirmed Problem Urinary incontinence (740864693) Urinary incontinence (R32) Active confirmed Problem Body mass index 30+ - obesity (886445718) BMI 30.0-30.9,adult (Z68.30) Active confirmed Problem Psoriasis of scalp (176147861) Psoriasis of scalp (L40.9) Active confirmed Problem Long-term current use of insulin (252095898) detention current use of insulin (Z79.4) Active confirmed Problem Peripheral edema (77318333) Peripheral edema (R60.9) Active confirmed Problem Arthropathy (350483543) Arthropathy, 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) Active confirmed Problem Menopausal and perimenopausal disorder (N95.9) Active confirmed Problem Overactive urinary bladder (disorder) (929410584) OAB (overactive bladder) (N32.81) Active confirmed Problem BMI 25-29 - overweight (644208667) BMI 29.0-29.9,adult (Z68.29) Active confirmed Problem Allergic rhinitis caused by pollen (41082467) Seasonal allergic rhinitis due to pollen (J30.1) Active confirmed Problem Gastroesophageal reflux disease (disorder) (553388161) Chronic GERD (K21.9) Active confirmed Problem Mixed hyperlipidemia (394830008) Mixed dyslipidemia (E78.2) Active confirmed Problem Osteopenia following menopause (disorder) (735986192) Osteopenia after menopause (M85.80) Active confirmed Encounters Encounter Location Date Provider Diagnosis [facility] [address] [place] [address] 12/10/2024 Provider Migration Plan Of Treatment Pending [...] 01/27/2020 H-CBC with AUTO DIFF 05/21/2017 H-CMP 05/21/2017 H-CMP 12/20/2015 H-CMP 12/05/2015 H-CMP 08/17/2017 H-MAGNESIUM 05/21/2017 H-LIPID PANEL 05/21/2017 H-LIPID PANEL 12/20/2015 H-LIPID PANEL 12/05/2015 H-LIPID PANEL 08/17/2017 H-CPK 05/21/2017 H-HGBA1C 05/21/2017 H-HGBA1C 12/20/2015 H-HGBA1C 08/17/2017 H-HGBA1C 12/05/2015 H-TSH 05/21/2017 H-MICROALBUMIN URINE 11/20/2016 H-MICROALBUMIN URINE 12/05/2015 spirometry 11/20/2016 H-MICROALB/THRESHING OPERATOR UR 05/21/2017 H-MICROALB/THRESHING OPERATOR UR 08/17/2017 M-Complete Blood Count Auto Diff [...] End Date [place] [address] [id number] Elyssa Toro Self - patient is the insured [employer] [address] [address] [place] [address] [id number] Elyssa Toro Self - patient is the [...]
--- OUTSIDE RECORDS SUMMARY | 2025-05-30 12:56 | XMS_ITS | Encounter Summary ---
Author Organization [facility] Address [address] [place] [address] Care Team Providers Care Rn Resource Nurse Name Role Phone Surinder Han MD Primary Care Provider + [phone] Encounter Details Date Type Department Care Team (Late st Contact Info) Description 02/21/2013 Conversion Encounter [facility] HISTORICAL CONV [address] [place] [address] Interface, See Report Social History [...] See Report - 02/21/2013 12:00 AM EDT TELESALES CONSULTANT-Oncology Services [address] [place], [place] [id number] Patient: ELYSSA PADILLA MR #: : 1950 [...] See Report - 02/07/2013 12:00 AM EDT TELESALES CONSULTANT-Oncology Services [address] [place] [address] Patient: ELYSSA PADILLA MR #: : 1950 [...] Physical exam: Constitutional: [place] [address] Pulse Temp ; MODERATELY OVERWT. Neurological/Psychiatric: HEENT: [...] on filedocumented in this encounter Care Teams Rn Resource Nurse Relationship Specialty Start Date End Date Surinder Han MD [facility] [address] [address] PCP - General Adolescent Medicine 07/23/16 documented as of this encounter
--- OUTSIDE RECORDS SUMMARY | 2025-05-30 12:56 | XMS_ITS | Clinical Summary ---
Author Organization [facility] Address [address] [place] [address] Care Team Providers Care Antiquer Name Role Phone Surinder Han MD Primary Care Provider + [phone] Allergies Active Allergy Reactions Criticality Noted Date [...] 07/23/2015 07/23/2005, 09/07/2004 COLORECTAL CANCER SCREENING 07/23/2015 INFLUENZA VACCINE 04/07/2025 RSV Vaccine - Adults (1 - 1- dose 75+ series) 2025 COVID-19 Vaccine ( - season) 2025 Procedures Procedure Name Priority Date/Time Associated Diagnosis Comments MAMMOGRAPHY Routine 06/07/2013 COLONOSCOPY Routine 09/07/2004 from Last 3 Months or Most Recently Relevant to Health Maintenance Results * MAMMOGRAPHY (06/07/2013) Mammogram last mammogram Anatomical Region Laterality Modality Other Historical Provider HEALTH MAINTENANCE Final Result * COLONOSCOPY (09/07/2004) Colonoscopy last colonoscopy us Historical Provider HEALTH MAINTENANCE Final Result from Last 3 Months or Most Recently Relevant to Health Maintenance Insurance MEDICARE A & B [employer]ETNA [facility] Care Teams Antiquer Relationship Specialty Start Date End Date Surinder Han MD 1210 [facility] [address] [place] [address] PCP - General Adolescent Medicine 07/23/16
--- OUTSIDE RECORDS SUMMARY | 2025-05-30 12:56 | XMS_ITS | Encounter Summary ---
Author Organization [facility] Address [address] [place] [address] Care Team Providers Care Manager Of Broadcast Content Name Role Phone Surinder Han MD Primary Care Provider + [phone] Encounter Details Date Type Department Care Team (Late st Contact Info) Description 06/13/2013 Conversion Encounter [facility] HISTORICAL CONV [address] [place] [address] Interface, See Report Social History [...] See Report - 06/13/2013 12:00 AM EDT MINING TECHNICIAN-Oncology Services [address] [place], [place] [address] Patient: ELYSSA PADILLA MR #: : 1950 [...] on filedocumented in this encounter Care Teams Manager Of Broadcast Content Relationship Specialty Start Date End Date Surinder Han MD [address] [facility] [address] [place] [address] PCP - General Adolescent Medicine 07/23/16 documented as of this encounter
[2025-05-30] MEDS: ALBUTEROL 0.083% 2.5 MG/3 ML NEB IH (15:10)
== END 2025-05-30 23:59 | disposition home or self-care (01) ==
LOC: RT 12:54
PROVIDERS: PCP Family Medicine; Visit Provider Internal Medicine Pulmonary Disease
DX: R94.2 Abnormal results of pulmonary function studies (principal); R06.09 Other forms of dyspnea; R06.02 Shortness of breath
CPT/HCPCS: 94010; 94618

== ENCOUNTER 2025-07-11 14:01 | Outpatient (CLI) | payer MEDICARE, SELFPAY ==
--- NOTE | 2025-07-11 14:00 | US_ITS ---
PROCEDURE: US TRANSVAGINAL CLINICAL INDICATION: Endometrial hyperplasia COMPARISON: US US TRANSVAGINAL from 10/06/[address] ABDOMEN PELVIS W CON from 04/10/2024 FINDINGS: Transvaginal sonographic images of the pelvis were obtained. UTERUS: 5.5 cm x 3.7 cmx 2.6 cm retroverted with a combined endometrial thickness of 5.7mm. The endometrium appears irregular and hyperechoic. In the transverse view it measures up to 8.7 mm. The bladder appears to have a high residual. LEFT OVARY: 2.1cmx1.2cmx1.1cm with a volume of 1.4ml. RIGHT OVARY: 1.4cmx 1.2cmx0.9 cm with a volume of 0.8ml. Both ovaries are seen and appear normal. Doppler flow to both ovaries are seen. There is no fluid in the cul-de-sac. IMPRESSION: 1. Retroverted uterus normal in shape and small in size. The endometrium measures 5.7 mm sagittally. When viewed transversely the endometrium measures up to 8.7 mm. It has an irregular hyperechoic, calcified appearance. Would suggest endometrial sampling. 2. The bladder appears to have a high residual. 3. Both ovaries are seen and appear atrophic. 4. No fluid in the cul-de-sac. Dictated by: Ilya Lee MD 07/11/2025 16:12 Ilya Lee MD in OV 07/11/2025 16:12
--- OUTSIDE RECORDS SUMMARY | 2025-07-11 14:09 | XMS_ITS | Encounter Summary ---
Author Organization [facility] Address [address] [place] [address] Care Team Providers Care Prototype Model Maker Name Role Phone Surinder Han MD Primary Care Provider + [phone] Encounter Details Date Type Department Care Team (Late st Contact Info) Description 06/13/2013 Conversion Encounter [facility] HISTORICAL CONV [address] [place] [address] Interface, See Report Social History [...] See Report - 06/13/2013 12:00 AM EDT ABSORBER OPERATOR-Oncology Services [address] [place], [place] [phone] Patient: ELYSSA PADILLA MR #: : 1950 [...] on filedocumented in this encounter Care Teams Prototype Model Maker Relationship Specialty Start Date End Date Surinder Han MD 1210 [facility] [address] [place] [address] PCP - General Adolescent Medicine 07/23/16 documented as of this encounter
--- OUTSIDE RECORDS SUMMARY | 2025-07-11 14:09 | XMS_ITS | Clinical Summary ---
Author Organization [facility] Address [address] [place] [address] Care Team Providers Care Cut Out Press Operator Name Role Phone Surinder Han MD Primary Care Provider + [phone] Allergies Active Allergy Reactions Criticality Noted Date [...] Maintenance Insurance MEDICARE A & B AETNA [facility] Care Teams Cut Out Press Operator Relationship Specialty Start Date End Date Surinder Han MD 1210 [facility] [address] [place] [address] PCP - General Adolescent Medicine 07/23/16
--- OUTSIDE RECORDS SUMMARY | 2025-07-11 14:09 | XMS_ITS | Encounter Summary ---
Author Organization [facility] Address [address] [place] [address] Care Team Providers Care Order Worker Name Role Phone Surinder Han MD Primary Care Provider + [phone] Encounter Details Date Type Department Care Team (Late st Contact Info) Description 02/21/2013 Conversion Encounter [facility] HISTORICAL CONV [address] [place] [address] Interface, See Report Social History [...] See Report - 02/21/2013 12:00 AM EDT OPERATIONAL COMMUNICATION CHIEF-Oncology Services [address] [place], [place] [address] Patient: ELYSSA PADILLA MR #: : 1950 [...] See Report - 02/07/2013 12:00 AM EDT OPERATIONAL COMMUNICATION CHIEF-Oncology Services [address] [place] [address] Patient: ELYSSA PADILLA MR #: : 1950 [...] Physical exam: Constitutional: [place] [address] Pulse Temp ; MODERATELY OVERWT. Neurological/Psychiatric: HEENT: [...] on filedocumented in this encounter Care Teams Order Worker Relationship Specialty Start Date End Date Surinder Han MD [facility] [address] [address] PCP - General Adolescent Medicine 07/23/16 documented as of this encounter
== END 2025-07-11 23:59 | disposition home or self-care (01) ==
LOC: RAD 14:02
PROVIDERS: PCP Family Medicine; Visit Provider Obstetrics & Gynecology
DX: N85.4 Malposition of uterus (principal); N83.312 Acquired atrophy of left ovary; N83.311 Acquired atrophy of right ovary; N85.00 Endometrial hyperplasia, unspecified; R39.198 Other difficulties with micturition; R93.89 Abnormal findings on diagnostic imaging of other specified body structures
CPT/HCPCS: 76830

== ENCOUNTER 2025-07-25 15:14 | Outpatient (CLI) | payer MEDICARE, SELFPAY ==
--- NOTE | 2025-07-25 15:15 | MM_ITS ---
PROCEDURE INFORMATION: Exam: MG Bilateral Screening 3D Mammography Exam date and time: 07/25/2025 3:14 PM Age: 75 years old Clinical indication: Screening examination TECHNIQUE: Imaging protocol: Bilateral Screening tomosynthesis and 2D mammography including computer-aided detection (CAD) when performed. COMPARISON: 1. MG MM DIG SCREENING MAMM BI W/CAD 06/28/2024 9:32 AM 2. MG SCREEN MAMMO W CAD BILAT 02/18/2022 8:26 AM FINDINGS: MAMMOGRAPHY: Breast composition: There are scattered areas of fibroglandular density. Mass: None. Architectural distortion: None. Calcifications: No suspicious calcifications. Asymmetric density: None. Skin thickening: None. Axillary adenopathy: None. IMPRESSION: No mammographic evidence of malignancy. Annual screening is recommended unless otherwise clinically indicated. ASSESSMENT: BI-RADS Category 1: Negative.
== END 2025-07-25 23:59 | disposition home or self-care (01) ==
LOC: RAD 15:15
PROVIDERS: PCP Family Medicine; Visit Provider Family Medicine
DX: Z12.31 Encounter for screening mammogram for malignant neoplasm of breast (principal); R92.323 Mammographic fibroglandular density, bilateral breasts
CPT/HCPCS: 77063; 77067

== ENCOUNTER 2025-08-01 13:01 | Outpatient (CLI) | payer MEDICARE, SELFPAY ==
--- OUTSIDE RECORDS SUMMARY | 2024-12-10 16:30 | XMS_ITS ---
Author Organization [facility] Address [address] [facility] [address] [place] [address] Care Team Providers Care Metallurgical Engineering Teacher Name Role Phone Melinda Garsia Primary Care Provider Migration, Provider Unavailable Unavailable Allergies Allergen (clinical drug ingredient) Drug/Non Drug Allergy documented on EMR Reaction Allergy Type Onset Date Status amoxicillin / clavulanate Augmentin tongue swell Drug Allergy [facility] Conversion Encounter Medications Medication SIG (Take, Route, Frequency, Duration) Notes Start Date End Date Status Diclofenac Sodium 75 MG 1 tab(s) orally 2 times a day as needed for arthritis pain; Duration: 30 day(s) 11/08/2021 Active PROAIR HFA 90 MCG/INH 2 PUFF(S) INHALED 4 TIMES A DAY NEEDED; Duration: 30 DAYS prn *Please review for potential replacement for e-prescription and drug interaction check* Active Lantus 100 UNIT/ML INJECT 80 UNITS SUBCUTANEOUSLY AT BEDTIME; Duration: 75 Active SYRINGE AND NEEDLES NRRDLES USE EVERY 3 MONTHS WITH B12 INJECTION IM *Please review for potential replacement for e-prescription and drug interaction check* 03/14/2013 Active HumuLIN R 100 UNIT/ML INJECT 35 UNITS SUBCUTANEOUSLY WITH BREAKFAST AND SUPPER AND 20 UNITS WITH LUNCH; Duration: 89 Active Biotin 5 MG 1 tab(s) orally once a day prn Active Clobetasol Propionate 0.05 % 1 cathie applied topically 2 times a day; Duration: 30 Active Lasix 40 MG 1 tab(s) orally once a day; Duration: 90 days Active metFORMIN HCl ER 500 MG Take 2 tablets b y mouth once daily; Duration: 90 Active Bisoprolol Fumarate 10 MG 1 tab(s) orally once a day; Duration: 90 days Active DIABETIC SHOES DIRECTED DX: E11.65 QD *Please review for potential replacement for e-prescription and drug interaction check* 07/28/2016 Active Omeprazole 20 MG 1 cap(s) orally once daily at bedtime; Duration: 90 days Active GLUCOMETER NA USE AC AND HS NA AC AND HS; Duration: 30 DAYS *Please review for potential replacement for e-prescription and drug interaction check* 01/25/2020 Active TEST STRIPS AND LANCETS NA AC AND HS NA AC AND HS FOR IDDM; Duration: 30 DAYS *Please review for potential replacement for e-prescription and drug interaction check* 01/25/2020 Active Triamcinolone Acetonide 0.1 % 1 cathie applied topically BID to the left external ear; Duration: 30 days 01/05/2019 Active medroxyPROGESTERone Acetate 5 MG 1 tab(s) orally once a day Active Multivitamin MULTIPLE VITAMINS 1 CAP(S) ORALLY ONCE A DAY *Please review and pick correct strength-formula tion from [employer] options. If intended option is not shown, discontinue and re-order from Quick Search* Active Calcium 600 + D 600 MG-800 INTL UNITS 1 TAB(S) ORALLY ONCE A DAY *Please review and pick correct strength-formula tion from [employer] options. If intended option is not shown, discontinue and re-order from Quick Search* Active PEN NEEDLES, 31GX1/4 DIRECTED; Duration: 30 DAYS *Please review for potential replacement for e-prescription and drug interaction check* 06/03/2017 Active Aspirin 81 MG 1 tab(s) orally once a day; Duration: 30 day(s) Active Otezla 30 MG 1 tab(s) orally 2 times a day Active Lisinopril 20 MG 1 tab(s) orally twice daily; Duration: 90 days Active hydroCHLOROthiazide 25 MG 1 tab(s) orally once a day; Duration: 90 Active Ketoconazole 2 % 1 cathie applied topically once; Duration: 1 day(s) Active Atorvastatin Calcium 80 MG 1 tab(s) orally once a day (at bedtime); Duration: 90 Active Encounters Encounter Location Date Provider Diagnosis [facility] [address] [place] [address] 12/10/2024 Provider Migration Plan Of Treatment Medication Medication Name Sig Start Date Stop Date Notes PROAIR HFA 90 MCG/INH 2 PUFF(S) INHALED 4 TIMES A DAY NEEDED; Duration: 30 DAYS prn *Please review for potential replacement for e-prescription and drug interaction check* metFORMIN HCl ER 500 MG Take 2 tablets b y mouth once daily; Duration: 90 Omeprazole 20 MG 1 cap(s) orally once daily at bedtime; Duration: 90 days Lisinopril 20 MG 1 tab(s) orally twice daily; Duration: 90 days hydroCHLOROthiazide 25 MG 1 tab(s) orall y once a day; Duration: 90 Atorvastatin Calcium 80 MG 1 tab(s) oral ly once a day (at bedtime); Duration: 90 Progress Notes * Elyssa PADILLA MDOB:1950 (75 yo F)Acc No.[id number]:12/10/2024 Patient: Christin BERENICEElyssa Provider: Alyssa giraldo Migration :1950 A ge:74 Y S ex:Female Date:12/10/2024 Address:[address] [place] [id number] Pcp:Melinda Garsia Subjective: * Chief Complaints: * 1 . [facility] To [facility] Conversion Encounter. * Medical History: * Medications: T aking Otezla 30 MG Tablet 1 tab(s) orally 2 times a day , Taking Ketoconazole 2 % Shampoo 1 cathie applied topically once , Taking Calcium 600 + D 600 MG-800 INTL UNITS TABLET 1 TAB(S) ORALLY ONCE A DAY , Notes to Pharmacist: *Please review and pick correct strength-formulation from Medispan options. If intended option is not shown, discontinue and re-order from Quick Search*, Taking PEN NEEDLES, 31GX1/4 DIRECTED , Notes to Pharmacist: *Please review for potential replacement for e- prescription and drug interaction check*, Taking medroxyPROGESTERone Acetate 5 MG Tablet 1 tab(s) orally once a day , Taking Multivitamin MULTIPLE VITAMINS CAPSULE 1 CAP(S) ORALLY ONCE A DAY , Notes to Pharmacist: *Please review and pick correct strength-formulation from Medispan options. If intended option is not shown, discontinue and re-order from Quick Search*, Taking Aspirin 81 MG Tablet Delayed Release 1 tab(s) orally once a day , Taking Triamcinolone Acetonide 0.1 % Cream 1 cathie applied topically BID to the left external ear , Taking DIABETIC SHOES DIRECTED DX: E11.65 QD , Notes to Pharmacist: *Please review for potential replacement for e-prescription and drug interaction check*, Taking GLUCOMETER NA PER INSURANCE COVERAGE USE AC AND HS NA AC AND HS , Notes to Pharmacist: *Please review for potential replacement for e-prescription and drug interaction check*, Taking TEST STRIPS AND LANCETS NA PER INSURANCE COVERAGE WITH GLUCOMETER AC AND HS NA AC AND HS FOR IDDM , Notes to Pharmacist: *Please review for potential replacement for e-prescription and drug interaction check*, Taking Biotin 5 MG Tablet Disintegrating 1 tab(s) orally once a day , Notes to Pharmacist: prn, Taking Clobetasol Propionate 0.05 % Solution 1 cathie applied topically 2 times a day , Taking Lasix 40 MG Tablet 1 tab(s) orally once a day , Taking Bisoprolol Fumarate 10 MG Tablet 1 tab(s) orally once a day , Taking Lantus 100 UNIT/ML Solution INJECT 80 UNITS SUBCUTANEOUSLY AT BEDTIME , Taking SYRINGE AND NEEDLES NRRDLES 3 ML SYRINGE WITH 23 GAUGE 1 INCH NEEDLE USE EVERY 3 MONTHS WITH B12 INJECTION IM , Notes to Pharmacist: *Please review for potential replacement for e-prescription and drug interaction check*, Taking HumuLIN R 100 UNIT/ML Solution INJECT 35 UNITS SUBCUTANEOUSLY WITH BREAKFAST AND SUPPER AND 20 UNITS WITH LUNCH , Taking Diclofenac Sodium 75 MG Tablet Delayed Release 1 tab(s) orally 2 times a day as needed for arthritis pain * Allergies: A ugmentin: tongue swell. Objective: * Vitals: Assessment: Plan: * Treatment: * * Electronic signature of Prov catie Migration on 08/01/2025 at 01:14 PM EST Sign off status: Pending * Provider: Alyssa giraldo Migration Date: 0 12/10/2024 Generated for Evangelina ramos/Lacey/Glory on: 10/01/2024 01:14 PM EST
--- OUTSIDE RECORDS SUMMARY | 2025-08-01 13:14 | XMS_ITS | Patient Health Record ---
Author Organization [facility] Address [address] [place] [address] Care Team Providers Care Technical Assoc Name Role Phone Melinda Garsia Primary Care Provider [phone] Migration, Provider Unavailable Unavailable Allergies Allergen (clinical [...] review and pick correct strength-formula tion from Whisper options. If intended option is not shown, discontinue and re-order from Quick Search* Active Calcium 600 + D 600 MG-800 INTL UNITS 1 TAB(S) ORALLY ONCE A DAY *Please review and pick correct strength-formula tion from Aquacuean options. If intended option is not shown, [...] Hyperglycemia due to type 2 diabetes mellitus (720265020045731) Type 2 diabetes mellitus with hyperglycemia (E11.65) Active confirmed Problem Allergic rhinitis (71686091) Other allergic rhinitis (J30.89) Active confirmed Problem Chronic obstructive pulmonary disease (40354915) Chronic obstructive pulmonary disease, unspecified (J44.9) Active confirmed Problem Peripheral venous insufficiency (01501387) Venous insufficiency (I87.2) Active confirmed Problem Essential hypertension (37432044) Essential hypertension (I10) Active confirmed Problem Psoriasis (1474488) Psoriasis (L40.9) Active co nfirmed Problem Seasonal allergic rhinitis (242297476) Seasonal allergic reaction (J30.2) Active confirmed Problem Urinary incontinence (810273266) Urinary incontinence (R32) Active confirmed Problem Body mass index 30+ - obesity (310794020) BMI 30.0-30.9,adult (Z68.30) Active confirmed Problem Psoriasis of scalp (998121271) Psoriasis of scalp (L40.9) Active confirmed Problem Long-term current use of insulin (691750545) [facility]CI current use of insulin (Z79.4) Active confirmed Problem Peripheral edema (22172032) Peripheral edema (R60.9) Active confirmed Problem Arthropathy (277112893) Arthropathy, 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) Active confirmed Problem Menopausal and perimenopausal disorder (N95.9) Active confirmed Problem Overactive urinary bladder (disorder) (088083193) OAB (overactive bladder) (N32.81) Active confirmed Problem BMI 25-29 - overweight (255293116) BMI 29.0-29.9,adult (Z68.29) Active confirmed Problem Allergic rhinitis caused by pollen (87187439) Seasonal allergic rhinitis due to pollen (J30.1) Active confirmed Problem Gastroesophageal reflux disease (disorder) (785066029) Chronic GERD (K21.9) Active confirmed Problem Mixed hyperlipidemia (424052891) Mixed dyslipidemia (E78.2) Active confirmed Problem Osteopenia following menopause (disorder) (262098516) Osteopenia after menopause (M85.80) Active confirmed Encounters Encounter Location Date Provider Diagnosis [facility] [address] [place] [address] 12/10/2024 Provider Migration Plan Of Treatment Pending [...] with AUTO DIFF 05/21/2017 H-CMP 05/21/2017 H-CMP 12/05/2015 H-CMP 08/17/2017 H-CMP 12/20/2015 H-MAGNESIUM 05/21/2017 H-LIPID PANEL 05/21/2017 H-LIPID PANEL 12/20/2015 H-LIPID PANEL 08/17/2017 H-LIPID PANEL 12/05/2015 H-CPK 05/21/2017 H-HGBA1C 05/21/2017 H-HGBA1C 12/05/2015 H-HGBA1C 08/17/2017 H-HGBA1C 12/20/2015 H-TSH 05/21/2017 H-MICROALBUMIN URINE 11/20/2016 H-MICROALBUMIN URINE 12/05/2015 spirometry 11/20/2016 H-MICROALB/SALES ENGINEER ACCOUNT MANAGER UR 08/17/2017 H-MICROALB/SALES ENGINEER ACCOUNT MANAGER UR 05/21/2017 M-Complete Blood Count Auto Diff [...] End Date [place] [address] [place] [address] [id number] Elyssa Toro Self - patient is the insured [employer] [address] [address] [place] [address] [phone] [id number] Elyssa Toro Self - patient is the [...]
--- OUTSIDE RECORDS SUMMARY | 2025-08-01 13:14 | XMS_ITS | Encounter Summary ---
Author Organization [facility] Address [address] [place] [address] Care Team Providers Care Ladle Puller Name Role Phone Surinder Han MD Primary Care Provider + [phone] Encounter Details Date Type Department Care Team (Late st Contact Info) Description 06/13/2013 Conversion Encounter [facility] HISTORICAL CONV [address] [place] [address] Interface, See Report Social History [...] See Report - 06/13/2013 12:00 AM EDT SUPERVISOR CONTINUOUS WELD PIPE MILL-Oncology Services [address] [place], [place] [address] Patient: ELYSSA PADILLA MR #: : 1950 [...] on filedocumented in this encounter Care Teams Ladle Puller Relationship Specialty Start Date End Date Surinder Han MD 1210 [facility] [address] [place] [address] PCP - General Adolescent Medicine 07/23/16 documented as of this encounter
--- OUTSIDE RECORDS SUMMARY | 2025-08-01 13:14 | XMS_ITS | Encounter Summary ---
Author Organization [facility] Address [address] [place] [address] Care Team Providers Care Pediatric Physician Name Role Phone Surinder Han MD Primary Care Provider + [phone] Encounter Details Date Type Department Care Team (Late st Contact Info) Description 02/21/2013 Conversion Encounter [facility] HISTORICAL CONV [address] [place] [place] [address] Interface, See Report Social History [...] See Report - 02/21/2013 12:00 AM EDT ENTRY LEVEL PROJECT ENGINEER-Oncology Services [address] [place], [place] [address] Patient: ELYSSA PADILLA MR #: : 1950 [...] See Report - 02/07/2013 12:00 AM EDT ENTRY LEVEL PROJECT ENGINEER-Oncology Services [address] [place] [address] Patient: ELYSSA PADILLA MR #: : 1950 [...] Physical exam: Constitutional: [place] [address] Pulse Temp ; MODERATELY OVERWT. Neurological/Psychiatric: HEENT: [...] on filedocumented in this encounter Care Teams Pediatric Physician Relationship Specialty Start Date End Date Surinder Han MD [facility] [address] [address] PCP - General Adolescent Medicine 07/23/16 documented as of this encounter
--- OUTSIDE RECORDS SUMMARY | 2025-08-01 13:15 | XMS_ITS | Clinical Summary ---
Author Organization [facility] Address [address] [place] [address] Care Team Providers Care Ironworker Machine Operator Name Role Phone Surinder Han MD Primary Care Provider + [phone] Allergies Active Allergy Reactions Criticality Noted Date [...] B [employer]ETNA [facility] Care Teams Ironworker Machine Operator Relationship Specialty Start Date End Date Surinder Han MD 1210 [facility] [address] [place] [address] PCP - General Adolescent Medicine 07/23/16
[2025-08-01 13:55] LABS: Albumin Level 3.7 g/dl (3.5-5.0); Chloride 96 mmol/L (98-107); Sodium 135 mmol/L (136-145)
[2025-08-01 13:56] LABS: Potassium 4.4 mmoL/L (3.5-5.1)
[2025-08-01 13:58] LABS: Alanine Aminotransferase 21 U/L (12-78); Albumin/Globulin Ratio 1.5 (1.1-1.8); Alkaline Phosphatase 91 U/L (38-126); Anion Gap 15.4 mEq/L (5-15); Aspartate Amino Transferase 20 U/L (14-36); Bilirubin,Total 0.4 mg/dl (0.2-1.3); Blood Urea Nitrogen 21 mg/dl (7-17); Carbon Dioxide 28 mmol/L (22.0-30.0); Creatinine,Serum 1.30 mg/dl (0.52-1.04); Estimated Glomerular Filt Rate 40 ml/min (>60); GFR (African American) 48 ML/MIN (>60); Globulin 2.5 g/dL (1.3-3.2); Total Protein,Serum 6.2 g/dl (6.3-8.2)
[2025-08-01 13:59] LABS: Calcium 9.7 mg/dl (8.4-10.2); Glucose 195 mg/dl (74-100)
== END 2025-08-01 23:59 | disposition home or self-care (01) ==
LOC: LAB 13:02
PROVIDERS: PCP Family Medicine; Visit Provider Obstetrics & Gynecology
DX: N85.00 Endometrial hyperplasia, unspecified (principal); N28.9 Disorder of kidney and ureter, unspecified
CPT/HCPCS: 36415; 80053

== ENCOUNTER 2025-08-17 09:31 | Outpatient (CLI) | payer MEDICARE, SELFPAY | END 2025-08-17 23:59 | disposition home or self-care (01) | LOC: RT 09:32 | PROVIDERS: PCP Family Medicine; Visit Provider Internal Medicine Pulmonary Disease | DX: R06.02 Shortness of breath (principal) | CPT/HCPCS: 94618 ==